=== PATIENT | female | born 1960 | race Caucasian/White ===

== ENCOUNTER → 2016-11-19 | Outpatient (CLI) | payer OTHER ==
[~2016-11-19] MED LIST: CYM20 PO; CYM30 PO; DIAZ-165 PO; DIAZ10TA3 PO; DIAZ2TAB PO; DIGE1CAP10 PO; DIPH25CA65 PO; DULO-24 PO; FAMO1TAB48 PO; FOLI1TAB7 PO; HYDR-5688 PO; HYDR25CA PO; LEVO25CA2 PO; LEVO25TA PO; MISCCAP80 PO; NITR-5 PO; NYSS/ PO; ONDA4TAB10 SL; SULF800T23 PO; VLM2 PO; [UNRECOGNIZED DRUG - OTHER] PO
--- NOTE | 2016-11-19 19:32 | ELECTROENCEPHALOGRAPH REPORT ---
REQUESTING PHYSICIAN: Dr. Saunders. CLINICAL DIAGNOSIS: Headaches with altered consciousness. EEG DIAGNOSIS: Essentially normal during wakefulness. DESCRIPTION OF TRACING: This EEG was done in the laboratory and was of excellent technical quality with few or no muscle or movement artifacts. Simultaneous video analysis of patient movement and behavior was obtained. Photic stimulation is the only stimulus parameter utilized. Drowsiness and light sleep are not recorded. Under these conditions, there is evidence for normal appearing background rhythm in the alpha range of up to 10 Hz of maximum frequency and of up to 30 microvolts of maximum amplitude. This is maximum in posterior head regions and bilaterally symmetrical. Polymorphic mid frequency theta activity is seen over all head regions without clear focal or regional predominance. Anterior head region maximum bilaterally symmetrical low voltage fast activity in the beta range is present. Photic stimulation provokes a modest driving response without a photomyogenic or photoparoxysmal component. At no time during the waking tracing is there evidence for potentially epileptogenic activity in the form of polyspike or spike wave bursts, focal sharp waves or focal spikes. INTERPRETATION: This electroencephalogram is essentially normal during wakefulness without evidence for focal or generalized encephalopathy and without evidence for potentially epileptogenic activity.
== END | disposition home or self-care (01) ==
LOC: C.NEUR 13:33
PROVIDERS: ATTEND Psychiatry & Neurology Neurology
DX: R51 Headache (principal)

== ENCOUNTER 2016-11-24 15:34 | Emergency (ER) | payer OTHER ==
[~2016-11-24] VITALS: Ht 162.6 cm; Wt 73.1 kg
[~2016-11-24 15:34] MED LIST changes: -CYM20 PO; -CYM30 PO; -DIAZ10TA3 PO; -DIAZ2TAB PO; -DIGE1CAP10 PO; -DIPH25CA65 PO; -FAMO1TAB48 PO; -FOLI1TAB7 PO; -HYDR-5688 PO; -HYDR25CA PO; -LEVO25CA2 PO; -NITR-5 PO; -NYSS/ PO; -ONDA4TAB10 SL; -SULF800T23 PO; -VLM2 PO; -[UNRECOGNIZED DRUG - OTHER] PO
[2016-11-24 15:45] VITALS: TEMP 36.7; Ht 162.6 cm; Wt 73.1 kg
[2016-11-24] MEDS ORDERED: LEVO25CA2 PO (16:31)
[2016-11-24] MEDS ORDERED: NYSS/ PO (16:31)
[2016-11-24] MEDS ORDERED: DIAZ2TAB PO (16:31)
[2016-11-24] MEDS ORDERED: SODIUM CHLORIDE 0.9% 1000ML 250 ML IV STA (17:38)
[2016-11-24] MEDS ORDERED: SODIUM CHLORIDE 0.9% 1000ML 1,000 ML IV STA (17:38)
--- NOTE | 2016-11-24 17:44 | EMERGENCY ROOM VISIT NOTE ---
History Report prepared by Lori: Young Lozada Under the Supervision of: Dr. Young Saenz M.D. First contact with patient: 17:23 Chief Complaint: ILLNESS Stated Complaint: HEAD, THROAT, CHEST History of Present Illness The patient is a 56 year old female who presents to the Emergency Room with complaints of persistent head pain beginning about 1 year ago. She notes she wakes up in the morning with the head pain either on the right or left side, or top of her head. She reports she was at the [place] ER this past September of 2016 with stroke-like symptoms noting she had left arm numbness. She was referred to Dr. Kuhn in Neurology and was set up for an MRI and EEG which were done last week. The patient reports she was going to see her neurologist tomorrow but could not get a ride. She was advised by a nurse at the neurologist to present to the ER. The patient states that, in addition to the head pain, she has been having right sided neck pain for the past week. She denies having any fever, but notes she had chest pain and nausea en route to the ER thought she this this is from her anxiety. She admits to a history of anxiety and depression and follows with Dr. Cunha, her psychiatrist. She notes her anxiety and depression medication worsen her symptoms. She denies having any suicidal or homicidal ideations. The patient adds she was recently started on Nystatin 3 weeks ago for thrush, and Tirosint for hypothyroidism. She notes she has recently gain weight, and has had constipation recently. Her last bowel movement was 2 days ago. Source of History: patient Onset: 1 year ago Position: head Quality: other (head pain) Timing: other (persistent) Associated Symptoms: + chest pain, + nausea, + neck pain, No fevers Note: The patient reports having constipation. Review of Systems See HPI for pertinent positives & negatives. A total of 10 systems reviewed and were otherwise negative. Past Medical & Surgical Medical Problems: (1) Anxiety (2) Anxiety (3) Depression (4) Fatty liver (5) Gallbladder polyp (6) Hiatal hernia (7) Hypothyroidism (8) Thyroid problems Surgical Problems: (1) Lipoma of neck (2) S/P tonsillectomy Old medical records were reviewed. Nurse's notes were reviewed and I agree with. Family History Diabetes mellitus FHx: gallbladder disease FHx: heart disease No FHx f blood clots Social History Smoking Status: Never Smoker Alcohol Use: none Housing Status: lives with family, lives with significant other Current/Historical Medications Scheduled Diazepam (Valium), 10 MG PO HS Levothyroxine Sodium (Tirosint), 25 MCG PO DAILY Nystatin (Nystatin Suspension), 5 ML PO QID Scheduled PRN Diazepam (Valium), 4-6 MG PO QAM PRN for Anxiety Allergies Coded Allergies: Escitalopram (Unverified Allergy, Unknown, RESTLESS ARMS, 11/24/16) Morphine (Unverified Allergy, Unknown, bad reaction, 11/24/16) Venlafaxine (Unverified Allergy, Unknown, RESTLESS ARMS, 11/24/16) Levothyroxine (Verified Adverse Reaction, Intermediate, FACE AND TONGUE SWELLING, 11/24/16) PT TAKES THIS MEDICATION DESPITE REACTION 10/14/15- SPOKE WITH PATIENT, BELIEVES THAT THIS REACTION COMES FROM SYNTHROID BECAUSE WHEN THE DOSE WAS INCREASED THE SWELLING GOT WORSE. CURRENTLY TAKES BRAND, BELIEVES HAS TAKEN GENERIC Omeprazole (Verified Adverse Reaction, Intermediate, SWOLLEN TONGUE, NAUSEA, FACIAL EDEMA, 11/24/16) Amitriptyline (Verified Adverse Reaction, Unknown, FACIAL PAIN, 11/24/16) Sertraline (Verified Adverse Reaction, Unknown, BURNING FEELING ON TONGUE , 11/24/16) Physical Exam Vital Signs Date Time Temp Pulse Resp B/P Pulse Ox O2 Delivery O2 Flow Rate FiO2 11/24/16 21:17 82 118/75 95 11/24/16 17:57 81 18 113/74 97 Room Air 11/24/16 15:45 36.7 102 16 112/75 96 Room Air Physical Exam General: Non ill appearing middle aged female. Speaking and swallowing without difficulty; no drooling. Well developed well nourished in no acute distress, breathing comfortably on room air. Normal speech. No difficulty speaking and swallowing HEENT: Normal cephalic atraumatic. Pupils are equal round and reactive to light. Extraocular movements are intact. Oropharynx is pink with moist mucous membranes. No swelling of the mouth lips or tongue. Neck: Supple with a midline trachea. No meningeal signs or stiffness, no JVD or bruits. No masses. No Stridor. Chest: Clear to auscultation bilaterally. No wheezes or rhonchi. No increased work of breathing. Heart: regular rate and rhythm. Abdomen: Soft nontender, nondistended without rebound guarding or rigidity. Extremities: No cyanosis clubbing or edema. No calf tenderness or assymetry Spine/Back. Non tender to palpation. No CVA tenderness Skin: Good turgor without rashes. Neurologic exam: Cranial nerves two through 12 are intact. Motor and sensation are intact and symmetrical throughout. Psych: Normal thought process, intermittent teary eyed, denies suicidal or homicidal ideations. Medical Decision & Procedures ER Provider Diagnostic Interpretation: X ray results as stated below per my interpretation and radiologist interpretation. Other radiology results as stated below per my review and radiologist interpretation: CHEST ONE VIEW PORTABLE FINDINGS: Lung volumes are normal. There is no pneumothorax or pleural effusion. No consolidation is identified. Cardiac size is normal. Mediastinal contours are normal. There is no evidence of pulmonary edema. Subtle interstitial thickening within the right lower lung is likely within normal limits. IMPRESSION: No acute cardiopulmonary findings. Electronically signed by: Singh Go M.D. 11/24/2016 6:23 PM Dictated Date/Time: 11/24/2016 6:22 PM THYROID ULTRASOUND FINDINGS: The right thyroid lobe measures 5.9 x 2.6 x 2 cm and the left lobe measures 6.3 x 3.1 x 2.2 cm. The entirety of the gland is heterogeneous with increased vascularity. There is a 9 mm echogenic right lobe nodule. A right-sided cervical lymph node measures 1.1 x 0.5 x 0.8 cm. IMPRESSION: 1. Moderately enlarged, heterogeneous thyroid gland. The findings raise the possibility of thyroiditis. 2. 9 mm echogenic right lobe thyroid nodule. While indeterminate, this is likely benign and does not meet criteria for biopsy. 3. Prominent but nonenlarged right-sided cervical lymph node. No pathologically enlarged cervical lymph nodes identified. Electronically signed by: Singh Go M.D. 11/24/2016 7:21 PM Dictated Date/Time: 11/24/2016 7:18 PM Laboratory Results 11/24/16 18:10 Red Blood Count 4.72, Mean Corpuscular Volume 91.1, Mean Corpuscular Hemoglobin 31.1, Mean Corpuscular Hemoglobin Concent 34.2, Mean Platelet Volume 9.9, Neutrophils (%) (Auto) 63.5, Lymphocytes (%) (Auto) 20.8, Monocytes (%) (Auto) 7.9, Eosinophils (%) (Auto) 7.1, Basophils (%) (Auto) 0.6, Neutrophils # (Auto) 5.57, Lymphocytes # (Auto) 1.82, Monocytes # (Auto) 0.69, Eosinophils # (Auto) 0.62, Basophils # (Auto) 0.05 11/24/16 18:10 Test 11/24/16 18:10 11/24/16 18:24 White Blood Count 8.76 K/uL (4.8-10.8) Red Blood Count 4.72 M/uL (4.2-5.4) Hemoglobin 14.7 g/dL (12.0-16.0) Hematocrit 43.0 % (37-47) Mean Corpuscular Volume 91.1 fL (80-100) Mean Corpuscular Hemoglobin 31.1 pg (25-34) Mean Corpuscular Hemoglobin Concent 34.2 g/dl (32-36) Platelet Count 320 K/uL (130-400) Mean Platelet Volume 9.9 fL (7.4-10.4) Neutrophils (%) (Auto) 63.5 % Lymphocytes (%) (Auto) 20.8 % Monocytes (%) (Auto) 7.9 % Eosinophils (%) (Auto) 7.1 % Basophils (%) (Auto) 0.6 % Neutrophils # (Auto) 5.57 K/uL (1.4-6.5) Lymphocytes # (Auto) 1.82 K/uL (1.2-3.4) Monocytes # (Auto) 0.69 K/uL (0.11-0.59) Eosinophils # (Auto) 0.62 K/uL (0-0.5) Basophils # (Auto) 0.05 K/uL (0-0.2) RDW Standard Deviation 43.6 fL (36.4-46.3) RDW Coefficient of Variation 13.1 % (11.5-14.5) Immature Granulocyte % (Auto) 0.1 % Immature Granulocyte # (Auto) 0.01 K/uL (0.00-0.02) Anion Gap 10.0 mmol/L (3-11) Est Creatinine Clear Calc Drug Dose 64.0 ml/min Estimated GFR () 77.1 Estimated GFR (Non- 66.5 BUN/Creatinine Ratio 13.1 (10-20) Calcium Level 8.7 mg/dl (8.5-10.1) Total Bilirubin 0.2 mg/dl (0.2-1) Direct Bilirubin < 0.1 mg/dl (0-0.2) Aspartate Amino Transf (AST/SGOT) 14 U/L (15-37) Alanine Aminotransferase (ALT/SGPT) 22 U/L (12-78) Alkaline Phosphatase 92 U/L (45-117) Total Protein 7.6 gm/dl (6.4-8.2) Albumin 3.8 gm/dl (3.4-5.0) Lipase 131 U/L (73-393) Thyroid Stimulating Hormone (TSH) 3.490 uIu/ml (0.300-4.500) Bedside Troponin I 0.000 ng/ml (0-0.045) Laboratory studies as stated above per my review. Medications Administered Medications (Trade) Dose Ordered Sig/Irving Route Start Time Stop Time Status Last Admin Dose Admin Sodium Chloride 250 ml @ 999 mls/hr Q16M STAT IV 11/24/16 17:38 11/24/16 17:53 DC 11/24/16 17:38 999 MLS/HR Sodium Chloride (Nss 1000ml) 1,000 ml @ 100 mls/hr Q10H STAT IV 11/24/16 17:38 11/24/16 22:52 DC 11/24/16 17:38 100 MLS/HR ECG Indication: other (illness) Rate (beats per minute): 84 Rhythm: normal sinus Findings: no acute ischemic change, no ectopy Comparison ECG Date: March 26, 2016; Change: rate has decreased ED Course 1725: Past medical records reviewed. The patient was evaluated in room C2B, and a complete history and physical examination were performed. 8: Ordered NSS 1,000 ml @ 100 mls/hr IV, and NSS 250 ml @ 999 mls/hr IV. 0: I reassessed the patient and she is feeling better. 2100: Upon reevaluation, the patient is doing well. I discussed the results and treatment plan with the patient. She verbalized agreement of the treatment plan. The patient was discharged home. Medical Decision Differentials include anxiety, neck mass, thyroid disease, intracranial process , seizure, and electrolyte or metabolic abnormality. This patient comes in as described above. she has multiple different complaints .she's been having chronic headaches. She's also has a sensation in her throat and this has been going on for a week or month. She looks well on exam. she is speaking and swallowing without difficulties and has a normal neurologic exam. I did review her workup that she's had done recently .she had a normal EEG she had a normal MRI of her brain. I I obtained multiple blood testing here. she hasno white count or fever suggest infection. she has no acute electrode or metabolic abnormalities. Her TSH is within normal limits and she has nothing to suggest acute thyroid disease or thyroid storm. Chest x-ray was unremarkable. EKG is unremarkable. I did order a CT of her neck but she declined and would rather have an ultrasound so I did an ultrasound .she has a moderate enlargement of her thyroid and a small nodule. I recommend she follow up with her regular doctor for this. Again her TSH is within normal limits. I had missed see her psychiatric rn case mgr talked to her I think a lot of her symptoms may be related to depression and anxiety. I encouraged her to follow up with her regular doctor this week for recheck . return if :worsening symptoms , shortness of breath, any new problems or concerns. She was happy the plan and discharged to home. Impression Primary Impression: Headache Additional Impression: Neck pain Scribe Attestation The scribe's documentation has been prepared under my direction and personally reviewed by me in its entirety. I confirm that the note above accurately reflects all work, treatment, procedures, and medical decision making performed by me. Departure Information Dispostion Home / Self-Care Referrals No Doctor, Assigned (PCP) Patient Instructions [facility] Additional Instructions Rest Return if: worsening of symptoms, shortness of breath, any new problems or concern Follow-up with your doctor in 1-2 days for recheck Problem Qualifiers
[2016-11-24 18:24] LABS: BASO % 0.6 %; BASO ABS # 0.05 K/uL (0-0.2); COMPLETE YES; EOS % 7.1 %; IG% 0.1 %; LYMPH % 20.8 %; LYMPH ABS # 1.82 K/uL (1.2-3.4); MEAN CELL VOLUME 91.1 fL (80-100); MEAN CORPUSCULAR HEMOGLOBIN 31.1 pg (25-34); MEAN CORPUSCULAR HGB CONC 34.2 g/dl (32-36); MEAN PLATELET VOLUME 9.9 fL (7.4-10.4); MONO % 7.9 %; NEUT % 63.5 %; PLATELET COUNT 320 K/uL (130-400); RED BLOOD COUNT 4.72 M/uL (4.2-5.4); WHITE BLOOD COUNT 8.76 K/uL (4.8-10.8)
--- NOTE | 2016-11-24 18:24 | DIAGNOSTIC IMAGING REPORT ---
CHEST ONE VIEW PORTABLE CLINICAL HISTORY: Chest pain. Throat pain COMPARISON STUDY: Chest radiograph October 13, 2015. FINDINGS: Lung volumes are normal. There is no pneumothorax or pleural effusion. No consolidation is identified. Cardiac size is normal. Mediastinal contours are normal. There is no evidence of pulmonary edema. Subtle interstitial thickening within the right lower lung is likely within normal limits. IMPRESSION: No acute cardiopulmonary findings. Electronically signed by: Singh Go M.D. 11/24/2016 6:23 PM Dictated Date/Time: 11/24/2016 6:22 PM
[2016-11-24] MEDS ORDERED: DIAZ10TA3 PO (18:30)
[2016-11-24 18:41] LABS: ALT/SGPT 22 U/L (12-78); BLOOD UREA NITROGEN 12 mg/dl (7-18); BUN/CREATININE RATIO 13.1 (10-20); CALCIUM 8.7 mg/dl (8.5-10.1); CARBON DIOXIDE 24 mmol/L (21-32); CHLORIDE 110 mmol/L (98-107); CREATININE 0.95 mg/dl (0.60-1.20); GLUCOSE 90 mg/dl (70-99); SODIUM 144 mmol/L (136-145)
[2016-11-24 18:51] LABS: ALKALINE PHOSPHATASE 92 U/L (45-117); AST/SGOT 14 U/L (15-37)
--- NOTE | 2016-11-24 19:22 | DIAGNOSTIC IMAGING REPORT ---
THYROID ULTRASOUND CLINICAL HISTORY: Palpable enlargement of the thyroid. Difficulty breathing. Evaluate for mass. COMPARISON STUDY: None. TECHNIQUE: Sonography of the thyroid gland was performed. FINDINGS: The right thyroid lobe measures 5.9 x 2.6 x 2 cm and the left lobe measures 6.3 x 3.1 x 2.2 cm. The entirety of the gland is heterogeneous with increased vascularity. There is a 9 mm echogenic right lobe nodule. A right-sided cervical lymph node measures 1.1 x 0.5 x 0.8 cm. IMPRESSION: 1. Moderately enlarged, heterogeneous thyroid gland. The findings raise the possibility of thyroiditis. 2. 9 mm echogenic right lobe thyroid nodule. While indeterminate, this is likely benign and does not meet criteria for biopsy. 3. Prominent but nonenlarged right-sided cervical lymph node. No pathologically enlarged cervical lymph nodes identified. Electronically signed by: Singh Go M.D. 11/24/2016 7:21 PM Dictated Date/Time: 11/24/2016 7:18 PM
[2016-11-24 21:17] VITALS: BP 118/75; PULSE 82; O2SAT 95
[2017-01-14] MEDS ORDERED: CYM20 PO (08:53)
[2017-01-14] MEDS ORDERED: DIAZ2TAB PO (08:53)
== END 2016-11-24 21:17 | disposition home or self-care (01) ==
LOC: C.EDB 15:35 → C.EDC 21:17
DX: R51 Headache (principal); M54.2 Cervicalgia; E03.9 Hypothyroidism, unspecified; F41.8 Other specified anxiety disorders; Z83.3 Family history of diabetes mellitus; Z82.49 Family history of ischemic heart disease and other diseases of the circulatory system; Z83.79 Family history of other diseases of the digestive system

== ENCOUNTER 2016-12-17 14:24 | Emergency (ER) | payer OTHER ==
[~2016-12-17] VITALS: Ht 162.6 cm; Wt 74.6 kg
[~2016-12-17 14:24] MED LIST changes: -DIAZ-165 PO; +DIAZ10TA3 PO; +DIAZ2TAB PO; -DULO-24 PO; +LEVO25CA2 PO; -LEVO25TA PO; -MISCCAP80 PO; +NYSS/ PO
[2016-12-17 14:40] VITALS: TEMP 36.5; Ht 162.6 cm; Wt 74.6 kg
[2016-12-17] MEDS ORDERED: [UNRECOGNIZED DRUG - OTHER] PO (16:29)
--- NOTE | 2016-12-17 16:40 | EMERGENCY ROOM VISIT NOTE ---
History Report prepared by Lori: Jeffrey Verdin Under the Supervision of: Dr. Wiliam Alex M.D. First contact with patient: 16:14 Chief Complaint: PAIN (GENERALIZED) Stated Complaint: WHAT DOESNT HURT History of Present Illness The patient is a 56 year old female who presents to the Emergency Room with complaints of persistent generalized pain that started a few weeks ago. The patient was here in November for similar symptoms, including a feeling that her thyroid is pushing up in her airway in her throat. She says that she cannot breathe well, but when she is sitting up, she feels better. The patient has been on Nystatin for yeast in her throat. She has had issues with her thyroid, and is seeing a nurse practitioner in [place] for it. The patient had a throat ultrasound while here in November, and is scheduled to have a repeat ultrasound. She also notes multiple other issues, including depression, anxiety , headaches, a tight abdomen, and burning urination. She says the burning urination started a week ago. The patient has never had a urinary tract infection. She denies any vaginal discharge. Regarding her depression, she says she goes to sleep to escape and "alienates" herself. She does not take any medications for her anxiety, as the medications have given her headaches. For about a year now, she has felt weak, and even a little amount of stress makes her feel extremely weak. She also has been having chronic shaking, and went to the [facility] ER for this. The patient was referred to Dr. Saunders (neurologist) , who gave her a brain MRI. The MRI was normal. She denies any suicidal ideations. Source of History: patient Onset: A few weeks ago Position: other (global - generalized pain) Timing: other (persistent) Associated Symptoms: + headache, + urinary symptoms, + weakness (chronic for a year) Note: Associated symptoms: Tight throat, causing difficulty breathing. Depression, anxiety, tight abdomen. Chronic shaking. Denies any vaginal discharge, suicidal ideation. Review of Systems See HPI for pertinent positives & negatives. A total of 10 systems reviewed and were otherwise negative. Past Medical & Surgical Medical Problems: (1) Anxiety (2) Anxiety (3) Depression (4) Fatty liver (5) Gallbladder polyp (6) Hiatal hernia (7) Hypothyroidism (8) Thyroid problems Surgical Problems: (1) Lipoma of neck (2) S/P tonsillectomy Family History Diabetes mellitus FHx: gallbladder disease FHx: heart disease No FHx f blood clots Social History Smoking Status: Never Smoker Alcohol Use: none Housing Status: lives with family, lives with significant other Current/Historical Medications Scheduled Diazepam (Valium), 10 MG PO HS Hydroxyzine Pamoate (Vistaril), 1 CAP PO BID Levothyroxine Sodium (Tirosint), 25 MCG PO DAILY Nitrofurantoin Monohyd Macrocr (Macrobid), 100 MG PO BID Nystatin (Nystatin Suspension), 5 ML PO QID [Timbo Hydrate], 2 TABS PO BID Scheduled PRN Diazepam (Valium), 4-6 MG PO QAM PRN for Anxiety Allergies Coded Allergies: Escitalopram (Verified Allergy, Intermediate, RESTLESS ARMS, 12/17/16) Morphine (Verified Allergy, Intermediate, bad reaction, 12/17/16) Venlafaxine (Verified Allergy, Intermediate, RESTLESS ARMS, 12/17/16) Amitriptyline (Verified Adverse Reaction, Severe, FACIAL PAIN, 12/17/16) Levothyroxine (Verified Adverse Reaction, Severe, FACE AND TONGUE SWELLING , 12/17/16) PT TAKES THIS MEDICATION DESPITE REACTION 10/14/15- SPOKE WITH PATIENT, BELIEVES THAT THIS REACTION COMES FROM SYNTHROID BECAUSE WHEN THE DOSE WAS INCREASED THE SWELLING GOT WORSE. CURRENTLY TAKES BRAND, BELIEVES HAS TAKEN GENERIC Omeprazole (Verified Adverse Reaction, Severe, SWOLLEN TONGUE, NAUSEA, FACIAL EDEMA, 12/17/16) Sertraline (Verified Adverse Reaction, Intermediate, BURNING FEELING ON TONGUE, 12/17/16) Physical Exam Vital Signs Date Time Temp Pulse Resp B/P Pulse Ox O2 Delivery O2 Flow Rate FiO2 12/17/16 19:51 73 18 127/76 94 12/17/16 18:41 77 14 131/70 95 Room Air 12/17/16 14:40 36.5 72 20 138/76 99 Room Air Physical Exam GENERAL: Patient is a healthy-appearing well-nourished. Crying on exam. HEAD: Normocephalic atraumatic EYES: Ocular movements intact pupils equal and react to light OROPHARYNX mucous membranes are moist no exudates present no erythema or edema present NECK: Supple no nuchal rigidity CHEST: Good equal expansion LUNGS: Clear and equal to auscultation CARDIAC: Normal S1 and S2 ABDOMEN: Soft nontender no guarding BACK: No CVA tenderness EXTREMITIES: No pain upon palpation normal muscle strength in all groups no clubbing cyanosis or edema NEURO: Patient is following commands is answering questions appropriately. Alert and oriented x3 Cranial Nerves 2-12 grossly intact Medical Decision & Procedures Laboratory Results 12/17/16 18:22 Red Blood Count 4.93, Mean Corpuscular Volume 93.3, Mean Corpuscular Hemoglobin 31.4, Mean Corpuscular Hemoglobin Concent 33.7, Mean Platelet Volume 9.6, Neutrophils (%) (Auto) 69.5, Lymphocytes (%) (Auto) 19.9, Monocytes (%) (Auto) 7.0, Eosinophils (%) (Auto) 3.1, Basophils (%) (Auto) 0.3, Neutrophils # (Auto) 6.46, Lymphocytes # (Auto) 1.85, Monocytes # (Auto) 0.65, Eosinophils # (Auto) 0.29, Basophils # (Auto) 0.03 12/17/16 18:22 Test 12/17/16 18:20 12/17/16 18:22 12/17/16 18:31 12/17/16 19:20 Urine Color YELLOW Urine Appearance CLEAR (CLEAR) Urine pH 7.0 (4.5-7.5) Urine Specific [place] 1.005 (1.000-1.030) Urine Protein NEG (NEG) Urine Glucose (UA) NEG (NEG) Urine Ketones NEG (NEG) Urine Occult Blood NEG (NEG) Urine Nitrite NEG (NEG) Urine Bilirubin NEG (NEG) Urine Urobilinogen NEG (NEG) Urine Leukocyte Esterase TRACE (NEG) Urine WBC (Auto) 1-5 /hpf (0-5) Urine RBC (Auto) 0-4 /hpf (0-4) Urine Hyaline Casts (Auto) 1-5 /lpf (0-5) Urine Epithelial Cells (Auto) >30 /lpf (0-5) Urine Bacteria (Auto) 1+ (NEG) Urine Opiates Screen NEG (NEG) Urine Methadone, Qualitative NEG (NEG) Urine Barbiturates NEG (NEG) Urine Phencyclidine (PCP) Level NEG (NEG) Ur Amphetamine/Methamphetamine NEG (NEG) MDMA (Ecstasy) Screen NEG (NEG) Urine Benzodiazepines Screen POS (NEG) Urine Cocaine Metabolite NEG (NEG) Urine Marijuana (THC) NEG (NEG) White Blood Count 9.30 K/uL (4.8-10.8) Red Blood Count 4.93 M/uL (4.2-5.4) Hemoglobin 15.5 g/dL (12.0-16.0) Hematocrit 46.0 % (37-47) Mean Corpuscular Volume 93.3 fL (80-100) Mean Corpuscular Hemoglobin 31.4 pg (25-34) Mean Corpuscular Hemoglobin Concent 33.7 g/dl (32-36) Platelet Count 350 K/uL (130-400) Mean Platelet Volume 9.6 fL (7.4-10.4) Neutrophils (%) (Auto) 69.5 % Lymphocytes (%) (Auto) 19.9 % Monocytes (%) (Auto) 7.0 % Eosinophils (%) (Auto) 3.1 % Basophils (%) (Auto) 0.3 % Neutrophils # (Auto) 6.46 K/uL (1.4-6.5) Lymphocytes # (Auto) 1.85 K/uL (1.2-3.4) Monocytes # (Auto) 0.65 K/uL (0.11-0.59) Eosinophils # (Auto) 0.29 K/uL (0-0.5) Basophils # (Auto) 0.03 K/uL (0-0.2) RDW Standard Deviation 45.8 fL (36.4-46.3) RDW Coefficient of Variation 13.4 % (11.5-14.5) Immature Granulocyte % (Auto) 0.2 % Immature Granulocyte # (Auto) 0.02 K/uL (0.00-0.02) Anion Gap 9.0 mmol/L (3-11) Est Creatinine Clear Calc Drug Dose 74.9 ml/min Estimated GFR () 92.1 Estimated GFR (Non- 79.4 BUN/Creatinine Ratio 15.7 (10-20) Calcium Level 9.2 mg/dl (8.5-10.1) Total Bilirubin 0.3 mg/dl (0.2-1) Direct Bilirubin < 0.1 mg/dl (0-0.2) Aspartate Amino Transf (AST/SGOT) 14 U/L (15-37) Alanine Aminotransferase (ALT/SGPT) 27 U/L (12-78) Alkaline Phosphatase 96 U/L (45-117) Total Protein 8.3 gm/dl (6.4-8.2) Albumin 3.9 gm/dl (3.4-5.0) Globulin 4.4 gm/dl (2.5-4.0) Albumin/Globulin Ratio 0.9 (0.9-2) Thyroid Stimulating Hormone (TSH) 4.240 uIu/ml (0.300-4.500) Free Thyroxine 0.88 ng/dl (0.80-1.60) Ethyl Alcohol mg/dL < 3.0 mg/dl (0-3) Bedside Glucose 85 mg/dl (70-90) Free Triiodothyronine 3.08 pg/ml (2.30-4.20) Labs reviewed by ED physician. Medications Administered Medications (Trade) Dose Ordered Sig/Irving Route Start Time Stop Time Status Last Admin Dose Admin Sodium Chloride (Nss 500ml) 500 ml @ 999 mls/hr Q31M STAT IV 12/17/16 17:04 12/17/16 17:36 DC 12/17/16 18:38 999 MLS/HR Hydroxyzine HCl (Vistaril Tab) 25 mg NOW STAT PO 12/17/16 17:19 12/17/16 17:21 DC 12/17/16 18:20 25 MG Lidocaine HCl (Viscous Lidocaine 2% Soln) 20 ml STK-MED ONCE .ROUTE 12/17/16 18:31 12/17/16 18:34 DC 12/17/16 18:38 20 ML Al Hydroxide/Mg Hydroxide (Maalox Susp) 30 ml STK-MED ONCE .ROUTE 12/17/16 18:31 12/17/16 18:34 DC 12/17/16 18:38 30 ML ED Course 1704: Ordered NSS 500 ml @ 999 mls/hr IV. 1706: Ordered GI Cocktail 24 ml PO. 1707: Past medical records reviewed. The patient was evaluated in room C2B. A complete history and physical examination was performed. 1719: Ordered Vistaril Tab 25 mg PO. 6: Upon reexamination the patient is feeling much better. I discussed results and treatment plan with the patient. She verbalizes agreement and understanding. The patient is ready for discharge. 0: Ordered Al Hydroxide/Mg Hydroxide/Lidocaine HCl/Barcode PO PRN. Medical Decision Differential diagnosis: Etiologies such as mood disorder, infection, hypoglycemia, electrolyte abnormalities, cardiac sources, intracerebral event, toxicologic, neurologic, as well as others were entertained. This is a 56-year-old female who presents emergency department complaining of multiple complaints. The patient is nonspecific in her complaints and discusses a new complaint with each provider that is in the room. Currently to the physician she is complaining of a urinary tract infection however she is tearful on examination over her . I believe that she has a lot of stress at home and asked if it was okay if psychiatry could see her. Unfortunately there was a delay in obtaining this patient's urine as well as her laboratory work and she became impatient over the delay during a period of high volume high acuity. She was given Vistaril for her symptoms. Repeat examination revealed much improvement. Since the patient is having urinary complaints I will place her on Diflucan and started her on Macrobid for a week. The patient denies being suicidal or homicidal and I filled can be safely discharged home. She wishes to have a GI cocktail elixir as well as a prescription for Vistaril. She does have a follow-up with psychiatry. Patient was in agreement with the treatment plan. Impression Primary Impression: UTI (urinary tract infection) Additional Impression: Anxiety Scribe Attestation The scribe's documentation has been prepared under my direction and personally reviewed by me in its entirety. I confirm that the note above accurately reflects all work, treatment, procedures, and medical decision making performed by me. Departure Information Dispostion Home / Self-Care Prescriptions Nitrofurantoin Monohyd Macrocr (Macrobid) 100 Mg Cap 100 MG PO BID for 7 Days, #14 CAP Prov: Wiliam Alex MD 12/17/16 Hydroxyzine Pamoate (VISTARIL) 25 Mg Cap 1 CAP PO BID for 10 Days, #20 CAP 1 Refill Prov: Wiliam Alex MD 12/17/16 Referrals Josiah Song MD (PCP) Forms HOME CARE DOCUMENTATION FORM, IMPORTANT VISIT INFORMATION, WORK / SCHOOL INSTRUCTIONS Patient Instructions Anxiety Body Response, My [facility], UTI, UTI Catheter Associated Additional Instructions use 30 ccs every 6 hours of Gi Cocktail You have been examined and treated today on an emergency basis only. This is not a substitute for, or an effort to provide, complete comprehensive medical care. It is impossible to recognize and treat all injuries or illnesses in a single emergency department visit. It is therefore important that you follow up closely with Dr Song. Call as soon as possible for an appointment. Thank you for your time and consideration. I look forward to speaking with you again soon. Please don't hesitate to call us if you have any questions. Problem Qualifiers Primary Impression: UTI (urinary tract infection) Urinary tract infection type: acute cystitis Hematuria presence: without hematuria Qualified Codes: N30.00 - Acute cystitis without hematuria
[2016-12-17] MEDS ORDERED: LORAZEPAM 2 MG/ML 1 ML VIAL IV STA (17:04)
[2016-12-17] MEDS ORDERED: SODIUM CHLORIDE 0.9% 500ML 500 ML IV STA (17:04)
[2016-12-17] MEDS ORDERED: GI COCKTAIL PO STA (17:06)
[2016-12-17] MEDS ORDERED: OPTIRAY 320 IV PRN (17:15)
[2016-12-17] MEDS ORDERED: hydrOXYzine HCL 25 MG TAB PO STA (17:19)
[2016-12-17] MEDS ORDERED: ALUMINUM/MAGNESIUM SUSP 30 ML UDC ONE (18:31)
[2016-12-17] MEDS ORDERED: LIDOCAINE HCL 2% VISC SOLN 20 ML UDC ONE (18:31)
[2016-12-17 18:35] LABS: BASO % 0.3 %; BASO ABS # 0.03 K/uL (0-0.2); COMPLETE YES; EOS % 3.1 %; IG% 0.2 %; LYMPH % 19.9 %; LYMPH ABS # 1.85 K/uL (1.2-3.4); MEAN CELL VOLUME 93.3 fL (80-100); MEAN CORPUSCULAR HEMOGLOBIN 31.4 pg (25-34); MEAN CORPUSCULAR HGB CONC 33.7 g/dl (32-36); MEAN PLATELET VOLUME 9.6 fL (7.4-10.4); NEUT % 69.5 %; PLATELET COUNT 350 K/uL (130-400); RED BLOOD COUNT 4.93 M/uL (4.2-5.4)
[2016-12-17 18:52] LABS: URINE APPEARANCE CLEAR (CLEAR); URINE BILIRUBIN NEG (NEG); URINE COLOR YELLOW; URINE EPITHELIAL CELL AUTO >30 /lpf (0-5); URINE NITRITE NEG (NEG); URINE SPECIFIC GRAVITY 1.005 (1.000-1.030); UROBILINOGEN NEG (NEG)
[2016-12-17 18:55] LABS: ALT/SGPT 27 U/L (12-78); AST/SGOT 14 U/L (15-37); BLOOD UREA NITROGEN 13 mg/dl (7-18); BUN/CREATININE RATIO 15.7 (10-20); CALCIUM 9.2 mg/dl (8.5-10.1); CARBON DIOXIDE 27 mmol/L (21-32); CHLORIDE 107 mmol/L (98-107); CREATININE 0.82 mg/dl (0.60-1.20); GLUCOSE 87 mg/dl (70-99); POTASSIUM 3.9 mmol/L (3.5-5.1); SODIUM 143 mmol/L (136-145)
[2016-12-17 18:59] LABS: MANUAL MICROSCOPIC REQUIRED? NO; REVIEW REQ? NO
[2016-12-17 19:06] LABS: ALB/GLOB RATIO 0.9 (0.9-2); ALKALINE PHOSPHATASE 96 U/L (45-117)
[2016-12-17 19:10] LABS: BENZODIAZEPINE, URINE POS (NEG); COCAINE,URINE NEG (NEG); PHENCYCLIDINE, URINE NEG (NEG)
[2016-12-17] MEDS ORDERED: HYDR25CA PO (19:19)
[2016-12-17] MEDS ORDERED: NITR-5 PO (19:22)
[2016-12-17] MEDS ORDERED: ALUMINUM/MAGNESIUM SUSP 72 ML, LIDOCAINE HCL 2% VISCOUS SOLN 24 ML, BARCODE IDENTIFIER ... PO PRN ×2 (19:30)
[2016-12-17 19:51] VITALS: BP 127/76; PULSE 73; O2SAT 94
[2016-12-20 15:09] LABS: HYDROXYETHYLFLURAZEPAM CONF NEGATIVE NG/ML (CUTOFF=50); HYDROXYMIDAZOLAM NEGATIVE NG/ML (CUTOFF=50); HYDROXYTRIAZOLAM CONF NEGATIVE NG/ML (CUTOFF=50); TEMAZEPAM CONF 698 NG/ML (CUTOFF=50)
[2017-01-14] MEDS ORDERED: CYM20 PO (08:53)
[2017-01-14] MEDS ORDERED: DIAZ2TAB PO (08:53)
== END 2016-12-17 19:52 | disposition home or self-care (01) ==
LOC: C.EDB 14:25 → C.EDC 19:52
DX: N30.00 Acute cystitis without hematuria (principal); F41.8 Other specified anxiety disorders; K76.0 Fatty (change of) liver, not elsewhere classified; E03.9 Hypothyroidism, unspecified; Z83.3 Family history of diabetes mellitus; Z82.49 Family history of ischemic heart disease and other diseases of the circulatory system

== ENCOUNTER 2017-01-10 13:12 | Inpatient (IN) | payer OTHER ==
[~2017-01-10] VITALS: Ht 162.6 cm; Wt 73.0 kg
[~2017-01-10 13:12] MED LIST changes: +HYDR25CA PO; +[UNRECOGNIZED DRUG - OTHER] PO
[2017-01-10] MEDS ORDERED: LORAZEPAM 1 MG TAB SL STA (13:49)
--- NOTE | 2017-01-10 13:49 | EMERGENCY ROOM VISIT NOTE ---
History Report prepared by Lori: Gume Antunez Under the Supervision of: Dr. Shaheen Hartmann D.O. First contact with patient: 13:30 Chief Complaint: MENTAL HEALTH EVALUATION Stated Complaint: [facility] History of Present Illness The patient is a 56 year old female who presents to the Emergency Room due to her worsening mental status which began to decline over the past couple of weeks. The patient states that she is experiencing significant anxiety due to a nodule on her Thyroid. Hospital nursing staff states that the patient was in the emergency department 1 month ago for a similar anxiety. She admits to having suicidal thoughts, and states that she has thought of specific plants to "walk out into traffic." Per nursing staff the patient cannot stop crying, and on some days is not able to leave her bed secondary to her anxiety. The patient is also very concerned with her confusion and memory issues lately. She states that she cannot remember how to get common places when she drives, and forgets things very easily. The patient is currently on Valium for Panic Disorder and Depression which she was diagnosed with years ago. She does not believe that this medication is helping her condition. The patient has been admitted to [address] [place] [address] in the past, almost one year ago. The patient is scheduled to see her therapist on the 14 of this month. She does not feel that she is safe at home at this time. Source of History: patient Onset: Couple weeks [employer] SAL[employer] EXEC[employer]IVE Position: other (PSYCH) Quality: other (Anxitey/Suicidal Thoughts) Timing: worsening Note: Positive suicidal ideation. Review of Systems See HPI for pertinent positives & negatives. A total of 10 systems reviewed and were otherwise negative. Past Medical & Surgical Medical Problems: (1) Anxiety (2) Anxiety (3) Depression (4) Fatty liver (5) Gallbladder polyp (6) Hiatal hernia (7) Hypothyroidism (8) Thyroid problems Surgical Problems: (1) Lipoma of neck (2) S/P tonsillectomy Family History Diabetes mellitus FHx: gallbladder disease FHx: heart disease No FHx f blood clots Social History Smoking Status: Never Smoker Alcohol Use: none Housing Status: lives with family, lives with significant other Current/Historical Medications Scheduled Diazepam (Valium), 10 MG PO HS Diazepam (Valium), 8 MG PO QAM Famotidine (Pepcid), 40 MG PO DAILY Levothyroxine Sodium (Tirosint), 25 MCG PO DAILY Allergies Coded Allergies: Escitalopram (Verified Allergy, Intermediate, RESTLESS ARMS, 01/10/17) Morphine (Verified Allergy, Intermediate, bad reaction, 01/10/17) Venlafaxine (Verified Allergy, Intermediate, RESTLESS ARMS, 01/10/17) Amitriptyline (Verified Adverse Reaction, Severe, FACIAL PAIN, 01/10/17) Levothyroxine (Verified Adverse Reaction, Severe, FACE AND TONGUE SWELLING , 01/10/17) PT TAKES THIS MEDICATION DESPITE REACTION 10/14/15- SPOKE WITH PATIENT, BELIEVES THAT THIS REACTION COMES FROM SYNTHROID BECAUSE WHEN THE DOSE WAS INCREASED THE SWELLING GOT WORSE. CURRENTLY TAKES BRAND, BELIEVES HAS TAKEN GENERIC Omeprazole (Verified Adverse Reaction, Severe, SWOLLEN TONGUE, NAUSEA, FACIAL EDEMA, 01/10/17) Sertraline (Verified Adverse Reaction, Intermediate, BURNING FEELING ON TONGUE, 01/10/17) Physical Exam Vital Signs Date Time Temp Pulse Resp B/P Pulse Ox O2 Delivery O2 Flow Rate FiO2 01/10/17 15:16 75 106/72 96 01/10/17 13:16 36.7 91 18 130/67 97 Room Air Physical Exam GENERAL: Patient is awake, alert, and tearful/anxious. EYES: The conjunctivae are clear. The pupils are round and reactive. EARS, NOSE, MOUTH AND THROAT: The nose is without any evidence of any deformity. Mucous membranes are moist tongue is midline NECK: The neck is nontender and supple. RESPIRATORY: Normal respiratory effort is noted there is no evidence of wheezing rhonchi or rales CARDIOVASCULAR: Regular rate and rhythm noted there no murmurs rubs or gallops normal S1 normal S2 GASTROINTESTINAL: The abdomen is soft. Bowel sounds are present in all quadrants. Abdomen is nontender MUSCULOSKELETAL/EXTREMITIES: There is no evidence of gross deformity full range of motion is noted in the hips and shoulders SKIN: There is no obvious evidence of any rash. There are no petechiae, pallor or cyanosis noted. NEUROLOGIC: Patient is awake alert and oriented x3 strength is symmetric patellar reflexes are 2+ bilaterally PSYCH: Patient was very tearful and depressed appearing, with a flat affect. She makes poor eye contact and continues to admit to suicidal ideation. Medical Decision & Procedures Laboratory Results 01/10/17 14:22 Red Blood Count 4.66, Mean Corpuscular Volume 92.1, Mean Corpuscular Hemoglobin 31.1, Mean Corpuscular Hemoglobin Concent 33.8, Mean Platelet Volume 9.6, Neutrophils (%) (Auto) 64.5, Lymphocytes (%) (Auto) 23.3, Monocytes (%) (Auto) 8.4, Eosinophils (%) (Auto) 3.0, Basophils (%) (Auto) 0.5, Neutrophils # (Auto) 4.92, Lymphocytes # (Auto) 1.78, Monocytes # (Auto) 0.64, Eosinophils # (Auto) 0.23, Basophils # (Auto) 0.04 01/10/17 14:22 Test 01/10/17 14:22 01/10/17 14:30 White Blood Count 7.63 K/uL (4.8-10.8) Red Blood Count 4.66 M/uL (4.2-5.4) Hemoglobin 14.5 g/dL (12.0-16.0) Hematocrit 42.9 % (37-47) Mean Corpuscular Volume 92.1 fL (80-100) Mean Corpuscular Hemoglobin 31.1 pg (25-34) Mean Corpuscular Hemoglobin Concent 33.8 g/dl (32-36) Platelet Count 340 K/uL (130-400) Mean Platelet Volume 9.6 fL (7.4-10.4) Neutrophils (%) (Auto) 64.5 % Lymphocytes (%) (Auto) 23.3 % Monocytes (%) (Auto) 8.4 % Eosinophils (%) (Auto) 3.0 % Basophils (%) (Auto) 0.5 % Neutrophils # (Auto) 4.92 K/uL (1.4-6.5) Lymphocytes # (Auto) 1.78 K/uL (1.2-3.4) Monocytes # (Auto) 0.64 K/uL (0.11-0.59) Eosinophils # (Auto) 0.23 K/uL (0-0.5) Basophils # (Auto) 0.04 K/uL (0-0.2) RDW Standard Deviation 44.7 fL (36.4-46.3) RDW Coefficient of Variation 13.3 % (11.5-14.5) Immature Granulocyte % (Auto) 0.3 % Immature Granulocyte # (Auto) 0.02 K/uL (0.00-0.02) Anion Gap 8.0 mmol/L (3-11) Estimated GFR () 84.5 Estimated GFR (Non- 72.9 BUN/Creatinine Ratio 17.0 (10-20) Calcium Level 8.9 mg/dl (8.5-10.1) Total Bilirubin 0.2 mg/dl (0.2-1) Direct Bilirubin < 0.1 mg/dl (0-0.2) Aspartate Amino Transf (AST/SGOT) 9 U/L (15-37) Alanine Aminotransferase (ALT/SGPT) 19 U/L (12-78) Alkaline Phosphatase 105 U/L (45-117) Troponin I < 0.015 ng/ml (0-0.045) Total Protein 7.8 gm/dl (6.4-8.2) Albumin 3.6 gm/dl (3.4-5.0) Thyroid Stimulating Hormone (TSH) 3.500 uIu/ml (0.300-4.500) Free Thyroxine 0.81 ng/dl (0.80-1.60) Urine Color YELLOW Urine Appearance CLEAR (CLEAR) Urine pH 6.0 (4.5-7.5) Urine Specific [place] 1.007 (1.000-1.030) Urine Protein NEG (NEG) Urine Glucose (UA) NEG (NEG) Urine Ketones NEG (NEG) Urine Occult Blood NEG (NEG) Urine Nitrite NEG (NEG) Urine Bilirubin NEG (NEG) Urine Urobilinogen NEG (NEG) Urine Leukocyte Esterase NEG (NEG) Urine Opiates Screen NEG (NEG) Urine Methadone, Qualitative NEG (NEG) Urine Barbiturates NEG (NEG) Urine Phencyclidine (PCP) Level NEG (NEG) Ur Amphetamine/Methamphetamine NEG (NEG) MDMA (Ecstasy) Screen NEG (NEG) Urine Benzodiazepines Screen POS (NEG) Urine Cocaine Metabolite NEG (NEG) Urine Marijuana (THC) NEG (NEG) Laboratory results per my review. Medications Administered Medications (Trade) Dose Ordered Sig/Irving Route Start Time Stop Time Status Last Admin Dose Admin Lorazepam (Ativan Tab) 1 mg NOW STAT SL 01/10/17 13:49 01/10/17 13:51 DC 01/10/17 14:06 1 MG ECG Indication: altered mental status Rate (beats per minute): 94 Rhythm: normal sinus Findings: no acute ischemic change, no ectopy ED Course 1341: The patient was evaluated in room A8. A complete history and physical examination were performed. 1349: Ordered Ativan 1 mg SL. 1510: The patient will be evaluated by [address] at this time. 1528: The patient has been accepted by [address] [place] [address] for inpatient treatment at this time. Medical Decision Differential diagnosis: Etiologies such as mood disorder, infection, hypoglycemia, electrolyte abnormalities, cardiac sources, intracerebral event, toxicologic, neurologic, as well as others were entertained. Nursing notes reviewed. The patient is a 56-year-old female who has a history of depression. The patient presented to the emergency department for a mental health evaluation. The patient had very severe symptoms. She was having significant depression and suicidal ideation. Her anxiety appears to be out of control as well as her depression. The patient was medically cleared in the emergency department. She was evaluated by the emergency Department mental health caseworker intake. She was felt to be a good candidate for inpatient management. Ultimately she was admitted to [facility] for further inpatient management. The patient is treated with Ativan in the emergency department. On subsequent reevaluation she was feeling much better. Impression Primary Impression: Depression Additional Impressions: Suicidal ideation Anxiety Scribe Attestation The scribe's documentation has been prepared under my direction and personally reviewed by me in its entirety. I confirm that the note above accurately reflects all work, treatment, procedures, and medical decision making performed by me. Departure Information Dispostion [facility] ([address] [place] [address]) Referrals Josiah Song MD (PCP) Patient Instructions My [facility] Problem Qualifiers
[2017-01-10] MEDS ORDERED: FAMO1TAB48 PO (14:07)
[2017-01-10 14:36] LABS: BASO % 0.5 %; BASO ABS # 0.04 K/uL (0-0.2); COMPLETE YES; HEMATOCRIT 42.9 % (37-47); IG% 0.3 %; LYMPH % 23.3 %; LYMPH ABS # 1.78 K/uL (1.2-3.4); MEAN CELL VOLUME 92.1 fL (80-100); MEAN CORPUSCULAR HEMOGLOBIN 31.1 pg (25-34); MEAN CORPUSCULAR HGB CONC 33.8 g/dl (32-36); MEAN PLATELET VOLUME 9.6 fL (7.4-10.4); MONO % 8.4 %; NEUT % 64.5 %; PLATELET COUNT 340 K/uL (130-400); RED BLOOD COUNT 4.66 M/uL (4.2-5.4); WHITE BLOOD COUNT 7.63 K/uL (4.8-10.8)
[2017-01-10 14:51] LABS: ALT/SGPT 19 U/L (12-78); BLOOD UREA NITROGEN 15 mg/dl (7-18); CALCIUM 8.9 mg/dl (8.5-10.1); CARBON DIOXIDE 26 mmol/L (21-32); CHLORIDE 108 mmol/L (98-107); CREATININE 0.88 mg/dl (0.60-1.20); GLUCOSE 95 mg/dl (70-99); SODIUM 142 mmol/L (136-145)
[2017-01-10 14:56] LABS: URINE APPEARANCE CLEAR (CLEAR); URINE BILIRUBIN NEG (NEG); URINE COLOR YELLOW; URINE NITRITE NEG (NEG); URINE SPECIFIC GRAVITY 1.007 (1.000-1.030); UROBILINOGEN NEG (NEG)
[2017-01-10 14:58] LABS: MANUAL MICROSCOPIC REQUIRED? NO; REVIEW REQ? NO
[2017-01-10 15:02] LABS: ALKALINE PHOSPHATASE 105 U/L (45-117); AST/SGOT 9 U/L (15-37)
[2017-01-10] MEDS ORDERED: DIAZ2TAB PO (15:14)
[2017-01-10 15:16] VITALS: O2SAT 96
[2017-01-10 15:18] LABS: BENZODIAZEPINE, URINE POS (NEG); COCAINE,URINE NEG (NEG); PHENCYCLIDINE, URINE NEG (NEG)
[2017-01-10] MEDS ORDERED: MAGNESIUM HYDROXIDE SUSP 30 ML UDC PO PRN (15:30)
[2017-01-10] MEDS ORDERED: ACETAMINOPHEN 325 MG TAB PO PRN (15:30)
[2017-01-10] MEDS ORDERED: ALUMINUM/MAGNESIUM SUSP 30 ML UDC PO PRN (15:30)
[2017-01-10] MEDS ORDERED: hydrOXYzine HCL 25 MG TAB PO PRN ×2 (15:30)
[2017-01-10] MEDS ORDERED: SODIUM CHLORIDE 0.65% NA SOLN 45 ML (OCEAN) PRN (15:30)
[2017-01-10] MEDS ORDERED: BISMUTH SUBSALICYLATE PER ML OMNICELL CHARGE PO PRN (15:30)
[2017-01-10 16:36] VITALS: BP 106/72; PULSE 78; TEMP 36.7; BMI 28.1
[2017-01-10] MEDS: DIAZEPAM 5MG TAB PO SCH (21:38)
[2017-01-11 07:01] VITALS: BP_SYST 105; BP_SYST 113; BP_DIAS 70; BP_DIAS 79; PULSE 71; PULSE 85; TEMP 36.6
[2017-01-11] MEDS ORDERED: LEVOTHYROXINE 25 MCG TAB PO SCH (08:00)
[2017-01-11] MEDS: FAMOTIDINE 20 MG TAB PO SCH (09:08)
[2017-01-11] MEDS: DIAZEPAM 2MG TAB PO SCH (09:09)
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
[2017-01-11] MEDS: DIAZEPAM 5MG TAB PO SCH (21:04)
[2017-01-12 06:43] VITALS: BP_SYST 103; BP_SYST 95; BP_DIAS 63; BP_DIAS 71; PULSE 76; PULSE 84; TEMP 36.6
[2017-01-12] MEDS: FAMOTIDINE 20 MG TAB PO SCH (08:48)
[2017-01-12] MEDS: LEVOTHYROXINE SODIUM 25 MCG PO SCH (08:48)
[2017-01-12] MEDS: DIAZEPAM 2MG TAB PO SCH (08:49)
--- NOTE | 2017-01-12 12:44 | Psychiatric Progress Notes ---
Progress Note Date of Service Jan 12, 2017. Interval History Virginia Eng is a 56-year-old female who currently lives in [place] with her , has a history of depression and anxiety, and was admitted voluntarily after presenting to the ER with worsening depression, anxiety, and suicidality. Chief Complaint "Better than yesterday". Subjective Patient was seen & assessed interval progress reviewed with nursing. Staff report she isolated much of yesterday, staying in her bed and refusing groups, but went to community meeting where she rated her mood a 1 and said she was "scared." She had significant 1:1 time with staff wherein she said she didn't understand the treatment recommendations and expressed a lot of somatic concerns. She was up multiple times in the middle of the night and told staff she had not seen a doctor that day. She told staff she is fearful of antidepressants, thinking they will cause severe headaches. She refused to sign an DENNY for her therapist, saying she did not feel well enough to. The patient states she feels better today, less confused, and says "yesterday I felt like I' d just got here and was being discharged already." When asked why she thought she was being discharged, she says because people were asking her so many questions, and that made her feel rejected. She notes the rejection "has been a big problem for me." She also endorses mood swings which are triggered by the weather, feeling others are rejecting her, and stress induced dissociation. She denies SI since admission, and says mood is better, "it's still low, but I feel like I'm not stuck...I'm trying to do something to get better." She went to group therapy and thought it was helpful. She says she sleeps excessively, but does get up at night and eats, because she thinks "it makes a big difference for me, I get constipated if I don't." She found the recommendations from her nurse last night to change her sleep position to open up her chest so she can breathe easier. She repeatedly returns to a long list of physical complaints that have come and gone for years (weakness, various pains and aches, GI symptoms, headaches, etc). She says she is thinking about trying gabapentin, but remains resistant to trying an antidepressant. She is aware that it is off label use and says her mother takes it, so she had discussed it with Dr. Cunha. She says she is "just really terrified of the headaches that medication has given," and says she would only agree to try a new medication " if I knew for sure in advance what would happen." She is willing to try decreasing her diazepam dose, as she feels "it doesn't even have an effect anymore." Sleep Information Total Hours of Sleep: 6.75 Meal Information Percent of Breakfast Consumed: 100 Percent of Dinner Consumed: 100 Mental Status Exam During interview pt is: alert and oriented, cooperative (but perseverative on physical complaints, requiring frequent redirection, sometimes not answering directly) Appearance: appropriately dressed (casual clothes), appropriately groomed ( hair is disheveled, wearing makeup and earrings, overweight) Eye contact is: good Motor behavior is: steady gait & station, no abnormal motor movements Speech: other (slowed, soft) Affect: depressed, anxious Mood is: depressed Thought process: goal directed, perseveration (on somatic symptoms), other ( irrational at times, especially with respect to medications and side effects) Thought content: preoccupation (with somatic complaints) Suicidal thought are: denied Homicidal thoughts are: denied Hallucinations: denies auditory, denies visual Cognition: memory grossly intact, attention grossly intact, language grossly intact Intelligence estimated to be: average Insight: impaired Judgement: impaired Impression 56-year-old white female with a history of recurrent depression, anxiety , thyroid disease, and cluster B traits who is hospitalized for worsening mood and anxiety with suicidal thoughts to walk into traffic and inability to function at home. Since her last hospitalization here about 10 months ago, she has been poorly compliant with antidepressant medication and outpatient therapy , stating she is unable to tolerate any antidepressants, and only willing to take diazepam. She is resistant to treatment recommendations, and asking for a second benzodiazepine to be added to her current regimen. Suspect a strong component of personality disorder complicating the treatment of her depression and anxiety. Care is coordinated with her outpatient psychiatrist, recommends higher level of care at discharge such as IOP or PHP, and states that engagement with outpatient therapy will be a requirement of continuing care with him. I encouraged her to consider another trial of an SSRI antidepressant , as she only tried one dose of sertraline and does not recall her response to escitalopram, but she is refusing to consider this, stating she is certain she cannot tolerate any antidepressants. We also discussed off label treatment options for depression, including a mood stabilizer such as lamotrigine or lithium (but with lithium there is a concern for noncompliance and she would likely have poor tolerance for any side effects), or an atypical antipsychotic such as aripiprazole or quetiapine. She is not willing to try any of these medications at this time. Plan (1) Suicidal ideation Suicide checks for safety. Attend and participate in unit groups and programming, work on healthy coping skills and the discharge safety plan. Involve in safety planning, including ensuring that she will not have access to guns, and that he keeps medications secured and dispenses them to her daily to decrease the risk of an impulsive overdose. Patient advised not to drive if she is feeling severely depressed or having thoughts of turning her car into traffic. (2) Depression -Reviewed case with Dr. Cunha, who recommends a higher level of care, either IOP or PHP after discharge from the hospital. He also states that participation in individual therapy will be a requirement of continuing to work with him. The patient was advised of these recommendations and the local options for a day program. -Reviewed recommendations for another trial of an SSRI, which she is refusing. She is refusing to consider a trial of any antidepressant due to her concerns about side effects. Also reviewed off label medication options, including lamotrigine, aripiprazole, and quetiapine, all of which she is declining. Spent a significant amount of time educating her about the risks of untreated depression and anxiety, including worsening of symptoms to the point of psychosis or suicide, and she remains unwilling to try a medication at this time. -Reviewed recommendations of individual therapy, at minimum once weekly visits, and encouraged her to consider more intensive therapy given the severity and chronicity of her mood and anxiety symptoms. -Patient is very resistant to treatment suggestions, putting up multiple barriers. She will need assistance and encouragement to accept responsibility for her own treatment. -Family meeting with . 01/12 -Initially refused all antidepressants due to fear of side effects, but as leaving the unit asked to speak with this physician and stated she wanted to retry the duloxetine she was given last time she was here. She tolerated it well in the hospital but then became anxious when her outpatient prescription looked different than the meds she got in the hospital, and she became convinced that it was causing headaches. She wanted to know if we could make sure the pills look the same, and attempted to explain that multiple companies make generic meds and they will likely look different at times. She agreed to resume 20mg. -Explore IOP/PHP options as recommended by PCP. (3) Anxiety -Generalized anxiety disorder: Continue home dose of diazepam 8 mg every morning and 10 mg daily at bedtime; dose confirmed with Dr. Marcos. -Patient is requesting lorazepam be added, and advised against this, as she is already over sedated, sleeping excessively, reporting memory difficulties, and is cognitively slowed, all of which can because they benzodiazepines. Advised her of recommendations to start a safer medication for mood and anxiety, and to try to come off of the benzodiazepines, which she is unwilling to do. -Attend groups and work on healthy coping skills and behavioral techniques for managing anxiety. 4/4 -After extensive discussion, patient willing for trial of gabapentin. Reviewed risks, benefits and side effects in detail, and provided her with [employer] patient handout. Will start 100mg tid and titrate as tolerated. -Reviewed again concerns with cognitive side effects and sedation on Valium, and she agrees to decrease to 5mg qam and 10mg qhs. (4) Cluster B personality disorder Refer for outpatient therapy. (5) Hypothyroidism Continue home dose of medication and follow-up with outpatient language therapist. Discharge / Aftercare Planning Primary Care Physician: Name: Dr. Song Therapist: Name: Steven Valdivia [employer] Prescription Clerk: Name: None Visit Code E&M Code: 03222 Inventory Assets Strengths: , supportive family, has housing Risk Factors Assessment : Yes /single/: No Health problems: Yes Mental Health Diagnoses: Yes Substance use disorders: Yes (history of benzodiazepine abuse) Previous attempt: No Family history of suicide: Yes Previous psychiatric stay: Yes Hopelessness: Yes Smoker: No Protective Factors Assessment Confucianism beliefs: Yes : Yes Responsible for young children: No Employed: No Supportive family: Yes Data Vital Signs Last 24 Hrs: Date Time Temp Pulse Resp B/P Pulse Ox O2 Delivery O2 Flow Rate FiO2 01/12/17 06:43 36.6 76 16 95/63 84 103/71 Meds Administered Last 24 Hrs: Meds Administered (Past 24Hrs) Medications (Trade) Dose Ordered Sig/Irving Route Start Time Stop Time Status Last Admin Dose Admin Lorazepam (Ativan Tab) 1 mg NOW STAT SL 01/10/17 13:49 01/10/17 13:51 DC 01/10/17 14:06 1 MG Acetaminophen (Tylenol Tab) 650 mg Q4H PRN PO 01/10/17 15:30 02/09/17 15:29 01/11/17 14:40 650 MG Hydroxyzine HCl (Vistaril Tab) 25 mg Q4H PRN PO 01/10/17 15:30 02/09/17 15:29 01/11/17 14:39 25 MG Diazepam (Valium Tab) 8 mg QAM PO 01/11/17 09:00 02/10/17 08:59 01/12/17 08:49 8 MG Diazepam (Valium Tab) 10 mg HS PO 01/10/17 21:00 02/09/17 20:59 01/11/17 21:04 10 MG Famotidine (Pepcid Tab) 40 mg DAILY PO 01/11/17 09:00 02/10/17 08:59 01/12/17 08:48 40 MG Levothyroxine Sodium (Synthroid Tab) 25 mcg DAILYBB PO 01/11/17 08:00 01/11/17 09:41 DC 01/11/17 08:12 25 MCG Levothyroxine Sodium (Tirosint) 25 mcg DAILYBB PO 01/12/17 08:00 02/11/17 07:59 01/12/17 08:48 25 MCG
[2017-01-12] MEDS ORDERED: DULOXETINE HCL 20 MG CAP PO ONE (13:14)
[2017-01-12] MEDS: GABAPENTIN 100 MG CAP PO SCH ×2 (13:33→21:21)
[2017-01-12] MEDS: DIAZEPAM 5MG TAB PO SCH (21:21)
[2017-01-13 07:02] VITALS: BP_SYST 103; BP_SYST 116; BP_DIAS 67; BP_DIAS 75; PULSE 69; PULSE 70; TEMP 36.5
[2017-01-13] MEDS: LEVOTHYROXINE SODIUM 25 MCG PO SCH (08:02)
[2017-01-13] MEDS ORDERED: GABAPENTIN 100 MG CAP PO PRN (09:00)
[2017-01-13] MEDS: FAMOTIDINE 20 MG TAB PO SCH (09:09)
[2017-01-13] MEDS: DULOXETINE HCL 20 MG CAP PO SCH (09:09)
[2017-01-13] MEDS: DIAZEPAM 5MG TAB PO SCH ×2 (09:09→21:06)
[2017-01-13 09:52] LABS: HYDROXYETHYLFLURAZEPAM CONF NEGATIVE NG/ML (CUTOFF=50); HYDROXYMIDAZOLAM NEGATIVE NG/ML (CUTOFF=50); HYDROXYTRIAZOLAM CONF NEGATIVE NG/ML (CUTOFF=50); TEMAZEPAM CONF 732 NG/ML (CUTOFF=50)
--- NOTE | 2017-01-13 11:22 | Psychiatric Progress Notes ---
Progress Note Date of Service Jan 13, 2017. Interval History Virginia Eng is a 56-year-old female who currently lives in [place] with her , has a history of depression and anxiety, and was admitted voluntarily after presenting to the ER with worsening depression, anxiety, and suicidality. Chief Complaint "Good, better". Subjective Patient was seen & assessed interval progress reviewed with Treatment Team. Staff report she declined the gabapentin, stating that she only wanted to take the duloxetine. She attended and participated in groups, and was less isolative. She demonstrated good appetite, and was more organized, but her affect remained flat. She approached the nurses station after dinner, stating she felt "funny in my chest, and my abdomen doesn't feel right." Her vital signs were checked, and heart rate was 89 with a blood pressure of 133/81. She stated that these were high for her, and although was offered when necessary medication, declined. It was noted that she had strong body odor, and was encouraged to shower, but declined. She continued to be somatically preoccupied , worrying that her medications will cause her to have various physical symptoms , but admitted that her mood was improving and thinking was clear. This morning , she is seen in her room, and states that she feels "something has changed in my head, the chemicals, I feel better." She attributes this to the duloxetine, although she has only received one dose of 20 mg. She does think she had side effects after taking it, citing her experience yesterday afternoon where "I didn 't feel right in my chest or abdomen." This has since resolved. She walks laps yesterday and had a bowel movement, and reports regular bowel movements here in the hospital, which she attributes to eating 3 meals a day, and states this is a goal for her when she goes home. Both sleep and appetite have been good here, and she denies suicidal thoughts. She continues to have episodic anxiety throughout the day of cognitive distortions and worries about her health. She had a good visit with her , and is willing to have a meeting with him. She remains anxious about taking medications and what side effects they might cause, with many somatic complaints, but does feel anxiety has improved since admission. We talked at length about focusing on the basics of good self-care while allowing herself time to recover, including good nutrition, regular exercise, sleep, and engaging in activities she is enjoys. She is willing to return to therapy with Steven Valdivia, and was informed that there are no local partial hospitalization programs available at this time. Sleep Information Total Hours of Sleep: 8.00 Meal Information Percent of Breakfast Consumed: 100 Percent of Lunch Consumed: 100 Percent of Dinner Consumed: 95 Mental Status Exam During interview pt is: alert and oriented, cooperative Appearance: appropriately dressed (in street clothes), appropriately groomed Eye contact is: good Motor behavior is: steady gait & station, no abnormal motor movements Speech: other Affect: anxious, other (brighter, more reactive) Mood is: other ("better") Thought process: goal directed, perseveration, other Thought content: preoccupation (with somatic symptoms), reality based without delusions Suicidal thought are: denied Homicidal thoughts are: denied Hallucinations: denies auditory, denies visual Cognition: memory grossly intact, attention grossly intact, language grossly intact Intelligence estimated to be: average Insight: impaired Judgement: impaired Impression 56-year-old white female with a history of recurrent depression, anxiety , thyroid disease, and cluster B traits who is hospitalized for worsening mood and anxiety with suicidal thoughts to walk into traffic and inability to function at home. Since her last hospitalization here about 10 months ago, she has been poorly compliant with antidepressant medication and outpatient therapy , stating she is unable to tolerate any antidepressants, and only willing to take diazepam. She is resistant to treatment recommendations, and asking for a second benzodiazepine to be added to her current regimen. Suspect a strong component of personality disorder complicating the treatment of her depression and anxiety. Care is coordinated with her outpatient psychiatrist, recommends higher level of care at discharge such as IOP or PHP, and states that engagement with outpatient therapy will be a requirement of continuing care with him. I encouraged her to consider another trial of an SSRI antidepressant , as she only tried one dose of sertraline and does not recall her response to escitalopram, but she is refusing to consider this, stating she is certain she cannot tolerate any antidepressants. We also discussed off label treatment options for depression, including a mood stabilizer such as lamotrigine or lithium (but with lithium there is a concern for noncompliance and she would likely have poor tolerance for any side effects), or an atypical antipsychotic such as aripiprazole or quetiapine. She initially declined, but later approached and requested to go back on duloxetine, which was started 2016. She is tolerating it well. Diazepam was decreased slightly to 5 mg in the morning and 10 mg at bedtime due to her reports of excessive sedation and cognitive dysfunction. We also ordered gabapentin as needed for anxiety, as she feels hydroxyzine makes her worse. We've explored options for intensive outpatient treatment, but unfortunately there are no local programs available. She is willing to return to regular therapy with Wilber Aguillon. Plan (1) Suicidal ideation Suicide checks for safety. Attend and participate in unit groups and programming, work on healthy coping skills and the discharge safety plan. Involve in safety planning, including ensuring that she will not have access to guns, and that he keeps medications secured and dispenses them to her daily to decrease the risk of an impulsive overdose. Patient advised not to drive if she is feeling severely depressed or having thoughts of turning her car into traffic. (2) Depression -Reviewed case with Dr. Cunha, who recommends a higher level of care, either IOP or PHP after discharge from the hospital. He also states that participation in individual therapy will be a requirement of continuing to work with him. The patient was advised of these recommendations and the local options for a day program. -Reviewed recommendations for another trial of an SSRI, which she is refusing. She is refusing to consider a trial of any antidepressant due to her concerns about side effects. Also reviewed off label medication options, including lamotrigine, aripiprazole, and quetiapine, all of which she is declining. Spent a significant amount of time educating her about the risks of untreated depression and anxiety, including worsening of symptoms to the point of psychosis or suicide, and she remains unwilling to try a medication at this time. -Reviewed recommendations of individual therapy, at minimum once weekly visits, and encouraged her to consider more intensive therapy given the severity and chronicity of her mood and anxiety symptoms. -Patient is very resistant to treatment suggestions, putting up multiple barriers. She will need assistance and encouragement to accept responsibility for her own treatment. -Family meeting with . 01/12 -Initially refused all antidepressants due to fear of side effects, but as leaving the unit asked to speak with this physician and stated she wanted to retry the duloxetine she was given last time she was here. She tolerated it well in the hospital but then became anxious when her outpatient prescription looked different than the meds she got in the hospital, and she became convinced that it was causing headaches. She wanted to know if we could make sure the pills look the same, and attempted to explain that multiple companies make generic meds and they will likely look different at times. She agreed to resume 20mg. -Explore IOP/PHP options as recommended by PCP. 5 -Continue duloxetine 20 mg daily. -Family meeting with . -Refer back to Wilber Valdivia for therapy. (3) Anxiety -Generalized anxiety disorder: Continue home dose of diazepam 8 mg every morning and 10 mg daily at bedtime; dose confirmed with Dr. Marcos. -Patient is requesting lorazepam be added, and advised against this, as she is already over sedated, sleeping excessively, reporting memory difficulties, and is cognitively slowed, all of which can because they benzodiazepines. Advised her of recommendations to start a safer medication for mood and anxiety, and to try to come off of the benzodiazepines, which she is unwilling to do. -Attend groups and work on healthy coping skills and behavioral techniques for managing anxiety. 01/12 -After extensive discussion, patient willing for trial of gabapentin. Reviewed risks, benefits and side effects in detail, and provided her with [employer] patient handout. Will start 100mg tid and titrate as tolerated. -Reviewed again concerns with cognitive side effects and sedation on Valium, and she agrees to decrease to 5mg qam and 10mg qhs. 5 -Continue diazepam. Offer gabapentin 100 mg 3 times a day when necessary anxiety, she decided she did not want to start 2 new scheduled medications at the same time. (4) Cluster B personality disorder Refer for outpatient therapy. (5) Hypothyroidism Continue home dose of medication and follow-up with outpatient sales special agent. Discharge / Aftercare Planning Primary Care Physician: Name: Dr. Song Therapist: Name: Steven Valdivia Land Law Examiner: Name: None Visit Code E&M Code: 43526 Inventory Assets Strengths: , supportive family, has housing Risk Factors Assessment : Yes /single/: No Health problems: Yes Mental Health Diagnoses: Yes Substance use disorders: Yes Previous attempt: No Family history of suicide: Yes Previous psychiatric stay: Yes Hopelessness: Yes Smoker: No Protective Factors Assessment Mormon beliefs: Yes : Yes Responsible for young children: No Employed: No Supportive family: Yes Data Vital Signs Last 24 Hrs: Date Time Temp Pulse Resp B/P Pulse Ox O2 Delivery O2 Flow Rate FiO2 01/13/17 07:02 36.5 69 16 103/67 70 116/75 Meds Administered Last 24 Hrs: Meds Administered (Past 24Hrs) Medications (Trade) Dose Ordered Sig/Irving Route Start Time Stop Time Status Last Admin Dose Admin Levothyroxine Sodium (Tirosint) 25 mcg DAILYBB PO 01/12/17 08:00 02/11/17 07:59 01/13/17 08:02 25 MCG Diazepam (Valium Tab) 5 mg QAM PO 01/13/17 09:00 02/12/17 08:59 01/13/17 09:09 5 MG Duloxetine HCl (Cymbalta Cap) 20 mg QAM PO 01/13/17 09:00 02/12/17 08:59 01/13/17 09:09 20 MG Duloxetine HCl (Cymbalta Cap) 20 mg 1314 ONCE PO 01/12/17 13:14 01/12/17 13:41 DC 01/12/17 14:08 20 MG
[2017-01-14 06:57] VITALS: BP_SYST 97; BP_SYST 98; BP_DIAS 62; BP_DIAS 65; PULSE 71; PULSE 76; TEMP 36.6
[2017-01-14] MEDS: LEVOTHYROXINE SODIUM 25 MCG PO SCH (08:23)
[2017-01-14] MEDS: DULOXETINE HCL 20 MG CAP PO SCH (08:45)
[2017-01-14] MEDS: DIAZEPAM 5MG TAB PO SCH ×2 (08:46→21:07)
[2017-01-14] MEDS: FAMOTIDINE 20 MG TAB PO SCH (08:46)
[2017-01-14] MEDS ORDERED: DIAZ2TAB PO (08:53)
[2017-01-14] MEDS ORDERED: CYM20 PO (08:53)
--- NOTE | 2017-01-14 08:57 | Discharge Instructions ---
Discharge Information Report Includes Report will include the: Discharge Instructions & Summary Admission Admission Date / Time: Jan 10, 2017 at 15:30 Reason for Admission: Major Depression Recurrent Discharge Discharge Diagnosis / Problem: Depression and anxiety Condition at Discharge: Good Discharge Goals Goal(s): Improve function, Improve disease control, Learn about illness, Therapeutic intervention, Specific goals (start antidepressant medication for depression and anxiety, start taper off of Valium.) Activity Recommendations Activity Limitations: per Instructions/Follow-up section . Instructions / Follow-Up Instructions / Follow-Up . SPECIAL CARE INSTRUCTIONS: 1. Follow through with your scheduled aftercare appointments. If unable to keep an appointment, please call to reschedule. 2. Take your medication only as prescribed. Medication should not be changed or stopped without the approval of your doctor. In the event of worsening symptoms or concerns about side effects, contact your doctor immediately. 3. Utilize new healthy coping skills, anger management skills, and stress management skills learned during your hospitalization. Journal feelings and process them with a support person. Identify stressors or situations that may result in relapse, deterioration or inappropriate behaviors and develop a plan to deal with those issues. 4. If your coping skills are ineffective and you are in crisis, contact your outpatient providers for direction. If unable to reach your providers, please call the CAN HELP LINE AT or go to the closest Emergency Room. 5. Avoid alcohol and un-prescribed drugs. 6. You have been provided with the Mental Health Advance Directives Pamphlet for your review. AFTERCARE APPOINTMENTS: * Please call your insurance company prior to your scheduled appointment to confirm your aftercare providers are covered. Take your insurance information to your appointments. . Discharge / Aftercare Planning Primary Care Physician: Name: Dr. Song Psychiatrist: Name: Dr. Cunha Date of Appointment: Jan 22, 2017 Therapist: Name Of Therapist: Steven Valdivia Date of Appointment: Jan 18, 2017 Time of Appointment: 1pm Junior Legal Secretary: Name: None . Follow-Up Care Plan for Follow-Up Care: See above. Current Hospital Diet Patient's current hospital diet: Regular Diet Discharge Diet Recommended Diet: Regular Diet Procedures Procedures Performed: No Pending Studies Pending Studies at Discharge: No Medical Emergencies . Who to Call and When: Medical Emergencies: For questions or emergencies related to your hospital stay, please contact the Inpatient Behavioral Health Unit at [phone]. A warehouse logistics coordinator is on-call 03/05 for the Behavioral Health Unit for emergencies At any time you feel your situation is an emergency, you may also call 911 immediately. . Non-Emergent Contact Non-Emergency issues call your: Primary Care Provider, Psychiatrist, Therapist Past History Medical & Surgical History: (1) Headache (2) Neck pain (3) Hiatal hernia (4) Hypothyroidism Advance Directives Do You Have an Existing Mental: No Existing Living Will: No Existing Power of Manager Developmental: No Advance Directives Info Given: To Pt/S.O. Advance Directives Reason: Declines as Mental Health Visit. Discharge Summary Admission HPI Per the Admitting provider: The patient is known to us from a previous hospitalization on our unit for 7 days in February 2016 for depression and anxiety. At that time, she was initially started on a very low-dose of sertraline, 12.5 mg daily, due to a history of sensitivity to antidepressants in the past, but then refused to continue taking it after one dose as she reported multiple somatic symptoms and said it was "making me feel different." She was then switched to duloxetine and was discharged on 20 mg daily. She was continued on her home dose of diazepam 5 mg every morning and 10 mg daily at bedtime, with recommendations to taper off of it as an outpatient. She was referred to Dr. Cunha for medication management and Wilber Ortega for therapy. Since her discharge 10 months ago, she has followed up with Dr. Mix, but has not been going to therapy as she didn 't want to pay the co-pay. She has had multiple other medication trials, as she states the duloxetine tablets looked different when she went to get them from the pharmacy, and she then had a headache, so thought the medication was causing it and stopped it. She then had a trial of amitriptyline, which apparently had been helpful for her mother, which she said made her feel "like I was on an LSD trip." It was quickly stopped, and she then had a trial of Ritalin, which she said made her feel worse, as she could not drive on curvy roads, was messing up in her checkbook, and couldn't even write her name. She states she went off all antidepressant medications in the fall of last year, and has been maintained on Valium alone since that time, with her dose having been increased to 8 mg in the morning and 10 mg at bedtime. She states the Valium is no longer very effective for her anxiety, and she takes it "just so I don't get the withdrawals." She has been seen in the ER several times in the past year for various physical and psychological complaints. Yesterday, she came into the emergency room with her reporting depression and anxiety. She stated that she was feeling so poorly, she was spending all of her time in bed, and her family is now very frustrated with her. She endorsed suicidal thoughts to walk into traffic, felt unsafe to leave the hospital, and was willing for voluntary admission. On my assessment today, the patient states that her mood and anxiety have been poorly controlled for the past year. She states that she had a brief improvement in mood symptoms several months ago after her thyroid medication was switched from the generic to brand name, but then symptoms again worsened to the point that she is spending all of her time in bed and "my has to wait on me for everything." She says that her family is frustrated that she keeps going to the emergency room and various doctors, most of whom have told her there is nothing wrong. She's been off all antidepressants for about 5 months, stating that they all cause intolerable side effects for her. She says she came to the hospital because she wanted to see if "something could be done about my thyroid, maybe that's making me depressed." She reports consistently depressed mood with inability to function , staying in bed all day, sleeping excessively (12-13 hours a day), frequent crying spells, anergia, low motivation and concentration, anhedonia, increased irritability, and hopelessness. She denies changes in appetite or weight. She endorses suicidal thoughts that come and go, are worse when she feels she will never get better, and then thinks "I need to leave, I'm just a burden[employer] Inc[employer] about getting in the car and just start driving, running out in traffic or something like that." She says she has not of running her car into traffic and going into traffic on foot. She has not acted on these because "I still have hope that they'll find the answer." She states that on a good day, she will get out of bed and drive herself to doctor's appointments or go outside to fill the bird feeders, but that is the most activity she has gotten in many months. There have been times where her has to wait on her in bed and take her to all of her appointments. Her symptoms are worse when the weather is bad. She admits that she's been noncompliant with therapy, and has not gone to see Wilber Kolbe in months, which she attributes to having to pay a co-pay. She endorses multiple stressors, including her father's poor health, family living distantly in [place] and not feeling well enough to travel to visit them , marital problems, and isolating herself to the extent that it's damaged her friendships. She endorses chronic generalized anxiety, states she worries excessively and daily, usually about her health, avoids things she doesn't want to do, being around others and isolates, and that this is causing distress, giving an example of not going to her son's wedding or her [id number]'s birthday republican because of her anxiety. She endorses panic attacks with chest pain, palpitations, lightheadedness, and shortness of breath, but states lately they have not been as severe or frequent, and she often has only one symptom of panic rather than the full symptom complex. She states that she has had episodic tremor, which has been worked up extensively by neurology with EEG, brain MRI, and labs. She states she was told that it was a "normal tremor." Although she saw Dr. Saunders in the past, she says she is not scheduled to see him again, as all of her studies were normal. She denies symptoms of psychosis , PTSD, and OCD. She does not want to try any other antidepressant medications, stating that she is sure all of them will cause her to have terrible side effects and migraine headaches. She wants to be started on Ativan, stating that she had a dose of in the emergency room and that she felt "very good" after taking it. Admission Exam Per the Admitting provider: Please see admission H&P. Consultations None. Hospital Course (1) Suicidal ideation Suicide checks for safety. Attend and participate in unit groups and programming, work on healthy coping skills and the discharge safety plan. Involve in safety planning, including ensuring that she will not have access to guns, and that he keeps medications secured and dispenses them to her daily to decrease the risk of an impulsive overdose. Patient advised not to drive if she is feeling severely depressed or having thoughts of turning her car into traffic. (2) Depression -Reviewed case with Dr. Cunha, who recommends a higher level of care, either IOP or PHP after discharge from the hospital. He also states that participation in individual therapy will be a requirement of continuing to work with him. The patient was advised of these recommendations and the local options for a day program. -Reviewed recommendations for another trial of an SSRI, which she is refusing. She is refusing to consider a trial of any antidepressant due to her concerns about side effects. Also reviewed off label medication options, including lamotrigine, aripiprazole, and quetiapine, all of which she is declining. Spent a significant amount of time educating her about the risks of untreated depression and anxiety, including worsening of symptoms to the point of psychosis or suicide, and she remains unwilling to try a medication at this time. -Reviewed recommendations of individual therapy, at minimum once weekly visits, and encouraged her to consider more intensive therapy given the severity and chronicity of her mood and anxiety symptoms. -Patient is very resistant to treatment suggestions, putting up multiple barriers. She will need assistance and encouragement to accept responsibility for her own treatment. -Family meeting with . 01/12 -Initially refused all antidepressants due to fear of side effects, but as leaving the unit asked to speak with this physician and stated she wanted to retry the duloxetine she was given last time she was here. She tolerated it well in the hospital but then became anxious when her outpatient prescription looked different than the meds she got in the hospital, and she became convinced that it was causing headaches. She wanted to know if we could make sure the pills look the same, and attempted to explain that multiple companies make generic meds and they will likely look different at times. She agreed to resume 20mg. -Explore IOP/PHP options as recommended by PCP. 01/13 -Continue duloxetine 20 mg daily. -Family meeting with . -Refer back to Wilber Valdivia for therapy. 01/14 -Family meeting with today. -Continue duloxetine and taper up to effective dose as an outpatient. -Valium decreased to 5mg qam and 10mg qhs due to side effects (cognitive dysfunction and sedation). Recommend continued taper off this medication as an outpatient. -F/u with Dr. Cunha and Wilber Valdivia. (3) Anxiety -Generalized anxiety disorder: Continue home dose of diazepam 8 mg every morning and 10 mg daily at bedtime; dose confirmed with Dr. Marcos. -Patient is requesting lorazepam be added, and advised against this, as she is already over sedated, sleeping excessively, reporting memory difficulties, and is cognitively slowed, all of which can because they benzodiazepines. Advised her of recommendations to start a safer medication for mood and anxiety, and to try to come off of the benzodiazepines, which she is unwilling to do. -Attend groups and work on healthy coping skills and behavioral techniques for managing anxiety. 01/12 -After extensive discussion, patient willing for trial of gabapentin. Reviewed risks, benefits and side effects in detail, and provided her with [employer] patient handout. Will start 100mg tid and titrate as tolerated. -Reviewed again concerns with cognitive side effects and sedation on Valium, and she agrees to decrease to 5mg qam and 10mg qhs. 01/13 -Continue diazepam. Offer gabapentin 100 mg 3 times a day when necessary anxiety, she decided she did not want to start 2 new scheduled medications at the same time. 01/14 -Meds as above. -F/u with OP therapy. Encourage mindfulness and use of CBT techniques for managing chronic anxiety. (4) Cluster B personality disorder Refer for outpatient therapy. (5) Hypothyroidism Continue home dose of medication and follow-up with outpatient lsw. Risk Factors Assessment : Yes /single/: No Health problems: Yes Mental Health Diagnoses: Yes Substance use disorders: Yes Previous attempt: No Family history of suicide: Yes Previous psychiatric stay: Yes Hopelessness: Yes Smoker: No Protective Factors Assessment Uatsdin beliefs: Yes : Yes Responsible for young children: No Employed: No Supportive family: Yes Good rapport with provider: Yes Laboratory Test 01/10/17 14:22 01/10/17 14:30 White Blood Count 7.63 Red Blood Count 4.66 Hemoglobin 14.5 Hematocrit 42.9 Mean Corpuscular Volume 92.1 Mean Corpuscular Hemoglobin 31.1 Mean Corpuscular Hemoglobin Concent 33.8 Platelet Count 340 Mean Platelet Volume 9.6 Neutrophils (%) (Auto) 64.5 Lymphocytes (%) (Auto) 23.3 Monocytes (%) (Auto) 8.4 Eosinophils (%) (Auto) 3.0 Basophils (%) (Auto) 0.5 Neutrophils # (Auto) 4.92 Lymphocytes # (Auto) 1.78 Monocytes # (Auto) 0.64 Eosinophils # (Auto) 0.23 Basophils # (Auto) 0.04 RDW Standard Deviation 44.7 RDW Coefficient of Variation 13.3 Immature Granulocyte % (Auto) 0.3 Immature Granulocyte # (Auto) 0.02 Sodium Level 142 Potassium Level 4.0 Chloride Level 108 Carbon Dioxide Level 26 Anion Gap 8.0 Blood Urea Nitrogen 15 Creatinine 0.88 Estimated GFR () 84.5 Estimated GFR (Non- 72.9 BUN/Creatinine Ratio 17.0 Random Glucose 95 Calcium Level 8.9 Total Bilirubin 0.2 Direct Bilirubin < 0.1 Aspartate Amino Transferase (AST) 9 Alanine Aminotransferase (ALT) 19 Alkaline Phosphatase 105 Troponin I < 0.015 Total Protein 7.8 Albumin 3.6 Thyroid Stimulating Hormone (TSH) 3.500 Free Thyroxine 0.81 Urine Color YELLOW Urine Appearance CLEAR Urine pH 6.0 Urine Specific [place] 1.007 Urine Protein NEG Urine Glucose (UA) NEG Urine Ketones NEG Urine Occult Blood NEG Urine Nitrite NEG Urine Bilirubin NEG Urine Urobilinogen NEG Urine Leukocyte Esterase NEG Urine Opiates Screen NEG Urine Methadone, Qualitative NEG Urine Barbiturates NEG Urine Phencyclidine (PCP) Level NEG Ur Amphetamine/Methamphetamine NEG MDMA (Ecstasy) Screen NEG Urine Hydroxyalprazolam Confirm NEGATIVE Urine Benzodiazepines Screen POS 7-Amino Clonazepam Level NEGATIVE Urine Nordiazepam Confirmation 361 Urine Hydroxyethylflurazepam Level NEGATIVE Urine Lorazepam (GC/MS) NEGATIVE Urine Oxazepam Confirm (GC/MS) 957 Urine Temazepam Confirmation 732 Urine Hydroxytriazolam Confirmation NEGATIVE Urine Hydroxymidazolam Confirmation NEGATIVE Urine Cocaine Metabolite NEG Urine Marijuana (THC) NEG Tobacco Cessation at Discharge Smoking Status: Never Smoker
--- NOTE | 2017-01-14 12:00 | Psychiatric Progress Notes ---
Progress Note Date of Service Jan 14, 2017. Interval History Virginia Eng is a 56-year-old female who currently lives in [place] with her , has a history of depression and anxiety, and was admitted voluntarily after presenting to the ER with worsening depression, anxiety, and suicidality. Chief Complaint "I don't feel well". Subjective Patient was seen & assessed interval progress reviewed with Treatment Team. Staff report she remains anxious and somatically preoccupied. She worries that she will develop side effects to medication based on her past experiences, and that she won't be able to tolerate the antidepressant. She worries that every sensation she has is a side effect. She continues to report high anxiety, and needs frequent reassurance. She had a family meeting with her today, and both of them were very angry that her insurance has not authorized additional days for inpatient treatment, feeling that she is not ready to go home, that she will immediately decompensated and have to come back to the hospital. She does not feel safe going home, and her does not feel able to manage her at home. She does feel the treatment here is helping, but feels she needs to stay longer. She is going to groups and participating. She is working on her goals of taking good care of herself each day, including eating all of her meals, practicing coping skills. Sleep Information Total Hours of Sleep: 6.25 Meal Information Percent of Breakfast Consumed: 100 Percent of Lunch Consumed: 100 Percent of Dinner Consumed: 100 Mental Status Exam During interview pt is: alert and oriented, cooperative Appearance: appropriately dressed (in street clothes), appropriately groomed Eye contact is: good Motor behavior is: steady gait & station, no abnormal motor movements Speech: other Affect: depressed, anxious, constricted Mood is: other ("worried, not ready to go") Thought process: goal directed, perseveration, other Thought content: preoccupation (with somatic symptoms), reality based without delusions Suicidal thought are: denied (but does not feel safe leaving the hospital and returning home, as does not feel she is well enough yet) Homicidal thoughts are: denied Hallucinations: denies auditory, denies visual Cognition: memory grossly intact, attention grossly intact, language grossly intact Intelligence estimated to be: average Insight: impaired Judgement: impaired Please see admission H&P. Impression 56-year-old white female with a history of recurrent depression, anxiety , thyroid disease, and cluster B traits who is hospitalized for worsening mood and anxiety with suicidal thoughts to walk into traffic and inability to function at home. Since her last hospitalization here about 10 months ago, she has been poorly compliant with antidepressant medication and outpatient therapy , stating she is unable to tolerate any antidepressants, and only willing to take diazepam. She is resistant to treatment recommendations, and asking for a second benzodiazepine to be added to her current regimen. Suspect a strong component of personality disorder complicating the treatment of her depression and anxiety. Care is coordinated with her outpatient psychiatrist, recommends higher level of care at discharge such as IOP or PHP, and states that engagement with outpatient therapy will be a requirement of continuing care with him. I encouraged her to consider another trial of an SSRI antidepressant , as she only tried one dose of sertraline and does not recall her response to escitalopram, but she is refusing to consider this, stating she is certain she cannot tolerate any antidepressants. We also discussed off label treatment options for depression, including a mood stabilizer such as lamotrigine or lithium (but with lithium there is a concern for noncompliance and she would likely have poor tolerance for any side effects), or an atypical antipsychotic such as aripiprazole or quetiapine. She initially declined, but later approached and requested to go back on duloxetine, which was started 2016. She is tolerating it well. Diazepam was decreased slightly to 5 mg in the morning and 10 mg at bedtime due to her reports of excessive sedation and cognitive dysfunction. We also ordered gabapentin as needed for anxiety, as she feels hydroxyzine makes her worse. We've explored options for intensive outpatient treatment, but unfortunately there are no local programs available. She is willing to return to regular therapy with Wilber Aguillon. Plan (1) Suicidal ideation Suicide checks for safety. Attend and participate in unit groups and programming, work on healthy coping skills and the discharge safety plan. Involve in safety planning, including ensuring that she will not have access to guns, and that he keeps medications secured and dispenses them to her daily to decrease the risk of an impulsive overdose. Patient advised not to drive if she is feeling severely depressed or having thoughts of turning her car into traffic. (2) Depression -Reviewed case with Dr. Cunha, who recommends a higher level of care, either IOP or PHP after discharge from the hospital. He also states that participation in individual therapy will be a requirement of continuing to work with him. The patient was advised of these recommendations and the local options for a day program. -Reviewed recommendations for another trial of an SSRI, which she is refusing. She is refusing to consider a trial of any antidepressant due to her concerns about side effects. Also reviewed off label medication options, including lamotrigine, aripiprazole, and quetiapine, all of which she is declining. Spent a significant amount of time educating her about the risks of untreated depression and anxiety, including worsening of symptoms to the point of psychosis or suicide, and she remains unwilling to try a medication at this time. -Reviewed recommendations of individual therapy, at minimum once weekly visits, and encouraged her to consider more intensive therapy given the severity and chronicity of her mood and anxiety symptoms. -Patient is very resistant to treatment suggestions, putting up multiple barriers. She will need assistance and encouragement to accept responsibility for her own treatment. -Family meeting with . 01/12 -Initially refused all antidepressants due to fear of side effects, but as leaving the unit asked to speak with this physician and stated she wanted to retry the duloxetine she was given last time she was here. She tolerated it well in the hospital but then became anxious when her outpatient prescription looked different than the meds she got in the hospital, and she became convinced that it was causing headaches. She wanted to know if we could make sure the pills look the same, and attempted to explain that multiple companies make generic meds and they will likely look different at times. She agreed to resume 20mg. -Explore IOP/PHP options as recommended by PCP. 01/13 -Continue duloxetine 20 mg daily. -Family meeting with . -Refer back to Wilber Valdivia for therapy. 01/14 -Family meeting with today. -Continue duloxetine and taper up to effective dose as an outpatient. -Valium decreased to 5mg qam and 10mg qhs due to side effects (cognitive dysfunction and sedation). Recommend continued taper off this medication as an outpatient. -F/u with Dr. Cunha and Wilber Valdivia. (3) Anxiety -Generalized anxiety disorder: Continue home dose of diazepam 8 mg every morning and 10 mg daily at bedtime; dose confirmed with Dr. Marcos. -Patient is requesting lorazepam be added, and advised against this, as she is already over sedated, sleeping excessively, reporting memory difficulties, and is cognitively slowed, all of which can because they benzodiazepines. Advised her of recommendations to start a safer medication for mood and anxiety, and to try to come off of the benzodiazepines, which she is unwilling to do. -Attend groups and work on healthy coping skills and behavioral techniques for managing anxiety. 01/12 -After extensive discussion, patient willing for trial of gabapentin. Reviewed risks, benefits and side effects in detail, and provided her with [facility] patient handout. Will start 100mg tid and titrate as tolerated. -Reviewed again concerns with cognitive side effects and sedation on Valium, and she agrees to decrease to 5mg qam and 10mg qhs. 01/13 -Continue diazepam. Offer gabapentin 100 mg 3 times a day when necessary anxiety, she decided she did not want to start 2 new scheduled medications at the same time. 01/14 -Meds as above. -F/u with OP therapy. Encourage mindfulness and use of CBT techniques for managing chronic anxiety. (4) Cluster B personality disorder Refer for outpatient therapy. (5) Hypothyroidism Continue home dose of medication and follow-up with outpatient centrifugal chiller technician. Discharge / Aftercare Planning Primary Care Physician: Name: Dr. Song Psychiatrist: Name: Dr. Cunha Date of Appointment: Jan 22, 2017 Therapist: Name: Steven Valdivia Date of Appointment: Jan 18, 2017 Time of Appointment: 1pm Cadastral Engineer: Name: None Visit Code E&M Code: 58173 Inventory Assets Strengths: , supportive family, has housing Risk Factors Assessment : Yes /single/: No Health problems: Yes Mental Health Diagnoses: Yes Substance use disorders: Yes Previous attempt: No Family history of suicide: Yes Previous psychiatric stay: Yes Hopelessness: Yes Smoker: No Protective Factors Assessment Buddhism beliefs: Yes : Yes Responsible for young children: No Employed: No Supportive family: Yes Good rapport with provider: Yes Data Vital Signs Last 24 Hrs: Date Time Temp Pulse Resp B/P Pulse Ox O2 Delivery O2 Flow Rate FiO2 01/14/17 06:57 36.6 71 16 97/62 76 98/65 Meds Administered Last 24 Hrs: Meds Administered (Past 24Hrs) Medications (Trade) Dose Ordered Sig/Irving Route Start Time Stop Time Status Last Admin Dose Admin Diazepam (Valium Tab) 5 mg QAM PO 01/13/17 09:00 02/12/17 08:59 01/14/17 08:46 5 MG Duloxetine HCl (Cymbalta Cap) 20 mg QAM PO 01/13/17 09:00 02/12/17 08:59 01/14/17 08:45 20 MG Duloxetine HCl (Cymbalta Cap) 20 mg 1314 ONCE PO 01/12/17 13:14 01/12/17 13:41 DC 01/12/17 14:08 20 MG
[2017-01-15 06:47] VITALS: Ht 162.6 cm; Wt 73.0 kg
[2017-01-15 06:48] VITALS: BP_SYST 108; BP_SYST 116; BP_DIAS 68; BP_DIAS 74; PULSE 84; PULSE 96; TEMP 36.6
[2017-01-15] MEDS: LEVOTHYROXINE SODIUM 25 MCG PO SCH (08:27)
[2017-01-15] MEDS: DIAZEPAM 5MG TAB PO SCH (09:21)
[2017-01-15] MEDS: FAMOTIDINE 20 MG TAB PO SCH (09:21)
[2017-01-15] MEDS ORDERED: DULOXETINE (CYMBALTA) 30 MG CAP PO SCH (11:00)
--- NOTE | 2017-01-15 11:44 | Psychiatric Discharge Summary ---
Psychiatric Discharge Summary Psychiatric Discharge Summary: Date of Service: Jan 15, 2017. Discharge summary initiated by Dr. Christian yesterday 01/14. Held while we reviewed case appeal with insurance, who today notify us that they are denying ongoing stay. Patient has been informed and requesting discharge. Today she feels that she is "slightly better" and denies clear side effects to meds although remains highly somatically preoccupied talking about her digestion relative to GB polyps. She again requests to know what brand Cymbalta she is receiving (Citron ), and this information is provided to her. She was able to shower last night. told staff that he would be unable to pick her up until this evening when he is done driving the [employer]. She denies SI/HI, aud vis hallucinations. She is casually and appropriately dressed and groomed. Eye contact is good. Affect is anxious. Speech is of normal rate volume and tone. Thoughts are anxious, but without evidence of clear thought disorder. Recent/remote memory intact per conversation. Intelligence estimated to be average. Insight and judgement minimally improved over admission.
[2017-01-15] MEDS ORDERED: CYM30 PO (11:46)
[2017-09-05] MEDS ORDERED: HYDR-5688 PO (18:04)
[2017-09-10] MEDS ORDERED: VLM5 PO (10:00)
[2017-09-10] MEDS ORDERED: PREG75CA PO (10:00)
== END 2017-01-15 20:55 | disposition home or self-care (01) | DRG 885 ==
LOC: ENRESERVDT → ENRESERVTM → C.EDB 13:14 → C.MHU 15:30
PROVIDERS: ADMIT Psychiatry & Neurology Child & Adolescent Psychiatry; ATTEND Psychiatry & Neurology Psychiatry
DX: F33.9 Major depressive disorder, recurrent, unspecified (principal); R45.851 Suicidal ideations; E03.9 Hypothyroidism, unspecified; F41.1 Generalized anxiety disorder; F60.9 Personality disorder, unspecified; Z79.899 Other long term (current) drug therapy

== ENCOUNTER 2017-01-17 21:24 | Emergency (ER) | payer OTHER ==
[~2017-01-17] VITALS: Ht 162.6 cm; Wt 75.1 kg
[~2017-01-17 21:24] MED LIST changes: +CYM30 PO; +FAMO1TAB48 PO; -HYDR25CA PO; -NYSS/ PO; -[UNRECOGNIZED DRUG - OTHER] PO
[2017-01-17 21:29] VITALS: TEMP 36.4; Ht 162.6 cm; Wt 75.1 kg
--- NOTE | 2017-01-17 22:18 | EMERGENCY ROOM VISIT NOTE ---
History Report prepared by Lori: Vishnu Mascorro Under the Supervision of: Dr. Pernell Cerda M.D. First contact with patient: 22:09 Chief Complaint: MENTAL HEALTH EVALUATION Stated Complaint: MENTAL HEALTH EVAL History of Present Illness The patient is a 56 year old female who presents to the Emergency Room for a mental health evaluation. She was discharged from the hospital two days ago. Since getting home, she has been feeling increasingly depressed. Yesterday, she thought about cutting herself. However, she has not done anything to hurt herself since getting out. She believes that since she started Valium 2 years ago, her life has been falling apart. When she was discharged two days ago, they decreased her Valium to 15 and added on Cymbalta. She believes that the increased depression came from the decrease in Valium. She has not been using drugs or drinking alcohol. She states that she has neck pain secondary to her thyroid nodule. Source of History: patient Onset: two days ago Position: other (global) Symptom Intensity: moderate Quality: other (Mental Health evaluation) Timing: constant Associated Symptoms: + neck pain Note: Denies hurting herself, but would like to. Review of Systems See HPI for pertinent positives & negatives. A total of 10 systems reviewed and were otherwise negative. Past Medical & Surgical Medical Problems: (1) Anxiety (2) Anxiety (3) Cluster B personality disorder (4) Depression (5) Fatty liver (6) Gallbladder polyp (7) Hiatal hernia (8) Hypothyroidism (9) Thyroid problems Surgical Problems: (1) Lipoma of neck (2) S/P tonsillectomy Family History Diabetes mellitus FHx: gallbladder disease FHx: heart disease No FHx f blood clots Social History Smoking Status: Never Smoker Smokeless Tobacco Use: No Alcohol Use: none Drug Use: none Housing Status: lives with family, lives with significant other Current/Historical Medications Scheduled Diazepam (Valium), 10 MG PO HS Duloxetine HCl (Duloxetine HCl), 30 MG PO QAM Famotidine (Pepcid), 40 MG PO DAILY Levothyroxine Sodium (Tirosint), 25 MCG PO DAILY Allergies Coded Allergies: Escitalopram (Verified Allergy, Intermediate, RESTLESS ARMS, 01/10/17) Morphine (Verified Allergy, Intermediate, bad reaction, 01/10/17) Venlafaxine (Verified Allergy, Intermediate, RESTLESS ARMS, 01/10/17) Amitriptyline (Verified Adverse Reaction, Severe, FACIAL PAIN, 01/10/17) Levothyroxine (Verified Adverse Reaction, Severe, FACE AND TONGUE SWELLING , 01/10/17) PT TAKES THIS MEDICATION DESPITE REACTION 10/14/15- SPOKE WITH PATIENT, BELIEVES THAT THIS REACTION COMES FROM SYNTHROID BECAUSE WHEN THE DOSE WAS INCREASED THE SWELLING GOT WORSE. CURRENTLY TAKES BRAND, BELIEVES HAS TAKEN GENERIC Omeprazole (Verified Adverse Reaction, Severe, SWOLLEN TONGUE, NAUSEA, FACIAL EDEMA, 01/10/17) Sertraline (Verified Adverse Reaction, Intermediate, BURNING FEELING ON TONGUE, 01/10/17) Physical Exam Vital Signs Date Time Temp Pulse Resp B/P Pulse Ox O2 Delivery O2 Flow Rate FiO2 01/17/17 23:00 80 14 106/74 97 01/17/17 21:29 36.4 87 16 113/77 94 Room Air Physical Exam GENERAL: Patient is depressed with a flat affect. No acute distress. HEENT: No acute trauma, normocephalic atraumatic, mucous membranes moist, no nasal congestion, no scleral icterus. NECK: No stridor, no adenopathy, no meningismus, trachea is midline. LUNGS: No dyspnea. Clear to auscultation and equal bilaterally. No wheeze, no rhonchi. HEART: Regular rate and rhythm. No murmurs, rubs, gallops appreciated. ABDOMEN: Soft, nontender, bowel sounds positive, no masses appreciated, no peritonitis. BACK: No midline tenderness, no CVA tenderness EXTREMITIES: Normal motion all extremities, no cyanosis, no edema. NEUROLOGIC: Alert and oriented, no acute motor or sensory deficits, no focal weakness, cranial nerves grossly intact. SKIN: No rash, no jaundice, no diaphoresis. PSYCH: She states that she is depressed and wants to kill herself by cutting herself. Medical Decision & Procedures Laboratory Results 01/17/17 22:09 Red Blood Count 4.39, Mean Corpuscular Volume 91.6, Mean Corpuscular Hemoglobin 31.2, Mean Corpuscular Hemoglobin Concent 34.1, Mean Platelet Volume 9.4, Neutrophils (%) (Auto) 64.2, Lymphocytes (%) (Auto) 23.3, Monocytes (%) (Auto) 8.0, Eosinophils (%) (Auto) 3.9, Basophils (%) (Auto) 0.4, Neutrophils # (Auto) 6.21, Lymphocytes # (Auto) 2.26, Monocytes # (Auto) 0.77, Eosinophils # (Auto) 0.38, Basophils # (Auto) 0.04 01/17/17 22:09 Test 01/17/17 00:00 01/17/17 22:09 Urine Color YELLOW Urine Appearance CLOUDY (CLEAR) Urine pH 6.0 (4.5-7.5) Urine Specific [place] 1.009 (1.000-1.030) Urine Protein NEG (NEG) Urine Glucose (UA) NEG (NEG) Urine Ketones NEG (NEG) Urine Occult Blood NEG (NEG) Urine Nitrite NEG (NEG) Urine Bilirubin NEG (NEG) Urine Urobilinogen NEG (NEG) Urine Leukocyte Esterase TRACE (NEG) Urine WBC (Auto) 1-5 /hpf (0-5) Urine RBC (Auto) 0-4 /hpf (0-4) Urine Hyaline Casts (Auto) 1-5 /lpf (0-5) Urine Epithelial Cells (Auto) 20-30 /lpf (0-5) Urine Bacteria (Auto) 1+ (NEG) Urine Opiates Screen NEG (NEG) Urine Methadone, Qualitative NEG (NEG) Urine Barbiturates NEG (NEG) Urine Phencyclidine (PCP) Level NEG (NEG) Ur Amphetamine/Methamphetamine NEG (NEG) MDMA (Ecstasy) Screen NEG (NEG) Urine Benzodiazepines Screen POS (NEG) Urine Cocaine Metabolite NEG (NEG) Urine Marijuana (THC) NEG (NEG) White Blood Count 9.68 K/uL (4.8-10.8) Red Blood Count 4.39 M/uL (4.2-5.4) Hemoglobin 13.7 g/dL (12.0-16.0) Hematocrit 40.2 % (37-47) Mean Corpuscular Volume 91.6 fL (80-100) Mean Corpuscular Hemoglobin 31.2 pg (25-34) Mean Corpuscular Hemoglobin Concent 34.1 g/dl (32-36) Platelet Count 321 K/uL (130-400) Mean Platelet Volume 9.4 fL (7.4-10.4) Neutrophils (%) (Auto) 64.2 % Lymphocytes (%) (Auto) 23.3 % Monocytes (%) (Auto) 8.0 % Eosinophils (%) (Auto) 3.9 % Basophils (%) (Auto) 0.4 % Neutrophils # (Auto) 6.21 K/uL (1.4-6.5) Lymphocytes # (Auto) 2.26 K/uL (1.2-3.4) Monocytes # (Auto) 0.77 K/uL (0.11-0.59) Eosinophils # (Auto) 0.38 K/uL (0-0.5) Basophils # (Auto) 0.04 K/uL (0-0.2) RDW Standard Deviation 44.1 fL (36.4-46.3) RDW Coefficient of Variation 13.2 % (11.5-14.5) Immature Granulocyte % (Auto) 0.2 % Immature Granulocyte # (Auto) 0.02 K/uL (0.00-0.02) Anion Gap 9.0 mmol/L (3-11) Est Creatinine Clear Calc Drug Dose 72.5 ml/min Estimated GFR () 88.2 Estimated GFR (Non- 76.1 BUN/Creatinine Ratio 15.3 (10-20) Calcium Level 8.6 mg/dl (8.5-10.1) Total Bilirubin 0.3 mg/dl (0.2-1) Aspartate Amino Transf (AST/SGOT) 10 U/L (15-37) Alanine Aminotransferase (ALT/SGPT) 20 U/L (12-78) Alkaline Phosphatase 95 U/L (45-117) Total Protein 7.0 gm/dl (6.4-8.2) Albumin 3.3 gm/dl (3.4-5.0) Globulin 3.7 gm/dl (2.5-4.0) Albumin/Globulin Ratio 0.9 (0.9-2) Thyroid Stimulating Hormone (TSH) 8.750 uIu/ml (0.300-4.500) Salicylates Level < 1.7 mg/dl (2.8-20) Acetaminophen Level < 2 ug/ml (10-30) Ethyl Alcohol mg/dL < 3.0 mg/dl (0-3) Laboratory results as reviewed by me. ED Course 2209: The patient was evaluated in room A6. A complete history and physical exam was performed. 2359: The patient is sleeping at this time. I had a long chat with her as well. 0030: The patient was signed out to Dr. Gillis at the change of shifts. Medical Decision Differential: Mood Disorder, Overdose, Infectious, Electrolyte Abnormality, Cardiac, Hepatic, Endocrine, Toxicologic, Neurologic, amongst other pathologies entertained. 56 yr old severely depressed female with recent admission to psych facility however on discharge has had rapidly worsening symptoms. Admits she now wishes to kill herself with plan to cut herself. notes this is most severe she has ever been. Patient medically clear. Will need inpatient placement. Stable throughout ED stay. Signed out to Dr Gillis awaiting CAN help evaluation and placement. Impression Primary Impression: Suicidal ideation Additional Impression: Depression Scribe Attestation The scribe's documentation has been prepared under my direction and personally reviewed by me in its entirety. I confirm that the note above accurately reflects all work, treatment, procedures, and medical decision making performed by me. Departure Information Dispostion Still a Patient Referrals No Doctor, Assigned (PCP) Patient Instructions My [facility] Problem Qualifiers Additional Impression: Depression Depression Type: major depressive disorder Major depression recurrence: recurrent Active/Remission status: currently active Major depression episode severity: severe Psychotic features: with psychotic features Qualified Codes : F33.3 - Major depressive disorder, recurrent, severe with psychotic symptoms
[2017-01-17 22:21] LABS: BASO % 0.4 %; BASO ABS # 0.04 K/uL (0-0.2); COMPLETE YES; EOS % 3.9 %; HEMATOCRIT 40.2 % (37-47); IG% 0.2 %; LYMPH % 23.3 %; LYMPH ABS # 2.26 K/uL (1.2-3.4); MEAN CELL VOLUME 91.6 fL (80-100); MEAN CORPUSCULAR HEMOGLOBIN 31.2 pg (25-34); MEAN CORPUSCULAR HGB CONC 34.1 g/dl (32-36); MEAN PLATELET VOLUME 9.4 fL (7.4-10.4); NEUT % 64.2 %; PLATELET COUNT 321 K/uL (130-400); RED BLOOD COUNT 4.39 M/uL (4.2-5.4); WHITE BLOOD COUNT 9.68 K/uL (4.8-10.8)
[2017-01-17 22:25] LABS: URINE APPEARANCE CLOUDY (CLEAR); URINE BILIRUBIN NEG (NEG); URINE COLOR YELLOW; URINE EPITHELIAL CELL AUTO 20-30 /lpf (0-5); URINE NITRITE NEG (NEG); URINE SPECIFIC GRAVITY 1.009 (1.000-1.030); UROBILINOGEN NEG (NEG); ZZUR CULT IF INDIC CLEAN CATCH YES
[2017-01-17 22:27] LABS: MANUAL MICROSCOPIC REQUIRED? NO; REVIEW REQ? NO
[2017-01-17 22:42] LABS: BUN/CREATININE RATIO 15.3 (10-20); CALCIUM 8.6 mg/dl (8.5-10.1); CREATININE 0.85 mg/dl (0.60-1.20); POTASSIUM 3.6 mmol/L (3.5-5.1)
[2017-01-17 22:53] LABS: ALB/GLOB RATIO 0.9 (0.9-2); THYROID STIMULATING HORMONE 8.75 uIu/ml (0.300-4.500)
[2017-01-17 22:56] LABS: BENZODIAZEPINE, URINE POS (NEG); COCAINE,URINE NEG (NEG); PHENCYCLIDINE, URINE NEG (NEG)
[2017-01-17 22:57] LABS: ACETAMINOPHEN < 2 ug/ml (10-30)
[2017-01-18] MEDS ORDERED: DIAZEPAM 5MG TAB PO STA (02:08)
--- NOTE | 2017-01-18 02:59 | EMERGENCY ROOM VISIT NOTE ---
ED Visit Note First contact with patient: 02:42 This case was signed out to me at change of shift awaiting bed placement for inpatient psychiatric care. The patient is willing to admit herself voluntarily. She has had increased depression since discharged from [facility] just a couple of days ago. [facility] performed a bed search and the patient has been accepted at [facility]. She was given her nighttime dose of Valium.
[2017-01-18] MEDS ORDERED: FAMOTIDINE 20 MG TAB PO ONE (08:15)
[2017-01-18] MEDS ORDERED: LEVOTHYROXINE 25 MCG TAB PO SCH (08:15)
[2017-01-18 08:37] VITALS: BP 123/77; PULSE 67; O2SAT 97
--- NOTE | 2017-01-19 15:44 | Pharmacy Progress Note ---
ED Pharmacist Culture FollowUp Date of Service: Jan 19, 2017. Corynebacterium growing from urine culture. No urinary symptoms mentioned. Urinalysis with multiple epithelial cells, trace leuk est, and 1+ bacteria. Likely contaminant - no intervention required. Case discussed w Dr. Conrad.
[2017-01-20 15:33] LABS: HYDROXYETHYLFLURAZEPAM CONF NEGATIVE NG/ML (CUTOFF=50); HYDROXYMIDAZOLAM NEGATIVE NG/ML (CUTOFF=50); HYDROXYTRIAZOLAM CONF NEGATIVE NG/ML (CUTOFF=50); TEMAZEPAM CONF 1070 NG/ML (CUTOFF=50)
[2017-09-05] MEDS ORDERED: HYDR-5688 PO (18:04)
[2017-09-10] MEDS ORDERED: VLM5 PO (10:00)
[2017-09-10] MEDS ORDERED: PREG75CA PO (10:00)
== END 2017-01-18 08:46 ==
LOC: C.EDB 21:25 → C.EDA 01-18 08:46
DX: R45.851 Suicidal ideations (principal); F32.9 Major depressive disorder, single episode, unspecified; E03.9 Hypothyroidism, unspecified; F41.9 Anxiety disorder, unspecified; K82.4 Cholesterolosis of gallbladder; Z98.890 Other specified postprocedural states; Z79.899 Other long term (current) drug therapy; Z88.5 Allergy status to narcotic agent; Z88.8 Allergy status to other drugs, medicaments and biological substances; Z83.3 Family history of diabetes mellitus; Z83.79 Family history of other diseases of the digestive system; Z82.49 Family history of ischemic heart disease and other diseases of the circulatory system

== ENCOUNTER 2017-02-17 12:55 | Emergency (ER) | payer OTHER ==
[~2017-02-17] VITALS: Ht 162.6 cm; Wt 74.7 kg
[~2017-02-17 12:55] MED LIST changes: -DIAZ2TAB PO
[2017-02-17 13:03] VITALS: TEMP 36.4; Ht 162.6 cm; Wt 74.7 kg
[2017-02-17] MEDS ORDERED: ACETAMINOPHEN 325 MG TAB ONE (13:38)
[2017-02-17 13:49] LABS: BASO % 0.4 %; BASO ABS # 0.03 K/uL (0-0.2); COMPLETE YES; EOS % 3.4 %; HEMATOCRIT 43.2 % (37-47); IG% 0.1 %; LYMPH % 25.5 %; LYMPH ABS # 1.74 K/uL (1.2-3.4); MEAN CELL VOLUME 92.9 fL (80-100); MEAN CORPUSCULAR HEMOGLOBIN 31.2 pg (25-34); MEAN CORPUSCULAR HGB CONC 33.6 g/dl (32-36); MEAN PLATELET VOLUME 9.2 fL (7.4-10.4); MONO % 5.9 %; NEUT % 64.7 %; PLATELET COUNT 331 K/uL (130-400); RED BLOOD COUNT 4.65 M/uL (4.2-5.4); WHITE BLOOD COUNT 6.82 K/uL (4.8-10.8)
[2017-02-17 13:58] LABS: PARTIAL THROMBOPLASTIN RATIO 1.1; PROTHROMBIN TIME (PATIENT) 10.4 SECONDS (9.0-12.0)
[2017-02-17 14:05] LABS: ALT/SGPT 22 U/L (12-78); AST/SGOT 9 U/L (15-37); BLOOD UREA NITROGEN 12 mg/dl (7-18); CARBON DIOXIDE 25 mmol/L (21-32); CHLORIDE 108 mmol/L (98-107); CREATININE 0.95 mg/dl (0.60-1.20); GLUCOSE 151 mg/dl (70-99); POTASSIUM 3.8 mmol/L (3.5-5.1); SODIUM 142 mmol/L (136-145)
--- NOTE | 2017-02-17 14:10 | DIAGNOSTIC IMAGING REPORT ---
SOFT TISSUE NECK CLINICAL HISTORY: Throat pain. Difficulty swallowing. Shortness of breath. COMPARISON STUDY: Cervical spine study dated 10/14/2015 FINDINGS: The retropharyngeal soft tissues are normal. No abnormalities of the epiglottis or aryepiglottic folds are visualized. No radiopaque foreign bodies are delineated. IMPRESSION: Unremarkable conventional radiographic evaluation of the soft tissue neck. Electronically signed by: Adonis Donnelly M.D. 02/17/2017 2:09 PM Dictated Date/Time: 02/17/2017 2:08 PM
--- NOTE | 2017-02-17 14:11 | DIAGNOSTIC IMAGING REPORT ---
CHEST 2 VIEWS ROUTINE CLINICAL HISTORY: Chest pain shortness of breath and difficulty swallowing COMPARISON STUDY: 11/24/2016 FINDINGS: The cardiac and mediastinal contours are normal. There is no evidence of focal pulmonary consolidation. There is no evidence of failure. No pleural effusions are visualized.[ IMPRESSION: No active disease in the chest. Electronically signed by: Adonis Donnelly M.D. 02/17/2017 2:09 PM Dictated Date/Time: 02/17/2017 2:09 PM
[2017-02-17 14:16] LABS: ALKALINE PHOSPHATASE 96 U/L (45-117)
[2017-02-17 14:24] VITALS: BP 114/77; PULSE 86; O2SAT 96
--- NOTE | 2017-02-17 17:46 | EMERGENCY ROOM VISIT NOTE ---
History Report prepared by Lori: Anand Grant Under the Supervision of: Dr. Dale Moe M.D. First contact with patient: 13:09 Chief Complaint: OTHER COMPLAINT Stated Complaint: THYROID History of Present Illness The patient is a 56 year old female who presents to the Emergency Room with complaints of mid-lower anterior neck pain starting a few months ago and worsening over the past 3 weeks. She describes it to be a pinching and burning pain. She has intermittent worsening pain with eating and drinking. She reports intermittent difficulty breathing because of the swelling. She states that her "thyroid has a lot of pain." She was diagnosed with a 9 mm nodule on thyroid a few months ago through ultrasound. The patient states that she has a goiter. 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 The patient has been prescribed thyroid medication. The patient also complains of mid-chest pain starting a few months ago. She was evaluated by her regular physician who felt that was secondary to reflux. She has been taking Pepcid with relief. She also reports a temperature of 99.5 degrees Fahrenheit occurring a few days ago. She notes right ear pain and right sided headache. She has been losing weight over the past few days. Source of History: patient Onset: a few months ago Position: neck Quality: burning, other (pinching) Timing: worsening Modifying Factors (Worsening): eating, drinking Associated Symptoms: + chest pain, + headache, No SOB, No fevers Review of Systems See HPI for pertinent positives & negatives. A total of 10 systems reviewed and were otherwise negative. Past Medical & Surgical Medical Problems: (1) Anxiety (2) Anxiety (3) Cluster B personality disorder (4) Depression (5) Fatty liver (6) Gallbladder polyp (7) Hiatal hernia (8) Hypothyroidism (9) Thyroid problems Surgical Problems: (1) Lipoma of neck (2) S/P tonsillectomy Family History Diabetes mellitus FHx: gallbladder disease FHx: heart disease No FHx f blood clots Social History Smoking Status: Never Smoker Alcohol Use: none Drug Use: none Housing Status: lives with family, lives with significant other Current/Historical Medications Scheduled Diazepam (Valium), 10 MG PO HS Famotidine (Pepcid), 40 MG PO DAILY Levothyroxine Sodium (Tirosint), 25 MCG PO DAILY Allergies Coded Allergies: Escitalopram (Verified Allergy, Intermediate, RESTLESS ARMS, 02/17/17) Morphine (Verified Allergy, Intermediate, bad reaction, 02/17/17) Venlafaxine (Verified Allergy, Intermediate, RESTLESS ARMS, 02/17/17) Amitriptyline (Verified Adverse Reaction, Severe, FACIAL PAIN, 02/17/17) Levothyroxine (Verified Adverse Reaction, Severe, FACE AND TONGUE SWELLING , 02/17/17) PT TAKES THIS MEDICATION DESPITE REACTION 10/14/15- SPOKE WITH PATIENT, BELIEVES THAT THIS REACTION COMES FROM SYNTHROID BECAUSE WHEN THE DOSE WAS INCREASED THE SWELLING GOT WORSE. CURRENTLY TAKES BRAND, BELIEVES HAS TAKEN GENERIC Omeprazole (Verified Adverse Reaction, Severe, SWOLLEN TONGUE, NAUSEA, FACIAL EDEMA, 02/17/17) Sertraline (Verified Adverse Reaction, Intermediate, BURNING FEELING ON TONGUE, 02/17/17) Physical Exam Vital Signs Date Time Temp Pulse Resp B/P Pulse Ox O2 Delivery O2 Flow Rate FiO2 02/17/17 14:24 86 16 114/77 96 Room Air 02/17/17 13:03 36.4 102 20 136/82 96 Room Air Physical Exam Constitutional: Vital signs reviewed. Eyes: Pupils are equal round reactive to light. Conjunctiva are noninjected. No exophthalmus. ENT: Pharynx is clear without erythema or exudate. Mucous membranes are moist. Neck supple without meningeal signs. No goiter. Mild diffuse tenderness to the larynx without erythema or swelling to the neck. Respiratory: Clear to auscultation bilaterally. Breath sounds are equal bilaterally. Cardiovascular: Regular rate and rhythm. No rubs or gallops. GI: Soft, nondistended and nontender. Bowel sounds are present. Musculoskeletal: No peripheral edema. No lower extremity tenderness. Integumentary: No cyanosis. Neurological: The patient is awake and alert. Cranial nerves II-XII are intact. Motor is 5 out of 5 all extremities. Sensation is intact to light touch all extremities. Normal speech. No pronator drift. No limb ataxia. Psychiatric: Normal affect. Medical Decision & Procedures ER Provider Diagnostic Interpretation: X-ray results as stated below per interpretation by me and the radiologist: CHEST 2 VIEWS ROUTINE CLINICAL HISTORY: Chest pain shortness of breath and difficulty swallowing COMPARISON STUDY: 11/24/2016 FINDINGS: The cardiac and mediastinal contours are normal. There is no evidence of focal pulmonary consolidation. There is no evidence of failure. No pleural effusions are visualized.[ IMPRESSION: No active disease in the chest. Electronically signed by: Adonis Donnelly M.D. 02/17/2017 2:09 PM Dictated Date/Time: 02/17/2017 2:09 PM SOFT TISSUE NECK CLINICAL HISTORY: Throat pain. Difficulty swallowing. Shortness of breath. COMPARISON STUDY: Cervical spine study dated 10/14/2015 FINDINGS: The retropharyngeal soft tissues are normal. No abnormalities of the epiglottis or aryepiglottic folds are visualized. No radiopaque foreign bodies are delineated. IMPRESSION: Unremarkable conventional radiographic evaluation of the soft tissue neck. Electronically signed by: Adonis Donnelly M.D. 02/17/2017 2:09 PM Dictated Date/Time: 02/17/2017 2:08 PM Laboratory Results 02/17/17 13:40 Red Blood Count 4.65, Mean Corpuscular Volume 92.9, Mean Corpuscular Hemoglobin 31.2, Mean Corpuscular Hemoglobin Concent 33.6, Mean Platelet Volume 9.2, Neutrophils (%) (Auto) 64.7, Lymphocytes (%) (Auto) 25.5, Monocytes (%) (Auto) 5.9, Eosinophils (%) (Auto) 3.4, Basophils (%) (Auto) 0.4, Neutrophils # (Auto) 4.41, Lymphocytes # (Auto) 1.74, Monocytes # (Auto) 0.40, Eosinophils # (Auto) 0.23, Basophils # (Auto) 0.03 02/17/17 13:40 Test 02/17/17 13:40 White Blood Count 6.82 K/uL (4.8-10.8) Red Blood Count 4.65 M/uL (4.2-5.4) Hemoglobin 14.5 g/dL (12.0-16.0) Hematocrit 43.2 % (37-47) Mean Corpuscular Volume 92.9 fL (80-100) Mean Corpuscular Hemoglobin 31.2 pg (25-34) Mean Corpuscular Hemoglobin Concent 33.6 g/dl (32-36) Platelet Count 331 K/uL (130-400) Mean Platelet Volume 9.2 fL (7.4-10.4) Neutrophils (%) (Auto) 64.7 % Lymphocytes (%) (Auto) 25.5 % Monocytes (%) (Auto) 5.9 % Eosinophils (%) (Auto) 3.4 % Basophils (%) (Auto) 0.4 % Neutrophils # (Auto) 4.41 K/uL (1.4-6.5) Lymphocytes # (Auto) 1.74 K/uL (1.2-3.4) Monocytes # (Auto) 0.40 K/uL (0.11-0.59) Eosinophils # (Auto) 0.23 K/uL (0-0.5) Basophils # (Auto) 0.03 K/uL (0-0.2) RDW Standard Deviation 45.0 fL (36.4-46.3) RDW Coefficient of Variation 13.3 % (11.5-14.5) Immature Granulocyte % (Auto) 0.1 % Immature Granulocyte # (Auto) 0.01 K/uL (0.00-0.02) Prothrombin Time 10.4 SECONDS (9.0-12.0) Prothromb Time International Ratio 1.0 (0.9-1.1) Activated Partial Thromboplast Time 29.5 SECONDS (21.0-31.0) Partial Thromboplastin Ratio 1.1 Anion Gap 9.0 mmol/L (3-11) Est Creatinine Clear Calc Drug Dose 64.7 ml/min Estimated GFR () 77.1 Estimated GFR (Non- 66.5 BUN/Creatinine Ratio 13.0 (10-20) Calcium Level 9.0 mg/dl (8.5-10.1) Total Bilirubin 0.3 mg/dl (0.2-1) Direct Bilirubin < 0.1 mg/dl (0-0.2) Aspartate Amino Transf (AST/SGOT) 9 U/L (15-37) Alanine Aminotransferase (ALT/SGPT) 22 U/L (12-78) Alkaline Phosphatase 96 U/L (45-117) Troponin I < 0.015 ng/ml (0-0.045) Total Protein 7.7 gm/dl (6.4-8.2) Albumin 3.6 gm/dl (3.4-5.0) Thyroid Stimulating Hormone (TSH) 3.870 uIu/ml (0.300-4.500) Free Thyroxine 0.86 ng/dl (0.80-1.60) Laboratory results as reviewed by me. Medications Administered Medications (Trade) Dose Ordered Sig/Irving Route Start Time Stop Time Status Last Admin Dose Admin Acetaminophen (Tylenol Tab) 650 mg STK-MED ONCE .ROUTE 02/17/17 13:38 02/17/17 13:39 DC 02/17/17 13:45 650 MG ECG Indication: chest pain Rate (beats per minute): 93 Rhythm: normal sinus Findings: RBBB (incomplete), no ectopy ED Course 1309: The patient was evaluated in room B12B. A complete history and physical exam was performed. 1431: I discussed the patient's test results. I also discussed the option of getting CT soft tissue neck to rule out mass or infection but felt it was low probability. The patient preferred not to have CT scan at this time. I advised her to follow up closely with her PCP. The patient will be discharged home. Medical Decision This is a 56-year-old female presents with neck pain. Differential diagnosis includes epiglottitis, laryngitis, mass, cyst, thyroiditis, cardiac. I did perform a limited focused review of portions of the patient's old chart on the electronic medical record. In January the patient was admitted to [facility] for mental health reasons. She was also admitted to [address] [place] [address] for mental health reasons. Her TSH was 8.7 on January 17. She was seen here on November 24 for headache and neck pain. She had a thyroid ultrasound which showed a moderately enlarged thyroid gland suggestive of thyroiditis with a 9 mm right nodule. I did evaluate the patient as noted above. The patient is presenting with pain to her anterior neck for several months. She believes her thyroid is giving her pain. She was seen here and diagnosed with a nodule as well as possible thyroiditis. She states the pain has been worse since she started her new thyroid medicine. On exam she does not appear to have a goiter. She has some very mild anterior neck tenderness but no signs of infection or swelling. IV access was established. The patient was placed on a continuous cardiac cath tech. I did order and personally review the patient's 12-lead EKG and chest/ soft tissue neck x-rays as described above. I did order and review the patient' s blood work as noted in the electronic medical record. TFTs are unremarkable. Her white blood cell count is not elevated. Troponin is negative. The patient was given Tylenol for her pain. I did discuss the test results with her. At this time because of her neck pain is unclear. I did discuss risks and benefits of CT scanning of her neck to look for mass or cyst or other abnormalities. At this time an infectious process seems unlikely given she has had the pain for months and she has no fever or elevated white count. She also has no physical exam findings suggestive of an infectious process. After discussion with the patient she declined the CT scan. She will follow closely with her doctor for further evaluation. She was discharged in good condition and given return instructions as outlined below. Impression Primary Impression: Neck pain Additional Impression: Precordial chest pain Scribe Attestation The scribe's documentation has been prepared under my direct and personally reviewed by me in its entirety. I confirm that the note above accurately reflects all work, treatment, procedures, and medical decision making performed by me. Departure Information Dispostion Home / Self-Care Referrals Josiah Song MD (PCP) Forms HOME CARE DOCUMENTATION FORM, IMPORTANT VISIT INFORMATION, WORK / SCHOOL INSTRUCTIONS Patient Instructions My [facility] Additional Instructions You have been examined and treated today on an emergency basis only. This is not a substitute for, or an effort to provide, complete comprehensive medical care. It is impossible to recognize and treat all injuries or illnesses in a single emergency department visit. It is therefore important that you follow up closely with your physician. Call as soon as possible for an appointment. Return for worsening symptoms or if you develop fever, vomiting, trouble breathing, swelling to your neck or any other concerning symptoms. Problem Qualifiers
[2017-09-05] MEDS ORDERED: HYDR-5688 PO (18:04)
[2017-09-10] MEDS ORDERED: VLM5 PO (10:00)
[2017-09-10] MEDS ORDERED: PREG75CA PO (10:00)
== END 2017-02-17 14:55 | disposition home or self-care (01) ==
LOC: C.EDB 12:57
DX: M54.2 Cervicalgia (principal); R07.2 Precordial pain; I45.10 Unspecified right bundle-branch block; E03.9 Hypothyroidism, unspecified; F32.9 Major depressive disorder, single episode, unspecified; F41.9 Anxiety disorder, unspecified; K76.0 Fatty (change of) liver, not elsewhere classified; Z79.899 Other long term (current) drug therapy; Z98.890 Other specified postprocedural states; Z88.5 Allergy status to narcotic agent; Z88.8 Allergy status to other drugs, medicaments and biological substances; Z83.3 Family history of diabetes mellitus; Z83.79 Family history of other diseases of the digestive system; Z82.49 Family history of ischemic heart disease and other diseases of the circulatory system

== ENCOUNTER → 2017-03-01 | Outpatient (CLI) | payer OTHER ==
[~2017-03-01] MED LIST changes: +BUSP5TAB59 PO; -CYM30 PO; +DIAZ2TAB PO; +DIGE1CAP10 PO; +DIPH25CA65 PO; +FOLI1TAB7 PO; +HYDR-5688 PO; +LYR50 PO; +ONDA4TAB10 SL; +PREG75CA PO; +SULF800T23 PO; +VLM2 PO; +VLM5 PO
--- NOTE | 2017-03-01 12:15 | DIAGNOSTIC IMAGING REPORT ---
THYROID ULTRASOUND CLINICAL HISTORY: Thyroid nodule. COMPARISON STUDY: Thyroid ultrasound November 24, 2016. TECHNIQUE: Sonography of the thyroid gland was performed. FINDINGS: The right thyroid lobe measures 6.5 x 2.1 x 2.4 cm and the left lobe measures 6.6 x 2.5 x 2.6 cm. As before, the gland is heterogeneous, enlarged and hypervascular. A 0.9 x 0.7 x 0.7 cm echogenic right lobe nodule is unchanged since exam of November 24, 2016. The prominent cervical lymph nodes shown on prior exam are less evident on this exam. No enlarged lymph nodes are identified within the adjacent soft tissues. IMPRESSION: 1. No change in the 9 mm echogenic right lobe thyroid nodule. This does not meet criteria for biopsy. 2. Enlarged, heterogeneous and hypervascular thyroid gland which raises the possibility of thyroiditis. This appears unchanged. 3. No enlarged cervical lymph nodes identified. Electronically signed by: Singh Go M.D. 03/01/2017 12:13 PM Dictated Date/Time: 03/01/2017 12:11 PM
== END | disposition home or self-care (01) ==
LOC: C.ULTR 11:02
PROVIDERS: ATTEND Internal Medicine
DX: E04.1 Nontoxic single thyroid nodule (principal)

== ENCOUNTER 2017-03-18 12:59 | Emergency (ER) | payer OTHER ==
[~2017-03-18] VITALS: Ht 162.6 cm; Wt 75.0 kg
[~2017-03-18 12:59] MED LIST changes: -BUSP5TAB59 PO; -DIAZ2TAB PO; -DIGE1CAP10 PO; -DIPH25CA65 PO; -FOLI1TAB7 PO; -HYDR-5688 PO; -LYR50 PO; -ONDA4TAB10 SL; -PREG75CA PO; -SULF800T23 PO; -VLM2 PO; -VLM5 PO
[2017-03-18 13:10] VITALS: TEMP 36.9; Ht 162.6 cm; Wt 75.0 kg
[2017-03-18] MEDS ORDERED: HYDR-5688 PO ×2 (13:20)
[2017-03-18] MEDS ORDERED: FOLI1TAB7 PO (13:20)
--- NOTE | 2017-03-18 13:32 | EMERGENCY ROOM VISIT NOTE ---
History Report prepared by Lori: Jeffrey Verdin Under the Supervision of: Jennifer IbarraO. First contact with patient: 13:15 Chief Complaint: ILLNESS Stated Complaint: ABD PAIN History of Present Illness The patient is a 56 year old female with a history of depression who presents to the Emergency Room via ALS with complaints of a worsening illness that started a year ago. The patient states that she has been having chronic abdominal pain, nausea, and weakness. She says that the abdominal pain has worsened recently, and when she wakes up in the morning, her stomach gets in a "knot" and is really tight. The patient adds that she then gets pain below her abdomen. She says that she has been having trouble eating, and can only eat one or two bites. She adds that she has been constipated. The patient notes that she has had the same weakness and nausea for quite some time. She was seen at the [facility] ED last week for the same symptoms, and was prescribed oxycodone, but did not roll picker the script. She did take an hydrocodone at home. The patient notes that she has been having a lot of anxiety recently. She has had an ultrasound done, and her bladder was not infected. She has not had a CT scan of her abdomen. She has no history of abdominal surgeries. The patient is a non-smoker and does not drink alcohol. Source of History: patient Onset: A year ago Position: other (global - illness) Timing: worsening Associated Symptoms: + nausea, + abdominal pain, + weakness Note: Associated symptoms: Constipation. Having trouble eating. Review of Systems See HPI for pertinent positives & negatives. A total of 10 systems reviewed and were otherwise negative. Past Medical & Surgical Medical Problems: (1) Anxiety (2) Anxiety (3) Cluster B personality disorder (4) Depression (5) Fatty liver (6) Gallbladder polyp (7) Hiatal hernia (8) Hypothyroidism (9) Thyroid problems Surgical Problems: (1) Lipoma of neck (2) S/P tonsillectomy Family History Diabetes mellitus FHx: gallbladder disease FHx: heart disease No FHx f blood clots Social History Smoking Status: Never Smoker Alcohol Use: none Drug Use: none Housing Status: lives with family, lives with significant other Current/Historical Medications Scheduled Diazepam (Valium), 10 MG PO HS Folic Acid (Folvite), 1 MG PO DAILY Levothyroxine Sodium (Tirosint), 25 MCG PO DAILY Ondasetron Odt (Zofran Odt), 4 MG SL Q6H Scheduled PRN Hydrocodone/Acetaminophen 5MG/325MG (Tiro 5MG/325MG), 1 TABLET PO for Pain Hydrocodone/Acetaminophen 5MG/325MG (Tiro 5MG/325MG), 1 TABLET PO UD PRN for Pain Allergies Coded Allergies: Escitalopram (Verified Allergy, Intermediate, RESTLESS ARMS, 03/18/17) Morphine (Verified Allergy, Intermediate, bad reaction, 03/18/17) Venlafaxine (Verified Allergy, Intermediate, RESTLESS ARMS, 03/18/17) Amitriptyline (Verified Adverse Reaction, Severe, FACIAL PAIN, 03/18/17) Levothyroxine (Verified Adverse Reaction, Severe, FACE AND TONGUE SWELLING , 03/18/17) PT TAKES THIS MEDICATION DESPITE REACTION 10/14/15- SPOKE WITH PATIENT, BELIEVES THAT THIS REACTION COMES FROM SYNTHROID BECAUSE WHEN THE DOSE WAS INCREASED THE SWELLING GOT WORSE. CURRENTLY TAKES BRAND, BELIEVES HAS TAKEN GENERIC Omeprazole (Verified Adverse Reaction, Severe, SWOLLEN TONGUE, NAUSEA, FACIAL EDEMA, 03/18/17) Sertraline (Verified Adverse Reaction, Intermediate, BURNING FEELING ON TONGUE, 03/18/17) Physical Exam Vital Signs Date Time Temp Pulse Resp B/P (MAP) Pulse Ox O2 Delivery O2 Flow Rate FiO2 03/18/17 19:41 03/18/17 19:11 81 18 101/71 97 Room Air 03/18/17 17:21 75 16 116/37 97 Room Air 03/18/17 14:39 90 16 87/47 03/18/17 13:10 36.9 86 16 108/60 97 Room Air 03/18/17 13:08 87 Physical Exam GENERAL: Patient is awake and alert, answers questions appropriately. EYES: The conjunctivae are clear. The pupils are round and reactive. EARS, NOSE, MOUTH AND THROAT: The nose is without any evidence of any deformity. Mucous membranes are moist tongue is midline NECK: The neck is nontender and supple. RESPIRATORY: Normal respiratory effort is noted there is no evidence of wheezing rhonchi or rales CARDIOVASCULAR: Regular rate and rhythm noted there no murmurs rubs or gallops normal S1 normal S2 GASTROINTESTINAL: The abdomen is soft and nondistended. Diffuse tenderness to palpation but no guarding or rigidity appreciated. MUSCULOSKELETAL/EXTREMITIES: There is no evidence of gross deformity full range of motion is noted in the hips and shoulders SKIN: There is no obvious evidence of any rash. There are no petechiae, pallor or cyanosis noted. NEUROLOGIC: Patient is awake alert and oriented x3 strength is symmetric patellar reflexes are 2+ bilaterally PSYCH: Affect was flat, patient appeared depressed, currently denying any suicidal or homicidal ideations. Medical Decision & Procedures ER Provider Diagnostic Interpretation: Radiology results as stated below per my review and radiologist interpretation: SINGLE VIEW CHEST CLINICAL HISTORY: Generalized abdominal pain. FINDINGS: An AP, portable, upright chest radiograph is compared to study dated 02/17/2017. The examination is degraded by portable technique and patient rotation. The cardiomediastinal silhouette is unremarkable. There are low lung volumes. Airspace consolidation is suggested at the left lung base. No large pleural effusion or Pneumothorax is seen. The skeletal structures are osteopenic. The bony thorax is grossly intact. IMPRESSION: Suspect developing airspace consolidation at the left lung base. Correlate clinically for evidence of pneumonia. Radiographic follow-up to resolution is recommended. Electronically signed by: Tommy Light M.D. 03/18/2017 2:08 PM Dictated Date/Time: 03/18/2017 2:[address] ABD/PELVIS IV CONTRAST ONLY CLINICAL HISTORY: upper abd pain COMPARISON STUDY: None. TECHNIQUE: Following the IV administration of 100 mL of Optiray-320, CT scan of the abdomen and pelvis was performed from the lung bases to the proximal femurs. Images are reviewed in the axial, sagittal, and coronal planes. IV contrast was administered without complication. CT DOSE: 594.30 mGycm FINDINGS: Lower chest: There are bibasal or dependent atelectatic changes Liver: There is mild hepatic steatosis. No focal masses are visualized. Portal vein appears patent. Gallbladder: Unremarkable. Spleen: Normal in size and attenuation. Pancreas: Unremarkable. Adrenal glands: Unremarkable. Kidneys: There is an extrarenal pelvis on the left. There is a dilated right-sided extrarenal pelvis and moderate proximal mid right ureteral dilatation down to the level of the inferior SI joint level. No masses or obstructing calculi are visualized at this level. Bowel: There are no transition zones indicate bowel obstruction. There is no evidence of acute diverticulitis. There is no evidence of acute appendicitis. Peritoneum: There is no intraperitoneal free air or abdominal ascites. Vasculature: The abdominal aorta is normal in course and caliber. Adenopathy: None. Pelvic viscera: The bladder, and pelvic viscera are unremarkable. Skeletal structures: No destructive osseous lesions are seen. IMPRESSION: 1. No evidence of bowel obstruction. No evidence of free air 2. No evidence of acute diverticulitis. No evidence of acute appendicitis. 3. Dilated right renal pelvis and proximal and mid right ureter. No calculi are visualized. The etiology of the ureteral dilatation is not known. Electronically signed by: Adonis Donnelly M.D. 03/18/2017 3:24 PM Dictated Date/Time: 03/18/2017 3:19 PM Laboratory Results 03/18/17 14:00 Red Blood Count 4.64, Mean Corpuscular Volume 91.8, Mean Corpuscular Hemoglobin 30.4, Mean Corpuscular Hemoglobin Concent 33.1, Mean Platelet Volume 9.2, Neutrophils (%) (Auto) 59.4, Lymphocytes (%) (Auto) 30.6, Monocytes (%) (Auto) 6.9, Eosinophils (%) (Auto) 2.5, Basophils (%) (Auto) 0.5, Neutrophils # (Auto) 4.33, Lymphocytes # (Auto) 2.23, Monocytes # (Auto) 0.50, Eosinophils # (Auto) 0.18, Basophils # (Auto) 0.04 03/18/17 14:00 Test 03/18/17 14:00 03/18/17 15:35 03/18/17 17:20 White Blood Count 7.29 K/uL (4.8-10.8) Red Blood Count 4.64 M/uL (4.2-5.4) Hemoglobin 14.1 g/dL (12.0-16.0) Hematocrit 42.6 % (37-47) Mean Corpuscular Volume 91.8 fL (80-100) Mean Corpuscular Hemoglobin 30.4 pg (25-34) Mean Corpuscular Hemoglobin Concent 33.1 g/dl (32-36) Platelet Count 354 K/uL (130-400) Mean Platelet Volume 9.2 fL (7.4-10.4) Neutrophils (%) (Auto) 59.4 % Lymphocytes (%) (Auto) 30.6 % Monocytes (%) (Auto) 6.9 % Eosinophils (%) (Auto) 2.5 % Basophils (%) (Auto) 0.5 % Neutrophils # (Auto) 4.33 K/uL (1.4-6.5) Lymphocytes # (Auto) 2.23 K/uL (1.2-3.4) Monocytes # (Auto) 0.50 K/uL (0.11-0.59) Eosinophils # (Auto) 0.18 K/uL (0-0.5) Basophils # (Auto) 0.04 K/uL (0-0.2) RDW Standard Deviation 44.0 fL (36.4-46.3) RDW Coefficient of Variation 13.3 % (11.5-14.5) Immature Granulocyte % (Auto) 0.1 % Immature Granulocyte # (Auto) 0.01 K/uL (0.00-0.02) Prothrombin Time 10.1 SECONDS (9.0-12.0) Prothromb Time International Ratio 0.9 (0.9-1.1) Activated Partial Thromboplast Time 29.4 SECONDS (21.0-31.0) Partial Thromboplastin Ratio 1.1 Anion Gap 6.0 mmol/L (3-11) Est Creatinine Clear Calc Drug Dose 67.7 ml/min Estimated GFR () 81.2 Estimated GFR (Non- 70.0 BUN/Creatinine Ratio 14.9 (10-20) Lactic Acid Level 1.7 mmol/L (0.4-2.0) Calcium Level 8.6 mg/dl (8.5-10.1) Total Bilirubin 0.4 mg/dl (0.2-1) Direct Bilirubin < 0.1 mg/dl (0-0.2) Aspartate Amino Transf (AST/SGOT) 10 U/L (15-37) Alanine Aminotransferase (ALT/SGPT) 29 U/L (12-78) Alkaline Phosphatase 87 U/L (45-117) Total Creatine Kinase 52 U/L (26-192) Creatine Kinase MB < 0.5 ng/ml (0.5-3.6) Creatine Kinase MB Ratio (0-3.0) Troponin I < 0.015 ng/ml (0-0.045) Total Protein 8.0 gm/dl (6.4-8.2) Albumin 3.5 gm/dl (3.4-5.0) Lipase 114 U/L (73-393) Thyroid Stimulating Hormone (TSH) 4.720 uIu/ml (0.300-4.500) Ethyl Alcohol mg/dL < 3.0 mg/dl (0-3) Urine Color YELLOW Urine Appearance CLEAR (CLEAR) Urine pH 7.5 (4.5-7.5) Urine Specific [place] 1.032 (1.000-1.030) Urine Protein NEG (NEG) Urine Glucose (UA) NEG (NEG) Urine Ketones NEG (NEG) Urine Occult Blood NEG (NEG) Urine Nitrite NEG (NEG) Urine Bilirubin NEG (NEG) Urine Urobilinogen NEG (NEG) Urine Leukocyte Esterase SMALL (NEG) Urine WBC (Auto) 1-5 /hpf (0-5) Urine RBC (Auto) 0-4 /hpf (0-4) Urine Hyaline Casts (Auto) 1-5 /lpf (0-5) Urine Epithelial Cells (Auto) >30 /lpf (0-5) Urine Bacteria (Auto) 2+ (NEG) Urine Opiates Screen POS (NEG) Urine Methadone, Qualitative NEG (NEG) Urine Barbiturates NEG (NEG) Urine Phencyclidine (PCP) Level NEG (NEG) Ur Amphetamine/Methamphetamine NEG (NEG) MDMA (Ecstasy) Screen NEG (NEG) Urine Benzodiazepines Screen POS (NEG) Urine Cocaine Metabolite NEG (NEG) Urine Marijuana (THC) NEG (NEG) Bedside Glucose 162 mg/dl (70-90) Laboratory results per my review. Medications Administered Medications (Trade) Dose Ordered Sig/Irving Route Start Time Stop Time Status Last Admin Dose Admin Sodium Chloride 1,000 ml @ 999 mls/hr Q1H1M STAT IV 03/18/17 13:33 03/18/17 14:33 DC 03/18/17 14:15 999 MLS/HR Ondansetron HCl (Zofran Inj) 4 mg NOW STAT IV 03/18/17 13:33 03/18/17 13:35 DC 03/18/17 14:14 4 MG Dextrose (Dextrose 50% 50ML Syringe) 50 ml NOW STAT IV 03/18/17 16:30 03/18/17 16:31 DC 03/18/17 16:38 50 ML ECG Indication: abdominal pain Rate (beats per minute): 80 Rhythm: normal sinus Findings: no ectopy, other (no acute ST segment abnormalities) Change: no significant change (compared to 02/17/17) ED Course 1323: The patient was evaluated in room B12B. A complete history and physical examination were performed. 1333: Ordered Zofran Inj 4 mg IV, NSS 1000 ml @ 999 mls/hr IV. 1630: Ordered Dextrose 50% 50ML Syringe 50 ml IV. 1741: Upon reevaluation, the patient is resting, and does not want to talk to mental health. I discussed the results and treatment plan with her. She verbalized agreement of the treatment plan. She was discharged home. Medical Decision Prior records/ancillary studies reviewed. Triage Nursing notes reviewed. Differential diagnosis: Etiologies such as appendicitis, diverticulitis, PUD, biliary pathology, UTI, pancreatitis, obstruction, mesenteric ischemia, aortic pathology, infections, inflammatory bowel disease, renal colic, as well as others were entertained. Medication Reconciliation: I attest that I have personally reviewed the patient' s current medications list. Blood pressure screening: Patient was found to have normal blood pressure on screening and does not require follow-up. The patient is a 56-year-old female who presented to the emergency department for an evaluation of upper abdominal pain. The patient states that she is a history of chronic abdominal pain but feels that this is different in duration but not in location. The patient states that she's had episodes of this pain that he been ongoing especially over the last 2 weeks. The patient states that she has not been taking her chronic pain medication and has not gotten her prescriptions filled. The patient was treated with IV fluids in the emergency department. She was also found have an episode of low sugar and was treated with dextrose and was given a food tray. I discussed patient's laboratory and radiographic studies with her. She was not found have any acute findings on her CT the abdomen and pelvis but was found have a slight dilation of her ureter. I' m unsure of the significance of this but her presentation does not appear to be consistent with ureteral colic and no definite ureteral calculus was noted. She was encouraged to rest and avoid any strenuous activity. He was also encouraged to call her primary care physician in the morning to schedule a follow-up appointment. She was also encouraged return to the emergency apartment immediately if symptoms change worsen or the need arises. Impression Primary Impression: Chronic abdominal pain Additional Impressions: Dehydration Hypoglycemia Scribe Attestation The scribe's documentation has been prepared under my direction and personally reviewed by me in its entirety. I confirm that the note above accurately reflects all work, treatment, procedures, and medical decision making performed by me. Departure Information Dispostion Home / Self-Care Prescriptions Ondasetron Odt (ZOFRAN ODT) 4 Mg Tab 4 MG SL Q6H for Nausea, #15 TAB Prov: Shaheen Hartmann, DO 03/18/17 Referrals No Doctor, Assigned (PCP) Josiah Song MD Forms HOME CARE DOCUMENTATION FORM, IMPORTANT VISIT INFORMATION, WORK / SCHOOL INSTRUCTIONS Patient Instructions ED Abdominal Pain Unkn Cause, My [facility] Additional Instructions Call your family in the morning to schedule a follow-up appointment. Drink plenty clear liquids. Continue all medications as prescribed. Review your CAT scan report with your family tomorrow. You may require a referral to a urologist to evaluate the right kidney but I do not feel this is contributing to your symptoms today. Problem Qualifiers
[2017-03-18] MEDS ORDERED: ONDANSETRON INJ 2 MG/ML 2 ML VIAL IV STA (13:33)
[2017-03-18] MEDS ORDERED: SODIUM CHLORIDE 0.9% 1000ML 1,000 ML IV STA (13:33)
[2017-03-18] MEDS ORDERED: OPTIRAY 320 IV PRN (13:45)
--- NOTE | 2017-03-18 14:09 | DIAGNOSTIC IMAGING REPORT ---
SINGLE VIEW CHEST CLINICAL HISTORY: Generalized abdominal pain. FINDINGS: An AP, portable, upright chest radiograph is compared to study dated 02/17/2017. The examination is degraded by portable technique and patient rotation. The cardiomediastinal silhouette is unremarkable. There are low lung volumes. Airspace consolidation is suggested at the left lung base. No large pleural effusion or Pneumothorax is seen. The skeletal structures are osteopenic. The bony thorax is grossly intact. IMPRESSION: Suspect developing airspace consolidation at the left lung base. Correlate clinically for evidence of pneumonia. Radiographic follow-up to resolution is recommended. Electronically signed by: Tommy Light M.D. 03/18/2017 2:08 PM Dictated Date/Time: 03/18/2017 2:07 PM
[2017-03-18 14:12] LABS: BASO % 0.5 %; BASO ABS # 0.04 K/uL (0-0.2); COMPLETE YES; EOS % 2.5 %; HEMATOCRIT 42.6 % (37-47); IG% 0.1 %; LYMPH % 30.6 %; LYMPH ABS # 2.23 K/uL (1.2-3.4); MEAN CELL VOLUME 91.8 fL (80-100); MEAN CORPUSCULAR HEMOGLOBIN 30.4 pg (25-34); MEAN CORPUSCULAR HGB CONC 33.1 g/dl (32-36); MEAN PLATELET VOLUME 9.2 fL (7.4-10.4); MONO % 6.9 %; NEUT % 59.4 %; PLATELET COUNT 354 K/uL (130-400); RED BLOOD COUNT 4.64 M/uL (4.2-5.4); WHITE BLOOD COUNT 7.29 K/uL (4.8-10.8)
[2017-03-18 14:27] LABS: INR 0.9 (0.9-1.1); PARTIAL THROMBOPLASTIN RATIO 1.1; PROTHROMBIN TIME (PATIENT) 10.1 SECONDS (9.0-12.0)
[2017-03-18 14:38] LABS: CALCIUM 8.6 mg/dl (8.5-10.1); POTASSIUM 3.8 mmol/L (3.5-5.1); SODIUM 145 mmol/L (136-145)
[2017-03-18 14:41] LABS: ALKALINE PHOSPHATASE 87 U/L (45-117); ALT/SGPT 29 U/L (12-78); BLOOD UREA NITROGEN 14 mg/dl (7-18); BUN/CREATININE RATIO 14.9 (10-20); CARBON DIOXIDE 28 mmol/L (21-32); CHLORIDE 107 mmol/L (98-107); CREATININE 0.91 mg/dl (0.60-1.20); GLUCOSE 115 mg/dl (70-99)
[2017-03-18 14:46] LABS: AST/SGOT 10 U/L (15-37)
--- NOTE | 2017-03-18 15:26 | DIAGNOSTIC IMAGING REPORT ---
CT ABD/PELVIS IV CONTRAST ONLY CLINICAL HISTORY: upper abd pain COMPARISON STUDY: None. TECHNIQUE: Following the IV administration of 100 mL of Optiray-320, CT scan of the abdomen and pelvis was performed from the lung bases to the proximal femurs. Images are reviewed in the axial, sagittal, and coronal planes. IV contrast was administered without complication. CT DOSE: 594.30 mGycm FINDINGS: Lower chest: There are bibasal or dependent atelectatic changes Liver: There is mild hepatic steatosis. No focal masses are visualized. Portal vein appears patent. Gallbladder: Unremarkable. Spleen: Normal in size and attenuation. Pancreas: Unremarkable. Adrenal glands: Unremarkable. Kidneys: There is an extrarenal pelvis on the left. There is a dilated right-sided extrarenal pelvis and moderate proximal mid right ureteral dilatation down to the level of the inferior SI joint level. No masses or obstructing calculi are visualized at this level. Bowel: There are no transition zones indicate bowel obstruction. There is no evidence of acute diverticulitis. There is no evidence of acute appendicitis. Peritoneum: There is no intraperitoneal free air or abdominal ascites. Vasculature: The abdominal aorta is normal in course and caliber. Adenopathy: None. Pelvic viscera: The bladder, and pelvic viscera are unremarkable. Skeletal structures: No destructive osseous lesions are seen. IMPRESSION: 1. No evidence of bowel obstruction. No evidence of free air 2. No evidence of acute diverticulitis. No evidence of acute appendicitis. 3. Dilated right renal pelvis and proximal and mid right ureter. No calculi are visualized. The etiology of the ureteral dilatation is not known. Electronically signed by: Adonis Donnelly M.D. 03/18/2017 3:24 PM Dictated Date/Time: 03/18/2017 3:19 PM
[2017-03-18 16:13] LABS: URINE APPEARANCE CLEAR (CLEAR); URINE BILIRUBIN NEG (NEG); URINE COLOR YELLOW; URINE EPITHELIAL CELL AUTO >30 /lpf (0-5); URINE NITRITE NEG (NEG); URINE PH 7.5 (4.5-7.5); URINE SPECIFIC GRAVITY 1.032 (1.000-1.030); UROBILINOGEN NEG (NEG)
[2017-03-18 16:14] LABS: MANUAL MICROSCOPIC REQUIRED? NO; REVIEW REQ? NO
[2017-03-18] MEDS ORDERED: DEXTROSE 50% 50 ML SYR IV STA (16:30)
[2017-03-18 16:31] LABS: BENZODIAZEPINE, URINE POS (NEG); COCAINE,URINE NEG (NEG); PHENCYCLIDINE, URINE NEG (NEG)
[2017-03-18] MEDS ORDERED: ONDA4TAB10 SL (17:42)
[2017-03-18 19:11] VITALS: BP 101/71; PULSE 81; O2SAT 97
[2017-03-22 01:50] LABS: COD UR NEGATIVE NG/ML (CUTOFF=50); HYDROCOD UR 200 NG/ML (CUTOFF=50); HYDROMOR UR 82 NG/ML (CUTOFF=50); HYDROXYETHYLFLURAZEPAM CONF NEGATIVE NG/ML (CUTOFF=50); HYDROXYMIDAZOLAM NEGATIVE NG/ML (CUTOFF=50); HYDROXYTRIAZOLAM CONF NEGATIVE NG/ML (CUTOFF=50); MORPHINE UR NEGATIVE NG/ML (CUTOFF=50); NORHYDROCODONE CONF UR 188 NG/ML (CUTOFF=50); OXYMORPH UR NEGATIVE NG/ML (CUTOFF=50); TEMAZEPAM CONF 558 NG/ML (CUTOFF=50)
[2017-09-05] MEDS ORDERED: HYDR-5688 PO (18:04)
[2017-09-10] MEDS ORDERED: PREG75CA PO (10:00)
[2017-09-10] MEDS ORDERED: VLM5 PO (10:00)
== END 2017-03-18 19:30 | disposition home or self-care (01) ==
LOC: EDBD 12:59 → C.EDB 13:00
DX: R10.10 Upper abdominal pain, unspecified (principal); G89.29 Other chronic pain; E86.0 Dehydration; E16.2 Hypoglycemia, unspecified; E03.9 Hypothyroidism, unspecified; F32.9 Major depressive disorder, single episode, unspecified; F41.9 Anxiety disorder, unspecified; K76.0 Fatty (change of) liver, not elsewhere classified; Z87.19 Personal history of other diseases of the digestive system; Z98.890 Other specified postprocedural states; Z79.899 Other long term (current) drug therapy; Z88.5 Allergy status to narcotic agent; Z88.8 Allergy status to other drugs, medicaments and biological substances; Z83.3 Family history of diabetes mellitus; Z83.79 Family history of other diseases of the digestive system; Z82.49 Family history of ischemic heart disease and other diseases of the circulatory system

== ENCOUNTER 2017-04-07 08:55 | Emergency (ER) | payer OTHER ==
[~2017-04-07] VITALS: Ht 162.6 cm; Wt 73.9 kg
[~2017-04-07 08:55] MED LIST changes: -FAMO1TAB48 PO; +FOLI1TAB7 PO; +HYDR-5688 PO; +ONDA4TAB10 SL
[2017-04-07 08:56] VITALS: Ht 162.6 cm; Wt 73.9 kg
[2017-04-07] MEDS ORDERED: VLM2 PO (09:41)
[2017-04-07 09:50] LABS: BASO % 0.6 %; BASO ABS # 0.05 K/uL (0-0.2); COMPLETE YES; EOS % 4.6 %; HEMATOCRIT 46.1 % (37-47); IG% 0.1 %; LYMPH % 30.9 %; LYMPH ABS # 2.62 K/uL (1.2-3.4); MEAN CELL VOLUME 93.3 fL (80-100); MEAN CORPUSCULAR HEMOGLOBIN 30.8 pg (25-34); MEAN PLATELET VOLUME 9.7 fL (7.4-10.4); MONO % 8.7 %; NEUT % 55.1 %; PLATELET COUNT 371 K/uL (130-400); RED BLOOD COUNT 4.94 M/uL (4.2-5.4); WHITE BLOOD COUNT 8.49 K/uL (4.8-10.8)
[2017-04-07] MEDS ORDERED: HYDROCODONE/ACETAMOPHEN 5/325MG TAB PO STA (09:52)
[2017-04-07 10:11] LABS: ESTIMATED AVERAGE GLUCOSE 111 mg/dl; HA1C FLAG Normal (Normal)
[2017-04-07 10:20] LABS: ALKALINE PHOSPHATASE 103 U/L (45-117); ALT/SGPT 38 U/L (12-78); AST/SGOT 18 U/L (15-37); BLOOD UREA NITROGEN 9 mg/dl (7-18); BUN/CREATININE RATIO 11.3 (10-20); CALCIUM 9.8 mg/dl (8.5-10.1); CARBON DIOXIDE 26 mmol/L (21-32); CHLORIDE 108 mmol/L (98-107); CREATININE 0.83 mg/dl (0.60-1.20); GLUCOSE 89 mg/dl (70-99); POTASSIUM 3.7 mmol/L (3.5-5.1); SODIUM 142 mmol/L (136-145)
--- NOTE | 2017-04-07 10:33 | DIAGNOSTIC IMAGING REPORT ---
Right upper quadrant ultrasound GALLBLADDER-ABD LIMITED CLINICAL HISTORY: ABDOMINAL PAIN/GI TECHNIQUE: Ultrasound COMPARISON STUDY: 03/11/2016 FINDINGS: Small gallbladder polyp. Common bile duct 3 mm. Mild fatty infiltration of liver. Pancreas and right kidney are unremarkable. No evidence for hydronephrosis. Small peripelvic cysts. IMPRESSION: Small gallbladder polyp. Normal caliber bile ducts. Fatty infiltration of liver. Electronically signed by: Chandrakant Pedro M.D. 04/07/2017 10:31 AM Dictated Date/Time: 04/07/2017 10:30 AM
[2017-04-07 10:58] LABS: URINE APPEARANCE CLEAR (CLEAR); URINE BILIRUBIN NEG (NEG); URINE COLOR YELLOW; URINE NITRITE NEG (NEG); URINE PH 7.5 (4.5-7.5); URINE SPECIFIC GRAVITY 1.008 (1.000-1.030); UROBILINOGEN NEG (NEG)
[2017-04-07 11:00] LABS: MANUAL MICROSCOPIC REQUIRED? NO; REVIEW REQ? NO
--- NOTE | 2017-04-07 14:25 | EMERGENCY ROOM VISIT NOTE ---
History First contact with patient: 09:05 Chief Complaint: ABDOMINAL PAIN Stated Complaint: SEVERE ABD PAIN Nursing Triage Summary: Pt reports right flank pain and upper abd pain. pt reports "i feel really weak and depressed." pt reports nausea and constipation - last bm was this am. pt denies any thoughts of wanting to harm self or others. pt reports " they gave me narcotic pain medication and i could take it every day but i am scared of it i am afraid i could get addicted it makes me feel really good years ago they gave me clonopin and i am just now getting off of it that is why i am scared." History of Present Illness The patient is a 56 year old female who presents to the Emergency Room with complaints of ongoing neck right upper quadrant abdominal pain. The patient reports that she has had this pain for several years. She was seen at the [facility] emergency Department in [place] on 03/07/17. She reports that lab work and ultrasound were normal. They scheduled a HIDA scan for Wednesday. The patient is here today because of anxiety regarding her ongoing pain, and undergoing the HIDA scan. The patient reports that she is trying to limit use of her pain medication because of a prior history of Klonopin abuse. She reports that no one told her that Klonopin was addictive. The patient reports that her abdominal pain has been intermittent in nature, and is associated with oral intake. She does admit that she still eats greasy and fatty foods, which predictably causes her pain. She has had no recent vomiting or fevers. She currently rates her discomfort an 8 out of 10. The pain does not radiate into the back or shoulder. She denies chest pain, shortness of breath, headache or neck pain. The patient is also concerned that she is diabetic as well and she has to carry lollipops with her wherever she goes because she gets shaky. Review of Systems HEENT: Denies dizziness, visual problems, hearing loss, tinnitus. Denies difficulty swallowing or oral lesions. PULMONARY: Denies cough, shortness of breath, sputum production or hemoptysis. CARDIOVASCULAR: Denies chest pain, palpitations, dyspnea on exertion, orthopnea or peripheral edema. GASTROINTESTINAL: Denies diarrhea or constipation, otherwise see history of present illness. GENITOURINARY: Denies dysuria, frequency, urgency or nocturia. NEUROLOGIC: Denies history of epilepsy, CVA, TIA or chronic headaches. MUSCULOSKELETAL: Denies history of joint tenderness/swelling. SKIN: Denies rashes or lesions. PSYCHIATRIC: History of anxiety and depression. ENDOCRINE: Denies history of diabetes or thyroid disorders. Past Medical/Surgical History Medical Problems: (1) Anxiety (2) Anxiety (3) Cluster B personality disorder (4) Depression (5) Fatty liver (6) Gallbladder polyp (7) Hiatal hernia (8) Hypothyroidism (9) Thyroid problems Surgical Problems: (1) Lipoma of neck (2) S/P tonsillectomy Family History Diabetes mellitus FHx: gallbladder disease FHx: heart disease No FHx f blood clots Social History Smoking Status: Never Smoker Alcohol Use: none Drug Use: none Housing Status: lives with family, lives with significant other Current/Historical Medications Scheduled Diazepam (Diazepam), 8 MG PO BID Levothyroxine Sodium (Tirosint), 25 MCG PO DAILY Scheduled PRN Hydrocodone/Acetaminophen 5MG/325MG ([place] 5MG/325MG), 1 TABLET PO UD PRN for Pain Allergies Coded Allergies: Escitalopram (Verified Allergy, Intermediate, RESTLESS ARMS, 04/07/17) Morphine (Verified Allergy, Intermediate, bad reaction, 04/07/17) Venlafaxine (Verified Allergy, Intermediate, RESTLESS ARMS, 04/07/17) Amitriptyline (Verified Adverse Reaction, Severe, FACIAL PAIN, 04/07/17) Levothyroxine (Verified Adverse Reaction, Severe, FACE AND TONGUE SWELLING , 04/07/17) PT TAKES THIS MEDICATION DESPITE REACTION 10/14/15- SPOKE WITH PATIENT, BELIEVES THAT THIS REACTION COMES FROM SYNTHROID BECAUSE WHEN THE DOSE WAS INCREASED THE SWELLING GOT WORSE. CURRENTLY TAKES BRAND, BELIEVES HAS TAKEN GENERIC Omeprazole (Verified Adverse Reaction, Severe, SWOLLEN TONGUE, NAUSEA, FACIAL EDEMA, 04/07/17) Sertraline (Verified Adverse Reaction, Intermediate, BURNING FEELING ON TONGUE, 04/07/17) Physical Exam Vital Signs Date Time Temp Pulse Resp B/P (MAP) Pulse Ox O2 Delivery O2 Flow Rate FiO2 04/07/17 10:35 81 18 112/75 97 Room Air 04/07/17 08:56 36.7 88 20 122/72 98 Room Air Physical Exam CONSTITUTIONAL: Healthy and well nourished. Alert and oriented X 3. PSYCHIATRIC: The patient is quite anxious with positive affect. HEENT: Normocephalic, atraumatic. Pupils equal, round and reactive. No scleral icterus or conjunctival injection/pallor. NECK: Full active range of motion without discomfort. JVD or carotid bruits. RESPIRATORY: Clear to auscultation bilaterally with no wheezing, crackles, rhonchi or stridor. CARDIOVASCULAR: Regular rate and rhythm with no murmurs, rubs or gallops. GASTROINTESTINAL: Bowel sounds present in all quadrants. Has mild right upper quadrant tenderness to palpation. Negative Ellington sign. Negative CVA tenderness. Negative McBurney's point tenderness. No abdominal rigidity, guarding or rebound. No obvious hepatosplenomegaly. MUSCULOSKELETAL: Full range of motion of all joints without discomfort. INTEGUMENTARY: No rash or other significant dermatologic conditions noted. HEMATOLOGIC: No ecchymosis or petechiae. NEUROLOGIC: No focal neurologic deficits noted. Medical Decision & Procedures ER Provider Diagnostic Interpretation: Gallbladder ultrasound shows a small polyp, otherwise no wall thickening, pericholecystic fluid, sludge, stones or common bile duct dilation. Radiologist report is as follows: Right upper quadrant ultrasound GALLBLADDER-ABD LIMITED CLINICAL HISTORY: ABDOMINAL PAIN/GI TECHNIQUE: Ultrasound COMPARISON STUDY: 03/11/2016 FINDINGS: Small gallbladder polyp. Common bile duct 3 mm. Mild fatty infiltration of liver. Pancreas and right kidney are unremarkable. No evidence for hydronephrosis. Small peripelvic cysts. IMPRESSION: Small gallbladder polyp. Normal caliber bile ducts. Fatty infiltration of liver. Laboratory Results 04/07/17 09:15 Red Blood Count 4.94, Mean Corpuscular Volume 93.3, Mean Corpuscular Hemoglobin 30.8, Mean Corpuscular Hemoglobin Concent 33.0, Mean Platelet Volume 9.7, Neutrophils (%) (Auto) 55.1, Lymphocytes (%) (Auto) 30.9, Monocytes (%) (Auto) 8.7, Eosinophils (%) (Auto) 4.6, Basophils (%) (Auto) 0.6, Neutrophils # (Auto) 4.68, Lymphocytes # (Auto) 2.62, Monocytes # (Auto) 0.74, Eosinophils # (Auto) 0.39, Basophils # (Auto) 0.05 04/07/17 09:15 Test 04/07/17 09:15 04/07/17 10:30 White Blood Count 8.49 K/uL (4.8-10.8) Red Blood Count 4.94 M/uL (4.2-5.4) Hemoglobin 15.2 g/dL (12.0-16.0) Hematocrit 46.1 % (37-47) Mean Corpuscular Volume 93.3 fL (80-100) Mean Corpuscular Hemoglobin 30.8 pg (25-34) Mean Corpuscular Hemoglobin Concent 33.0 g/dl (32-36) Platelet Count 371 K/uL (130-400) Mean Platelet Volume 9.7 fL (7.4-10.4) Neutrophils (%) (Auto) 55.1 % Lymphocytes (%) (Auto) 30.9 % Monocytes (%) (Auto) 8.7 % Eosinophils (%) (Auto) 4.6 % Basophils (%) (Auto) 0.6 % Neutrophils # (Auto) 4.68 K/uL (1.4-6.5) Lymphocytes # (Auto) 2.62 K/uL (1.2-3.4) Monocytes # (Auto) 0.74 K/uL (0.11-0.59) Eosinophils # (Auto) 0.39 K/uL (0-0.5) Basophils # (Auto) 0.05 K/uL (0-0.2) RDW Standard Deviation 45.7 fL (36.4-46.3) RDW Coefficient of Variation 13.3 % (11.5-14.5) Immature Granulocyte % (Auto) 0.1 % Immature Granulocyte # (Auto) 0.01 K/uL (0.00-0.02) Anion Gap 8.0 mmol/L (3-11) Est Creatinine Clear Calc Drug Dose 73.7 ml/min Estimated GFR () 90.7 Estimated GFR (Non- 78.3 BUN/Creatinine Ratio 11.3 (10-20) Estimated Average Glucose 111 mg/dl Hemoglobin A1c 5.5 % (4.5-5.6) Calcium Level 9.8 mg/dl (8.5-10.1) Total Bilirubin 0.3 mg/dl (0.2-1) Direct Bilirubin < 0.1 mg/dl (0-0.2) Aspartate Amino Transf (AST/SGOT) 18 U/L (15-37) Alanine Aminotransferase (ALT/SGPT) 38 U/L (12-78) Alkaline Phosphatase 103 U/L (45-117) Total Protein 8.1 gm/dl (6.4-8.2) Albumin 3.8 gm/dl (3.4-5.0) Lipase 152 U/L (73-393) Urine Color YELLOW Urine Appearance CLEAR (CLEAR) Urine pH 7.5 (4.5-7.5) Urine Specific [place] 1.008 (1.000-1.030) Urine Protein NEG (NEG) Urine Glucose (UA) NEG (NEG) Urine Ketones NEG (NEG) Urine Occult Blood NEG (NEG) Urine Nitrite NEG (NEG) Urine Bilirubin NEG (NEG) Urine Urobilinogen NEG (NEG) Urine Leukocyte Esterase TRACE (NEG) Urine WBC (Auto) 1-5 /hpf (0-5) Urine RBC (Auto) 0-4 /hpf (0-4) Urine Hyaline Casts (Auto) 0 /lpf (0-5) Urine Epithelial Cells (Auto) 10-20 /lpf (0-5) Urine Bacteria (Auto) NEG (NEG) The above labs were reviewed and were grossly normal. Medications Administered Medications (Trade) Dose Ordered Sig/Irving Route Start Time Stop Time Status Last Admin Dose Admin Acetaminophen/ Hydrocodone Bitart ([place] 5/325 Tab) 1 tab ONE STAT PO 04/07/17 09:52 04/07/17 09:53 DC 04/07/17 09:56 1 TAB ED Course History and physical exam were performed. Nurse's notes were reviewed. Vital signs were reviewed and normal. Patient appears quite anxious. IV access and lab draws were performed prior to my exam. I addressed several of the patient' s questions, including her anxiety about opioid dependence. She does agree that a HIDA scan needs to be performed. She is concerned that she cannot take any pain medications within 8 hours of her test, nor eat anything within 4 hours. She is concerned that she is a diabetic and may not be able to make that 4 hour wait. I did encourage the patient that I would be happy to check her hemoglobin A1c level. I did suggest that we recheck a gallbladder ultrasound as well since her last test was one month ago. IV access was established, and labs were drawn. Labs were reviewed and showed no acute findings. She has no leukocytosis. LFTs and lipase are also normal. Electrolytes are normal. Urinalysis is not suggestive of infection. ,She was administered Monroe 5/325 prior to her ultrasound. Ultrasound studies were normal. The patient was advised of her normal workup today. The patient agrees that she is likely just overly anxious, and again voicing concern for use of her pain medication and anti-anxiety medications. I did encourage the patient to continue with her scheduled HIDA scan. I also suggested that she follow-up with her psychiatrist to discuss her psychiatric medications. She may also follow-up with her PCP for further management as well. When I suggested discharge, the patient then reported that she would like to have a meal tray. This was ordered for the patient. The patient reports that she does not know how long this only until she can find someone to transport her home. I was advised by the patient's nurse that she had questions regarding fatigue that she has recently had. Whenever back in to evaluate and discuss this with the patient, she was in the bathroom. I then went to discharge another patient, and when I came back, the nurse reported that the patient was already discharged. She will follow up with her family doctor to discuss all of her issues. Medical Decision Patient presents to the emergency Department with primary complaint of abdominal pain. The patient also admits to overwhelming anxiety and concern for use of opioids and anxiolytics. Her workup today is not suggestive of overwhelming infection. Laboratory studies are also not suggestive of pancreatitis, hepatitis or cholecystitis. Her ultrasound today is also normal. At this point, I do not feel that further advanced imaging studies are warranted. She just had a recent IV contrast CT of the abdomen and pelvis. She is afebrile and she has no vomiting. I do not suspect diverticulitis based on physical exam findings. Urinalysis is not suggestive of UTI. Biliary colic is strongly suggested, given that the patient's symptoms are postprandial and after eating a fatty or high protein meal. Impression Primary Impression: Right upper quadrant abdominal pain Departure Information Referrals Josiah Song MD (PCP) Patient Instructions My [facility]
[2017-04-07 14:36] VITALS: BP 127/88; PULSE 90; TEMP 36.7; O2SAT 96
[2017-09-05] MEDS ORDERED: HYDR-5688 PO (18:04)
[2017-09-10] MEDS ORDERED: VLM5 PO (10:00)
[2017-09-10] MEDS ORDERED: PREG75CA PO (10:00)
== END 2017-04-07 14:09 | disposition home or self-care (01) ==
LOC: C.EDB 08:56 → C.EDA 14:09
DX: R10.11 Right upper quadrant pain (principal); F41.9 Anxiety disorder, unspecified; F60.3 Borderline personality disorder; K76.0 Fatty (change of) liver, not elsewhere classified; E03.9 Hypothyroidism, unspecified; Z83.3 Family history of diabetes mellitus; Z82.49 Family history of ischemic heart disease and other diseases of the circulatory system

== ENCOUNTER 2017-04-19 03:36 | Emergency (ER) | payer OTHER ==
[~2017-04-19] VITALS: Ht 162.6 cm; Wt 78.7 kg
[~2017-04-19 03:36] MED LIST changes: -DIAZ10TA3 PO; -FOLI1TAB7 PO; -ONDA4TAB10 SL; +VLM2 PO
[2017-04-19 03:39] VITALS: TEMP 36.7; Ht 162.6 cm; Wt 78.7 kg
[2017-04-19] MEDS ORDERED: DiphenhydrAMINE HCL 50 MG/ML VIAL IV STA (03:57)
[2017-04-19] MEDS ORDERED: PROCHLORPERAZINE 5 MG/ML 2 ML VIAL IV STA (03:57)
[2017-04-19] MEDS ORDERED: LIDODERM (LIDOCAINE) PATCH 5% TD STA (03:57)
[2017-04-19] MEDS ORDERED: KETOROLAC TROMETHAMINE 30 MG/ML VIAL IV STA (03:57)
--- NOTE | 2017-04-19 04:03 | EMERGENCY ROOM VISIT NOTE ---
History Report prepared by Lori: Krista Coleman Under the Supervision of: Dr. Wiliam Alex M.D. First contact with patient: 03:44 Chief Complaint: ABDOMINAL PAIN Stated Complaint: ABDOMINAL PAIN Nursing Triage Summary: patient presents via EMS with c/o left lower back pain/flank pain radiating towards abdomen that worsened over night. patient states she had a HIDA scan two weeks ago and was told she has to have her gallbladder out. patient has norco at home but took nothing prior to calling ambulance. 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 History of Present Illness The patient is a 56 year old female who presents to the Emergency Room with complaints of an episode of radiating right sided abdominal pain starting this evening. The patient states that she woke up to go to the bathroom and noticed that she had diarrhea. She complains of back pain, nausea, dizziness, and intermittent headaches. The patient also notes visual changes of flashes of light and floaters. She denies having migraines like this in the past. The patient currently rates her pain as a 7/10 in severity. Source of History: patient Onset: evening Position: abdomen Symptom Intensity: 7/10 Quality: other (radiating) Timing: other (episode) Associated Symptoms: + headache, + nausea, + back pain, + diarrhea Note: The patient complains of dizziness and visual changes. Review of Systems See HPI for pertinent positives & negatives. A total of 10 systems reviewed and were otherwise negative. Past Medical & Surgical Medical Problems: (1) Anxiety (2) Anxiety (3) Cluster B personality disorder (4) Depression (5) Fatty liver (6) Gallbladder polyp (7) Hiatal hernia (8) Hypothyroidism (9) Thyroid problems Surgical Problems: (1) Lipoma of neck (2) S/P tonsillectomy Family History Diabetes mellitus FHx: gallbladder disease FHx: heart disease No FHx f blood clots Social History Smoking Status: Never Smoker Alcohol Use: none Drug Use: none Housing Status: lives with family, lives with significant other Current/Historical Medications Scheduled Diazepam (Diazepam), 8 MG PO BID Levothyroxine Sodium (Tirosint), 25 MCG PO DAILY Ondasetron Odt (Zofran Odt), 4 MG SL Q6H Sulfamethoxazole-Trimethoprim (Bactrim Ds 800MG/160MG), 1 TAB PO BID Scheduled PRN Hydrocodone/Acetaminophen 5MG/325MG ([place] 5MG/325MG), 1 TABLET PO UD PRN for Pain Allergies Coded Allergies: Escitalopram (Verified Allergy, Intermediate, RESTLESS ARMS, 04/19/17) Morphine (Verified Allergy, Intermediate, bad reaction, 04/19/17) Venlafaxine (Verified Allergy, Intermediate, RESTLESS ARMS, 04/19/17) Amitriptyline (Verified Adverse Reaction, Severe, FACIAL PAIN, 04/19/17) Levothyroxine (Verified Adverse Reaction, Severe, FACE AND TONGUE SWELLING , 04/19/17) PT TAKES THIS MEDICATION DESPITE REACTION 10/14/15- SPOKE WITH PATIENT, BELIEVES THAT THIS REACTION COMES FROM SYNTHROID BECAUSE WHEN THE DOSE WAS INCREASED THE SWELLING GOT WORSE. CURRENTLY TAKES BRAND, BELIEVES HAS TAKEN GENERIC Omeprazole (Verified Adverse Reaction, Severe, SWOLLEN TONGUE, NAUSEA, FACIAL EDEMA, 04/19/17) Sertraline (Verified Adverse Reaction, Intermediate, BURNING FEELING ON TONGUE, 04/19/17) Physical Exam Vital Signs Date Time Temp Pulse Resp B/P (MAP) Pulse Ox O2 Delivery O2 Flow Rate FiO2 04/19/17 06:00 81 20 98/62 94 Room Air 04/19/17 05:23 79 20 111/68 94 Room Air 04/19/17 04:55 79 04/19/17 04:26 71 20 108/65 93 Room Air 04/19/17 03:39 36.7 76 20 118/76 95 Room Air Physical Exam GENERAL: Patient is a healthy-appearing well-nourished HEAD: Normocephalic atraumatic EYES: Ocular movements intact pupils equal and react to light OROPHARYNX mucous membranes are moist no exudates present no erythema or edema present NECK: Supple no nuchal rigidity CHEST: Good equal expansion LUNGS: Clear and equal to auscultation CARDIAC: Normal S1 and S2 ABDOMEN: Soft nontender no guarding BACK: No CVA tenderness EXTREMITIES: No pain upon palpation normal muscle strength in all groups no clubbing cyanosis or edema NEURO: Patient is following commands and answering questions appropriately. Alert and oriented x3 Cranial Nerves 2-12 grossly intact Medical Decision & Procedures ER Provider Diagnostic Interpretation: Radiology results as stated below per my review and radiologist interpretation: CT ABDOMEN & PELVIS: Comparison: 03/18/2017 Findings: Normal appendix visualized. Small and large bowel loops appear unremarkable. No enlarged ovarian/adnexal mass or cyst. No pelvic free fluid. Normal enhancement of soild organs. Gallbladder appears normal. Radiologist: Ricardo Puentes M.D. Study ready at 05:27 and initial results transmitted at 05:57. Laboratory Results 04/19/17 04:12 Red Blood Count 4.59, Mean Corpuscular Volume 93.2, Mean Corpuscular Hemoglobin 30.3, Mean Corpuscular Hemoglobin Concent 32.5, Mean Platelet Volume 9.3, Neutrophils (%) (Auto) 81.9, Lymphocytes (%) (Auto) 9.6, Monocytes (%) (Auto) 6.7, Eosinophils (%) (Auto) 1.4, Basophils (%) (Auto) 0.1, Neutrophils # (Auto) 13.93, Lymphocytes # (Auto) 1.63, Monocytes # (Auto) 1.14, Eosinophils # (Auto) 0.23, Basophils # (Auto) 0.02 04/19/17 04:12 Test 04/19/17 04:12 04/19/17 04:20 White Blood Count 17.00 K/uL (4.8-10.8) Red Blood Count 4.59 M/uL (4.2-5.4) Hemoglobin 13.9 g/dL (12.0-16.0) Hematocrit 42.8 % (37-47) Mean Corpuscular Volume 93.2 fL (80-100) Mean Corpuscular Hemoglobin 30.3 pg (25-34) Mean Corpuscular Hemoglobin Concent 32.5 g/dl (32-36) Platelet Count 349 K/uL (130-400) Mean Platelet Volume 9.3 fL (7.4-10.4) Neutrophils (%) (Auto) 81.9 % Lymphocytes (%) (Auto) 9.6 % Monocytes (%) (Auto) 6.7 % Eosinophils (%) (Auto) 1.4 % Basophils (%) (Auto) 0.1 % Neutrophils # (Auto) 13.93 K/uL (1.4-6.5) Lymphocytes # (Auto) 1.63 K/uL (1.2-3.4) Monocytes # (Auto) 1.14 K/uL (0.11-0.59) Eosinophils # (Auto) 0.23 K/uL (0-0.5) Basophils # (Auto) 0.02 K/uL (0-0.2) RDW Standard Deviation 45.8 fL (36.4-46.3) RDW Coefficient of Variation 13.4 % (11.5-14.5) Immature Granulocyte % (Auto) 0.3 % Immature Granulocyte # (Auto) 0.05 K/uL (0.00-0.02) Anion Gap 7.0 mmol/L (3-11) Est Creatinine Clear Calc Drug Dose 82.9 ml/min Estimated GFR () 100.9 Estimated GFR (Non- 87.1 BUN/Creatinine Ratio 20.4 (10-20) Calcium Level 8.3 mg/dl (8.5-10.1) Total Bilirubin 0.3 mg/dl (0.2-1) Direct Bilirubin < 0.1 mg/dl (0-0.2) Aspartate Amino Transf (AST/SGOT) 12 U/L (15-37) Alanine Aminotransferase (ALT/SGPT) 31 U/L (12-78) Alkaline Phosphatase 87 U/L (45-117) Total Protein 6.9 gm/dl (6.4-8.2) Albumin 3.3 gm/dl (3.4-5.0) Lipase 108 U/L (73-393) Urine Color YELLOW Urine Appearance CLEAR (CLEAR) Urine pH 5.0 (4.5-7.5) Urine Specific [place] 1.017 (1.000-1.030) Urine Protein NEG (NEG) Urine Glucose (UA) NEG (NEG) Urine Ketones NEG (NEG) Urine Occult Blood NEG (NEG) Urine Nitrite NEG (NEG) Urine Bilirubin NEG (NEG) Urine Urobilinogen NEG (NEG) Urine Leukocyte Esterase TRACE (NEG) Urine WBC (Auto) 1-5 /hpf (0-5) Urine RBC (Auto) 0-4 /hpf (0-4) Urine Hyaline Casts (Auto) 1-5 /lpf (0-5) Urine Epithelial Cells (Auto) >30 /lpf (0-5) Urine Bacteria (Auto) 2+ (NEG) Labs reviewed by ED physician. Medications Administered Medications (Trade) Dose Ordered Sig/Irving Route Start Time Stop Time Status Last Admin Dose Admin Lidocaine (Lidoderm Patch 5%) 1 patch NOW STAT TD 04/19/17 03:57 04/19/17 04:01 DC 04/19/17 04:18 1 PATCH Prochlorperazine Edisylate (Compazine Inj) 10 mg NOW STAT IV 04/19/17 03:57 04/19/17 04:01 DC 04/19/17 04:17 10 MG Diphenhydramine HCl (Benadryl Inj) 50 mg NOW STAT IV 04/19/17 03:57 04/19/17 04:01 DC 04/19/17 04:17 50 MG Ketorolac Tromethamine (Toradol Inj) 30 mg NOW STAT IV 04/19/17 03:57 04/19/17 04:01 DC 04/19/17 04:17 30 MG Ceftriaxone Sodium (Rocephin Inj) 1 gm NOW STAT IV 04/19/17 06:06 04/19/17 06:07 DC 04/19/17 06:19 1 GM Trimethoprim/ Sulfamethoxazole (Septra Ds 800/ 160MG Tab) 1 tab NOW STAT PO 04/19/17 06:06 04/19/17 06:07 DC 04/19/17 06:20 1 TAB ED Course 0349: Past medical records reviewed. The patient was evaluated in room B6. A complete history and physical examination was performed. 0357: Ordered Toradol Inj 30 mg IV, Benadryl Inj 50 mg IV, Compazine Inj 10 mg IV, Lidocaine 1 patch TD. 0606: Ordered Septra Ds 800/ 160MG Tab 1 tab PO, Rocephin Inj 1 gm IV. 0618: Upon reexamination the patient is feeling better. I discussed results and treatment plan with the patient. She verbalizes agreement and understanding. The patient is ready for discharge. Medical Decision Medication Reconciliation: I attest that I have personally reviewed the patient' s current medication list Blood Pressure Screening: Patient was found to have normal blood pressure on screening and does not require follow up. Differential diagnosis: Etiologies such as appendicitis, diverticulitis, PUD, biliary pathology, UTI, pancreatitis, obstruction, mesenteric ischemia, aortic pathology, infections, inflammatory bowel disease, renal colic, as well as others were entertained. This is a 56-year-old female who presents emergency department with multiple complaints. The patient is complaining of a headache along with back pain along with abdominal pain. She does have a large elevation in her white blood cell count however has no evidence of meningitis or encephalitis on examination. She was tender on abdominal examination therefore she was sent for CAT scan of the abdomen and pelvis. She does have some white blood cells in her urine and therefore I will treat her for urinary tract infection. She was started on Rocephin in the emergency department and was tolerating by mouth Bactrim. Based on this I feel that the patient can be safely discharged home for follow-up with her primary care physician. The patient will return if she is unable to tolerate by mouth medications or her pain is out of control. Patient was in agreement with the treatment plan. Impression Primary Impression: UTI (urinary tract infection) Scribe Attestation The scribe's documentation has been prepared under my direction and personally reviewed by me in its entirety. I confirm that the note above accurately reflects all work, treatment, procedures, and medical decision making performed by me. Departure Information Dispostion Home / Self-Care Prescriptions Ondasetron Odt (ZOFRAN ODT) 4 Mg Tab 4 MG SL Q6H for Nausea, #6 TAB Prov: Wiliam Alex MD 04/19/17 Sulfamethoxazole-Trimethoprim (Bactrim Ds 800MG/160MG) 1 Tab Tab 1 TAB PO BID for 10 Days, #20 TAB Prov: Wiliam Alex MD 04/19/17 Referrals Josiah Song MD (PCP) Forms Call Back Authorization, HOME CARE DOCUMENTATION FORM, IMPORTANT VISIT INFORMATION Patient Instructions My [facility] Additional Instructions Culture results are usually available in approx 48 hours You have been examined and treated today on an emergency basis only. This is not a substitute for, or an effort to provide, complete comprehensive medical care. It is impossible to recognize and treat all injuries or illnesses in a single emergency department visit. It is therefore important that you follow up closely with Dr Song. Call as soon as possible for an appointment. Thank you for your time and consideration. I look forward to speaking with you again soon. Please don't hesitate to call us if you have any questions. Problem Qualifiers Primary Impression: UTI (urinary tract infection) Urinary tract infection type: acute cystitis Hematuria presence: without hematuria Qualified Codes: N30.00 - Acute cystitis without hematuria
[2017-04-19 04:22] LABS: BASO % 0.1 %; BASO ABS # 0.02 K/uL (0-0.2); COMPLETE YES; EOS % 1.4 %; HEMATOCRIT 42.8 % (37-47); IG% 0.3 %; LYMPH % 9.6 %; LYMPH ABS # 1.63 K/uL (1.2-3.4); MEAN CELL VOLUME 93.2 fL (80-100); MEAN CORPUSCULAR HEMOGLOBIN 30.3 pg (25-34); MEAN CORPUSCULAR HGB CONC 32.5 g/dl (32-36); MEAN PLATELET VOLUME 9.3 fL (7.4-10.4); MONO % 6.7 %; NEUT % 81.9 %; PLATELET COUNT 349 K/uL (130-400); RED BLOOD COUNT 4.59 M/uL (4.2-5.4)
[2017-04-19 04:45] LABS: ALT/SGPT 31 U/L (12-78); AST/SGOT 12 U/L (15-37); BLOOD UREA NITROGEN 16 mg/dl (7-18); BUN/CREATININE RATIO 20.4 (10-20); CALCIUM 8.3 mg/dl (8.5-10.1); CARBON DIOXIDE 24 mmol/L (21-32); CHLORIDE 110 mmol/L (98-107); CREATININE 0.76 mg/dl (0.60-1.20); GLUCOSE 120 mg/dl (70-99); POTASSIUM 3.8 mmol/L (3.5-5.1); SODIUM 141 mmol/L (136-145)
[2017-04-19 04:47] LABS: ALKALINE PHOSPHATASE 87 U/L (45-117)
[2017-04-19 05:03] LABS: URINE APPEARANCE CLEAR (CLEAR); URINE BILIRUBIN NEG (NEG); URINE COLOR YELLOW; URINE EPITHELIAL CELL AUTO >30 /lpf (0-5); URINE NITRITE NEG (NEG); URINE SPECIFIC GRAVITY 1.017 (1.000-1.030); UROBILINOGEN NEG (NEG)
[2017-04-19] MEDS ORDERED: OPTIRAY 320 IV PRN (05:15)
[2017-04-19 05:18] LABS: MANUAL MICROSCOPIC REQUIRED? NO; REVIEW REQ? NO
[2017-04-19] MEDS ORDERED: CEFTRIAXONE SOD INJ 1 GM ADDVIAL IV STA (06:06)
[2017-04-19] MEDS ORDERED: SULFAMETHOXAZOLE/TRIMETHOPRIM DS 800/160MG TAB PO STA (06:06)
[2017-04-19] MEDS ORDERED: ONDA4TAB10 SL (06:29)
[2017-04-19] MEDS ORDERED: SULF800T23 PO (06:29)
--- NOTE | 2017-04-19 07:44 | DIAGNOSTIC IMAGING REPORT ---
ABD/PELVIS IV CONTRAST ONLY HISTORY:56 yearsFemalePt c/o diffuse abd pain COMPARISON: Right upper quadrant ultrasound 04/07/2017, CT abdomen and pelvis 03/18/2017. TECHNIQUE: Multiple axial CT images of the abdomen and pelvis were obtained following the intravenous administration of 93 mL Optiray 320. FINDINGS: Lung bases are clear. There is no gross pneumoperitoneum. Inferior cardiac chambers are unremarkable. The liver, spleen, gallbladder, pancreas and adrenal glands are within normal limits. The bilateral kidneys are also within normal limits without hydronephrosis. The urinary bladder, uterus and adnexa are also within normal limits. The abdominal aorta is normal in course and caliber. There is no bulky adenopathy. There is a small sliding-type hiatal hernia. No bowel obstruction. The appendix appears normal, best seen on the coronal images. Soft tissues are within normal limits. The bones are intact. There is mild convex right curvature of the lumbar spine. Intervertebral disc space narrowing is present at L5-S1. IMPRESSION: 1. No acute intra-abdominal or intrapelvic abnormality identified. Normal appendix. 2. Small sliding-type hiatal hernia. The above report was generated using voice recognition software. It may contain grammatical, syntax or spelling errors. Electronically signed by: El Arias 04/19/2017 7:43 AM Dictated Date/Time: 04/19/2017 7:37 AM
[2017-04-19 09:10] VITALS: BP 107/76; PULSE 78; O2SAT 94
== END 2017-04-19 09:10 | disposition home or self-care (01) ==
LOC: EDBD 03:36 → C.EDB 03:37
DX: N30.00 Acute cystitis without hematuria (principal); F41.9 Anxiety disorder, unspecified; F32.9 Major depressive disorder, single episode, unspecified; E03.9 Hypothyroidism, unspecified; Z83.3 Family history of diabetes mellitus; Z83.79 Family history of other diseases of the digestive system; Z82.49 Family history of ischemic heart disease and other diseases of the circulatory system; Z79.899 Other long term (current) drug therapy

== ENCOUNTER 2017-05-03 14:31 | Emergency (ER) | payer OTHER ==
[~2017-05-03] VITALS: Ht 162.6 cm; Wt 74.0 kg
[~2017-05-03 14:31] MED LIST changes: +ONDA4TAB10 SL
[2017-05-03 14:41] VITALS: O2SAT 96; Ht 162.6 cm; Wt 74.0 kg
[2017-05-03] MEDS ORDERED: DIAZEPAM 2MG TAB PO ONE (15:00)
[2017-05-03 15:38] LABS: BASO % 0.6 %; BASO ABS # 0.07 K/uL (0-0.2); COMPLETE YES; EOS % 1.5 %; IG% 0.1 %; LYMPH % 14.8 %; LYMPH ABS # 1.73 K/uL (1.2-3.4); MEAN CELL VOLUME 94.5 fL (80-100); MEAN CORPUSCULAR HEMOGLOBIN 30.9 pg (25-34); MEAN CORPUSCULAR HGB CONC 32.7 g/dl (32-36); MEAN PLATELET VOLUME 9.6 fL (7.4-10.4); MONO % 6.4 %; NEUT % 76.6 %; PLATELET COUNT 396 K/uL (130-400); RED BLOOD COUNT 5.08 M/uL (4.2-5.4)
[2017-05-03] MEDS ORDERED: DIPH25CA65 PO (15:48)
--- NOTE | 2017-05-03 15:48 | DIAGNOSTIC IMAGING REPORT ---
CT OF THE HEAD WITHOUT CONTRAST CLINICAL HISTORY: Headaches, vision changes COMPARISON STUDY: Head CT March 26, 2016. CT DOSE: 638.56 mGycm TECHNIQUE: Helical axial images of the head were obtained without IV contrast. Automated exposure control was utilized for the study. A dose lowering technique was utilized adhering to the principles of ALARA. FINDINGS: No acute intracranial hemorrhage, midline shift or mass effect is present. Ventricular system is stable. Basilar cisterns are patent. There are no extra-axial collections. There is mild bilateral basal ganglia calcification. There are no significant calvarial abnormalities. Visualized portions of the sinuses and mastoid air cells are clear. There are no findings to suggest acute dural sinus thrombosis or acute territorial infarct. IMPRESSION: No acute intracranial findings. Electronically signed by: Singh Go M.D. 05/03/2017 3:47 PM Dictated Date/Time: 05/03/2017 3:44 PM
[2017-05-03 16:10] LABS: ALT/SGPT 33 U/L (12-78); BLOOD UREA NITROGEN 13 mg/dl (7-18); BUN/CREATININE RATIO 13.1 (10-20); CALCIUM 9.3 mg/dl (8.5-10.1); CARBON DIOXIDE 30 mmol/L (21-32); CHLORIDE 107 mmol/L (98-107); CREATININE 0.97 mg/dl (0.60-1.20); GLUCOSE 68 mg/dl (70-99); SODIUM 143 mmol/L (136-145)
[2017-05-03 16:14] LABS: ALB/GLOB RATIO 0.9 (0.9-2); ALKALINE PHOSPHATASE 113 U/L (45-117)
[2017-05-03 17:05] LABS: URINE APPEARANCE CLEAR (CLEAR); URINE BILIRUBIN NEG (NEG); URINE COLOR YELLOW; URINE NITRITE NEG (NEG); URINE PH 6.5 (4.5-7.5); URINE SPECIFIC GRAVITY 1.012 (1.000-1.030); UROBILINOGEN NEG (NEG); ZZUR CULT IF INDIC CLEAN CATCH NO
[2017-05-03 17:10] LABS: MANUAL MICROSCOPIC REQUIRED? NO; REVIEW REQ? NO
[2017-05-03 17:25] LABS: BENZODIAZEPINE, URINE POS (NEG); COCAINE,URINE NEG (NEG); PHENCYCLIDINE, URINE NEG (NEG)
[2017-05-03 18:21] LABS: POTASSIUM 3.8 mmol/L (3.5-5.1)
[2017-05-03 18:27] LABS: MAGNESIUM 2.2 mg/dl (1.8-2.4)
--- NOTE | 2017-05-03 18:35 | EMERGENCY ROOM VISIT NOTE ---
History First contact with patient: 14:36 Chief Complaint: CHEST PAIN Stated Complaint: CHEST PAIN/ANXIETY Nursing Triage Summary: Pt presents via ALS litter for eval of substernal cp into jaw and neck. Pt unable to report when cp started. Pt also reports migraine x 1 week. Photophobia, lightheaded. Pt denies hx of migraines. When asked when cp started, pt states, "The last thing I remember is last Wed." Per EMS, pt has a hx of anxiety and has been taking Benadryl 25-50mg every 4 hrs. History of Present Illness The patient is a 56 year old female who presents to the Emergency Room with multiple complaints. The patient states she was seen her primary care provider for a follow-up visit from her last emergency department visit and was sent here for evaluation. She states that she has been having migraines and vision problems for "a while." She states she has been having central chest pain for "a while." When questioned, the patient admits that she has been experiencing these symptoms for over one year. She states she occasionally has pain in the sides of her jaw. When she wakes up, she states that her neck is "stiff as a board." This improves throughout the day. She states that her legs feel weak at times. She reports that she occasionally has feelings like she is not in her body. She occasionally sees flashes of light in her eyes and feels that her pupils are dilated. She states that she has been taking Benadryl, 50 mg every 4 hours because this is the only thing that helps her headaches. She is currently tapering her Valium doses to try to stop this medication. She states that all of her symptoms improve throughout the day. She denies any shortness of breath, fevers/chills, abdominal pain, nausea/vomiting. Review of Systems A complete 10 point review of systems was reviewed with the patient with pertinent positives and negatives as per history of present illness. All else were negative. Past Medical/Surgical History Medical Problems: (1) Anxiety (2) Anxiety (3) Cluster B personality disorder (4) Depression (5) Fatty liver (6) Gallbladder polyp (7) Hiatal hernia (8) Hypothyroidism (9) Thyroid problems Surgical Problems: (1) Lipoma of neck (2) S/P tonsillectomy Family History Diabetes mellitus FHx: gallbladder disease FHx: heart disease No FHx f blood clots Social History Smoking Status: Never Smoker Alcohol Use: none Drug Use: none Housing Status: lives with family, lives with significant other Current/Historical Medications Scheduled Diazepam (Diazepam), 8 MG PO BID Diphenhydramine Hcl (Benadryl Allergy), 2 CAP PO TID Levothyroxine Sodium (Tirosint), 25 MCG PO DAILY Ondasetron Odt (Zofran Odt), 4 MG SL Q6H Scheduled PRN Hydrocodone/Acetaminophen 5MG/325MG ([place] 5MG/325MG), 1 TABLET PO UD PRN for Pain Physical Exam Vital Signs Date Time Temp Pulse Resp B/P (MAP) Pulse Ox O2 Delivery O2 Flow Rate FiO2 05/03/17 18:47 37.1 80 16 110/81 96 05/03/17 18:40 80 16 110/81 96 Room Air 05/03/17 17:34 37.1 75 16 104/70 97 Room Air 05/03/17 15:43 74 16 114/64 97 Room Air 05/03/17 14:41 96 Room Air 05/03/17 14:41 37.1 75 18 131/80 96 Room Air 05/03/17 14:39 78 Physical Exam VITALS: Vitals are noted on the nurse's note and reviewed by myself. Vital signs stable. GENERAL: This is a 56-year-old female, anxious appearing, makes poor eye contact , flat affect, whispers answers. SKIN: The skin was without rashes, erythema, edema, or bruising. HEAD: Normocephalic atraumatic. EARS: External auditory canals clear, tympanic membranes pearly jansen without erythema or effusion bilaterally. EYES: Pupils equal round and reactive to light and accommodation. Conjunctivae without injection, sclerae without icterus. Extraocular movements intact. MOUTH: Mucous membranes moist. Tonsils are not enlarged. Pharynx without erythema or exudate. NECK: Supple without nuchal rigidity. No lymphadenopathy. HEART: Regular rate and rhythm without murmurs gallops or rubs. LUNGS: Clear to auscultation bilaterally without wheezes, rales or rhonchi. ABDOMEN: Soft, nontender to palpation. MUSCULOSKELETAL: Full range of motion throughout. Strength 5/5 throughout. NEURO: Patient was alert and oriented to person place and time. Normal sensation to light and sharp touch. No focal neurological deficits. Medical Decision & Procedures ER Provider Diagnostic Interpretation: CT OF THE HEAD WITHOUT CONTRAST CLINICAL HISTORY: Headaches, vision changes COMPARISON STUDY: Head CT March 26, 2016. CT DOSE: 638.56 mGycm TECHNIQUE: Helical axial images of the head were obtained without IV contrast. Automated exposure control was utilized for the study. A dose lowering technique was utilized adhering to the principles of ALARA. FINDINGS: No acute intracranial hemorrhage, midline shift or mass effect is present. Ventricular system is stable. Basilar cisterns are patent. There are no extra-axial collections. There is mild bilateral basal ganglia calcification. There are no significant calvarial abnormalities. Visualized portions of the sinuses and mastoid air cells are clear. There are no findings to suggest acute dural sinus thrombosis or acute territorial infarct. IMPRESSION: No acute intracranial findings. Laboratory Results 05/03/17 15:25 Red Blood Count 5.08, Mean Corpuscular Volume 94.5, Mean Corpuscular Hemoglobin 30.9, Mean Corpuscular Hemoglobin Concent 32.7, Mean Platelet Volume 9.6, Neutrophils (%) (Auto) 76.6, Lymphocytes (%) (Auto) 14.8, Monocytes (%) (Auto) 6.4, Eosinophils (%) (Auto) 1.5, Basophils (%) (Auto) 0.6, Neutrophils # (Auto) 8.96, Lymphocytes # (Auto) 1.73, Monocytes # (Auto) 0.75, Eosinophils # (Auto) 0.18, Basophils # (Auto) 0.07 05/03/17 15:25 05/03/17 17:20 Test 05/03/17 15:25 05/03/17 16:55 05/03/17 17:20 White Blood Count 11.70 K/uL (4.8-10.8) Red Blood Count 5.08 M/uL (4.2-5.4) Hemoglobin 15.7 g/dL (12.0-16.0) Hematocrit 48.0 % (37-47) Mean Corpuscular Volume 94.5 fL (80-100) Mean Corpuscular Hemoglobin 30.9 pg (25-34) Mean Corpuscular Hemoglobin Concent 32.7 g/dl (32-36) Platelet Count 396 K/uL (130-400) Mean Platelet Volume 9.6 fL (7.4-10.4) Neutrophils (%) (Auto) 76.6 % Lymphocytes (%) (Auto) 14.8 % Monocytes (%) (Auto) 6.4 % Eosinophils (%) (Auto) 1.5 % Basophils (%) (Auto) 0.6 % Neutrophils # (Auto) 8.96 K/uL (1.4-6.5) Lymphocytes # (Auto) 1.73 K/uL (1.2-3.4) Monocytes # (Auto) 0.75 K/uL (0.11-0.59) Eosinophils # (Auto) 0.18 K/uL (0-0.5) Basophils # (Auto) 0.07 K/uL (0-0.2) RDW Standard Deviation 46.0 fL (36.4-46.3) RDW Coefficient of Variation 13.2 % (11.5-14.5) Immature Granulocyte % (Auto) 0.1 % Immature Granulocyte # (Auto) 0.01 K/uL (0.00-0.02) Anion Gap 6.0 mmol/L (3-11) Est Creatinine Clear Calc Drug Dose 63.1 ml/min Estimated GFR () 75.1 Estimated GFR (Non- 64.8 BUN/Creatinine Ratio 13.1 (10-20) Calcium Level 9.3 mg/dl (8.5-10.1) Total Bilirubin 0.3 mg/dl (0.2-1) Alanine Aminotransferase (ALT/SGPT) 33 U/L (12-78) Alkaline Phosphatase 113 U/L (45-117) Troponin I < 0.015 ng/ml (0-0.045) Total Protein 8.5 gm/dl (6.4-8.2) Albumin 4.0 gm/dl (3.4-5.0) Globulin 4.5 gm/dl (2.5-4.0) Albumin/Globulin Ratio 0.9 (0.9-2) Thyroid Stimulating Hormone (TSH) 5.140 uIu/ml (0.300-4.500) Urine Color YELLOW Urine Appearance CLEAR (CLEAR) Urine pH 6.5 (4.5-7.5) Urine Specific Mobile 1.012 (1.000-1.030) Urine Protein NEG (NEG) Urine Glucose (UA) NEG (NEG) Urine Ketones NEG (NEG) Urine Occult Blood NEG (NEG) Urine Nitrite NEG (NEG) Urine Bilirubin NEG (NEG) Urine Urobilinogen NEG (NEG) Urine Leukocyte Esterase NEG (NEG) Urine Opiates Screen NEG (NEG) Urine Methadone, Qualitative NEG (NEG) Urine Barbiturates NEG (NEG) Urine Phencyclidine (PCP) Level NEG (NEG) Ur Amphetamine/Methamphetamine NEG (NEG) MDMA (Ecstasy) Screen NEG (NEG) Urine Benzodiazepines Screen POS (NEG) Urine Cocaine Metabolite NEG (NEG) Urine Marijuana (THC) NEG (NEG) Magnesium Level 2.2 mg/dl (1.8-2.4) Aspartate Amino Transf (AST/SGOT) 15 U/L (15-37) Chemistry Specimen Hemolysis Medications Administered Medications (Trade) Dose Ordered Sig/Irving Route Start Time Stop Time Status Last Admin Dose Admin Diazepam (Valium Tab) 8 mg NOW ONCE PO 05/03/17 15:00 05/03/17 15:01 DC 05/03/17 15:18 8 MG ECG Rate (beats per minute): 77 Rhythm: normal sinus Findings: other (poor R-wave progression) Change: no significant change ED Course The patient was evaluated as above. Labs were drawn and IV access was obtained. Patient states she did not take her morning dose of Valium. She was medicated with [address] head was performed and read by radiology as above. Patient refused chest x-ray, stating she "has already had 2 this month." I explained to her that the chest x-ray was ordered due to her complaint of chest pain. She states that she has had the chest pain for one year. Patient was reevaluated and findings were discussed. I had a lengthy discussion with the patient. She requested to be admitted and I explained to her that she does not meet any criteria at this time. The psychiatric case liner spoke with the patient. I again met with the patient and encouraged her to follow-up with her primary care provider regarding these ongoing symptoms. Discharge instructions were reviewed with the patient. The patient verbalized understanding of my assessment and treatment plan and was discharged home in good condition. Medical Decision Differential diagnosis includes cardiac disease, infection, psychogenic, electrolyte abnormality, among others. The patient is a 56-year-old female who presents today for evaluation of multiple complaints. Throughout the stay, the patient reported complaints of chest pain, headaches, vision problems, weakness, and neck stiffness. She reports these symptoms have been ongoing for the past one year. She has been following with her primary care provider and has been evaluated here as well for symptoms with negative workups. She has seen a neurologist and had an MRI of the brain which was negative as well. Labs today revealed a mild leukocytosis, possibly due to stress. There was no concerning anemia or electrolyte abnormality. Urinalysis was not suggestive of infection. EKG was interpreted by myself and shows a normal sinus rhythm and is unchanged from previous EKG. Patient refused chest x-ray. CT of head showed no acute abnormalities. I had a lengthy discussion with the patient regarding her symptoms. On my initial evaluation, the patient seemed very shaky and answered questions only in whispers. When I reevaluated her after giving her the Valium, she seemed much better and was answering questions much more appropriately. I do believe there is likely a psychogenic cause of the patient's symptoms, and she was evaluated by the mental health background investigator as she states she is feeling very depressed regarding her symptoms. The patient is not feeling suicidal at this time and will not need admission for mental health evaluation. The patient requested multiple times that I admit her to the hospital for her ongoing symptoms. I explained to her that this was not appropriate treatment and she would need to follow-up with her primary care provider as an outpatient for evaluation. She asked multiple times about her thyroid, as she states there is a mass on her thyroid which she was told was benign. She is concerned that the mass could have grown and feel she needs a biopsy. I referred her back to ENT and her primary care provider for evaluation of this. TSH was checked and was mildly elevated, but nothing that would likely cause symptoms. Patient was instructed to call her primary care provider tomorrow to schedule a follow-up appointment. Based on the patient's presentation and work up, I feel the patient is stable for outpatient treatment. The patient was educated to return to the emergency department for any worsening of their current condition or new/concerning symptoms. She will follow up with her PCP. Impression Primary Impression: Anxiety Departure Information Dispostion Home / Self-Care Condition GOOD Referrals Josiah Song MD (PCP) Patient Instructions My [facility] Additional Instructions Follow up with Dr. Song this week. Rest and stay well hydrated. Continue your medications as prescribed. Return to the emergency department with any worsening or new/concerning symptoms.
[2017-05-03 18:47] VITALS: BP 110/81; PULSE 80; TEMP 37.1; O2SAT 96
[2017-05-06 12:34] LABS: HYDROXYETHYLFLURAZEPAM CONF NEGATIVE NG/ML (CUTOFF=50); HYDROXYMIDAZOLAM NEGATIVE NG/ML (CUTOFF=50); HYDROXYTRIAZOLAM CONF NEGATIVE NG/ML (CUTOFF=50); TEMAZEPAM CONF 450 NG/ML (CUTOFF=50)
== END 2017-05-03 18:47 | disposition home or self-care (01) ==
LOC: EDBD 14:31 → C.EDC 14:32
DX: F41.9 Anxiety disorder, unspecified (principal); K76.0 Fatty (change of) liver, not elsewhere classified; E03.9 Hypothyroidism, unspecified; Z90.89 Acquired absence of other organs; Z98.890 Other specified postprocedural states; Z83.3 Family history of diabetes mellitus; Z79.899 Other long term (current) drug therapy

== ENCOUNTER 2017-05-05 11:31 | Emergency (ER) | payer OTHER ==
[~2017-05-05] VITALS: Ht 162.6 cm; Wt 74.3 kg
[~2017-05-05 11:31] MED LIST changes: +DIPH25CA65 PO
[2017-05-05 11:41] VITALS: TEMP 37; Ht 162.6 cm; Wt 74.3 kg
--- NOTE | 2017-05-05 13:22 | EMERGENCY ROOM VISIT NOTE ---
History Report prepared by Lori: Alvarez Devine Under the Supervision of: Dr. Pernell Cerda M.D. First contact with patient: 12:47 Chief Complaint: OTHER COMPLAINT Stated Complaint: THYROID History of Present Illness The patient is a 56 year old female who presents to the Emergency Room with complaints of a constant thyroid cyst beginning a few weeks ago. The patient states that she is worrying herself sick thinking she has thyroid cancer because of her cyst. She reports that if someone tells her that she does not have cancer she will be fine. The patient notes that she was told, from an ultrasound, that her tumor was benign. She states that she does not believe it because she has not had a biopsy. The patient reports that she gets migraine headaches, cardiac symptoms, neck stiffness, anxiety, and that her pain is radiating to her ear. She notes that when she wakes up her neck is extremely stiff. The patient states that she was at the doctors that other day and was sent to the ED via ambulance. She reports that she is too broken down to go through the process and wants a biopsy to be scheduled for her. The patient notes that she has been told by an ENT doctor her tumor was benign, and she is still not resting easy. Case management states that the patient called stating she as very concerned and no one is listening to her or taking her seriously. They report that the patient stated that her blood glucose was low, but when it was checked it was normal. Case management notes that yesterday the patient's TSH was elevated and she complained that it was not addressed. Source of History: patient Onset: few weeks ago Position: other (thyroid) Quality: other (cyst) Timing: constant Associated Symptoms: + headache Note: Associated symptoms: cardiac symptoms, neck stiffness, and ear pain Review of Systems See HPI for pertinent positives & negatives. A total of 10 systems reviewed and were otherwise negative. Past Medical & Surgical Medical Problems: (1) Anxiety (2) Anxiety (3) Cluster B personality disorder (4) Depression (5) Fatty liver (6) Gallbladder polyp (7) Hiatal hernia (8) Hypothyroidism (9) Thyroid problems Surgical Problems: (1) Lipoma of neck (2) S/P tonsillectomy Family History Diabetes mellitus FHx: gallbladder disease FHx: heart disease No FHx f blood clots Social History Smoking Status: Never Smoker Alcohol Use: none Drug Use: none Housing Status: lives with family, lives with significant other Current/Historical Medications Scheduled Diazepam (Diazepam), 8 MG PO BID Diphenhydramine Hcl (Benadryl Allergy), 2 CAP PO TID Levothyroxine Sodium (Tirosint), 25 MCG PO DAILY Ondasetron Odt (Zofran Odt), 4 MG SL Q6H Scheduled PRN Hydrocodone/Acetaminophen 5MG/325MG ([place] 5MG/325MG), 1 TABLET PO UD PRN for Pain Allergies Coded Allergies: Escitalopram (Verified Allergy, Intermediate, RESTLESS ARMS, 05/05/17) Morphine (Verified Allergy, Intermediate, bad reaction, 05/05/17) Venlafaxine (Verified Allergy, Intermediate, RESTLESS ARMS, 05/05/17) Amitriptyline (Verified Adverse Reaction, Severe, FACIAL PAIN, 05/05/17) Levothyroxine (Verified Adverse Reaction, Severe, FACE AND TONGUE SWELLING , 05/03/17) PT TAKES THIS MEDICATION DESPITE REACTION 10/14/15- SPOKE WITH PATIENT, BELIEVES THAT THIS REACTION COMES FROM SYNTHROID BECAUSE WHEN THE DOSE WAS INCREASED THE SWELLING GOT WORSE. CURRENTLY TAKES BRAND, BELIEVES HAS TAKEN GENERIC Omeprazole (Verified Adverse Reaction, Severe, SWOLLEN TONGUE, NAUSEA, FACIAL EDEMA, 05/05/17) Sertraline (Verified Adverse Reaction, Intermediate, BURNING FEELING ON TONGUE, 05/05/17) Physical Exam Vital Signs Date Time Temp Pulse Resp B/P (MAP) Pulse Ox O2 Delivery O2 Flow Rate FiO2 05/05/17 13:40 82 16 137/76 98 Room Air 05/05/17 11:41 37.0 91 20 130/76 98 Room Air Physical Exam GENERAL: Patient is anxious appearing and in mild distress. HEENT: No acute trauma, normocephalic atraumatic, mucous membranes moist, no nasal congestion, no scleral icterus. NECK: No mass, no stridor, no adenopathy, no meningismus, trachea is midline. LUNGS: No dyspnea. Clear to auscultation and equal bilaterally. No wheeze, no rhonchi. HEART: Regular rate and rhythm. No murmurs, rubs, gallops appreciated. ABDOMEN: Soft, nontender, bowel sounds positive, no masses appreciated, no peritonitis. BACK: No midline tenderness, no CVA tenderness EXTREMITIES: Normal motion all extremities, no cyanosis, no edema. NEUROLOGIC: Alert and oriented, no acute motor or sensory deficits, no focal weakness, cranial nerves grossly intact. SKIN: No rash, no jaundice, no diaphoresis. PSYCH: Anxious appearing, denies suicidal ideation Medical Decision & Procedures Laboratory Results Test 05/05/17 12:05 Bedside Glucose 109 mg/dl (70-90) Laboratory results as reviewed by me. ED Course 1247: The patient was evaluated in room A11B. A complete history and physical exam was performed. 1309: I discussed the patient's case with Dinora Yepez. He will continue following up with the patient as an outpatient. 1342: Reevaluated the patient. She feels better and would like to go home. She thanked me for speaking with her. Discussed my consult with Dr. Song: she verbalized understanding and agreement. The patient is ready for discharge. Medical Decision 56 yr old female arrives very anxious regarding her neck discomfort. It is very clear from review of chart, PCP discussion and from patient herself that this has been ongoing for quite some time. Many evaluations in ED over last few months including 2 ultrasounds, many labs and even ENT referral. She has known 9mm stable right thyroid cyst very much felt to be benign by rads and ENT. She has been told many times that there is no indication for biopsy. She wishes me to biopsy this today and I made clear that is not something I can nor will be doing. We discussed her many symptoms at length (of note she essentially has a positive review of symptoms if allowed to expound on them). She is clearly perseverating about this thyroid cyst. I reviewed her many tests and imaging to assure her there is not indication for further emergent treatment at this time. She makes clear she does not want cardiac nor other testing at this time. She did request something to help calm her down, however with her large volume of Valium she already takes and fact I do not feel that sedating her is answer, I had to decline this request of hers. I have made clear to her the importance of PCP follow up. I have also made her and her very much aware that ED is always available to her if she feels symptoms have changed or other emergent symptoms develop. Blood Pressure Screening Patient's blood pressure: Elevated blood pressure Blood pressure disposition: Elevated BP felt to be situational, Did not require urgent referral Consults Time Called: 1259 Consulting Physician: Dinora Yepez Returned Call: 1305 I discussed the patient's case with Dinora Yepez. He will continue following up with the patient as an outpatient. Impression Primary Impression: Anxiety Additional Impression: Globus sensation Scribe Attestation The scribe's documentation has been prepared under my direction and personally reviewed by me in its entirety. I confirm that the note above accurately reflects all work, treatment, procedures, and medical decision making performed by me. Departure Information Dispostion Home / Self-Care Referrals No Doctor, Assigned (PCP) Forms HOME CARE DOCUMENTATION FORM, IMPORTANT VISIT INFORMATION, WORK / SCHOOL INSTRUCTIONS Patient Instructions My [facility] Additional Instructions We are always here to help. If at any time you feel you require further evaluation please return or call 911. You have been examined and treated today on an emergency basis only. This is not a substitute for, or an effort to provide, complete comprehensive medical care. It is impossible to recognize and treat all injuries or illnesses in a single emergency department visit. It is therefore important that you follow up closely with your Primary Physician. Call as soon as possible for an appointment so you can review all labs, imaging and other testing that you had. Return to Emergency Department, call 911 or seek immediate medical attention if you feel your symptoms are worsening. Problem Qualifiers
[2017-05-05 13:40] VITALS: BP 137/76; PULSE 82; O2SAT 98
== END 2017-05-05 14:08 | disposition home or self-care (01) ==
LOC: C.EDB 11:32 → C.EDA 14:08
DX: F41.9 Anxiety disorder, unspecified (principal); R09.89 Other specified symptoms and signs involving the circulatory and respiratory systems; F32.9 Major depressive disorder, single episode, unspecified; E03.9 Hypothyroidism, unspecified; K76.0 Fatty (change of) liver, not elsewhere classified; F60.9 Personality disorder, unspecified; Z83.3 Family history of diabetes mellitus; Z79.899 Other long term (current) drug therapy

== ENCOUNTER 2017-06-27 21:13 | Emergency (ER) | payer OTHER ==
[~2017-06-27] VITALS: Ht 162.6 cm; Wt 78.1 kg
[2017-06-27 21:21] VITALS: TEMP 36.8; O2SAT 94; Ht 162.6 cm; Wt 78.1 kg
[2017-06-27] MEDS ORDERED: DIGE1CAP10 PO (21:37)
[2017-06-27 22:02] LABS: MEAN CELL VOLUME 92.5 fL (80-100); MEAN CORPUSCULAR HEMOGLOBIN 31.3 pg (25-34); MEAN CORPUSCULAR HGB CONC 33.8 g/dl (32-36); MEAN PLATELET VOLUME 9.7 fL (7.4-10.4); PLATELET COUNT 360 K/uL (130-400); RED BLOOD COUNT 4.54 M/uL (4.2-5.4); WHITE BLOOD COUNT 7.19 K/uL (4.8-10.8)
[2017-06-27 22:11] LABS: INR 0.9 (0.9-1.1); PARTIAL THROMBOPLASTIN RATIO 1.1; PROTHROMBIN TIME (PATIENT) 9.7 SECONDS (9.0-12.0)
[2017-06-27 22:16] LABS: ALB/GLOB RATIO 0.9 (0.9-2); ALKALINE PHOSPHATASE 111 U/L (45-117); ALT/SGPT 30 U/L (12-78); AST/SGOT 20 U/L (15-37); BLOOD UREA NITROGEN 8 mg/dl (7-18); BUN/CREATININE RATIO 10.3 (10-20); CALCIUM 8.9 mg/dl (8.5-10.1); CARBON DIOXIDE 24 mmol/L (21-32); CHLORIDE 108 mmol/L (98-107); CREATININE 0.77 mg/dl (0.60-1.20); GLUCOSE 114 mg/dl (70-99); POTASSIUM 3.6 mmol/L (3.5-5.1); SODIUM 142 mmol/L (136-145)
[2017-06-27 22:22] LABS: URINE APPEARANCE CLOUDY (CLEAR); URINE BILIRUBIN NEG (NEG); URINE COLOR YELLOW; URINE EPITHELIAL CELL AUTO >30 /lpf (0-5); URINE NITRITE NEG (NEG); URINE PH 5.5 (4.5-7.5); URINE SPECIFIC GRAVITY 1.007 (1.000-1.030); UROBILINOGEN NEG (NEG); ZZUR CULT IF INDIC CLEAN CATCH YES
[2017-06-27 22:24] LABS: MANUAL MICROSCOPIC REQUIRED? NO; REVIEW REQ? YES
[2017-06-27] MEDS ORDERED: LORAZEPAM 0.5 MG TAB SL STA (22:40)
[2017-06-27 22:42] LABS: URINE PATH CASTS 0-3 WAXY CASTS /lpf (0)
--- NOTE | 2017-06-27 23:04 | DIAGNOSTIC IMAGING REPORT ---
CHEST ONE VIEW PORTABLE CLINICAL HISTORY: 57 years-old Female presenting with Chest tightness. TECHNIQUE: Portable upright AP view of the chest was obtained. COMPARISON: 03/18/2017. FINDINGS: Minimal atherosclerosis of aortic arch. Cardiac silhouette normal in size. Lungs and pleural spaces clear. Osseous structures normal. Upper abdomen normal. IMPRESSION: 1. No acute cardiopulmonary disease. Electronically signed by: Erlin Spears M.D. 06/27/2017 11:03 PM Dictated Date/Time: 06/27/2017 11:02 PM
[2017-06-28 01:41] VITALS: BP 98/62; PULSE 80; O2SAT 96
--- NOTE | 2017-06-28 02:39 | EMERGENCY ROOM VISIT NOTE ---
History Report prepared by Lori: Zoila Ovalle Under the Supervision of: Jennifer CurryO. First contact with patient: 21:58 Chief Complaint: CHEST PAIN Stated Complaint: CHEST PAIN Nursing Triage Summary: pt arrives from urology appt at [facility] by ALS Per ALS pt reported a stressful event at her appt her chest became heavy low across her chest she took valium at that time she reports no relief at this time states chest pain is still there "I just dont feel like getting up and running around the room anymore." History of Present Illness The patient is a 57 year old female who presents to the Emergency Room with complaints of constant chest pain for the past several months. The patient states, "I can't take any stress and when I get the lease bit stressed I start having these episodes and feel like I'm going to shut down." The patient described chest pressure and lightheadedness with her chest pain. She rates her current pain as a 6/10 in severity. She experiences shortness of breath, tingling in her fingertips, and diaphoresis with her chest pain. Her symptoms are worse when she is hungry or anxious. Today's symptoms worsened around 6pm. The patient also reports increased urinary frequency since last night, and swelling to the backs of her knees, left greater than right. The patient denies fevers, hemoptysis, vomiting, dysuria, swelling in her calves, and recent long trips or surgeries. She denies estrogen use. She denies any personal history of cancer, heart disease, CT, HTN, or DM. Source of History: patient Onset: several months ago Position: chest Symptom Intensity: 6/10 Quality: other (tightness) Timing: constant Modifying Factors (Worsening): other (hunger/anxiety) Associated Symptoms: + diaphoresis, + SOB, + urinary symptoms, No fevers, No vomiting Review of Systems See HPI for pertinent positives & negatives. A total of 10 systems reviewed and were otherwise negative. Past Medical & Surgical Medical Problems: (1) Anxiety (2) Anxiety (3) Cluster B personality disorder (4) Depression (5) Fatty liver (6) Gallbladder polyp (7) Hiatal hernia (8) Hypothyroidism (9) Thyroid problems Surgical Problems: (1) Lipoma of neck (2) S/P tonsillectomy Family History Diabetes mellitus FHx: gallbladder disease FHx: heart disease No FHx f blood clots Social History Smoking Status: Never Smoker Alcohol Use: none Drug Use: none Housing Status: lives with family, lives with significant other Current/Historical Medications Scheduled Diazepam (Diazepam), 8 MG PO BID Digestive Enzymes (Digestive Enzyme), 1 CAP PO DAILY Levothyroxine Sodium (Tirosint), 25 MCG PO DAILY Scheduled PRN Hydrocodone/Acetaminophen 5MG/325MG ([place] 5MG/325MG), 1 TABLET PO UD PRN for Pain Allergies Coded Allergies: Escitalopram (Verified Allergy, Intermediate, RESTLESS ARMS, 06/27/17) Morphine (Verified Allergy, Intermediate, bad reaction, 06/27/17) Venlafaxine (Verified Allergy, Intermediate, RESTLESS ARMS, 06/27/17) Amitriptyline (Verified Adverse Reaction, Severe, FACIAL PAIN, 06/27/17) Levothyroxine (Verified Adverse Reaction, Severe, FACE AND TONGUE SWELLING , 06/27/17) PT TAKES THIS MEDICATION DESPITE REACTION 10/14/15- SPOKE WITH PATIENT, BELIEVES THAT THIS REACTION COMES FROM SYNTHROID BECAUSE WHEN THE DOSE WAS INCREASED THE SWELLING GOT WORSE. CURRENTLY TAKES BRAND, BELIEVES HAS TAKEN GENERIC Omeprazole (Verified Adverse Reaction, Severe, SWOLLEN TONGUE, NAUSEA, FACIAL EDEMA, 06/27/17) Sertraline (Verified Adverse Reaction, Intermediate, BURNING FEELING ON TONGUE, 06/27/17) Physical Exam Vital Signs Date Time Temp Pulse Resp B/P (MAP) Pulse Ox O2 Delivery O2 Flow Rate FiO2 06/28/17 01:41 80 18 98/62 96 Room Air 06/28/17 00:18 73 18 06/27/17 23:43 69 19 97 06/27/17 23:13 74 19 94/60 95 Room Air 06/27/17 22:43 75 18 94 06/27/17 22:13 76 19 94 06/27/17 21:43 78 20 94 06/27/17 21:40 79 06/27/17 21:24 112/73 06/27/17 21:21 94 Room Air 06/27/17 21:21 36.8 78 16 112/73 94 Room Air 06/27/17 21:20 94 Room Air Physical Exam GENERAL: alert, sitting up in bed, anxious appearing with pressured speech, well nourished, no distress, non-toxic EYE EXAM: normal conjunctiva, PERRL and EOM's intact OROPHARYNX: no exudate, no erythema, lips, buccal mucosa, and tongue normal and mucous membranes are moist NECK: supple, no nuchal rigidity, no adenopathy, non-tender LUNGS: Clear to auscultation. Normal chest wall mechanics HEART: no murmurs, S1 normal and S2 normal ABDOMEN: abdomen soft, non-tender, normo-active bowel sounds, no masses, no rebound or guarding. BACK: Back is symmetrical on inspection and there is no deformity, no midline tenderness, no CVA tenderness. SKIN: no rashes and no bruising UPPER EXTREMITIES: upper extremities are grossly normal. LOWER EXTREMITIES: No pitting edema. NEURO EXAM: Normal sensorium, cranial nerves II-XII intact, normal speech, no weakness of arms, no weakness of legs. No drift. Finger to nose intact. Gross sensation intact. Rapid alternating movements of the upper extremities intact. Medical Decision & Procedures ER Provider Diagnostic Interpretation: Radiology results as stated below per my review and the radiologist's interpretation: CHEST ONE VIEW PORTABLE CLINICAL HISTORY: 57 years-old Female presenting with Chest tightness. TECHNIQUE: Portable upright AP view of the chest was obtained. COMPARISON: 03/18/2017. FINDINGS: Minimal atherosclerosis of aortic arch. Cardiac silhouette normal in size. Lungs and pleural spaces clear. Osseous structures normal. Upper abdomen normal. IMPRESSION: 1. No acute cardiopulmonary disease. Electronically signed by: Erlin Spears M.D. 06/27/2017 11:03 PM Dictated Date/Time: 06/27/2017 11:02 PM US VENOUS LEFT LOWER EXTREMITY: No obvious deep vein thrombosis. Radiologist: Kvng Curran MD Laboratory Results 06/27/17 20:52 06/27/17 20:52 Test 06/27/17 20:52 06/27/17 21:45 06/28/17 00:11 Red Blood Count 4.54 M/uL (4.2-5.4) Mean Corpuscular Volume 92.5 fL (80-100) Mean Corpuscular Hemoglobin 31.3 pg (25-34) Mean Corpuscular Hemoglobin Concent 33.8 g/dl (32-36) RDW Standard Deviation 45.8 fL (36.4-46.3) RDW Coefficient of Variation 13.5 % (11.5-14.5) Mean Platelet Volume 9.7 fL (7.4-10.4) Prothrombin Time 9.7 SECONDS (9.0-12.0) Prothromb Time International Ratio 0.9 (0.9-1.1) Activated Partial Thromboplast Time 27.9 SECONDS (21.0-31.0) Partial Thromboplastin Ratio 1.1 Anion Gap 10.0 mmol/L (3-11) Est Creatinine Clear Calc Drug Dose 80.6 ml/min Estimated GFR () 98.6 Estimated GFR (Non- 85.1 BUN/Creatinine Ratio 10.3 (10-20) Calcium Level 8.9 mg/dl (8.5-10.1) Total Bilirubin 0.1 mg/dl (0.2-1) Aspartate Amino Transf (AST/SGOT) 20 U/L (15-37) Alanine Aminotransferase (ALT/SGPT) 30 U/L (12-78) Alkaline Phosphatase 111 U/L (45-117) Total Creatine Kinase 71 U/L (26-192) Creatine Kinase MB < 0.5 ng/ml (0.5-3.6) Creatine Kinase MB Ratio (0-3.0) Total Protein 7.5 gm/dl (6.4-8.2) Albumin 3.6 gm/dl (3.4-5.0) Globulin 3.9 gm/dl (2.5-4.0) Albumin/Globulin Ratio 0.9 (0.9-2) Chemistry Specimen Hemolysis Urine Color YELLOW Urine Appearance CLOUDY (CLEAR) Urine pH 5.5 (4.5-7.5) Urine Specific [place] 1.007 (1.000-1.030) Urine Protein NEG (NEG) Urine Glucose (UA) NEG (NEG) Urine Ketones NEG (NEG) Urine Occult Blood TRACE (NEG) Urine Nitrite NEG (NEG) Urine Bilirubin NEG (NEG) Urine Urobilinogen NEG (NEG) Urine Leukocyte Esterase SMALL (NEG) Urine WBC (Auto) 1-5 /hpf (0-5) Urine RBC (Auto) 0-4 /hpf (0-4) Urine Hyaline Casts (Auto) 1-5 /lpf (0-5) Urine Epithelial Cells (Auto) >30 /lpf (0-5) Urine Bacteria (Auto) 2+ (NEG) Urine Pathogenic Casts 0-3 WAXY CASTS /lpf (0) Troponin I < 0.015 ng/ml (0-0.045) Laboratory results per my review. Medications Administered Medications (Trade) Dose Ordered Sig/Irving Route Start Time Stop Time Status Last Admin Dose Admin Lorazepam (Ativan Tab) 0.5 mg NOW STAT SL 06/27/17 22:40 06/27/17 22:41 DC 06/27/17 23:43 0.5 MG ECG Indication: chest pain Rate (beats per minute): 74 Rhythm: normal sinus Findings: no ectopy, other (normal axis) Comparison ECG Date: 05/03/17 Change: no significant change ED Course ED COURSE: Vital signs were reviewed and showed normal vitals. The patients medical record was reviewed The above diagnostic studies were performed and reviewed. ED treatments and interventions as stated above. 8: The patient was evaluated in room A9B. A complete history and physical examination was performed. 2240: Ativan 0.5 mg SL 0141: Upon reevaluation, the patient is feeling better and resting comfortably. I discussed my findings with the patient and she understands and agrees with the treatment plan. Based on the patients age, coexisting illnesses, exam and lab findings the decision to treat as an outpatient was made. The patient remained stable while under my care. The patient appeared well at the time of discharge. Medical Decision Differential diagnoses includes but is not limited to acute coronary syndrome, myocardial infarction, pericarditis, pulmonary embolus, aortic dissection, pneumonia, pneumothorax, musculoskeletal, shingles, esophageal. Patient is a 57-year-old female presents to the ER for chest pain. She notes that this chest pain has been fairly persistent for the past several weeks. She notes it is worse with anxiety or when she gets worked up. She also notices worse after eating. She has no arm pain with this. When this does get worse, she notes tingling in her bilateral upper extremities and feels a little lightheaded. No history of diabetes, hypertension, hyperlipidemia, or CAD. Patient notes that she feels her left calf is slightly larger than right. No hemoptysis, no recent trips, recent surgeries, previous clots, history cancer, or previous clots. Ultrasound of left lower extremity was unremarkable. Troponins were negative 2. EKG was unchanged. Chest x-ray was unremarkable. Labs were otherwise benign. Patient is extremely anxious appearing. I do believe that this is most likely anxiety as she has been here multiple times before in the past for this. She was discharged/chest importance of following up with PCP in 24 hours repeat evaluation as there is limitations to a cardiac workup in the ER. Discussed with Pt concerning signs and symptoms to watch out for. Pt was instructed to follow up with their PCP and discussed with the patient their option to return to the ED at anytime for persistent or worsening symptoms. The appropriate anticipatory guidance and out-patient management, including indications for return to the emergency department, were explained at length to the patient and understood. Medication Reconcilliation Current Medication List: was personally reviewed by me Blood Pressure Screening Patient's blood pressure: Normal blood pressure Impression Primary Impression: Chest pain Scribe Attestation The scribe's documentation has been prepared under my direction and personally reviewed by me in its entirety. I confirm that the note above accurately reflects all work, treatment, procedures, and medical decision making performed by me. Departure Information Dispostion Home / Self-Care Referrals Josiah Song MD (PCP) Forms Call Back Authorization, HOME CARE DOCUMENTATION FORM, IMPORTANT VISIT INFORMATION Patient Instructions Chest Pain - [facility], [facility] Additional Instructions Please follow up with your primary care doctor with in the next 24 hours. Any worsening of your symptoms, please return to the ED immediately. This includes any fevers greater than 100.4, worsening pain, chest pain, shortness breath, persistent nausea, vomiting, unable to eat or drink, or any other concerning signs or symptoms from your standpoint. Problem Qualifiers Primary Impression: Chest pain Chest pain type: unspecified Qualified Codes: R07.9 - Chest pain, unspecified
--- NOTE | 2017-06-28 06:27 | DIAGNOSTIC IMAGING REPORT ---
ULTRASOUND LEFT VENOUS DOPP LOWER EXT UNILAT CLINICAL HISTORY: Left leg swelling COMPARISON STUDY: No previous studies for comparison. FINDINGS: Real-time and color flow Doppler imaging were performed. Flow was seen within the femoral, popliteal and calf veins with no intraluminal thrombus demonstrated. The saphenous vein is patent. IMPRESSION: No evidence of left lower extremity DVT. Electronically signed by: Adonis Donnelly M.D. 06/28/2017 6:26 AM Dictated Date/Time: 06/28/2017 6:25 AM
== END 2017-06-28 01:50 | disposition home or self-care (01) ==
LOC: EDBD 21:13 → C.EDA 21:14
DX: R07.9 Chest pain, unspecified (principal); R42 Dizziness and giddiness; F41.9 Anxiety disorder, unspecified; F60.9 Personality disorder, unspecified; F32.9 Major depressive disorder, single episode, unspecified; K76.0 Fatty (change of) liver, not elsewhere classified; K82.4 Cholesterolosis of gallbladder; E03.9 Hypothyroidism, unspecified; K44.9 Diaphragmatic hernia without obstruction or gangrene; Z83.3 Family history of diabetes mellitus

== ENCOUNTER 2017-08-23 13:25 | Emergency (ER) | payer OTHER ==
[~2017-08-23] VITALS: Ht 162.6 cm; Wt 76.8 kg
[~2017-08-23 13:25] MED LIST changes: +DIGE1CAP10 PO; -DIPH25CA65 PO; -ONDA4TAB10 SL
[2017-08-23 13:31] VITALS: TEMP 36.8; Ht 162.6 cm; Wt 76.8 kg
--- NOTE | 2017-08-23 14:23 | EMERGENCY ROOM VISIT NOTE ---
History Report prepared by Lori: Shama Hernandez Under the Supervision of: Dr. Shaheen Hartmann D.O. First contact with patient: 13:48 Chief Complaint: ABDOMINAL PAIN Stated Complaint: PAIN,WOOZY, PSYCHIATRIC Nursing Triage Summary: Patient reports she is here for abd. pain and depression. Reports she has been having diarrhea and constipation. bloating, abd pain and loss of appetite over the past week. Patient reports she took a hydocodone this morning and "it helps my head to think straight" History of Present Illness The patient is a 57 year old female who presents to the Emergency Room with complaints of persistent abdominal pain since last night. She rates her discomfort as a 6/10 in severity. She took half a Hydrocodone pill at 1100 this morning, but states it made her feel "woozy and nauseous". She then felt like her heart was beating very fast and like she "needed to bend over to be able to breathe". The patient notes she was supposed to see her counselor this morning, so she called him and told him she was coming to the ED because she did not feel well. She states she was scared that she took the Hydrocodone pill on a mostly empty stomach. She admits to worsening depression recently and states she feels like she wants to "run away". She has done this in the past, and states she ended up driving to her counselors office. She denies any recent HI. Her PCP is Dr. Song with [facility] and the last time she saw him, a few weeks ago, he told her he would see her back in 6 months. The patient denies any recent fevers or chills. She does admit to some intermittent diarrhea and constipation. Source of History: patient Onset: last night Position: abdomen Symptom Intensity: 6/10 Timing: other (persistent) Modifying Factors (Relieving): narcotics (Hydrocodone) Associated Symptoms: + SOB, + nausea, + diarrhea, No fevers, No chills Review of Systems See HPI for pertinent positives & negatives. A total of 10 systems reviewed and were otherwise negative. Past Medical & Surgical Medical Problems: (1) Anxiety (2) Anxiety (3) Cluster B personality disorder (4) Depression (5) Fatty liver (6) Gallbladder polyp (7) Hiatal hernia (8) Hypothyroidism (9) Thyroid problems Surgical Problems: (1) Lipoma of neck (2) S/P tonsillectomy Family History Diabetes mellitus FHx: gallbladder disease FHx: heart disease No FHx f blood clots Social History Smoking Status: Never Smoker Alcohol Use: none Drug Use: none Housing Status: lives with family, lives with significant other Current/Historical Medications Scheduled Buspirone Hcl (Buspirone Hcl), 1 TAB PO BID Diazepam (Diazepam), 6 MG PO QAM Diazepam (Valium), 8 MG PO QPM Digestive Enzymes (Digestive Enzyme), 1 CAP PO DAILY Levothyroxine Sodium (Tirosint), 25 MCG PO DAILY Scheduled PRN Hydrocodone/Acetaminophen 5MG/325MG ([place] 5MG/325MG), 1 TABLET PO UD PRN for Pain Allergies Coded Allergies: Escitalopram (Verified Allergy, Intermediate, RESTLESS ARMS, 08/23/17) Morphine (Verified Allergy, Intermediate, bad reaction, 08/23/17) Venlafaxine (Verified Allergy, Intermediate, RESTLESS ARMS, 08/23/17) Amitriptyline (Verified Adverse Reaction, Severe, FACIAL PAIN, 08/23/17) Levothyroxine (Verified Adverse Reaction, Severe, FACE AND TONGUE SWELLING , 08/23/17) PT TAKES THIS MEDICATION DESPITE REACTION 10/14/15- SPOKE WITH PATIENT, BELIEVES THAT THIS REACTION COMES FROM SYNTHROID BECAUSE WHEN THE DOSE WAS INCREASED THE SWELLING GOT WORSE. CURRENTLY TAKES BRAND, BELIEVES HAS TAKEN GENERIC Omeprazole (Verified Adverse Reaction, Severe, SWOLLEN TONGUE, NAUSEA, FACIAL EDEMA, 08/23/17) Sertraline (Verified Adverse Reaction, Intermediate, BURNING FEELING ON TONGUE, 08/23/17) Physical Exam Vital Signs Date Time Temp Pulse Resp B/P (MAP) Pulse Ox O2 Delivery O2 Flow Rate FiO2 08/23/17 15:30 93 16 95 Room Air 08/23/17 13:31 36.8 98 16 116/78 95 Room Air Physical Exam GENERAL: Patient is awake, alert, somewhat anxious and tearful. EYES: The conjunctivae are clear. The pupils are dilated and reactive to light bilaterally. EARS, NOSE, MOUTH AND THROAT: The nose is without any evidence of any deformity. Mucous membranes are moist tongue is midline NECK: The neck is nontender and supple. RESPIRATORY: Normal respiratory effort is noted there is no evidence of wheezing rhonchi or rales CARDIOVASCULAR: Regular rate and rhythm noted there no murmurs rubs or gallops normal S1 normal S2 GASTROINTESTINAL: The abdomen is soft. Bowel sounds are present in all quadrants. Abdomen is nontender MUSCULOSKELETAL/EXTREMITIES: There is no evidence of gross deformity full range of motion is noted in the hips and shoulders SKIN: There is no obvious evidence of any rash. There are no petechiae, pallor or cyanosis noted. NEUROLOGIC: Patient is awake alert and oriented x3 strength is symmetric patellar reflexes are 2+ bilaterally PSYCHIATRIC: Affect was flat, patient makes poor eye contact, patient was tearful, currently denying and SI or HI. Medical Decision & Procedures ER Provider Diagnostic Interpretation: Radiology results as stated below per my review and radiologist interpretation: CHEST ONE VIEW PORTABLE CLINICAL HISTORY: 57 years-old Female presenting with palpitations. TECHNIQUE: Portable upright AP view of the chest was obtained. COMPARISON: 06/27/2017. FINDINGS: Minimal atherosclerosis of aortic arch. Cardiac silhouette normal in size. Lungs and pleural spaces clear. Osseous structures normal. Upper abdomen normal. IMPRESSION: 1. No acute cardiopulmonary disease. Electronically signed by: Erlin Spears M.D. 08/23/2017 2:33 PM Laboratory Results 08/23/17 15:11 Red Blood Count 5.00, Mean Corpuscular Volume 91.6, Mean Corpuscular Hemoglobin 30.8, Mean Corpuscular Hemoglobin Concent 33.6, Mean Platelet Volume 9.4, Neutrophils (%) (Auto) 67.8, Lymphocytes (%) (Auto) 21.4, Monocytes (%) (Auto) 8.0, Eosinophils (%) (Auto) 2.0, Basophils (%) (Auto) 0.6, Neutrophils # (Auto) 6.10, Lymphocytes # (Auto) 1.92, Monocytes # (Auto) 0.72, Eosinophils # (Auto) 0.18, Basophils # (Auto) 0.05 08/23/17 15:11 Test 08/23/17 14:00 08/23/17 15:11 Urine Color YELLOW Urine Appearance CLEAR (CLEAR) Urine pH 6.5 (4.5-7.5) Urine Specific [place] 1.017 (1.000-1.030) Urine Protein NEG (NEG) Urine Glucose (UA) NEG (NEG) Urine Ketones NEG (NEG) Urine Occult Blood NEG (NEG) Urine Nitrite NEG (NEG) Urine Bilirubin NEG (NEG) Urine Urobilinogen NEG (NEG) Urine Leukocyte Esterase NEG (NEG) Urine Opiates Screen POS (NEG) Urine Methadone, Qualitative NEG (NEG) Urine Barbiturates NEG (NEG) Urine Phencyclidine (PCP) Level NEG (NEG) Ur Amphetamine/Methamphetamine NEG (NEG) MDMA (Ecstasy) Screen NEG (NEG) Urine Benzodiazepines Screen POS (NEG) Urine Cocaine Metabolite NEG (NEG) Urine Marijuana (THC) NEG (NEG) White Blood Count 8.99 K/uL (4.8-10.8) Red Blood Count 5.00 M/uL (4.2-5.4) Hemoglobin 15.4 g/dL (12.0-16.0) Hematocrit 45.8 % (37-47) Mean Corpuscular Volume 91.6 fL (80-100) Mean Corpuscular Hemoglobin 30.8 pg (25-34) Mean Corpuscular Hemoglobin Concent 33.6 g/dl (32-36) Platelet Count 345 K/uL (130-400) Mean Platelet Volume 9.4 fL (7.4-10.4) Neutrophils (%) (Auto) 67.8 % Lymphocytes (%) (Auto) 21.4 % Monocytes (%) (Auto) 8.0 % Eosinophils (%) (Auto) 2.0 % Basophils (%) (Auto) 0.6 % Neutrophils # (Auto) 6.10 K/uL (1.4-6.5) Lymphocytes # (Auto) 1.92 K/uL (1.2-3.4) Monocytes # (Auto) 0.72 K/uL (0.11-0.59) Eosinophils # (Auto) 0.18 K/uL (0-0.5) Basophils # (Auto) 0.05 K/uL (0-0.2) RDW Standard Deviation 43.7 fL (36.4-46.3) RDW Coefficient of Variation 13.1 % (11.5-14.5) Immature Granulocyte % (Auto) 0.2 % Immature Granulocyte # (Auto) 0.02 K/uL (0.00-0.02) Prothrombin Time 10.3 SECONDS (9.0-12.0) Prothromb Time International Ratio 1.0 (0.9-1.1) Activated Partial Thromboplast Time 29.2 SECONDS (21.0-31.0) Partial Thromboplastin Ratio 1.1 Anion Gap 10.0 mmol/L (3-11) Est Creatinine Clear Calc Drug Dose 76.9 ml/min Estimated GFR () 94.2 Estimated GFR (Non- 81.3 BUN/Creatinine Ratio 19.3 (10-20) Calcium Level 9.5 mg/dl (8.5-10.1) Total Bilirubin 0.3 mg/dl (0.2-1) Direct Bilirubin < 0.1 mg/dl (0-0.2) Aspartate Amino Transf (AST/SGOT) 16 U/L (15-37) Alanine Aminotransferase (ALT/SGPT) 29 U/L (12-78) Alkaline Phosphatase 106 U/L (45-117) Total Creatine Kinase 44 U/L (26-192) Creatine Kinase MB < 0.5 ng/ml (0.5-3.6) Creatine Kinase MB Ratio (0-3.0) Troponin I < 0.015 ng/ml (0-0.045) Total Protein 8.0 gm/dl (6.4-8.2) Albumin 3.8 gm/dl (3.4-5.0) Lipase 137 U/L (73-393) Ethyl Alcohol mg/dL < 3.0 mg/dl (0-3) Laboratory results per my review. ECG Indication: abdominal pain Rate (beats per minute): 82 Rhythm: normal sinus Findings: no ectopy, other (No acute ST segment abnormalities) Change: no significant change (No change from 06/27/17) ED Course 1403: The patient was evaluated in room A7. A complete history and physical examination were performed. 1605: I reevaluated the patient. She is resting comfortably. 1716: Buspar 5 mg PO. 1730: I reevaluated the patient. She is feeling well and resting comfortably. I discussed her results and discharge instructions and she verbalized complete understanding and agreement. Medical Decision Prior records/ancillary studies reviewed. Triage Nursing notes reviewed. The patient's history was concerning for abdominal pain. Differential diagnosis: Etiologies such as appendicitis, diverticulitis, PUD, biliary pathology, UTI, pancreatitis, obstruction, mesenteric ischemia, aortic pathology, infections, inflammatory bowel disease, renal colic, as well as others were entertained. The patient is a 57-year-old female who presented to the emergency department for mental health evaluation. The patient also has a history of chronic abdominal pain. The patient did not have a physical exam consistent with an acute surgical abdomen. She was medically cleared in the emergency department. I discussed the patient's laboratory and radiographic studies with her. The patient also admitted that she was having some palpitations but thought it was secondary to the medication she was taking for anxiety as well as pain. The patient was reevaluated multiple times. She was also evaluated by the mental health returned case inspector. Her case was discussed with her primary therapy team. The mental health returned case inspector. They recommended a medication for depression. The patient was started on the medication. She was encouraged to continue all medications as prescribed. She was also encouraged to follow-up with your therapist as well as her primary care physician. She was also encouraged to call crisis or return to the emergency Department immediately if symptoms change worsen or the need arises. Medication Reconcilliation Current Medication List: was personally reviewed by me Blood Pressure Screening Patient's blood pressure: Normal blood pressure Blood pressure disposition: Did not require urgent referral Impression Primary Impression: Abdominal pain Additional Impression: Depression Scribe Attestation The scribe's documentation has been prepared under my direction and personally reviewed by me in its entirety. I confirm that the note above accurately reflects all work, treatment, procedures, and medical decision making performed by me. Departure Information Dispostion Home / Self-Care Prescriptions Buspirone Hcl (BUSPIRONE HCL) 5 Mg Tab 1 TAB PO BID for 30 Days, #30 TAB Prov: Shaheen Hartmann, DO 08/23/17 Referrals Josiah Song MD (PCP) Patient Instructions Abdominal Pain, ED Depression, My [facility] Additional Instructions Call your family to schedule follow-up appointment. Continue all medications as prescribed. Follow-up with your therapist as scheduled. Call crisis or return to the emergency department if symptoms worsen or the need arises Problem Qualifiers Primary Impression: Abdominal pain Abdominal location: generalized Qualified Codes: R10.84 - Generalized abdominal pain Additional Impression: Depression Depression Type: unspecified Qualified Codes: F32.9 - Major depressive disorder, single episode, unspecified
[2017-08-23 14:25] LABS: URINE APPEARANCE CLEAR (CLEAR); URINE BILIRUBIN NEG (NEG); URINE COLOR YELLOW; URINE NITRITE NEG (NEG); URINE PH 6.5 (4.5-7.5); URINE SPECIFIC GRAVITY 1.017 (1.000-1.030); UROBILINOGEN NEG (NEG)
[2017-08-23 14:26] LABS: MANUAL MICROSCOPIC REQUIRED? NO; REVIEW REQ? NO
--- NOTE | 2017-08-23 14:34 | DIAGNOSTIC IMAGING REPORT ---
CHEST ONE VIEW PORTABLE CLINICAL HISTORY: 57 years-old Female presenting with palpitations. TECHNIQUE: Portable upright AP view of the chest was obtained. COMPARISON: 06/27/2017. FINDINGS: Minimal atherosclerosis of aortic arch. Cardiac silhouette normal in size. Lungs and pleural spaces clear. Osseous structures normal. Upper abdomen normal. IMPRESSION: 1. No acute cardiopulmonary disease. Electronically signed by: Erlin Spears M.D. 08/23/2017 2:33 PM Dictated Date/Time: 08/23/2017 2:33 PM
[2017-08-23 14:52] LABS: BENZODIAZEPINE, URINE POS (NEG); COCAINE,URINE NEG (NEG); PHENCYCLIDINE, URINE NEG (NEG)
[2017-08-23 15:25] LABS: BASO % 0.6 %; BASO ABS # 0.05 K/uL (0-0.2); COMPLETE YES; HEMATOCRIT 45.8 % (37-47); IG% 0.2 %; LYMPH % 21.4 %; LYMPH ABS # 1.92 K/uL (1.2-3.4); MEAN CELL VOLUME 91.6 fL (80-100); MEAN CORPUSCULAR HEMOGLOBIN 30.8 pg (25-34); MEAN CORPUSCULAR HGB CONC 33.6 g/dl (32-36); MEAN PLATELET VOLUME 9.4 fL (7.4-10.4); NEUT % 67.8 %; PLATELET COUNT 345 K/uL (130-400); WHITE BLOOD COUNT 8.99 K/uL (4.8-10.8)
[2017-08-23] MEDS ORDERED: DIAZ2TAB PO (15:25)
[2017-08-23 15:29] LABS: PARTIAL THROMBOPLASTIN RATIO 1.1; PROTHROMBIN TIME (PATIENT) 10.3 SECONDS (9.0-12.0)
[2017-08-23 15:39] LABS: ALT/SGPT 29 U/L (12-78); BLOOD UREA NITROGEN 15 mg/dl (7-18); BUN/CREATININE RATIO 19.3 (10-20); CALCIUM 9.5 mg/dl (8.5-10.1); CARBON DIOXIDE 26 mmol/L (21-32); CHLORIDE 106 mmol/L (98-107); GLUCOSE 90 mg/dl (70-99); POTASSIUM 3.9 mmol/L (3.5-5.1); SODIUM 142 mmol/L (136-145)
[2017-08-23 15:44] LABS: ALKALINE PHOSPHATASE 106 U/L (45-117); AST/SGOT 16 U/L (15-37)
[2017-08-23] MEDS ORDERED: BUSP5TAB59 PO (17:14)
[2017-08-23 17:27] VITALS: BP 109/75; PULSE 88; O2SAT 98
== END 2017-08-23 17:38 | disposition home or self-care (01) ==
LOC: C.EDB 13:28 → C.EDA 17:38
DX: R10.84 Generalized abdominal pain (principal); F32.9 Major depressive disorder, single episode, unspecified; F41.9 Anxiety disorder, unspecified; E03.9 Hypothyroidism, unspecified; K44.9 Diaphragmatic hernia without obstruction or gangrene; Z83.3 Family history of diabetes mellitus; Z83.79 Family history of other diseases of the digestive system; Z82.49 Family history of ischemic heart disease and other diseases of the circulatory system; Z79.899 Other long term (current) drug therapy

== ENCOUNTER 2017-08-28 15:03 | Emergency (ER) | payer OTHER ==
[~2017-08-28] VITALS: Ht 162.6 cm; Wt 77.3 kg
[~2017-08-28 15:03] MED LIST changes: +BUSP5TAB59 PO; +DIAZ2TAB PO
[2017-08-28 15:05] VITALS: TEMP 36.8; Ht 162.6 cm; Wt 77.3 kg
--- NOTE | 2017-08-28 15:55 | EMERGENCY ROOM VISIT NOTE ---
History Report prepared by Lori: Josemanuel Jonas Under the Supervision of: Dr. Wiliam Epstein D.O. First contact with patient: 15:13 Chief Complaint: ANXIETY Stated Complaint: REACTIONS FROM MEDICATION GIVEN FROM HERE History of Present Illness The patient is a 57 year old female who presents to the Emergency Room with complaints of worsening anxiety that began a couple of days ago. She rates her discomfort as an 8/10 in severity. The patient states she was in the ED five days ago. She reports that she was sent home with a prescription with Buspar and was told to come back if her symptoms worsened. She reports that the Buspar helps her gain more energy, but reports that it has been "messing with my nervous system". The patient reports that she noticed her hands started to become shaky. She reports that yesterday she had problems with her vision. The patient states that she can feel her "old injury" in her left eye. She reports that she tried to watch the computer on the dresser before bed last night, but her vision was blurry in her left eye. The patient states that she could not blink and "get it clear". She reports that she woke up this morning and her jaw was shaking. The patient states that she has been clenching her teeth frequently lately. The patient states that she noticed that over the last week the left side of her jaw will pop and is tight. She reports that she cannot open her mouth all the way to bite an apple. The patient states that she also feels as if her skin and bones are burning. She also reports that her left arm has been shaking and she could not control it, even if she put it by her side which usually helps resolve this issue. She states that her head, neck, and spine currently are in pain. The patient states that she is not able to focus and has been experiencing short term memory loss. The patient states that she also has been experiencing left upper and lower extremity numbness and weakness since taking the Buspar. She states that she stopped taking Buspar due to her tinnitus and symptoms, and admits that her tenonitis has resolved. The patient admits to a history of sciatica, which she has had for three months. She reports that she has a follow up with her PCP, Dr. Song. The patient states she does not have an appointment until two days. She reports that she has been depressed due to her symptoms. The patient states that she has been sleeping frequently. She denies any homicidal or suicidal ideations. The patient admits that she is on Valium, which she weened down from the Klonopin she was taking for 5 years. Source of History: patient Onset: a couple of days ago Position: other (global) Symptom Intensity: 05/20 Quality: other (global) Timing: worsening Associated Symptoms: + headache, + back pain, + weakness, + numbness Review of Systems See HPI for pertinent positives & negatives. A total of 10 systems reviewed and were otherwise negative. Past Medical & Surgical Medical Problems: (1) Anxiety (2) Anxiety (3) Cluster B personality disorder (4) Depression (5) Fatty liver (6) Gallbladder polyp (7) Hiatal hernia (8) Hypothyroidism (9) Thyroid problems Surgical Problems: (1) Lipoma of neck (2) S/P tonsillectomy Family History Diabetes mellitus FHx: gallbladder disease FHx: heart disease No FHx f blood clots Social History Smoking Status: Never Smoker Alcohol Use: none Drug Use: none Housing Status: lives with family, lives with significant other Current/Historical Medications Scheduled Buspirone Hcl (Buspirone Hcl), 1 TAB PO BID Diazepam (Diazepam), 6 MG PO QAM Diazepam (Valium), 8 MG PO QPM Digestive Enzymes (Digestive Enzyme), 1 CAP PO DAILY Levothyroxine Sodium (Tirosint), 25 MCG PO DAILY Scheduled PRN Hydrocodone/Acetaminophen 5MG/325MG ([place] 5MG/325MG), 1 TABLET PO UD PRN for Pain Allergies Coded Allergies: Escitalopram (Verified Allergy, Intermediate, RESTLESS ARMS, 08/23/17) Morphine (Verified Allergy, Intermediate, bad reaction, 08/23/17) Venlafaxine (Verified Allergy, Intermediate, RESTLESS ARMS, 08/23/17) Amitriptyline (Verified Adverse Reaction, Severe, FACIAL PAIN, 08/23/17) Levothyroxine (Verified Adverse Reaction, Severe, FACE AND TONGUE SWELLING , 08/23/17) PT TAKES THIS MEDICATION DESPITE REACTION 10/14/15- SPOKE WITH PATIENT, BELIEVES THAT THIS REACTION COMES FROM SYNTHROID BECAUSE WHEN THE DOSE WAS INCREASED THE SWELLING GOT WORSE. CURRENTLY TAKES BRAND, BELIEVES HAS TAKEN GENERIC Omeprazole (Verified Adverse Reaction, Severe, SWOLLEN TONGUE, NAUSEA, FACIAL EDEMA, 08/23/17) Sertraline (Verified Adverse Reaction, Intermediate, BURNING FEELING ON TONGUE, 08/23/17) Physical Exam Vital Signs Date Time Temp Pulse Resp B/P (MAP) Pulse Ox O2 Delivery O2 Flow Rate FiO2 08/28/17 15:05 36.8 94 16 126/89 94 Physical Exam CONSTITUTIONAL/VITAL SIGNS: Reviewed / noted above. GENERAL: Non-toxic in appearance. INTEGUMENTARY: Warm, dry, and [place]. HEAD: Normocephalic. EYES: without scleral icterus or trauma. ENT/OROPHARYNX: clear and moist. LYMPHADENOPATHY/NECK: Is supple without lymphadenopathy or meningismus. RESPIRATORY: Lungs clear and equal. CARDIOVASCULAR: Regular rate and rhythm. GI/ABDOMEN: Soft and nontender. No organomegaly or pulsatile mass. No rebound or guarding. Normal bowel sounds. EXTREMITIES: Warm and well perfused. BACK: No CVA tenderness. NEUROLOGICAL: Intact without focal deficits. PSYCHIATRIC: normal affect. MUSCULOSKELETAL: Normally developed with good muscle tone. Medical Decision & Procedures ED Course 1515: Previous medical records were reviewed. The patient was evaluated in room A06. A complete history and physical examination was performed. Medical Decision differential includes toxic ingestions, self-mutilation, suicidal ideation, suicide attempt, depression. This is an 57-year-old female who presents to the ED with a chief complaint of some hand shaking, some tinnitus yesterday and some jaw shaking this morning. The patient thinks it was related to being placed on BuSpar last week. The patient is not having any symptoms at this time. She also reports a lack of ambition. She has an appointment with her PCP on Wednesday. She also sees Dr. Sims (psyciatist) for her psych issues. The patient denies being suicidal or homicidal. She denies any medical issues at this time. The patient feels that her symptoms are related to BuSpar. She states that she has discontinued taking it as of today. She was advised to contact her doctor for further information as to whether or not she should continue this or be switched to something different. She is felt to be stable for discharge. Medication Reconcilliation Current Medication List: was personally reviewed by me Blood Pressure Screening Patient's blood pressure: Normal blood pressure Impression Primary Impression: Medication side effect Scribe Attestation The scribe's documentation has been prepared under my direction and personally reviewed by me in its entirety. I confirm that the note above accurately reflects all work, treatment, procedures, and medical decision making performed by me. Departure Information Dispostion Home / Self-Care Referrals Josiah Song MD (PCP) Patient Instructions My [facility] Additional Instructions Follow-up with your doctor for further care and evaluation in 2 days. Return to the emergency department for worsening or new symptoms or any concerns. You have been examined and treated today on an emergency basis only. This is not a substitute for, or an effort to provide, complete comprehensive medical care. It is impossible to recognize and treat all injuries or illnesses in a single emergency department visit. It is therefore important that you follow up closely with your doctor. Call as soon as possible for an appointment.
[2017-08-28 16:15] VITALS: BP 127/82; PULSE 88; O2SAT 99
== END 2017-08-28 16:17 | disposition home or self-care (01) ==
LOC: C.EDB 15:04 → C.EDA 16:17
DX: F41.9 Anxiety disorder, unspecified (principal); T43.595A Adverse effect of other antipsychotics and neuroleptics, initial encounter; F32.9 Major depressive disorder, single episode, unspecified; E03.9 Hypothyroidism, unspecified; K44.9 Diaphragmatic hernia without obstruction or gangrene; F60.9 Personality disorder, unspecified; Z83.3 Family history of diabetes mellitus; Z83.79 Family history of other diseases of the digestive system; Z82.49 Family history of ischemic heart disease and other diseases of the circulatory system; Z79.899 Other long term (current) drug therapy

== ENCOUNTER 2017-08-29 18:54 | Inpatient (IN) | payer OTHER ==
[~2017-08-29] VITALS: Ht 162.6 cm; Wt 78.2 kg
[2017-08-29 20:23] LABS: HEMATOCRIT 42.6 % (37-47); MEAN CELL VOLUME 92.4 fL (80-100); MEAN CORPUSCULAR HEMOGLOBIN 30.8 pg (25-34); MEAN CORPUSCULAR HGB CONC 33.3 g/dl (32-36); MEAN PLATELET VOLUME 9.1 fL (7.4-10.4); PLATELET COUNT 319 K/uL (130-400); RED BLOOD COUNT 4.61 M/uL (4.2-5.4); WHITE BLOOD COUNT 9.37 K/uL (4.8-10.8)
[2017-08-29 20:42] LABS: ALT/SGPT 30 U/L (12-78); BLOOD UREA NITROGEN 13 mg/dl (7-18); BUN/CREATININE RATIO 17.8 (10-20); CALCIUM 8.7 mg/dl (8.5-10.1); CARBON DIOXIDE 25 mmol/L (21-32); CHLORIDE 106 mmol/L (98-107); CREATININE 0.71 mg/dl (0.60-1.20); GLUCOSE 81 mg/dl (70-99); POTASSIUM 3.6 mmol/L (3.5-5.1); SODIUM 141 mmol/L (136-145)
[2017-08-29 20:51] LABS: ACETAMINOPHEN < 2 ug/ml (10-30)
[2017-08-29 20:53] LABS: ALKALINE PHOSPHATASE 108 U/L (45-117); AST/SGOT 14 U/L (15-37)
[2017-08-29 21:00] VITALS: O2SAT 98
[2017-08-29 21:39] LABS: URINE APPEARANCE CLEAR (CLEAR); URINE BILIRUBIN NEG (NEG); URINE COLOR YELLOW; URINE NITRITE NEG (NEG); URINE SPECIFIC GRAVITY 1.008 (1.000-1.030); UROBILINOGEN NEG (NEG)
[2017-08-29 21:48] LABS: MANUAL MICROSCOPIC REQUIRED? NO; REVIEW REQ? NO
[2017-08-29 21:54] LABS: BENZODIAZEPINE, URINE POS (NEG); COCAINE,URINE NEG (NEG); PHENCYCLIDINE, URINE NEG (NEG)
[2017-08-29] MEDS ORDERED: NURSING VERBAL MED ORDER ONE (22:30)
[2017-08-29] MEDS ORDERED: BISMUTH SUBSALICYLATE PER ML OMNICELL CHARGE PO PRN (23:15)
[2017-08-29] MEDS ORDERED: SODIUM CHLORIDE 0.65% NA SOLN 45 ML (OCEAN) PRN (23:15)
[2017-08-29] MEDS ORDERED: ACETAMINOPHEN 325 MG TAB PO PRN (23:15)
[2017-08-29] MEDS ORDERED: ALUMINUM/MAGNESIUM SUSP 30 ML UDC PO PRN (23:15)
[2017-08-29] MEDS ORDERED: MAGNESIUM HYDROXIDE SUSP 30 ML UDC PO PRN (23:15)
[2017-08-29] MEDS ORDERED: hydrOXYzine HCL 25 MG TAB PO PRN ×2 (23:15)
--- NOTE | 2017-08-29 23:21 | EMERGENCY ROOM VISIT NOTE ---
History Report prepared by Lori: Krista Coleman Under the Supervision of: Dr. Dale Moe M.D. First contact with patient: 19:14 Chief Complaint: MENTAL HEALTH EVALUATION Stated Complaint: MENTAL HEALTH History of Present Illness The patient is a 57 year old female who presents to the Emergency Room for a mental health evaluation. The patient states that she has been depressed and in pain for years. She states that recently it has been getting worse. She states that she came to the ED yesterday and the doctor told her she was "just getting old and needed to get a job." She reports that she feels like she can no longer cope at home and will not make it one more day. The patient believes that the worsening depression was triggered when she started to have "jaw seizures" from her BuSpar, but is unsure if that is when it started. She reports that she currently is on Valium, but takes nothing for her depression. She states that this is because she gets pain in her back, seizures in her jaw, and migraines from depression medication. She notes that 20 years ago she was on Zoloft which worked well. She states that she was switched to Klonopin for 5 years until she started to develop breathing difficulties. She states that she still has breathing difficulties like she is "breathing nervously." She notes that she is supposed to see her doctor tomorrow. The patient states that she has been having thoughts of harming herself today and has had those thoughts in the past. She states that she was planning to cut her wrists. She notes that she has never hurt or tried to hurt herself before because she always gets help before then. The patient states that today she got up and went to [facility] just to do something whether she felt like it or not. She states that she felt sick while there and decided to not stay for their Thanksgiving dinner since she didn 't think she would eat more than 3-4 bites. The patient reports that she went home and started to have body pains. She states that as her stomach started to hurt more she became severely depressed. She states that this is when the thoughts of hurting herself started. The patient denies drinking alcohol, but notes that she was thinking about starting. She denies taking any drugs. Source of History: patient Onset: today Position: other (global) Quality: other (global) Timing: worsening Associated Symptoms: + nausea, + abdominal pain Note: The patient complains of nervous breathing. Review of Systems See HPI for pertinent positives & negatives. A total of 10 systems reviewed and were otherwise negative. She does have chronic migraines, back pain and abdominal pain. Past Medical & Surgical Medical Problems: (1) Anxiety (2) Anxiety (3) Cluster B personality disorder (4) Depression (5) Fatty liver (6) Gallbladder polyp (7) Hiatal hernia (8) Hypothyroidism (9) Thyroid problems Surgical Problems: (1) Lipoma of neck (2) S/P tonsillectomy Family History Diabetes mellitus FHx: gallbladder disease FHx: heart disease No FHx f blood clots Social History Smoking Status: Never Smoker Alcohol Use: none Drug Use: none Housing Status: lives with family, lives with significant other Current/Historical Medications Scheduled Diazepam (Diazepam), 6 MG PO QAM Diazepam (Valium), 8 MG PO QPM Levothyroxine Sodium (Tirosint), 25 MCG PO DAILY Scheduled PRN Hydrocodone/Acetaminophen 5MG/325MG ([place] 5MG/325MG), 1 TABLET PO UD PRN for Pain Allergies Coded Allergies: Escitalopram (Verified Allergy, Intermediate, RESTLESS ARMS, 08/29/17) Morphine (Verified Allergy, Intermediate, bad reaction, 08/29/17) Venlafaxine (Verified Allergy, Intermediate, RESTLESS ARMS, 08/29/17) Amitriptyline (Verified Adverse Reaction, Severe, FACIAL PAIN, 08/29/17) Buspirone (Verified Adverse Reaction, Severe, "SEIZURE OF JAW"-TREMORS, ) Levothyroxine (Verified Adverse Reaction, Severe, FACE AND TONGUE SWELLING , 08/29/17) PT TAKES THIS MEDICATION DESPITE REACTION 10/14/15- SPOKE WITH PATIENT, BELIEVES THAT THIS REACTION COMES FROM SYNTHROID BECAUSE WHEN THE DOSE WAS INCREASED THE SWELLING GOT WORSE. CURRENTLY TAKES BRAND, BELIEVES HAS TAKEN GENERIC Omeprazole (Verified Adverse Reaction, Severe, SWOLLEN TONGUE, NAUSEA, FACIAL EDEMA, 08/29/17) Sertraline (Verified Adverse Reaction, Intermediate, BURNING FEELING ON TONGUE, 08/29/17) Physical Exam Vital Signs Date Time Temp Pulse Resp B/P (MAP) Pulse Ox O2 Delivery O2 Flow Rate FiO2 08/29/17 21:00 81 18 110/82 98 Room Air 08/29/17 19:15 36.8 88 18 104/76 95 Room Air Physical Exam Constitutional: Vital signs reviewed. Eyes: Pupils are equal round reactive to light. Conjunctiva are noninjected. ENT: Pharynx is clear without erythema or exudate. Mucous membranes are moist. Neck supple without meningeal signs. Respiratory: Clear to auscultation bilaterally. Breath sounds are equal bilaterally. Cardiovascular: Regular rate and rhythm. No rubs or gallops. GI: Soft, nondistended and nontender. Bowel sounds are present. Musculoskeletal: No peripheral edema. No lower extremity tenderness. Integumentary: No cyanosis. Neurological: The patient is awake and alert. No focal deficits. Psychiatric: Depressed affect. Tearful. Medical Decision & Procedures Laboratory Results 08/29/17 20:05 08/29/17 20:05 Test 08/29/17 20:05 08/29/17 21:01 Red Blood Count 4.61 M/uL (4.2-5.4) Mean Corpuscular Volume 92.4 fL (80-100) Mean Corpuscular Hemoglobin 30.8 pg (25-34) Mean Corpuscular Hemoglobin Concent 33.3 g/dl (32-36) RDW Standard Deviation 44.9 fL (36.4-46.3) RDW Coefficient of Variation 13.3 % (11.5-14.5) Mean Platelet Volume 9.1 fL (7.4-10.4) Anion Gap 10.0 mmol/L (3-11) Est Creatinine Clear Calc Drug Dose 87.4 ml/min Estimated GFR () 108.8 Estimated GFR (Non- 93.9 BUN/Creatinine Ratio 17.8 (10-20) Calcium Level 8.7 mg/dl (8.5-10.1) Total Bilirubin 0.2 mg/dl (0.2-1) Direct Bilirubin < 0.1 mg/dl (0-0.2) Aspartate Amino Transf (AST/SGOT) 14 U/L (15-37) Alanine Aminotransferase (ALT/SGPT) 30 U/L (12-78) Alkaline Phosphatase 108 U/L (45-117) Total Protein 7.6 gm/dl (6.4-8.2) Albumin 3.5 gm/dl (3.4-5.0) Thyroid Stimulating Hormone (TSH) 6.450 uIu/ml (0.300-4.500) Free Thyroxine 0.93 ng/dl (0.80-1.60) Salicylates Level < 1.7 mg/dl (2.8-20) Acetaminophen Level < 2 ug/ml (10-30) Ethyl Alcohol mg/dL < 3.0 mg/dl (0-3) Urine Color YELLOW Urine Appearance CLEAR (CLEAR) Urine pH 7.0 (4.5-7.5) Urine Specific [place] 1.008 (1.000-1.030) Urine Protein NEG (NEG) Urine Glucose (UA) NEG (NEG) Urine Ketones NEG (NEG) Urine Occult Blood NEG (NEG) Urine Nitrite NEG (NEG) Urine Bilirubin NEG (NEG) Urine Urobilinogen NEG (NEG) Urine Leukocyte Esterase NEG (NEG) Urine Opiates Screen NEG (NEG) Urine Methadone, Qualitative NEG (NEG) Urine Barbiturates NEG (NEG) Urine Phencyclidine (PCP) Level NEG (NEG) Ur Amphetamine/Methamphetamine NEG (NEG) MDMA (Ecstasy) Screen NEG (NEG) Urine Benzodiazepines Screen POS (NEG) Urine Cocaine Metabolite NEG (NEG) Urine Marijuana (THC) NEG (NEG) Laboratory results as reviewed by me. ED Course 1918: The patient was evaluated in room A6. A complete history and physical exam was performed. 2231: The patient was accepted to . Medical Decision This is a 57-year-old female presents with depression and suicidal ideation. I did perform a limited focused review of portions of the patient's old chart on the electronic medical record. The patient was here yesterday for anxiety and depression. She was on BuSpar, but had a reaction to it. I did evaluate the patient as noted above. Patient is presenting with depression and suicidal ideation. She also has multiple chronic somatic complaints. I did order and personally review the patient's urinalysis as described above. I did order and review the patient's blood work as noted in the electronic medical record. The patient was medically cleared. She was evaluated by the mental health worker and admitted to the mental health unit on 3 S. Medication Reconcilliation Current Medication List: was personally reviewed by me Blood Pressure Screening Patient's blood pressure: Normal blood pressure Blood pressure disposition: Did not require urgent referral Impression Primary Impression: Mood disorder Additional Impressions: Suicidal ideation Chronic pain Scribe Attestation The scribe's documentation has been prepared under my direct and personally reviewed by me in its entirety. I confirm that the note above accurately reflects all work, treatment, procedures, and medical decision making performed by me. Departure Information Dispostion Mental Health Acute Care Referrals No Doctor, Assigned (PCP) Patient Instructions My [facility] Problem Qualifiers Additional Impressions: Chronic pain Chronic pain type: other chronic pain Qualified Codes: G89.29 - Other chronic pain
[2017-08-29 23:46] VITALS: BP 112/84; PULSE 84; TEMP 36.6; Ht 162.6 cm; Wt 78.2 kg
[2017-08-29] MEDS: DIAZEPAM 2MG TAB PO SCH (23:48)
[2017-08-30 07:00] VITALS: BP_SYST 92; BP_SYST 96; BP_DIAS 64; BP_DIAS 66; PULSE 76; PULSE 81; TEMP 36.6
[2017-08-30] MEDS ORDERED: DIAZEPAM 2MG TAB PO SCH (11:49)
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
[2017-08-30] MEDS: DIAZEPAM 2MG TAB PO SCH (21:18)
[2017-08-31 06:56] VITALS: BP_SYST 110; BP_SYST 99; BP_DIAS 67; BP_DIAS 71; PULSE 71; PULSE 76; TEMP 36.6
[2017-08-31] MEDS: DIAZEPAM 2MG TAB PO SCH ×2 (08:44→21:58)
--- NOTE | 2017-08-31 10:33 | Psychiatric Progress Notes ---
Progress Note Date of Service Aug 31, 2017. Interval History [place] Eng is a 57-year-old female from [facility], who presented to the emergency department 3 days in a row with multiple somatic complaints, depression and anxiety, ultimately culminating in suicidal ideation. She is admitted voluntarily. Chief Complaint "Will today I feel less aches and pains than I did yesterday". Subjective Patient was seen & assessed interval progress reviewed with Nursing. Staff report she has spent some time in bed resting, but has also attended some groups and participated appropriately. She told staff that she felt as if the weight had been lifted after receiving the diagnosis of somatization disorder. She continues to focus on her physical symptoms and the various aches and pains that she has. Today, she was seen in her room, where she is resting in bed. She states that she feels relieved after talking about somatization disorder yesterday and realizing that it is the diagnosis that best explains her symptoms. She requested additional information about it, and was given a patient handout. She has had episodic anxiety, with chest tightness and sweating, that occurred when staff were talking about calling her to bring in her medication. Although she did not have to talk to her herself, again about him caused her to feel anxious. She states that she will probably just return home at discharge, she doesn't feel she has any good options or the ability to make a large change in her marital or housing situation at this time. She says "I know I need to do something" in respect to her unhappiness with her current situation, but is not sure yet what she might do. We explored the options, including staying with her son Eugenio, which she is reluctant to agree to she is not sure that Eugenio's would be in favor and thinks that there would be difficulties due to their ideological differences. She does state that it helped in the past when Eugenio came to visit her over the weekend, and would be willing to explore that option again. [facility] also [facility], and that it might be helpful for her to talk with staff there so that she knows what services they could offer if she ever needs them. Appetite remains poor but is improved since admission, and she attributes this to stress causing problems with her digestion. She slept well last night, and denies suicidal thoughts. She feels safe here, but does not yet feel ready to leave the hospital, and quickly becomes overwhelmed and talking about discharge. She feels she is still trying to wrap her head around her new diagnosis and seeing her physical symptoms as a manifestation of psychological distress. Review of Systems Constitutional: + fatigue Musculoskeletal: + problem reported (chronic vague aches and pains throughout her body) Sleep Information Total Hours of Sleep: 7.75 Meal Information Percent of Breakfast Consumed: 60 Percent of Lunch Consumed: 85 Percent of Dinner Consumed: 90 Mental Status Exam During interview pt is: alert and oriented, cooperative Appearance: appropriately dressed Eye contact is: good Motor behavior is: tremor Speech: normal in rate, rhythm & volume (with Southern accent) Affect: depressed, tearful, anxious Mood is: depressed, anxious Thought process: circumstantial Thought content: preoccupation (with somatic complaints) Suicidal thought are: denied, Intent: denied Homicidal thoughts are: denied Hallucinations: denies auditory, denies visual Cognition: memory grossly intact, attention grossly intact, language grossly intact Intelligence estimated to be: average Insight: impaired Judgement: impaired Summary of Past History Records from outpatient therapist, Steven Valdivia, reviewed. She canceled her last appointment on 08/23/2017 she was having pain in the past did not think she could sit through a session. She was planning to go to the emergency room. At her 08/16/2017 visit her affect was bright, she reported feeling well, planning to visit family in [place]. She often reported physical symptoms during her sessions, and frequently talked about going to the hospital for anxiety. She talked about getting benefit from prayer. Impression 57-year-old woman who presented to the emergency department 3 days in a row with multiple somatic complaints, depression and anxiety. She was ultimately admitted psychiatrically due to worsening suicidal thoughts. On admission, a great deal of time was spent reviewing and processing her symptoms, and she was diagnosed with somatic symptom disorder as she met every criteria. She endorses unhappiness in her relationship and that this is likely a significant contributor to her somatic complaints. She agrees with the psychological interpretation and admits that she is very unhappy. She has had many trials of medications for mood that were ineffective, and no further med trials are recommended at this point, with a plan to instead process her underlying stressors and mitigate mood that way. She has agreed to start by working on becoming more functional, staying out of bed, eating her meals and getting her strength back. She has agreed to ask her not to visit for a few days to give her some distance as well. We've previously recommended a long slow taper off Valium, as she has been on benzodiazepines for quite some time. Ultimately we will need to have a family meeting with her and it will be up to the patient how she wants to proceed. At this time, the patient requires inpatient mental health treatment due to the severity of her condition and inability to function outside of a structured environment. Plan (1) Somatic symptom disorder 08/30 - For now we will not start any new psychiatric medications in favor of encouraging her to get back to basics and become more functional. - I have spoken with her by phone with the patient's permission and asked that he not visit until at least Wednesday of this week in order to give her some space. He is agreeable - Will continue Valium 6 mg a.m. and 8 mg HS for now but would like to see this taper down. - Every 15 minute checks for safety - Have asked the staff to encourage her to be out of bed and assist her to become more functional - Encourage participation in group and individual counseling - Encourage regular exercise - Coordinate with outpatient providers and obtain outpatient records - Family meeting 08/31 - Encourage exploration of options to increase supports at home (sons, friends, [facility], etc). (2) GERD (gastroesophageal reflux disease) 08/30 - Patient is not currently on any proton pump inhibitors. Will monitor (3) Hypothyroidism 08/30 -TSH mildly elevated but free T4 within normal limits. - Continue home dosing Discharge / Aftercare Planning Primary Care Physician: Name: Dr. Josiah Song Psychiatrist: Name: [facility] Date of Appointment: Oct 14, 2016 Time of Appointment: 3:30Pm Therapist: Name: Steven Valdivia Date of Appointment: Sep 06, 2017 Time of Appointment: 2:00pm Toolroom Machinist: Name: None Visit Code E&M Code: 22104 Inventory Assets Strengths: Willingness to engage in treatment, support from son's Needs: Honesty in treatment Risk Factors Assessment : Yes /single/: No Higher / Fall in social status: No Health problems: Yes Mental Health Diagnoses: Yes Substance use disorders: No Family history of suicide: Yes Previous psychiatric stay: Yes Hopelessness: Yes Smoker: No Protective Factors Assessment [employer] beliefs: Yes : Yes Responsible for young children: No Employed: No Stable relationships: No Supportive family: Yes Good rapport with provider: Yes Data Vital Signs Last 24 Hrs: Date Time Temp Pulse Resp B/P (MAP) Pulse Ox O2 Delivery O2 Flow Rate FiO2 08/31/17 06:56 36.6 71 16 99/67 76 110/71 Meds Administered Last 24 Hrs: Meds Administered (Past 24Hrs) Medications (Trade) Dose Ordered Sig/Irving Route Start Time Stop Time Status Last Admin Dose Admin Diazepam (Valium Tab) 8 mg HS PO 08/29/17 23:15 09/28/17 23:14 08/30/17 21:18 8 MG Diazepam (Valium Tab) 6 mg QAM PO 08/31/17 09:00 09/30/17 08:59 08/31/17 08:44 6 MG Diazepam (Valium Tab) 6 mg 1149 PO 08/30/17 11:49 08/30/17 13:00 DC 08/30/17 14:31 6 MG
[2017-08-31] MEDS ORDERED: IBUPROFEN 600 MG TAB PO PRN (15:00)
[2017-08-31] MEDS ORDERED: NURSING VERBAL MED ORDER ONE (15:00)
[2017-08-31] MEDS: LEVOTHYROXINE SODIUM PO SCH (21:59)
[2017-09-01 06:51] VITALS: BP_SYST 119; BP_DIAS 74; BP_DIAS 78; PULSE 74; PULSE 87; TEMP 36.6
[2017-09-01] MEDS: LEVOTHYROXINE SODIUM PO SCH (08:00)
[2017-09-01] MEDS: DIAZEPAM 2MG TAB PO SCH ×2 (09:30→21:26)
--- NOTE | 2017-09-01 10:12 | Psychiatric Progress Notes ---
Progress Note Date of Service Sep 01, 2017. Interval History [place] Eng is a 57-year-old female from [facility], who presented to the emergency department 3 days in a row with multiple somatic complaints, depression and anxiety, ultimately culminating in suicidal ideation. She is admitted voluntarily. Chief Complaint "Not good". Subjective Patient was seen & assessed interval progress reviewed with Treatment Team. Staff report she has been retreating to her room between groups, and needed to be strongly encouraged by staff to attend. She is easily tearful and overwhelmed, with no spontaneous interactions with others. She did not attend groups last evening, stating she was in too much pain to participate. She has been withdrawn to her room, and did not shower or change clothes. She had a meeting scheduled with her for this morning, but asked staff to cancel it, stating that she had not slept well, was having severe pain all over her body, and felt overwhelmed and unable to participate. This morning, she is seen in her room, where she has retreated to bed. She states that her mood is "terrible," she feels anxious and depressed, can't stop crying, and is in severe pain with nausea. She believes that her symptoms worsened in the context of worrying about the meeting with her this morning, and feeling overwhelmed by that. She feels unable to get out of bed or participate in groups at this moment, but agrees to try to go to group therapy in an hour. She admits to a return of suicidal thoughts, stating "on these really bad days, I think about ending it. I can't even function normally, can't take care of myself." She feels safe in the hospital and is able to contract for safety here , but not outside of the hospital. She feels she needs to be in the hospital longer and does not feel safe to leave. She wants to know about medications " to fix this," and we again discussed a trial of gabapentin or pregabalin, that these would be off label for anxiety and mood, but may help with pain as well as her psychiatric symptoms. We also discussed the importance of processing her underlying stressors in therapy and working on her discharge plan, as her symptoms are unlikely to improve unless she addresses her underlying stressors. Sleep Information Total Hours of Sleep: 5.00 Meal Information Percent of Breakfast Consumed: 30 Percent of Lunch Consumed: 60 Percent of Dinner Consumed: 100 Mental Status Exam During interview pt is: alert and oriented, cooperative, other (lying in bed, tearful) Appearance: appropriately dressed, appropriately groomed Eye contact is: fair Motor behavior is: no abnormal motor movements Speech: normal in rate, rhythm & volume (with Southern accent) Affect: mood congruent, depressed, tearful, anxious Mood is: depressed, anxious Thought process: circumstantial Thought content: preoccupation (with somatic complaints) Suicidal thought are: denied, Intent: denied Homicidal thoughts are: denied Hallucinations: denies auditory, denies visual Cognition: memory grossly intact, attention grossly intact, language grossly intact Intelligence estimated to be: average Insight: impaired Judgement: impaired Summary of Past History Records from outpatient therapist, Steven Valdivia, reviewed. She canceled her last appointment on 08/23/2017 she was having pain in the past did not think she could sit through a session. She was planning to go to the emergency room. At her 08/16/2017 visit her affect was bright, she reported feeling well, planning to visit family in [place]. She often reported physical symptoms during her sessions, and frequently talked about going to the hospital for anxiety. She talked about getting benefit from prayer. Spoke with Dr. Cunha, who notes she is poorly compliant, dictates her treatment, often stops meds due to perceived side effects. She is very focused on her somatic complaints. Her sometimes comes to appointments with her , and says she is "crazy." He has tried to continue to decrease her diazepam. He would recommend some kind of IOP. Impression 57-year-old woman who presented to the emergency department 3 days in a row with multiple somatic complaints, depression and anxiety. She was ultimately admitted psychiatrically due to worsening suicidal thoughts. On admission, a great deal of time was spent reviewing and processing her symptoms, and she was diagnosed with somatic symptom disorder as she met every criteria. She endorses unhappiness in her relationship and that this is likely a significant contributor to her somatic complaints. She agrees with the psychological interpretation and admits that she is very unhappy. She has had many trials of medications for mood that were ineffective, and initially no further med trials were recommended, with a plan to instead process her underlying stressors and mitigate mood that way. She has agreed to start by working on becoming more functional, staying out of bed, eating her meals and getting her strength back, but has struggled to follow through with this, and has again retreated to bed feeling unable to deal with a meeting with her , while at the same time stating she cannot work on plans to find alternative housing, as she feels too overwhelmed. We've previously recommended a long slow taper off Valium, as she has been on benzodiazepines for quite some time. Ultimately we will need to have a family meeting with her and it will be up to the patient how she wants to proceed. At this time, the patient requires inpatient mental health treatment due to the severity of her condition, suicidal thoughts, and inability to function outside of a structured environment. Plan (1) Somatic symptom disorder 08/30 - For now we will not start any new psychiatric medications in favor of encouraging her to get back to basics and become more functional. - I have spoken with her by phone with the patient's permission and asked that he not visit until at least Wednesday of this week in order to give her some space. He is agreeable - Will continue Valium 6 mg a.m. and 8 mg HS for now but would like to see this taper down. - Every 15 minute checks for safety - Have asked the staff to encourage her to be out of bed and assist her to become more functional - Encourage participation in group and individual counseling - Encourage regular exercise - Coordinate with outpatient providers and obtain outpatient records - Family meeting 08/31 - Encourage exploration of options to increase supports at home (sons, friends, [facility], etc). 09/01 - Mood and anxiety worse today in context of planned meeting with , but patient has retreated to bed and canceled the meeting as she feels too overwhelmed to participate. She wants to pursue a new medication trial, and again discussed gabapentin or pregabalin for treatment of pain, off label for anxiety and mood. Reviewed risks, benefits, and side effects. She opted for a trial of pregabalin, and will check on cost prior to starting (75mg bid). Medication is covered with no copay. - Called her outpatient psychiatrist, Dr. Cunha, and discussed case (see above) - he recommends IOP/PHP. - Meeting with rescheduled for Wednesday. (2) GERD (gastroesophageal reflux disease) 08/30 - Patient is not currently on any proton pump inhibitors. Will monitor (3) Hypothyroidism 08/30 -TSH mildly elevated but free T4 within normal limits. - Continue home dosing Discharge / Aftercare Planning Primary Care Physician: Name: Dr. Josiah Song Psychiatrist: Name: David Beltrán Date of Appointment: Oct 14, 2016 Time of Appointment: 3:30Pm Therapist: Name: Steven Valdivia Date of Appointment: Sep 06, 2017 Time of Appointment: 2:00pm Battalion Chief: Name: None Visit Code E&M Code: 63720 Inventory Assets Strengths: Willingness to engage in treatment, support from son's Needs: Honesty in treatment Risk Factors Assessment : Yes /single/: No Higher / Fall in social status: No Health problems: Yes Mental Health Diagnoses: Yes Substance use disorders: No Family history of suicide: Yes Previous psychiatric stay: Yes Hopelessness: Yes Smoker: No Protective Factors Assessment [employer] beliefs: Yes : Yes Responsible for young children: No Employed: No Stable relationships: No Supportive family: Yes Good rapport with provider: Yes Data Vital Signs Last 24 Hrs: Date Time Temp Pulse Resp B/P (MAP) Pulse Ox O2 Delivery O2 Flow Rate FiO2 09/01/17 06:51 36.6 74 20 119/74 87 119/78 Meds Administered Last 24 Hrs: Meds Administered (Past 24Hrs) Medications (Trade) Dose Ordered Sig/Irving Route Start Time Stop Time Status Last Admin Dose Admin Diazepam (Valium Tab) 6 mg QAM PO 08/31/17 09:00 09/30/17 08:59 09/01/17 09:30 6 MG Diazepam (Valium Tab) 6 mg 1149 PO 08/30/17 11:49 08/30/17 13:00 DC 08/30/17 14:31 6 MG Ibuprofen (Motrin Tab) 600 mg QID PRN PO 08/31/17 15:00 09/30/17 14:59 08/31/17 14:56 600 MG Levothyroxine Sodium (Tirosint) 25 mcg DAILYBB PO 09/01/17 08:00 10/01/17 07:59 09/01/17 08:00 25 MCG
[2017-09-01] MEDS ORDERED: PREGABALIN 75 MG CAP PO ONE (11:07)
[2017-09-01 11:24] LABS: HYDROXYETHYLFLURAZEPAM CONF NEGATIVE NG/ML (CUTOFF=50); HYDROXYMIDAZOLAM NEGATIVE NG/ML (CUTOFF=50); HYDROXYTRIAZOLAM CONF NEGATIVE NG/ML (CUTOFF=50); TEMAZEPAM CONF 526 NG/ML (CUTOFF=50)
[2017-09-01] MEDS: PREGABALIN 75 MG CAP PO SCH (21:26)
[2017-09-02 06:36] VITALS: BP_SYST 115; BP_SYST 119; BP_DIAS 75; BP_DIAS 86; PULSE 80; TEMP 36.8
[2017-09-02] MEDS: PREGABALIN 75 MG CAP PO SCH (08:29)
[2017-09-02] MEDS: LEVOTHYROXINE SODIUM PO SCH (08:29)
[2017-09-02] MEDS: DIAZEPAM 2MG TAB PO SCH (08:29)
--- NOTE | 2017-09-02 08:33 | Psychiatric Progress Notes ---
Progress Note Date of Service Sep 02, 2017. Interval History Virginia Eng is a 57-year-old female from [facility], who presented to the emergency department 3 days in a row with multiple somatic complaints, depression and anxiety, ultimately culminating in suicidal ideation. She was admitted voluntarily. Chief Complaint "[]". Subjective Patient was seen & assessed interval progress reviewed with Nursing Patient cancelled her meeting with spouse yesterday due to feeling too depressed and in pain, and retreated to her bed. However later in the day she was able to get out of bed and interact on the milieu. She noted she hoped to get her medications straightened out alternating with periods of insight to her somatization. SHe started on Lyrica 75mg po bid. Family meeting will attempted to be scheduled for 09/06/17. Sleep Information Total Hours of Sleep: 6.00 Meal Information Percent of Breakfast Consumed: 30 Percent of Lunch Consumed: 75 Percent of Dinner Consumed: 75 Mental Status Exam During interview pt is: alert and oriented, cooperative, other (lying in bed, tearful) Appearance: appropriately dressed, appropriately groomed Eye contact is: fair Motor behavior is: no abnormal motor movements Speech: normal in rate, rhythm & volume (with Southern accent) Affect: mood congruent, depressed, tearful, anxious Mood is: depressed, anxious Thought process: circumstantial Thought content: preoccupation (with somatic complaints) Suicidal thought are: denied, Intent: denied Homicidal thoughts are: denied Hallucinations: denies auditory, denies visual Cognition: memory grossly intact, attention grossly intact, language grossly intact Intelligence estimated to be: average Insight: impaired Judgement: impaired Summary of Past History Records from outpatient therapist, Steven Valdivia, reviewed. She canceled her last appointment on 08/23/2017 she was having pain in the past did not think she could sit through a session. She was planning to go to the emergency room. At her 08/16/2017 visit her affect was bright, she reported feeling well, planning to visit family in [place]. She often reported physical symptoms during her sessions, and frequently talked about going to the hospital for anxiety. She talked about getting benefit from prayer. Spoke with Dr. Cunha, who notes she is poorly compliant, dictates her treatment, often stops meds due to perceived side effects. She is very focused on her somatic complaints. Her sometimes comes to appointments with her , and says she is "crazy." He has tried to continue to decrease her diazepam. He would recommend some kind of IOP. Impression 57-year-old woman who presented to the emergency department 3 days in a row with multiple somatic complaints, depression and anxiety. She was ultimately admitted psychiatrically due to worsening suicidal thoughts. On admission, a great deal of time was spent reviewing and processing her symptoms, and she was diagnosed with somatic symptom disorder as she met every criteria. She endorses unhappiness in her relationship and that this is likely a significant contributor to her somatic complaints. She agrees with the psychological interpretation and admits that she is very unhappy. She has had many trials of medications for mood that were ineffective, and initially no further med trials were recommended, with a plan to instead process her underlying stressors and mitigate mood that way. She has agreed to start by working on becoming more functional, staying out of bed, eating her meals and getting her strength back, but has struggled to follow through with this, and has again retreated to bed feeling unable to deal with a meeting with her , while at the same time stating she cannot work on plans to find alternative housing, as she feels too overwhelmed. We've previously recommended a long slow taper off Valium, as she has been on benzodiazepines for quite some time. Ultimately we will need to have a family meeting with her and it will be up to the patient how she wants to proceed. At this time, the patient requires inpatient mental health treatment due to the severity of her condition, suicidal thoughts, and inability to function outside of a structured environment. Plan (1) Somatic symptom disorder 08/30 - For now we will not start any new psychiatric medications in favor of encouraging her to get back to basics and become more functional. - I have spoken with her by phone with the patient's permission and asked that he not visit until at least Wednesday of this week in order to give her some space. He is agreeable - Will continue Valium 6 mg a.m. and 8 mg HS for now but would like to see this taper down. - Every 15 minute checks for safety - Have asked the staff to encourage her to be out of bed and assist her to become more functional - Encourage participation in group and individual counseling - Encourage regular exercise - Coordinate with outpatient providers and obtain outpatient records - Family meeting 08/31 - Encourage exploration of options to increase supports at home (sons, friends, [facility], etc). 09/01 - Mood and anxiety worse today in context of planned meeting with , but patient has retreated to bed and canceled the meeting as she feels too overwhelmed to participate. She wants to pursue a new medication trial, and again discussed gabapentin or pregabalin for treatment of pain, off label for anxiety and mood. Reviewed risks, benefits, and side effects. She opted for a trial of pregabalin, and will check on cost prior to starting (75mg bid). Medication is covered with no copay. - Called her outpatient psychiatrist, Dr. Cunha, and discussed case (see above) - he recommends IOP/PHP. - Meeting with rescheduled for Wednesday. (2) GERD (gastroesophageal reflux disease) 08/30 - Patient is not currently on any proton pump inhibitors. Will monitor (3) Hypothyroidism 08/30 -TSH mildly elevated but free T4 within normal limits. - Continue home dosing Discharge / Aftercare Planning [facility]: Name: [facility] Date of Appointment: Oct 14, 2017 Time of Appointment: 3:30Pm Therapist: Name: Steven Valdivia Date of Appointment: Sep 06, 2017 Time of Appointment: 2:00pm Asthma Educator: Name: [facility] Date of Appointment: Sep 16, 2017 Time of Appointment: 2:00 PM Appointment Notes: referral appointment/financial liability appointment Other: Name of Appointment #1: Miroslava Luis Appointment #1 Notes: will follow up with Virginia after discharge Inventory Assets Strengths: Willingness to engage in treatment, support from son's Needs: Honesty in treatment Risk Factors Assessment : Yes /single/: No Higher / Fall in social status: No Health problems: Yes Mental Health Diagnoses: Yes Substance use disorders: No Family history of suicide: Yes Previous psychiatric stay: Yes Hopelessness: Yes Smoker: No Protective Factors Assessment Mu-Ism beliefs: Yes : Yes Responsible for young children: No Employed: No Stable relationships: No Supportive family: Yes Good rapport with provider: Yes Data Vital Signs Last 24 Hrs: Date Time Temp Pulse Resp B/P (MAP) Pulse Ox O2 Delivery O2 Flow Rate FiO2 09/02/17 06:36 36.8 80 20 115/75 80 119/86 Meds Administered Last 24 Hrs: Meds Administered (Past 24Hrs) Medications (Trade) Dose Ordered Sig/Irving Route Start Time Stop Time Status Last Admin Dose Admin Diazepam (Valium Tab) 6 mg QAM PO 08/31/17 09:00 09/30/17 08:59 09/02/17 08:29 6 MG Ibuprofen (Motrin Tab) 600 mg QID PRN PO 08/31/17 15:00 09/30/17 14:59 08/31/17 14:56 600 MG Levothyroxine Sodium (Tirosint) 25 mcg DAILYBB PO 09/01/17 08:00 10/01/17 07:59 09/02/17 08:29 25 MCG Pregabalin (Lyrica Cap) 75 mg BID PO 09/01/17 22:00 10/01/17 21:59 09/02/17 08:29 75 MG Pregabalin (Lyrica Cap) 75 mg 1107 ONCE PO 09/01/17 11:07 09/01/17 11:09 DC 09/01/17 13:24 75 MG
[2017-09-02] MEDS ORDERED: LYR50 PO (13:07)
--- NOTE | 2017-09-02 13:54 | Discharge Instructions ---
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 Instructions / Follow-Up Instructions / Follow-Up . SPECIAL CARE INSTRUCTIONS: 1. Follow through with your scheduled aftercare appointments. If unable to keep an appointment, please call to reschedule. 2. Take your medication only as prescribed. Medication should not be changed or stopped without the approval of your doctor. In the event of worsening symptoms or concerns about side effects, contact your doctor immediately. 3. Utilize new healthy coping skills, anger management skills, and stress management skills learned during your hospitalization. Journal feelings and process them with a support person. Identify stressors or situations that may result in relapse, deterioration or inappropriate behaviors and develop a plan to deal with those issues. 4. If your coping skills are ineffective and you are in crisis, contact your outpatient providers for direction. If unable to reach your providers, please call the CAN HELP LINE AT or go to the closest Emergency Room. 5. Avoid alcohol and un-prescribed drugs. 6. You have been provided with the Mental Health Advance Directives Pamphlet for your review. AFTERCARE APPOINTMENTS: * Please call your insurance company prior to your scheduled appointment to confirm your aftercare providers are covered. Take your insurance information to your appointments. . Discharge / Aftercare Planning Primary Care Physician: Name: Dinora Gonzalez Appointment Notes: Must call for hospital discharge appointment Psychiatrist: Name: [facility] Date of Appointment: Oct 14, 2017 Time of Appointment: 3:30Pm Appointment Notes: Call on Wednesday09/06/17 to get a sooner post hospital discharge appointment Therapist: Name Of Therapist: Sravan Valdivia Date of Appointment: Sep 06, 2017 Time of Appointment: 2:00pm Journeyman Pressman: Name: [facility] Date of Appointment: Sep 16, 2017 Time of Appointment: 2:00 PM Appointment Notes: referral appointment/financial liability appointment Other: Name of Appointment #1: Miroslava Luis Appointment #1 Notes: will follow up with [place] after discharge . Follow-Up Care Plan for Follow-Up Care: See information above regarding call for PCM appt iwth DR Song, calling Dr Cunha to make sooner appt than 10/14/17, and established therapy appt with Mr Valdivia, and plan for f/u with [facility] intake appt at [facility]. Current Hospital Diet Patient's current hospital diet: Regular Diet Discharge Diet Recommended Diet: Regular Diet Procedures Procedures Performed: No Pending Studies Pending Studies at Discharge: No Medical Emergencies . Who to Call and When: Medical Emergencies: For questions or emergencies related to your hospital stay, please contact the Inpatient Behavioral Health Unit at [phone]. A special procedures nurse is on-call 03/05 for the Behavioral Health Unit for emergencies At any time you feel your situation is an emergency, you may also call 911 immediately. . Non-Emergent Contact Non-Emergency issues call your: Primary Care Provider, Psychiatrist Call Non-Emergent contact if: you have any medication questions Past History Medical & Surgical History: (1) Headache (2) Mood disorder (3) Somatic symptom disorder (4) Hypothyroidism Advance Directives Do You Have an Existing Mental: No Existing Living Will: No Existing Power of Electrical Apprentice: No Advance Directives Info Given: To Pt/S.O. Advance Directives Reason: Declines as Mental Health Visit. Discharge Summary Admission HPI Per the Admitting provider: The patient is a 57-year-old woman who is currently in treatment with Dr. Martin for depression and anxiety, who has been on our unit 2 times previously , last in January 2017. She has had a long series of stressors including a difficult marriage in which her was unfaithful. They ultimately . They also lost a 2-1/2-year-old daughter when she fell into a neighbor's pool. After that marriage, she met a man on line and him with in 4 months starting to date him. She then moved here to [place] with him. Since then she has been feeling increasingly anxious and depressed. She has had multiple trials of medications and always finds reasons to believe she has side effects or finds that they are not helpful. The only medicine she finds helpful his Valium, which is currently prescribed by her psychiatrist and cut down by 2 mg this week. After her discharge from our unit in January, she said she did not do well and within 2 days was hospitalized at [facility]. Apparently they suggested ECT while she was there which she refused to consider. Since then she feels that she has continued to feel distressed, depressed and anxious. She has had any number of ER visits from multiple complaints of pain and other symptoms. She reports her pain as being "over her whole body", "nerve and achiness". She also talks about being stressed by "digestive issues", sometimes feeling only able to eat a few bites at a time and when she is able to eat more she feels like it "takes a lot of energy for my body to deal with eating". She is well aware that her is increasingly frustrated with her. She continues to say that he overwhelms her as he is a person who talks very loud very fast and a lot. Because of his hearing impairment, the phones are turned out very loudly and she finds that she is startled and overwhelmed by the volume and quantity of calls that he gets. He has recently become more aggressive in trying to help her, telling her to get up out of bed and take care of things around the house. She has on multiple occasions simply told him to "get out" because she didn't want to deal with his instructions. She sees her job as making a home and lately she has not been able to do that. She feels that she now has to be taken care of because she experiences weakness in her arms and legs and at times does not even feel safe to drive. He has recently told her that he would rather deal with someone who has cancer then with depression as he has no idea how to deal with it. After much processing and encouragement, she is able to admit that she is very unhappy in her relationship, feels that she to soon, that they are completely incompatible. She has thought about leaving but recognizes that she has no income and no resources and feels trapped. Date of admission she describes her mood as "stressed out". She has developed suicidal thoughts with plan to cut her wrists, in her desperation. She describes her energy as "exhausted" and admits to spending most of every day in bed. They're currently sleeping in separate bedrooms as she reports he has many sleep issues. Her anxiety is high, constant, it triggered by many things. She has been isolating from her family over the course of years and now finds that her relationship with her 4 sons is distant. She describes a clear diurnal variation with mornings are worse today she is best in the afternoon. She notes that when he goes away for several days at a time, she is able to feel better. She denies having any auditory or visual hallucinations but talks about episodes where she almost dissociates, feeling that she can't process what is happening around her. She has been clenching her teeth more resulting in more jaw and mouth pain. She was recently started on BuSpar during an ER visit and initially felt that it gave her more energy but then developed what she felt were side effects including jaw tremors and pain. She then stopped taking it. She denies any symptoms that would be congruent with a bipolar disorder. She denies any symptoms that would be congruent with OCD. Admission Exam Per the Admitting provider: Mental Examination During interview pt is: alert and oriented, cooperative Appearance: appropriately dressed Eye contact is: good Motor behavior is: tremor Speech: normal in rate, rhythm & volume (with Southern accent) Affect: tearful Mood is: depressed Thought process: goal directed Thought content: preoccupation (with somatic complaints) Suicidal thought are: present, Plan: present (to cut wrists), Intent: denied Homicidal thoughts are: denied Hallucinations: denies auditory, denies visual Cognition: memory grossly intact, attention grossly intact, language grossly intact Intelligence estimated to be: average Insight: impaired Judgement: impaired Hospital Course (1) Somatic symptom disorder 08/30 - For now we will not start any new psychiatric medications in favor of encouraging her to get back to basics and become more functional. - I have spoken with her by phone with the patient's permission and asked that he not visit until at least Wednesday of this week in order to give her some space. He is agreeable - Will continue Valium 6 mg a.m. and 8 mg HS for now but would like to see this taper down. - Every 15 minute checks for safety - Have asked the staff to encourage her to be out of bed and assist her to become more functional - Encourage participation in group and individual counseling - Encourage regular exercise - Coordinate with outpatient providers and obtain outpatient records - Family meeting 08/31 - Encourage exploration of options to increase supports at home (sons, friends, [facility], etc). 09/01 - Mood and anxiety worse today in context of planned meeting with , but patient has retreated to bed and canceled the meeting as she feels too overwhelmed to participate. She wants to pursue a new medication trial, and again discussed gabapentin or pregabalin for treatment of pain, off label for anxiety and mood. Reviewed risks, benefits, and side effects. She opted for a trial of pregabalin, and will check on cost prior to starting (75mg bid). Medication is covered with no copay. - Called her outpatient psychiatrist, Dr. Cunha, and discussed case (see above) - he recommends IOP/PHP. - Meeting with rescheduled for Wednesday. 09/02/17 - patient is declining to stay further due to barriers with insurance (see day of discharge assessment below) - due to complaint of sedation on new med, will lower dose to 50mg po bid, and give supply with 2 RF - patient to call spouse to come today for brief discussion of interventions and discharge planning (2) GERD (gastroesophageal reflux disease) 08/30 - Patient is not currently on any proton pump inhibitors. Will monitor (3) Hypothyroidism 08/30 -TSH mildly elevated but free T4 within normal limits. - Continue home dosing Risk Factors Assessment : Yes /single/: No Higher / Fall in social status: No Health problems: Yes Mental Health Diagnoses: Yes Substance use disorders: No Previous attempt: No Family history of suicide: Yes Previous psychiatric stay: Yes Hopelessness: Yes Smoker: No Protective Factors Assessment Jainism beliefs: Yes : Yes Responsible for young children: No Employed: No Stable relationships: No Supportive family: Yes Good rapport with provider: Yes Day of Discharge Assessment 09/02/17 The patient was interviewed fully prior to discussion of insurance concerns to get an accurate assessment of her status prior to discussion of a very stressful topic that could skew her presentation toward a desired outcome Per staff she rated her mood as a 5/10 in community meeting. She did appear somewhat brighter yesterday evening after having spent the morning in bed tearful and withdrawn. She did attend groups. This AM staff noted she remained mainly in her room but that she seemed to be able to attend to ADLs and more spontaneously active but still retreating to her bed. She was seen in her room, she was laying in bed but did sit up as requested to speak with provider. She was alert and fully awake. She noted her head felt clearer "I can put my thoughts together and talk about my emotions.....I felt so stressed before I came in that I just shut down" , that "the last several days my belly pain has been gone being here" she notes she has not had a BM today but she has also been laying in bed. She states she is not considering suicide even passively being here, and feels somewhat hopeful, 'I think the lyrica is really helping" She listens to provider's statement that it is less likely lyrica (given she has only had two doses, and relief preceded the medication to some degree) and more likely being engaged and drawn out to talk about her stressors more openly. She nods, and says "probably" We discussed her disappointment that her who takes her to appointments often dominates the time in therapy and sometime medication appointments, but that she cannot reliably get to appointments without his help in transportation.. SHe states she feels hopeful pending work with a casework supervisor to be able to get help getting to her appointments more regularly. We discussed assertive communication with therapist and psychiatrist possibly by a call between visits to ask them to help protect her individual time, and when joint appt that they set boundaries on spouse's talking when possible. She does not avidly agree or decline this suggestion. SHe states she feels her body pain is less, but ongoing neck discomfort. She states she is stretching and using prn heat packs. She states the only side effect she is aware of from the lyrica is tiredness but denies feeling excessively sleepy. She denies feeling suicidal today, she denies intention or plan. She states her mood was a 2 on admission and now is a 5/10 (10 best/euthymic, 0 most depressed). She continues to have low energy and desire to retreat to her bed "but not because of the severe depression but because I am tired." She reports intact appetite, but ongoing limited motivation, denies hopelessness, or worthless, she does feel like her marital situation is hopeless but she is not willing to leave and will "probably" return there at time of discharge, declining consideration for staying with a family member for a time. SHe has some anxiety considering interacting with her , but denies overt anxiety otherwise today. Provider shared that her insurance has denied coverage for any day after 09/01. Noted staff intention and plan to appeal to insurance but that would not be able to happen until Wednesday09/06/17. Patient immediately states "I have to leave then" Provider recommended that she stay and we can appeal. She states "I know they will not cover it." Discussed the risks of leaving prematurely prior to further support and intervention with spouse and observation time on new medication. She states "I know how to call my doctor if I need to, I cannot stay and pay for this." She states she understands the risk that she may return to feeling poorly or suicidal, "but I am not now and I need to leave." When asked what she would do if she again felt unsafe she states "I could talk to Mr Valdivia.....CAN HELP....I could come here" When asked about the benefits of staying here she states "none , as I won't be able to think of anything but the cost." When pressed further she states, "well, you could help me meet with my when I was ready, you could adjust my medications" She affirms she understands that the hospital can additionally help her be safe if she was suicidal and distressed. She again stated she was not actively suicidal. She is able to iterate her f/u appointments with Mr Valdivia and Dr Cunha, and affirms that she can call to try to arrange sooner appt with Dr Cunha given it is > 1month to her next visit, and further that she can get an appt with [facility] to [facility] as a bridge to her appt with Dr Cunha, or acute care to discuss any emergent side effects, or questions, and as noted above she is aware of emergency resources. She adamantly declines to remain inpatient at this time. MSE: patient is laying in bed, dressed under the covers, she is alert and cooperative and sits up as requested to engage with provider. She makes good eye contact and has spontaneous speech of r/r/r/and tone, soft volume. She states her mood is "a little better...a 5/10" and affect is subdued not labile at first, she becomes visibly more alert and anxious when discussion of insurance is raised. SHe does not appear labile or inapporprorpriate but sits up, starts cleaning up her room (e.g. clearing trash off her bedside table, gathering her things, etc) Her Psychomotor activity is not restless or out of place and becomes more active as described but not pressured or hurried but rather purposeful/volitional. She is grossly oriented by participation, intellect is average by complexity of vocabulary. Her TP is c/l/gd, no evidence of thought disorder. TC is focussed on her medication, her physical concerns and her spouse and denial of SI and her return of some hopefulness. She is able to tolerate discussion of the connection of her physical wellbeing to her emotional/stress state. She does then fixate on need for discharge after provider introduces the insurance concerns. I/J are good regarding safety, fair regarding her somatization and assertive communication with others (e.g. spouse, providers, etc) Impulse control is good regarding safety. Risk assessment: See risk factors and protective factors below She is at ongoing increased risk given ongoing stressors and risk factors. She is not an imminent risk as she did not have acts of furtherance prior to admission, and reports prior to discussion of insurance a resolve of SI and hopefulness and future orientation. Even under duress of discussion of medical cost she demonstrates capacity to appreciate the risks and benefits of her choice/request to leave. This provider does not recommend that she leave the hospital as I beleive further observation and titration of medications, as well as further discussion of assertive communication and further ongoing connection of her somatic and emotional states would help her well-being and functionality, however, there are no imminent criteria to compel her to remain in the hospital. Although this provider has up to 72hours to make a determination about her discharge from the time of her state request, there are not overt modifiable risk factors that would be achievable in that timeframe make the longer timeframe more favorable and it would incur patient's anxiety regarding finances. Her somatic, mood, anxiety concerns and relationship issues are longstanding that even one family meeting will not fully rectify or dramatically modify risk level at this time. She is disagreeable to other living arrangements or involving other family at this time. She is agreeable to aftercare and expresses willingness to engage with case management for increased support alongside therapist and psychiatrist., We will ask spouse to secure the weapon in the home. We will have discharge meeting with patient and spouse for breif intervention and to affirm discharge plans and aftercare. Laboratory Test 08/29/17 20:05 08/29/17 21:01 White Blood Count 9.37 Red Blood Count 4.61 Hemoglobin 14.2 Hematocrit 42.6 Mean Corpuscular Volume 92.4 Mean Corpuscular Hemoglobin 30.8 Mean Corpuscular Hemoglobin Concent 33.3 RDW Standard Deviation 44.9 RDW Coefficient of Variation 13.3 Platelet Count 319 Mean Platelet Volume 9.1 Sodium Level 141 Potassium Level 3.6 Chloride Level 106 Carbon Dioxide Level 25 Anion Gap 10.0 Blood Urea Nitrogen 13 Creatinine 0.71 Est Creatinine Clear Calc Drug Dose 87.4 Estimated GFR () 108.8 Estimated GFR (Non- 93.9 BUN/Creatinine Ratio 17.8 Random Glucose 81 Calcium Level 8.7 Total Bilirubin 0.2 Direct Bilirubin < 0.1 Aspartate Amino Transferase (AST) 14 Alanine Aminotransferase (ALT) 30 Alkaline Phosphatase 108 Total Protein 7.6 Albumin 3.5 Thyroid Stimulating Hormone (TSH) 6.450 Free Thyroxine 0.93 Salicylates Level < 1.7 Acetaminophen Level < 2 Ethyl Alcohol mg/dL < 3.0 Urine Color YELLOW Urine Appearance CLEAR Urine pH 7.0 Urine Specific [place] 1.008 Urine Protein NEG Urine Glucose (UA) NEG Urine Ketones NEG Urine Occult Blood NEG Urine Nitrite NEG Urine Bilirubin NEG Urine Urobilinogen NEG Urine Leukocyte Esterase NEG Urine Opiates Screen NEG Urine Methadone, Qualitative NEG Urine Barbiturates NEG Urine Phencyclidine (PCP) Level NEG Ur Amphetamine/Methamphetamine NEG MDMA (Ecstasy) Screen NEG Urine Hydroxyalprazolam Confirm NEGATIVE Urine Benzodiazepines Screen POS 7-Amino Clonazepam Level NEGATIVE Urine Nordiazepam Confirmation 246 Urine Hydroxyethylflurazepam Level NEGATIVE Urine Lorazepam (GC/MS) NEGATIVE Urine Oxazepam Confirm (GC/MS) 623 Urine Temazepam Confirmation 526 Urine Hydroxytriazolam Confirmation NEGATIVE Urine Hydroxymidazolam Confirmation NEGATIVE Urine Cocaine Metabolite NEG Urine Marijuana (THC) NEG Total Time Total Time Spent (min): >90min spent due to need to longer assessment given premature request for discharge Total Time Included: examination of the patient, discharge planning, medication reconciliation Tobacco Cessation at Discharge Smoking Status: Never Smoker FDA approved Prescription: non-smoker Copies To Additional Copies To: Josiah Song MD; Yoandy Cunha M.D.; sravan Valdivia
[2017-09-02] MEDS ORDERED: PREGABALIN 50 MG CAP PO SCH ×3 (15:15→22:00)
[2017-09-05] MEDS ORDERED: HYDR-5688 PO (18:04)
== END 2017-09-02 20:05 | disposition home or self-care (01) | DRG 885 ==
LOC: C.EDB 18:56 → C.MHU 22:22
PROVIDERS: ADMIT Psychiatry & Neurology Child & Adolescent Psychiatry; ATTEND Psychiatry & Neurology Psychiatry
DX: F33.2 Major depressive disorder, recurrent severe without psychotic features (principal); R45.851 Suicidal ideations; F41.9 Anxiety disorder, unspecified; E03.9 Hypothyroidism, unspecified; G89.29 Other chronic pain; K21.9 Gastro-esophageal reflux disease without esophagitis; F60.9 Personality disorder, unspecified; Z83.3 Family history of diabetes mellitus; Z83.79 Family history of other diseases of the digestive system; Z82.49 Family history of ischemic heart disease and other diseases of the circulatory system

== ENCOUNTER 2017-11-17 21:33 | Emergency (ER) | payer OTHER ==
[~2017-11-17] VITALS: Ht 162.6 cm; Wt 80.7 kg
[~2017-11-17 21:33] MED LIST changes: -BUSP5TAB59 PO; -DIAZ2TAB PO; -DIGE1CAP10 PO; -HYDR-5688 PO; -LEVO25CA2 PO; -VLM2 PO; +VLM5 PO
[2017-11-17 21:44] VITALS: TEMP 36.8; Ht 162.6 cm; Wt 80.7 kg
[2017-11-17] MEDS ORDERED: DIAZ-165 PO (22:10)
[2017-11-17] MEDS ORDERED: PREG1CAP28 PO (22:12)
[2017-11-17 23:11] LABS: BASO % 0.5 %; BASO ABS # 0.04 K/uL (0-0.2); EOS % 5.1 %; EOS ABS # 0.39 K/uL (0-0.5); HEMATOCRIT 42.9 % (37-47); HEMOGLOBIN 14.6 g/dL (12.0-16.0); IG# 0.01 K/uL (0.00-0.02); LYMPH % 25.5 %; LYMPH ABS # 1.95 K/uL (1.2-3.4); MEAN CELL VOLUME 92.7 fL (80-100); MEAN CORPUSCULAR HEMOGLOBIN 31.5 pg (25-34); MEAN PLATELET VOLUME 9.9 fL (7.4-10.4); MONO % 8.2 %; MONO ABS # 0.63 K/uL (0.11-0.59); NEUT % 60.6 %; NEUT ABS # 4.62 K/uL (1.4-6.5); PLATELET COUNT 319 K/uL (130-400); RED CELL DISTRIBUTION WIDTH CV 13.4 % (11.5-14.5); RED CELL DISTRIBUTION WIDTH SD 45.5 fL (36.4-46.3); WHITE BLOOD COUNT 7.64 K/uL (4.8-10.8)
[2017-11-17 23:27] LABS: ALBUMIN 3.5 gm/dl (3.4-5.0); CALCIUM 8.8 mg/dl (8.5-10.1); CREATININE 1.12 mg/dl (0.60-1.20); POTASSIUM 3.8 mmol/L (3.5-5.1)
[2017-11-17 23:29] LABS: TOTAL PROTEIN 7.7 gm/dl (6.4-8.2)
--- NOTE | 2017-11-18 00:30 | EMERGENCY ROOM VISIT NOTE ---
History First contact with patient: 22:08 Chief Complaint: UNABLE TO VOID Stated Complaint: KIDNEYS NOT INFECTION-FUNCTION Nursing Triage Summary: Patient arrives with multiple complaints. Patient reports that she has been having left sided flank pain which is decreased with urination. Denies other urinary symptoms besides pain. Patient notes that she has "felt funny" off and on at home and took her BP at home which was 97/50's. Patient states that she recently started taking lyrica and feels that some of these symptoms could be attributed to that. Patient states "I was depressed for quite a while and that was most important, but now that the depression is gone i'm noticing these symptoms". Patient able to void, notes pain now decreased. Bladder scan for 179ml after urination History of Present Illness The patient is a 57 year old female who presents to the Emergency Room with complaints of multiple symptoms. The patient reports that she occasionally has bilateral flank pain. She reports that it moves from side to side. She also reports that she goes a long time without urinating despite increasing fluids. She states that the symptoms started after she started taking Lyrica 2 months ago. She began taking this for depression and states that it is improving her depression. She reports that her heart rate sometimes becomes elevated and her blood pressure fluctuates. She has been fatigued and dizzy. She states that she has no energy and feels that "something is not right." She has not spoken with her primary care provider or psychiatrist regarding the symptoms. She denies nausea/vomiting, chest pain, shortness of breath, dysuria or fevers. Review of Systems A complete 10 point review of systems was reviewed with the patient with pertinent positives and negatives as per history of present illness. All else were negative. Past Medical/Surgical History Medical Problems: (1) Anxiety (2) Anxiety (3) Cluster B personality disorder (4) Depression (5) Fatty liver (6) Gallbladder polyp (7) GERD (gastroesophageal reflux disease) (8) Hiatal hernia (9) Hypothyroidism (10) Somatic symptom disorder (11) Thyroid problems Surgical Problems: (1) Lipoma of neck (2) S/P tonsillectomy Family History Diabetes mellitus FHx: gallbladder disease FHx: heart disease No FHx f blood clots Social History Smoking Status: Never Smoker Alcohol Use: none Drug Use: none Marital Status: Housing Status: lives with family Current/Historical Medications Scheduled Diazepam (Valium), 5 MG PO BID Levothyroxine Sodium (Tirosint), 25 MCG PO DAILY Pregabalin (Lyrica), 75 MG PO BID Physical Exam Vital Signs Date Time Temp Pulse Resp B/P (MAP) Pulse Ox O2 Delivery O2 Flow Rate FiO2 11/18/17 00:38 80 20 112/75 95 11/17/17 23:52 81 18 131/79 99 Room Air 11/17/17 21:44 36.8 97 18 121/83 94 Room Air Physical Exam VITALS: Vitals are noted on the nurse's note and reviewed by myself. Vital signs stable. GENERAL: This is a 57-year-old female, in no acute distress, nondiaphoretic, well-developed well-nourished. SKIN: The skin was without rashes. EARS: External auditory canals clear, tympanic membranes pearly jansen without erythema or effusion bilaterally. EYES: Pupils equal round and reactive to light and accommodation. Extraocular movements intact. MOUTH: Mucous membranes moist. Tonsils are not enlarged. Pharynx without erythema or exudate. NECK: Supple without nuchal rigidity. No lymphadenopathy. HEART: Regular rate and rhythm without murmurs gallops or rubs. LUNGS: Clear to auscultation bilaterally without wheezes, rales or rhonchi. No retractions or accessory muscle use. ABDOMEN: Positive bowel sounds x 4. Soft, nontender to palpation. NEURO: Patient was alert and oriented to person place and time. Medical Decision & Procedures ER Provider Diagnostic Interpretation: US RENAL: No hydronephrosis. Question hepatic steatosis. Radiologist: Eugenio Rees MD Laboratory Results 11/17/17 22:55 Red Blood Count 4.63, Mean Corpuscular Volume 92.7, Mean Corpuscular Hemoglobin 31.5, Mean Corpuscular Hemoglobin Concent 34.0, Mean Platelet Volume 9.9, Neutrophils (%) (Auto) 60.6, Lymphocytes (%) (Auto) 25.5, Monocytes (%) (Auto) 8.2, Eosinophils (%) (Auto) 5.1, Basophils (%) (Auto) 0.5, Neutrophils # (Auto) 4.62, Lymphocytes # (Auto) 1.95, Monocytes # (Auto) 0.63, Eosinophils # (Auto) 0.39, Basophils # (Auto) 0.04 2/7/18 22:55 Test 11/17/17 22:00 11/17/17 22:55 Urine Color YELLOW Urine Appearance CLEAR (CLEAR) Urine pH 7.5 (4.5-7.5) Urine Specific [place] 1.011 (1.000-1.030) Urine Protein NEG (NEG) Urine Glucose (UA) NEG (NEG) Urine Ketones NEG (NEG) Urine Occult Blood NEG (NEG) Urine Nitrite NEG (NEG) Urine Bilirubin NEG (NEG) Urine Urobilinogen NEG (NEG) Urine Leukocyte Esterase NEG (NEG) White Blood Count 7.64 K/uL (4.8-10.8) Red Blood Count 4.63 M/uL (4.2-5.4) Hemoglobin 14.6 g/dL (12.0-16.0) Hematocrit 42.9 % (37-47) Mean Corpuscular Volume 92.7 fL (80-100) Mean Corpuscular Hemoglobin 31.5 pg (25-34) Mean Corpuscular Hemoglobin Concent 34.0 g/dl (32-36) Platelet Count 319 K/uL (130-400) Mean Platelet Volume 9.9 fL (7.4-10.4) Neutrophils (%) (Auto) 60.6 % Lymphocytes (%) (Auto) 25.5 % Monocytes (%) (Auto) 8.2 % Eosinophils (%) (Auto) 5.1 % Basophils (%) (Auto) 0.5 % Neutrophils # (Auto) 4.62 K/uL (1.4-6.5) Lymphocytes # (Auto) 1.95 K/uL (1.2-3.4) Monocytes # (Auto) 0.63 K/uL (0.11-0.59) Eosinophils # (Auto) 0.39 K/uL (0-0.5) Basophils # (Auto) 0.04 K/uL (0-0.2) RDW Standard Deviation 45.5 fL (36.4-46.3) RDW Coefficient of Variation 13.4 % (11.5-14.5) Immature Granulocyte % (Auto) 0.1 % Immature Granulocyte # (Auto) 0.01 K/uL (0.00-0.02) Anion Gap 5.0 mmol/L (3-11) Est Creatinine Clear Calc Drug Dose 56.3 ml/min Estimated GFR () 62.7 Estimated GFR (Non- 54.1 BUN/Creatinine Ratio 14.3 (10-20) Calcium Level 8.8 mg/dl (8.5-10.1) Total Bilirubin 0.2 mg/dl (0.2-1) Aspartate Amino Transf (AST/SGOT) 13 U/L (15-37) Alanine Aminotransferase (ALT/SGPT) 27 U/L (12-78) Alkaline Phosphatase 108 U/L (45-117) Total Protein 7.7 gm/dl (6.4-8.2) Albumin 3.5 gm/dl (3.4-5.0) Globulin 4.2 gm/dl (2.5-4.0) Albumin/Globulin Ratio 0.8 (0.9-2) Medical Decision Differential diagnosis includes medication side effect, urinary tract infection , kidney stone, pyelonephritis, electrolyte abnormality, among others. The patient is a 57-year-old female who presents today complaining of multiple symptoms. Patient feels these are related to her Lyrica. Labs revealed no leukocytosis or anemia. Kidney function within normal limits. Urinalysis was not suggestive of infection. He symptoms may be side effects of the patient's medication. She was advised to follow-up with the prescriber of the medication regarding this. She is very adamant that she would like to continue taking the medication, as it is helping her depression. Based on the patient's presentation and work up, I feel the patient is stable for outpatient treatment. The patient was educated to return to the emergency department for any worsening of their current condition or new/concerning symptoms. She will follow up with her PCP and psychiatrist. Medication Reconcilliation Current Medication List: was personally reviewed by me Blood Pressure Screening Patient's blood pressure: Normal blood pressure Impression Primary Impression: Flank pain Departure Information Dispostion Home / Self-Care Condition GOOD Referrals Josiah Song MD (PCP) Patient Instructions My [facility] Additional Instructions Follow-up with your primary care provider, psychiatrist and urologist for further evaluation and treatment.
[2017-11-18 00:38] VITALS: BP 112/75; PULSE 80; O2SAT 95
--- NOTE | 2017-11-18 06:28 | DIAGNOSTIC IMAGING REPORT ---
EXAMINATION: RENAL ULTRASOUND CLINICAL HISTORY: Bilateral flank pain COMPARISON STUDY: CT scan performed 04/19/2017 FINDINGS: The right kidney measures 9.9 cm. The left kidney measures 10.7 cm. There is no evidence of hydronephrosis. There are no renal masses. No bladder abnormalities are visualized. Bilateral ureteral jets were visualized. There is increased hepatic echogenicity. This could indicate hepatic steatosis IMPRESSION : 1. No renal masses or hydronephrosis identified. Electronically signed by: Adonis Donnelly M.D. 11/18/2017 6:27 AM Dictated Date/Time: 11/18/2017 6:26 AM
[2017-11-19] MEDS ORDERED: LEVO25CA2 PO (16:31)
[2017-11-19] MEDS ORDERED: DIAZ5TAB PO (21:45)
[2017-11-19] MEDS ORDERED: PREG75CA PO (21:45)
== END 2017-11-18 00:42 | disposition home or self-care (01) ==
LOC: C.EDB 21:36
DX: R10.9 Unspecified abdominal pain (principal); F41.9 Anxiety disorder, unspecified; F32.9 Major depressive disorder, single episode, unspecified; K21.9 Gastro-esophageal reflux disease without esophagitis; E03.9 Hypothyroidism, unspecified; F45.1 Undifferentiated somatoform disorder; K76.0 Fatty (change of) liver, not elsewhere classified; F60.9 Personality disorder, unspecified; Z83.3 Family history of diabetes mellitus; Z83.79 Family history of other diseases of the digestive system; Z82.49 Family history of ischemic heart disease and other diseases of the circulatory system; Z79.899 Other long term (current) drug therapy

== ENCOUNTER 2017-11-19 16:24 | Emergency (ER) | payer OTHER ==
[~2017-11-19] VITALS: Ht 162.6 cm; Wt 80.6 kg
[~2017-11-19 16:24] MED LIST changes: +DIAZ-165 PO; +PREG1CAP28 PO; -VLM5 PO
[2017-11-19] MEDS ORDERED: LEVO25CA2 PO (16:31)
[2017-11-19 16:35] VITALS: TEMP 36.6; Ht 162.6 cm; Wt 80.6 kg
[2017-11-19 19:35] VITALS: O2SAT 94
--- NOTE | 2017-11-19 19:40 | EMERGENCY ROOM VISIT NOTE ---
History Report prepared by Lori: Vishnu Mascorro Under the Supervision of: Dr. Tommy Caldwell M.D. First contact with patient: 19:23 Chief Complaint: CARDIAC ASSESSMENT Stated Complaint: DOC REFERRED;PREVIOUS HEART ATTACK Nursing Triage Summary: Pt verbalizes "i've been feeling like I'm having a heart attack. a week or so ago my left jaw and neck started to be stiff. My whole left side feels different, but my right side feels normal. I have back pain and my left neck/face/arm get numb sometimes. I am constipated. I have weak limbs. My vision is changed, it is more blurry than normal. I have chest pains. I have abdominal pains. I can urinate at 3 in the afternoon, but then I don't urinate again until 0200. When I get under stress this happens. I just don't think I am peeing as much as I used to. I just feel lousy." I have anxiety and depression and I was started on Lyrica in September which is helping with the depression but I think my symptoms are all realted to the lyrica. Pt has not talked to her PCP about any of these symptoms. History of Present Illness The patient is a 57 year old female who presents to the Emergency Room with complaints of sharp intermittent left-sided chest pain that began two weeks ago. She rates her pain moderate in severity when it occurs. She believes that she may be having a heart attack. Three months ago, the patient's Valium was decreased from 14 mg to 10 mg and Lyrica was added for her Depression. Since then, the patient states that her Depression has improved but she states that she feels as if she is "poisoned" and that she has brain damage. For the past two weeks, the patient has been experiencing left-sided jaw pain, left-sided neck stiffness, vision blurring, and pain radiating into her left arm. She experiences her chest pains intermittently whenever she feels a heart palpitation. She is also complaining of diffuse abdominal pain as well. Her chest pain intermittently worsens with exertion. She was seen in the ER two days ago for flank pain and received a workup that was benign. She denies any cough, recent head trauma, falls, injury, fevers, or diarrhea. She notes that she is currently constipated and has not had a bowel movement for the past week. She took two Colace yesterday without relief. Source of History: patient Onset: two weeks ago Position: chest (left) Symptom Intensity: moderate Quality: sharp Timing: intermittent Modifying Factors (Worsening): exertion (intermittently) Associated Symptoms: + abdominal pain, No fevers, No cough, No diarrhea Note: She denies any recent injury, falls, or head trauma. She is having left sided jaw pain, left sided neck stiffness, and pain radiation down her left arm. She has not had a bowel movement in 1 week. She is also having vision blurring. Review of Systems See HPI for pertinent positives & negatives. A total of 10 systems reviewed and were otherwise negative. Past Medical & Surgical Medical Problems: (1) Anxiety (2) Anxiety (3) Cluster B personality disorder (4) Depression (5) Fatty liver (6) Gallbladder polyp (7) GERD (gastroesophageal reflux disease) (8) Hiatal hernia (9) Hypothyroidism (10) Somatic symptom disorder (11) Thyroid problems Surgical Problems: (1) Lipoma of neck (2) S/P tonsillectomy Family History Diabetes mellitus FHx: gallbladder disease FHx: heart disease No FHx f blood clots Social History Smoking Status: Never Smoker Alcohol Use: none Drug Use: none Marital Status: Housing Status: lives with family Current/Historical Medications Scheduled Diazepam (Valium), 5 MG PO BID Levothyroxine Sodium (Tirosint), 25 MCG PO DAILY Pregabalin (Lyrica), 75 MG PO BID Allergies Coded Allergies: Escitalopram (Verified Allergy, Intermediate, RESTLESS ARMS, 08/29/17) Morphine (Verified Allergy, Intermediate, bad reaction, 08/29/17) Venlafaxine (Verified Allergy, Intermediate, RESTLESS ARMS, 08/29/17) Amitriptyline (Verified Adverse Reaction, Severe, FACIAL PAIN, 08/29/17) Buspirone (Verified Adverse Reaction, Severe, "SEIZURE OF JAW"-TREMORS, ) Levothyroxine (Verified Adverse Reaction, Severe, FACE AND TONGUE SWELLING , 08/29/17) PT TAKES THIS MEDICATION DESPITE REACTION 10/14/15- SPOKE WITH PATIENT, BELIEVES THAT THIS REACTION COMES FROM SYNTHROID BECAUSE WHEN THE DOSE WAS INCREASED THE SWELLING GOT WORSE. CURRENTLY TAKES BRAND, BELIEVES HAS TAKEN GENERIC Omeprazole (Verified Adverse Reaction, Severe, SWOLLEN TONGUE, NAUSEA, FACIAL EDEMA, 08/29/17) Sertraline (Verified Adverse Reaction, Intermediate, BURNING FEELING ON TONGUE, 08/29/17) Physical Exam Vital Signs Date Time Temp Pulse Resp B/P (MAP) Pulse Ox O2 Delivery O2 Flow Rate FiO2 11/19/17 21:36 80 18 110/71 96 11/19/17 21:14 82 11/19/17 20:52 79 18 104/56 96 Room Air 11/19/17 19:35 84 18 141/91 94 Room Air 11/19/17 19:35 94 Room Air 11/19/17 16:35 36.6 95 18 142/87 98 Room Air Physical Exam GENERAL: Patient is in no acute distress. HEENT: No acute trauma, normocephalic atraumatic, mucous membranes moist, no nasal congestion, no scleral icterus. NECK: No stridor, no adenopathy, no meningismus, trachea is midline. LUNGS: Clear to auscultation bilaterally, no wheeze, no rhonchi, breath sounds equal. HEART: Without murmurs gallops or rubs, regular rate and rhythm. CHEST: Tenderness to the mid-sternum and left anterior chest wall. ABDOMEN: Soft, nontender, bowel sounds positive, no hernias, no peritonitis. EXTREMITIES: No cyanosis or edema, full range of motion of all the joints without pain or difficulty, no signs for acute trauma. NEUROLOGIC: Oriented x 3, no acute motor or sensory deficits, no focal weakness. SKIN: No rash, no jaundice, no diaphoresis. PSYCHOLOGIC: Cooperative, voluntary, anxious. Describes multiple somatic complaints with concerns for brain damage. Medical Decision & Procedures ER Provider Diagnostic Interpretation: Radiology results as stated below per my review and radiologist interpretation: KUB CLINICAL HISTORY: poss constipation pain COMPARISON STUDY: No previous studies for comparison. FINDINGS: The soft tissues, psoas shadows, renal outlines and intestinal gas pattern appear normal. There is no evidence for bowel obstruction. No abnormal abdominal calcifications are seen. IMPRESSION: Normal study. Normal fecal load within the colon The above report was generated using voice recognition software. It may contain grammatical, syntax or spelling errors. Electronically signed by: Chandrakant Pedro M.D. 11/19/2017 8:04 PM Dictated Date/Time: 11/19/2017 8:04 PM HEAD WITHOUT CONTRAST (CT) CT DOSE: 537.48 mGy.cm HISTORY: Mental status change. Headache. HEADACHE TECHNIQUE: Multiaxial CT images of the head were performed without the use of intravenous contrast. A dose lowering technique was utilized adhering to the principles of ALARA. Comparison: 05/03/2017 Findings: The paranasal sinuses and mastoid air cells are clear. The calvarium and skull base are intact. The ventricles and sulci are within normal limits. There is no mass, hematoma, midline shift, or acute infarct. Impression: No acute intracranial abnormality. The above report was generated using voice recognition software. It may contain grammatical, syntax or spelling errors. Electronically signed by: Chandrakant Pedro M.D. 11/19/2017 8:14 PM Dictated Date/Time: 11/19/2017 8:13 PM CHEST ONE VIEW PORTABLE CLINICAL HISTORY: CHEST PAIN dyspnea COMPARISON STUDY: 08/23/2017 FINDINGS: The bones soft tissues and hemidiaphragms are normal. The cardiomediastinal silhouette is normal. The lungs are clear. The pulmonary vasculature is normal. IMPRESSION: Negative chest. The above report was generated using voice recognition software. It may contain grammatical, syntax or spelling errors. Electronically signed by: Chandrakant Pedro M.D. 11/19/2017 8:03 PM Dictated Date/Time: 11/19/2017 8:03 PM Laboratory Results 11/19/17 19:49 11/19/17 19:49 Test 11/19/17 18:30 11/19/17 19:49 Urine Color YELLOW Urine Appearance CLEAR (CLEAR) Urine pH 5.5 (4.5-7.5) Urine Specific [place] 1.006 (1.000-1.030) Urine Protein NEG (NEG) Urine Glucose (UA) NEG (NEG) Urine Ketones NEG (NEG) Urine Occult Blood NEG (NEG) Urine Nitrite NEG (NEG) Urine Bilirubin NEG (NEG) Urine Urobilinogen NEG (NEG) Urine Leukocyte Esterase NEG (NEG) Red Blood Count 4.88 M/uL (4.2-5.4) Mean Corpuscular Volume 92.0 fL (80-100) Mean Corpuscular Hemoglobin 30.7 pg (25-34) Mean Corpuscular Hemoglobin Concent 33.4 g/dl (32-36) RDW Standard Deviation 44.7 fL (36.4-46.3) RDW Coefficient of Variation 13.3 % (11.5-14.5) Mean Platelet Volume 9.9 fL (7.4-10.4) Anion Gap 5.0 mmol/L (3-11) Est Creatinine Clear Calc Drug Dose 72.4 ml/min Estimated GFR () 85.1 Estimated GFR (Non- 73.4 BUN/Creatinine Ratio 17.4 (10-20) Calcium Level 9.3 mg/dl (8.5-10.1) Total Bilirubin 0.3 mg/dl (0.2-1) Aspartate Amino Transf (AST/SGOT) 15 U/L (15-37) Alanine Aminotransferase (ALT/SGPT) 28 U/L (12-78) Alkaline Phosphatase 108 U/L (45-117) Troponin I < 0.015 ng/ml (0-0.045) Total Protein 8.3 gm/dl (6.4-8.2) Albumin 3.8 gm/dl (3.4-5.0) Globulin 4.5 gm/dl (2.5-4.0) Albumin/Globulin Ratio 0.8 (0.9-2) Lipase 141 U/L (73-393) Thyroid Stimulating Hormone (TSH) 3.010 uIu/ml (0.300-4.500) Free Thyroxine 0.87 ng/dl (0.80-1.60) Laboratory results reviewed by me. ECG Indication: chest pain Rate (beats per minute): 85 Rhythm: normal sinus Findings: nonspecific-ST abn (diffuse), other (No PVC or PAC) Change: Patient's electrocardiogram interpreted by me. ED Course 1922: The patient was evaluated in room C8. A complete history and physical exam was performed. 2100: Reevaluated the patient. She is doing well. Discussed results and discharge instructions: She verbalized understanding and agreement. The patient is ready for discharge. Medical Decision Differential diagnosis includes but is not limited to anxiety, UTI, pneumonia, constipation, UT, stroke, and medication reaction. There is no leukocytosis or worrisome anemia. No significant electrolyte abnormality, kidney failure or hepatitis. No evidence for pancreatitis. KUB does not show significant constipation or bowel obstruction. Chest film does not show pneumonia, mediastinal widening or pneumothorax. Urinalysis does not show evidence for infection. The patient appears to be in a euthyroid state. EKG shows a normal sinus rhythm, no acute ischemia. Cardiac enzyme testing 1 is not consistent with acute cardiac injury. Brain CT shows no acute bleed or mass effect. On exam, there were no focal neurologic deficits. The patient was not febrile or toxic. The patient presents with multiple complaints. Her workup here is reassuring and benign. I suspect her symptoms may in fact be from her medications started back in late September. She was started on some new antidepression medications and has not quite felt right since. The patient was encouraged to talk with her prescribing physician. She will return here for any worsening symptoms. She was felt safe for discharge. Medication Reconcilliation Current Medication List: was personally reviewed by me Blood Pressure Screening Patient's blood pressure: Elevated blood pressure Blood pressure disposition: Elevated BP felt to be situational Impression Primary Impression: Left sided chest pain Additional Impression: Concern about stroke without diagnosis Scribe Attestation The scribe's documentation has been prepared under my direction and personally reviewed by me in its entirety. I confirm that the note above accurately reflects all work, treatment, procedures, and medical decision making performed by me. Departure Information Dispostion Home / Self-Care Referrals Josiah Song MD (PCP) Forms IMPORTANT VISIT INFORMATION Patient Instructions My [facility] Additional Instructions talk with your doctor about your meds heart testing was ok today Young CT scan was ok today return if worsening Problem Qualifiers
[2017-11-19 20:00] LABS: HEMATOCRIT 44.9 % (37-47); MEAN CORPUSCULAR HEMOGLOBIN 30.7 pg (25-34); MEAN CORPUSCULAR HGB CONC 33.4 g/dl (32-36); MEAN PLATELET VOLUME 9.9 fL (7.4-10.4); PLATELET COUNT 341 K/uL (130-400); RED CELL DISTRIBUTION WIDTH CV 13.3 % (11.5-14.5); RED CELL DISTRIBUTION WIDTH SD 44.7 fL (36.4-46.3)
--- NOTE | 2017-11-19 20:04 | DIAGNOSTIC IMAGING REPORT ---
CHEST ONE VIEW PORTABLE CLINICAL HISTORY: CHEST PAIN dyspnea COMPARISON STUDY: 08/23/2017 FINDINGS: The bones soft tissues and hemidiaphragms are normal. The cardiomediastinal silhouette is normal. The lungs are clear. The pulmonary vasculature is normal. IMPRESSION: Negative chest. The above report was generated using voice recognition software. It may contain grammatical, syntax or spelling errors. Electronically signed by: Chandrakant Pedro M.D. 11/19/2017 8:03 PM Dictated Date/Time: 11/19/2017 8:03 PM
--- NOTE | 2017-11-19 20:05 | DIAGNOSTIC IMAGING REPORT ---
KUB CLINICAL HISTORY: poss constipation pain COMPARISON STUDY: No previous studies for comparison. FINDINGS: The soft tissues, psoas shadows, renal outlines and intestinal gas pattern appear normal. There is no evidence for bowel obstruction. No abnormal abdominal calcifications are seen. IMPRESSION: Normal study. Normal fecal load within the colon The above report was generated using voice recognition software. It may contain grammatical, syntax or spelling errors. Electronically signed by: Chandrakant Pedro M.D. 11/19/2017 8:04 PM Dictated Date/Time: 11/19/2017 8:04 PM
--- NOTE | 2017-11-19 20:16 | DIAGNOSTIC IMAGING REPORT ---
HEAD WITHOUT CONTRAST (CT) CT DOSE: 537.48 mGy.cm HISTORY: Mental status change. Headache. HEADACHE TECHNIQUE: Multiaxial CT images of the head were performed without the use of intravenous contrast. A dose lowering technique was utilized adhering to the principles of ALARA. Comparison: 05/03/2017 Findings: The paranasal sinuses and mastoid air cells are clear. The calvarium and skull base are intact. The ventricles and sulci are within normal limits. There is no mass, hematoma, midline shift, or acute infarct. Impression: No acute intracranial abnormality. The above report was generated using voice recognition software. It may contain grammatical, syntax or spelling errors. Electronically signed by: Chandrakant Pedro M.D. 11/19/2017 8:14 PM Dictated Date/Time: 11/19/2017 8:13 PM
[2017-11-19 20:19] LABS: ALBUMIN 3.8 gm/dl (3.4-5.0); ALT/SGPT 28 U/L (12-78); AST/SGOT 15 U/L (15-37); BLOOD UREA NITROGEN 15 mg/dl (7-18); CALCIUM 9.3 mg/dl (8.5-10.1); CARBON DIOXIDE 27 mmol/L (21-32); CREATININE 0.87 mg/dl (0.60-1.20); GLUCOSE 95 mg/dl (70-99); LIPASE 141 U/L (73-393); SODIUM 139 mmol/L (136-145)
[2017-11-19 20:30] LABS: ALKALINE PHOSPHATASE 108 U/L (45-117); TOTAL PROTEIN 8.3 gm/dl (6.4-8.2)
[2017-11-19 21:36] VITALS: BP 110/71; PULSE 80; O2SAT 96
[2017-11-19] MEDS ORDERED: DIAZ5TAB PO (21:45)
[2017-11-19] MEDS ORDERED: PREG75CA PO (21:45)
== END 2017-11-19 21:37 | disposition home or self-care (01) ==
LOC: C.EDB 16:27 → C.EDC 21:37
DX: R07.89 Other chest pain (principal); R68.84 Jaw pain; M43.6 Torticollis; H53.8 Other visual disturbances; M79.622 Pain in left upper arm; R10.84 Generalized abdominal pain; F41.8 Other specified anxiety disorders; Z83.3 Family history of diabetes mellitus; Z82.49 Family history of ischemic heart disease and other diseases of the circulatory system; Z83.79 Family history of other diseases of the digestive system; E03.9 Hypothyroidism, unspecified; Z88.8 Allergy status to other drugs, medicaments and biological substances; Z88.6 Allergy status to analgesic agent

== ENCOUNTER 2018-01-31 12:03 | Emergency (ER) | payer OTHER ==
[~2018-01-31] VITALS: Ht 162.6 cm; Wt 82.5 kg
[~2018-01-31 12:03] MED LIST changes: -DIAZ-165 PO; +DIAZ5TAB PO; +LEVO25CA2 PO; -PREG1CAP28 PO; +PREG75CA PO
[2018-01-31 12:10] VITALS: TEMP 36.7; Ht 162.6 cm; Wt 82.5 kg
[2018-01-31] MEDS ORDERED: LYR25 PO (12:35)
[2018-01-31] MEDS ORDERED: ASPI81TA28 PO (12:35)
[2018-01-31] MEDS ORDERED: LORAZEPAM 0.5 MG TAB SL STA (13:21)
[2018-01-31 13:42] LABS: BASO % 0.5 %; BASO ABS # 0.04 K/uL (0-0.2); EOS ABS # 0.25 K/uL (0-0.5); HEMATOCRIT 47.4 % (37-47); HEMOGLOBIN 16.1 g/dL (12.0-16.0); IG# 0.02 K/uL (0.00-0.02); LYMPH % 16.7 %; MEAN CELL VOLUME 90.8 fL (80-100); MEAN CORPUSCULAR HEMOGLOBIN 30.8 pg (25-34); MEAN PLATELET VOLUME 9.7 fL (7.4-10.4); MONO % 8.1 %; MONO ABS # 0.68 K/uL (0.11-0.59); NEUT % 71.5 %; NEUT ABS # 5.98 K/uL (1.4-6.5); PLATELET COUNT 342 K/uL (130-400); RED CELL DISTRIBUTION WIDTH CV 13.7 % (11.5-14.5); RED CELL DISTRIBUTION WIDTH SD 45.5 fL (36.4-46.3); WHITE BLOOD COUNT 8.37 K/uL (4.8-10.8)
[2018-01-31 13:52] LABS: PTT PATIENT 27.5 SECONDS (21.0-31.0)
[2018-01-31 13:58] LABS: ALBUMIN 3.8 gm/dl (3.4-5.0); ALT/SGPT 30 U/L (12-78); AST/SGOT 16 U/L (15-37); BLOOD UREA NITROGEN 15 mg/dl (7-18); CALCIUM 9.1 mg/dl (8.5-10.1); CARBON DIOXIDE 25 mmol/L (21-32); CREATININE 0.97 mg/dl (0.60-1.20); GLUCOSE 99 mg/dl (70-99); LIPASE 140 U/L (73-393); POTASSIUM 3.8 mmol/L (3.5-5.1); SODIUM 141 mmol/L (136-145)
[2018-01-31 14:12] LABS: ALKALINE PHOSPHATASE 106 U/L (45-117); TOTAL PROTEIN 8.5 gm/dl (6.4-8.2)
--- NOTE | 2018-01-31 14:32 | DIAGNOSTIC IMAGING REPORT ---
TWO VIEW CHEST CLINICAL HISTORY: Atypical chest pain. Nausea. FINDINGS: PA and lateral chest radiographs are compared to study dated 11/19/2017. The cardiomediastinal silhouette is unremarkable. There is mild atherosclerotic calcification of the thoracic aorta. Scattered calcified granulomas are noted. No airspace consolidation or pleural effusion is identified. There is no pneumothorax. The skeletal structures are osteopenic. The bony thorax appears intact. IMPRESSION: No active disease in the chest. Electronically signed by: Tommy Light M.D. 01/31/2018 2:31 PM Dictated Date/Time: 01/31/2018 2:31 PM
[2018-01-31 15:36] VITALS: BP 107/71; PULSE 93; O2SAT 96
--- NOTE | 2018-01-31 19:27 | EMERGENCY ROOM VISIT NOTE ---
History Report prepared by Lori: Isaias Marin Under the Supervision of: Dr. Dale Moe M.D. First contact with patient: 12:31 Chief Complaint: PAIN (GENERALIZED) Stated Complaint: HEART, HEAD, NECK, ABDOMIN PAIN History of Present Illness The patient is a 57 year old female who presents to the Emergency Room with complaints of constant generalized pain starting this morning. The patient states that she has a history of panic attacks, and she last had one three days ago which was the worse she ever had, and she felt like she was having another one come on today. The patient reports that the right side of her head feels weird, and she feels like she feels light headed as if drunk. She additionally reports that she is having chest pain, shortness of breath, upper abdominal pain which is worse when she wakes up, some pain in her throat, nausea, and she states that her bowel movements have been decision support analyst than usual. The patient states that she has a history of panic attacks and anxiety, and she states that she thinks that her recent panic attacks have been triggered by tension between her and her [id number]. She notes that she has been unable to drive, and she states that she is worried about having a heart attack. The patient notes that she is currently on Valium, and she was started on Lyrica in August, though she was having side effects such as decreased urine output, so her dosage was decreased 8 weeks ago. The patient notes that she took left over Ativan three days ago which helped, though she was advised not to regularly take it because of the Valium. She states that she also started taking a low dose aspirin because she was concerned about her heart. The patient notes that she still has her gall bladder, and her doctor did a HIDA scan, and she needs to have a cholecystectomy, though she states that she has not had it done since she feels like she cannot go to her doctor appointments because she gets weak. The HIDA scan was done a year ago. She has had this upper abdominal pain for over a year. It seems to be worse in the morning and not worse after eating. The patient denies any vomiting, black stools, or bloody stools. She states that has been urinating normally since her Lyrica was decreased. The patient states that she does not drink alcohol, and she denies any history of ulcers. She is not currently on Protonix. The patient additionally notes that she was diagnosed with a hiatal hernia and a multinodular goiter. Source of History: patient Onset: this morning Position: other (generalized) Quality: other (pain) Timing: constant Associated Symptoms: + chest pain, + SOB, + nausea, + abdominal pain, + back pain, No vomiting Note: Associated symptoms: Light headed, pain in her throat, and light stools Review of Systems See HPI for pertinent positives & negatives. A total of 10 systems reviewed and were otherwise negative. Past Medical & Surgical Medical Problems: (1) Anxiety (2) Anxiety (3) Cluster B personality disorder (4) Depression (5) Fatty liver (6) Gallbladder polyp (7) GERD (gastroesophageal reflux disease) (8) Hiatal hernia (9) Hypothyroidism (10) Somatic symptom disorder (11) Thyroid problems Surgical Problems: (1) Lipoma of neck (2) S/P tonsillectomy Family History Diabetes mellitus FHx: gallbladder disease FHx: heart disease No FHx f blood clots Social History Smoking Status: Never Smoker Alcohol Use: none Drug Use: none Marital Status: Housing Status: lives with family Current/Historical Medications Scheduled Aspirin (Aspirin Ec), 81 MG PO DAILY Diazepam (Valium), 5 MG PO BID Levothyroxine Sodium (Tirosint), 25 MCG PO DAILY Pregabalin (Lyrica), 25 MG PO TID Allergies Coded Allergies: Escitalopram (Verified Allergy, Intermediate, RESTLESS ARMS, 08/29/17) Morphine (Verified Allergy, Intermediate, bad reaction, 08/29/17) Venlafaxine (Verified Allergy, Intermediate, RESTLESS ARMS, 08/29/17) Amitriptyline (Verified Adverse Reaction, Severe, FACIAL PAIN, 08/29/17) Buspirone (Verified Adverse Reaction, Severe, "SEIZURE OF JAW"-TREMORS, ) Levothyroxine (Verified Adverse Reaction, Severe, FACE AND TONGUE SWELLING , 08/29/17) PT TAKES THIS MEDICATION DESPITE REACTION 10/14/15- SPOKE WITH PATIENT, BELIEVES THAT THIS REACTION COMES FROM SYNTHROID BECAUSE WHEN THE DOSE WAS INCREASED THE SWELLING GOT WORSE. CURRENTLY TAKES BRAND, BELIEVES HAS TAKEN GENERIC Omeprazole (Verified Adverse Reaction, Severe, SWOLLEN TONGUE, NAUSEA, FACIAL EDEMA, 08/29/17) Sertraline (Verified Adverse Reaction, Intermediate, BURNING FEELING ON TONGUE, 08/29/17) Physical Exam Vital Signs Date Time Temp Pulse Resp B/P (MAP) Pulse Ox O2 Delivery O2 Flow Rate FiO2 01/31/18 15:36 93 16 107/71 96 01/31/18 14:10 79 20 118/72 97 Room Air 01/31/18 12:34 91 01/31/18 12:10 36.7 99 20 119/77 97 Room Air Physical Exam Constitutional: Vital signs reviewed. Eyes: Pupils are equal round reactive to light. Conjunctiva are noninjected. ENT: Pharynx is clear without erythema or exudate. Mucous membranes are moist. Neck supple without meningeal signs. Respiratory: Clear to auscultation bilaterally. Breath sounds are equal bilaterally. Cardiovascular: Regular rate and rhythm. No rubs or gallops. GI: Minimal left upper quadrant tenderness. Soft and nondistended. Bowel sounds are present. Musculoskeletal: No peripheral edema. No lower extremity tenderness. Integumentary: No cyanosis. Neurological: The patient is awake and alert. No focal deficits. Psychiatric: Very anxious. Medical Decision & Procedures ER Provider Diagnostic Interpretation: Radiology results as stated below per my review and the radiologist's interpretation: TWO VIEW CHEST CLINICAL HISTORY: Atypical chest pain. Nausea. FINDINGS: PA and lateral chest radiographs are compared to study dated 11/19/2017. The cardiomediastinal silhouette is unremarkable. There is mild atherosclerotic calcification of the thoracic aorta. Scattered calcified granulomas are noted. No airspace consolidation or pleural effusion is identified. There is no pneumothorax. The skeletal structures are osteopenic. The bony thorax appears intact. IMPRESSION: No active disease in the chest. Electronically signed by: Tommy Light M.D. 01/31/2018 2:31 PM Dictated Date/Time: 01/31/2018 2:31 PM Laboratory Results 01/31/18 13:30 Red Blood Count 5.22, Mean Corpuscular Volume 90.8, Mean Corpuscular Hemoglobin 30.8, Mean Corpuscular Hemoglobin Concent 34.0, Mean Platelet Volume 9.7, Neutrophils (%) (Auto) 71.5, Lymphocytes (%) (Auto) 16.7, Monocytes (%) (Auto) 8.1, Eosinophils (%) (Auto) 3.0, Basophils (%) (Auto) 0.5, Neutrophils # (Auto) 5.98, Lymphocytes # (Auto) 1.40, Monocytes # (Auto) 0.68, Eosinophils # (Auto) 0.25, Basophils # (Auto) 0.04 01/31/18 13:30 Test 01/31/18 13:30 01/31/18 13:37 White Blood Count 8.37 K/uL (4.8-10.8) Red Blood Count 5.22 M/uL (4.2-5.4) Hemoglobin 16.1 g/dL (12.0-16.0) Hematocrit 47.4 % (37-47) Mean Corpuscular Volume 90.8 fL (80-100) Mean Corpuscular Hemoglobin 30.8 pg (25-34) Mean Corpuscular Hemoglobin Concent 34.0 g/dl (32-36) Platelet Count 342 K/uL (130-400) Mean Platelet Volume 9.7 fL (7.4-10.4) Neutrophils (%) (Auto) 71.5 % Lymphocytes (%) (Auto) 16.7 % Monocytes (%) (Auto) 8.1 % Eosinophils (%) (Auto) 3.0 % Basophils (%) (Auto) 0.5 % Neutrophils # (Auto) 5.98 K/uL (1.4-6.5) Lymphocytes # (Auto) 1.40 K/uL (1.2-3.4) Monocytes # (Auto) 0.68 K/uL (0.11-0.59) Eosinophils # (Auto) 0.25 K/uL (0-0.5) Basophils # (Auto) 0.04 K/uL (0-0.2) RDW Standard Deviation 45.5 fL (36.4-46.3) RDW Coefficient of Variation 13.7 % (11.5-14.5) Immature Granulocyte % (Auto) 0.2 % Immature Granulocyte # (Auto) 0.02 K/uL (0.00-0.02) Prothrombin Time 10.0 SECONDS (9.0-12.0) Prothromb Time International Ratio 1.0 (0.9-1.1) Activated Partial Thromboplast Time 27.5 SECONDS (21.0-31.0) Partial Thromboplastin Ratio 1.1 Anion Gap 7.0 mmol/L (3-11) Est Creatinine Clear Calc Drug Dose 65.7 ml/min Estimated GFR () 74.6 Estimated GFR (Non- 64.4 BUN/Creatinine Ratio 15.4 (10-20) Calcium Level 9.1 mg/dl (8.5-10.1) Total Bilirubin 0.3 mg/dl (0.2-1) Direct Bilirubin < 0.1 mg/dl (0-0.2) Aspartate Amino Transf (AST/SGOT) 16 U/L (15-37) Alanine Aminotransferase (ALT/SGPT) 30 U/L (12-78) Alkaline Phosphatase 106 U/L (45-117) Total Protein 8.5 gm/dl (6.4-8.2) Albumin 3.8 gm/dl (3.4-5.0) Lipase 140 U/L (73-393) Thyroid Stimulating Hormone (TSH) 4.710 uIu/ml (0.300-4.500) Free Thyroxine 0.87 ng/dl (0.80-1.60) Bedside D-Dimer 201 ng/mlFEU (0-450) Bedside Troponin I < 0.030 ng/ml (0-0.045) Laboratory results as reviewed by me. Medications Administered Medications (Trade) Dose Ordered Sig/Irving Route Start Time Stop Time Status Last Admin Dose Admin Lorazepam (Ativan Tab) 0.5 mg NOW STAT SL 01/31/18 13:21 01/31/18 13:22 DC 01/31/18 13:25 0.5 MG ECG Per My Interpretation Indication: chest pain Rate (beats per minute): 84 Rhythm: normal sinus Findings: other (No ST elevation, No PVCs, baseline artifact in V4 and V5) ED Course 1231: The patient was evaluated in room B11. A complete history and physical exam was performed. 1320: Nursing tried to put the IV in, and the patient started crying hysterically and wanted something to calm her down. 1321: Ativan 0.5mg SL 1442: She says that she is feeling better. Cherelle the ED the mental health business case analyst is talking to her right now. I reviewed the test results with her in detail. 1512: The patient was clear by the mental health business case analyst. She will be discharged home. Medical Decision This is a 57-year-old female presents with multiple symptoms including chronic chest, neck and abdominal pain. Differential diagnosis includes generalized anxiety, panic attack, acute coronary syndrome, gallbladder disease, pancreatitis, reflux. I did perform a limited focused review of portions of the patient's old chart on the electronic medical record. The patient was seen her in November for left sided chest pain diffuse abdominal pain, neck stiffness , and jaw pain. She had a negative head CT and blood work and was discharged for outpatient follow up. She was also admitted in August for an intentional Valium overdose. She was seen here in February of last year for neck pain and thought that she had Yael disease. She had a thyroid ultrasound in February which showed a nodule on the right lobe which did not meet the criteria for biopsy I did evaluate the patient as noted above. The patient is presenting with multiple complaints which are mostly chronic. She has had chest, neck and abdominal pain for some time and has been worked up in the ED several times in the past for these symptoms. She is presenting with similar symptoms today. She said she had the symptoms on Wednesday as well and she took an Ativan which alleviated them. She called her psychiatrist today who referred her to the ED for further evaluation. IV access was established. The patient was placed on a continuous manager cardiac cath. She did start crying here in the emergency department and so I did treat her with a small dose of Ativan 0.5 mg sublingually. I did order and personally review the patient's 12-lead EKG and chest x-ray as described above. I did order and review the patient's blood work as noted in the electronic medical record. D-dimer and troponin are negative. Free T4 is within normal limits. Her TSH is elevated. She states that her mail manager recently recommend she increase her thyroxine which seemed reasonable as her free T4 was on the lower side of normal. I did discuss the test results with the patient. She is feeling much better with the Ativan. I did not recommend she take Ativan at home given that she is already on Valium. I did recommend she follow-up with her psychiatrist for further recommendations regarding her anxiety. She was also referred to a regular doctor. I did have the mental health business case analyst speak to her as well to arrange for proper follow-up. She was discharged in good condition. Medication Reconcilliation Current Medication List: was personally reviewed by me Blood Pressure Screening Patient's blood pressure: Normal blood pressure Impression Primary Impression: Acute anxiety Additional Impressions: Chronic abdominal pain Chronic chest pain Scribe Attestation The scribe's documentation has been prepared under my direct and personally reviewed by me in its entirety. I confirm that the note above accurately reflects all work, treatment, procedures, and medical decision making performed by me. Departure Information Dispostion Home / Self-Care Referrals Josiah Song MD (PCP) Forms HOME CARE DOCUMENTATION FORM, IMPORTANT VISIT INFORMATION, WORK / SCHOOL INSTRUCTIONS Patient Instructions Abdominal Pain, Chest Pain - [facility] [place], My [facility] Additional Instructions You have been examined and treated today on an emergency basis only. This is not a substitute for, or an effort to provide, complete comprehensive medical care. It is impossible to recognize and treat all injuries or illnesses in a single emergency department visit. It is therefore important that you follow up closely with your physician. Call as soon as possible for an appointment. Return for worsening symptoms or if you develop fever, vomiting, thoughts of hurting yourself or others or any other concerning symptoms. Problem Qualifiers
== END 2018-01-31 15:38 | disposition home or self-care (01) ==
LOC: C.EDB 12:04
DX: F41.9 Anxiety disorder, unspecified (principal); R10.10 Upper abdominal pain, unspecified; R07.9 Chest pain, unspecified; G89.29 Other chronic pain; F32.9 Major depressive disorder, single episode, unspecified; E03.9 Hypothyroidism, unspecified; Z79.82 Long term (current) use of aspirin; Z79.899 Other long term (current) drug therapy; Z88.5 Allergy status to narcotic agent; Z88.8 Allergy status to other drugs, medicaments and biological substances

== ENCOUNTER 2018-02-20 11:24 | Emergency (ER) | payer OTHER ==
[~2018-02-20] VITALS: Ht 162.6 cm; Wt 78.0 kg
[~2018-02-20 11:24] MED LIST changes: +ASPI81TA28 PO; +LYR25 PO; -PREG75CA PO
[2018-02-20 11:26] VITALS: TEMP 36.2; Ht 162.6 cm; Wt 78.0 kg
[2018-02-20] MEDS ORDERED: LORAZEPAM 2 MG/ML 1 ML VIAL IV STA (11:58)
[2018-02-20] MEDS ORDERED: SODIUM CHLORIDE 0.9% 1000ML 500 ML IV STA (11:58)
--- NOTE | 2018-02-20 12:23 | EMERGENCY ROOM VISIT NOTE ---
History Report prepared by Lori: Abhishek Hidalgo Under the Supervision of: Dr. Tommy Caldwell M.D. First contact with patient: 11:48 Chief Complaint: ILLNESS Stated Complaint: L SIDE OF BODY GOING NUMB INCLUDING HEAD ON VERGE History of Present Illness The patient is a 57 year old female who presents to the Emergency Room with complaints of constant left-sided numbness beginning yesterday. The patient states that she thought she was having a stroke three months ago and came to the emergency department. She notes that following her visit, her Lyrica dosage was reduced because it was thought to have caused her symptoms. She reports that she has been having trouble since her emergency department visit two months ago, but states that her symptoms have worsened since yesterday. The patient notes that she had coffee yesterday that caused her blood pressure to go up to 140/80 and caused her to have a heart rate of 100. She reports that she felt lightheaded and felt like she was going to lose consciousness during the episode. She states that she did not lose consciousness but developed severe left-sided weakness for about an hour. The patient notes that her weakness is still there but is milder than it was yesterday. She also complains of a sore throat, CP, heart racing, SOB, and red blotches on her arms. She denies any fever but notes that her skin feels warm. She reports that she drank a small amount of coffee today and began to feel weak again almost immediately afterwards. She states that she has a history of anxiety and takes medication for her thyroid. The patient notes that the swollen glands on her thyroid have been causing her increased stress recently. Source of History: patient Onset: yesterday Position: other (left-sided body) Quality: numbness Timing: constant Associated Symptoms: + sorethroat, + chest pain, + SOB, No LOC, No fevers Note: The patient also complains of lightheadedness, left-sided weakness, heart racing , and red blotches on her arms. She also notes that her skin feels warm. Review of Systems See HPI for pertinent positives & negatives. A total of 10 systems reviewed and were otherwise negative. Past Medical & Surgical Medical Problems: (1) Anxiety (2) Anxiety (3) Cluster B personality disorder (4) Depression (5) Fatty liver (6) Gallbladder polyp (7) GERD (gastroesophageal reflux disease) (8) Hiatal hernia (9) Hypothyroidism (10) Somatic symptom disorder (11) Thyroid problems Surgical Problems: (1) Lipoma of neck (2) S/P tonsillectomy Family History Diabetes mellitus FHx: gallbladder disease FHx: heart disease FHx: lung disease Hypertension Kidney disease Kidney stones No FHx f blood clots Social History Smoking Status: Never Smoker Alcohol Use: none Drug Use: none Marital Status: Housing Status: lives with family Occupation Status: unemployed Current/Historical Medications Scheduled Aspirin (Aspirin Ec), 81 MG PO DAILY Diazepam (Valium), 5 MG PO BID Levothyroxine Sodium (Tirosint), 50 MCG PO DAILY Pregabalin (Lyrica), 25 MG PO BID Allergies Coded Allergies: Escitalopram (Verified Allergy, Intermediate, RESTLESS ARMS, 02/20/18) Morphine (Verified Allergy, Intermediate, bad reaction, 02/20/18) Venlafaxine (Verified Allergy, Intermediate, RESTLESS ARMS, 02/20/18) Amitriptyline (Verified Adverse Reaction, Severe, FACIAL PAIN, 02/20/18) Buspirone (Verified Adverse Reaction, Severe, "SEIZURE OF JAW"-TREMORS, ) Levothyroxine (Verified Adverse Reaction, Severe, FACE AND TONGUE SWELLING , 02/20/18) PT TAKES THIS MEDICATION DESPITE REACTION 10/14/15- SPOKE WITH PATIENT, BELIEVES THAT THIS REACTION COMES FROM SYNTHROID BECAUSE WHEN THE DOSE WAS INCREASED THE SWELLING GOT WORSE. CURRENTLY TAKES BRAND, BELIEVES HAS TAKEN GENERIC Omeprazole (Verified Adverse Reaction, Severe, SWOLLEN TONGUE, NAUSEA, FACIAL EDEMA, 02/20/18) Sertraline (Verified Adverse Reaction, Intermediate, BURNING FEELING ON TONGUE, 02/20/18) Physical Exam Vital Signs Date Time Temp Pulse Resp B/P (MAP) Pulse Ox O2 Delivery O2 Flow Rate FiO2 02/20/18 14:16 90 18 126/87 97 02/20/18 11:51 97 20 138/96 98 Room Air 02/20/18 11:26 36.2 106 20 113/70 98 Room Air Physical Exam GENERAL: Patient is in mild distress, tearful, and anxious. HEENT: No acute trauma, normocephalic atraumatic, mucous membranes moist, no nasal congestion, no scleral icterus. NECK: No stridor, no adenopathy, no meningismus, trachea is midline. LUNGS: Clear to auscultation bilaterally, no wheeze, no rhonchi, breath sounds equal. HEART: Without murmurs gallops or rubs, regular rate and rhythm. ABDOMEN: Soft, nontender, bowel sounds positive, no hernias, no peritonitis. EXTREMITIES: No cyanosis or edema, full range of motion of all the joints without pain or difficulty, no signs for acute trauma. NEUROLOGIC: Oriented x 3, no acute motor or sensory deficits, no focal weakness , no cerebellar deficits, no pronator drift, no speech slur or facial droop. SKIN: No rash, no jaundice, no diaphoresis. PSYCH: Tearful, anxious, admits to stress and anxiety and concern about glands noted in her thyroid. Medical Decision & Procedures ER Provider Diagnostic Interpretation: Radiology results as stated below per my review and radiologist interpretation: HEAD CT NONCONTRAST Findings: The paranasal sinuses and mastoid air cells are clear. The calvarium and skull base are intact. The ventricles and sulci are within normal limits. There is no mass, hematoma, midline shift, or acute infarct. Impression: No acute intracranial abnormality. Electronically signed by: Zay Rashid M.D. 02/20/2018 12:57 PM CHEST ONE VIEW PORTABLE FINDINGS: The lungs are clear. Cardiac silhouette is normal in size. No pleural effusions. No pneumothorax. IMPRESSION: No acute process. Electronically signed by: Zay Rashid M.D. 02/20/2018 12:58 PM Laboratory Results 02/20/18 12:10 Red Blood Count 4.82, Mean Corpuscular Volume 90.9, Mean Corpuscular Hemoglobin 30.1, Mean Corpuscular Hemoglobin Concent 33.1, Mean Platelet Volume 9.6, Neutrophils (%) (Auto) 74.3, Lymphocytes (%) (Auto) 16.7, Monocytes (%) (Auto) 6.5, Eosinophils (%) (Auto) 1.7, Basophils (%) (Auto) 0.5, Neutrophils # (Auto) 6.38, Lymphocytes # (Auto) 1.44, Monocytes # (Auto) 0.56, Eosinophils # (Auto) 0.15, Basophils # (Auto) 0.04 02/20/18 12:10 Test 02/20/18 00:00 02/20/18 12:10 Urine Color YELLOW Urine Appearance CLEAR (CLEAR) Urine pH 7.5 (4.5-7.5) Urine Specific Thompson 1.008 (1.000-1.030) Urine Protein NEG (NEG) Urine Glucose (UA) NEG (NEG) Urine Ketones NEG (NEG) Urine Occult Blood NEG (NEG) Urine Nitrite NEG (NEG) Urine Bilirubin NEG (NEG) Urine Urobilinogen NEG (NEG) Urine Leukocyte Esterase NEG (NEG) Urine Opiates Screen NEG (NEG) Urine Methadone, Qualitative NEG (NEG) Urine Barbiturates NEG (NEG) Urine Phencyclidine (PCP) Level NEG (NEG) Ur Amphetamine/Methamphetamine NEG (NEG) MDMA (Ecstasy) Screen NEG (NEG) Urine Benzodiazepines Screen POS (NEG) Urine Cocaine Metabolite NEG (NEG) Urine Marijuana (THC) NEG (NEG) White Blood Count 8.60 K/uL (4.8-10.8) Red Blood Count 4.82 M/uL (4.2-5.4) Hemoglobin 14.5 g/dL (12.0-16.0) Hematocrit 43.8 % (37-47) Mean Corpuscular Volume 90.9 fL (80-100) Mean Corpuscular Hemoglobin 30.1 pg (25-34) Mean Corpuscular Hemoglobin Concent 33.1 g/dl (32-36) Platelet Count 374 K/uL (130-400) Mean Platelet Volume 9.6 fL (7.4-10.4) Neutrophils (%) (Auto) 74.3 % Lymphocytes (%) (Auto) 16.7 % Monocytes (%) (Auto) 6.5 % Eosinophils (%) (Auto) 1.7 % Basophils (%) (Auto) 0.5 % Neutrophils # (Auto) 6.38 K/uL (1.4-6.5) Lymphocytes # (Auto) 1.44 K/uL (1.2-3.4) Monocytes # (Auto) 0.56 K/uL (0.11-0.59) Eosinophils # (Auto) 0.15 K/uL (0-0.5) Basophils # (Auto) 0.04 K/uL (0-0.2) RDW Standard Deviation 46.4 fL (36.4-46.3) RDW Coefficient of Variation 14.1 % (11.5-14.5) Immature Granulocyte % (Auto) 0.3 % Immature Granulocyte # (Auto) 0.03 K/uL (0.00-0.02) Anion Gap 7.0 mmol/L (3-11) Est Creatinine Clear Calc Drug Dose 77.5 ml/min Estimated GFR () 94.2 Estimated GFR (Non- 81.3 BUN/Creatinine Ratio 12.6 (10-20) Calcium Level 8.8 mg/dl (8.5-10.1) Magnesium Level 2.0 mg/dl (1.8-2.4) Total Bilirubin 0.3 mg/dl (0.2-1) Aspartate Amino Transf (AST/SGOT) 20 U/L (15-37) Alanine Aminotransferase (ALT/SGPT) 29 U/L (12-78) Alkaline Phosphatase 101 U/L (45-117) Troponin I < 0.015 ng/ml (0-0.045) Total Protein 8.1 gm/dl (6.4-8.2) Albumin 3.7 gm/dl (3.4-5.0) Globulin 4.4 gm/dl (2.5-4.0) Albumin/Globulin Ratio 0.8 (0.9-2) Thyroid Stimulating Hormone (TSH) 2.830 uIu/ml (0.300-4.500) Free Thyroxine 1.08 ng/dl (0.80-1.60) Laboratory results reviewed by me. Medications Administered Medications (Trade) Dose Ordered Sig/Irving Route Start Time Stop Time Status Last Admin Dose Admin Sodium Chloride 500 ml @ 999 mls/hr Q31M STAT IV 02/20/18 11:58 02/20/18 12:28 DC 02/20/18 11:58 999 MLS/HR Lorazepam (Ativan Inj) 1 mg NOW STAT IV 02/20/18 11:58 02/20/18 12:03 DC 02/20/18 12:19 1 MG ECG Per My Interpretation Indication: weakness Rate (beats per minute): 83 Rhythm: normal sinus Findings: no ectopy, other (LVH, no ST elevation, no PVCs) ED Course 1148: The patient was evaluated in room C9. A complete history and physical exam was performed. 1158: Ativan Inj 1mg IV, Sodium Chloride 500 ml @ 999 mls/hr IV 1203: I called out for psychiatric case management. 0117: I spoke to the psych medical case worker. She will go see the patient. 1304: Reevaluated the patient. Discussed results and discharge instructions: She verbalized understanding and agreement. The patient is ready for discharge. Medical Decision Differential diagnoses include: anxiety, panic, stroke, anemia, thyroid disorder , dysrhythmia, medication reaction, and urinary infection. There is no leukocytosis or concerning anemia. No significant electrolyte abnormality, kidney failure, hepatitis. The patient appears to be in a euthyroid state. EKG shows a normal sinus rhythm, no acute ischemia. Cardiac enzyme testing 1 is not consistent with acute cardiac injury. Chest x-ray does not show mediastinal widening, pneumonia or pneumothorax. Brain CT shows no acute bleed or mass-effect. Urinalysis does not show infection. Urine tox shows benzos. On my exam, there were no focal neurologic deficits. No speech slur or facial droop. The patient was quite anxious. Patient received IV saline, she was given IV Ativan. She feels markedly improved. The patient was medically clear for a psychiatric evaluation. She was seen by the psychiatry case management team. The patient was feeling markedly better since the Ativan was administered. She was felt stable for discharge with outpatient follow-up. She is not suicidal. She has agreed to return if worsening. She has been up and has been walking around the room, she is in no distress. No signs of weakness. The patient was given an Ativan home pack. She will talk with her doctors office this week. She will return for worsening symptoms. Medication Reconcilliation Current Medication List: was personally reviewed by me Blood Pressure Screening Patient's blood pressure: Elevated blood pressure Blood pressure disposition: Referred to PCP Impression Primary Impression: Left sided numbness Additional Impressions: Anxiety Fibromyalgia Scribe Attestation The scribe's documentation has been prepared under my direction and personally reviewed by me in its entirety. I confirm that the note above accurately reflects all work, treatment, procedures, and medical decision making performed by me. Departure Information Dispostion Home / Self-Care Referrals Josiah Song MD (PCP) Forms HOME CARE DOCUMENTATION FORM, IMPORTANT VISIT INFORMATION, WORK / SCHOOL INSTRUCTIONS Patient Instructions My [facility] [employer] Additional Instructions may use ativan 1 tab as needed for severe anxiety episodes lab testing today was all ok brain CT scan was normal today follow with your doctors this week return for worsening symptoms or if you start to feel suicidal Stroke History Time Last Known Well yesterday Stroke t-PA Criteria Reviewed Does NOT meet criteria for t-PA Reason t-PA Not Given Treatment not indicated Problem Qualifiers
[2018-02-20 12:29] LABS: BASO % 0.5 %; BASO ABS # 0.04 K/uL (0-0.2); EOS % 1.7 %; EOS ABS # 0.15 K/uL (0-0.5); HEMATOCRIT 43.8 % (37-47); HEMOGLOBIN 14.5 g/dL (12.0-16.0); IG# 0.03 K/uL (0.00-0.02); LYMPH % 16.7 %; LYMPH ABS # 1.44 K/uL (1.2-3.4); MEAN CELL VOLUME 90.9 fL (80-100); MEAN CORPUSCULAR HEMOGLOBIN 30.1 pg (25-34); MEAN CORPUSCULAR HGB CONC 33.1 g/dl (32-36); MEAN PLATELET VOLUME 9.6 fL (7.4-10.4); MONO % 6.5 %; MONO ABS # 0.56 K/uL (0.11-0.59); NEUT % 74.3 %; NEUT ABS # 6.38 K/uL (1.4-6.5); PLATELET COUNT 374 K/uL (130-400); RED CELL DISTRIBUTION WIDTH CV 14.1 % (11.5-14.5); RED CELL DISTRIBUTION WIDTH SD 46.4 fL (36.4-46.3)
[2018-02-20 12:49] LABS: ALBUMIN 3.7 gm/dl (3.4-5.0); ALT/SGPT 29 U/L (12-78); AST/SGOT 20 U/L (15-37); BLOOD UREA NITROGEN 10 mg/dl (7-18); CALCIUM 8.8 mg/dl (8.5-10.1); CARBON DIOXIDE 26 mmol/L (21-32); GLUCOSE 88 mg/dl (70-99); POTASSIUM 3.8 mmol/L (3.5-5.1); SODIUM 140 mmol/L (136-145)
--- NOTE | 2018-02-20 12:58 | DIAGNOSTIC IMAGING REPORT ---
HEAD CT NONCONTRAST CT DOSE: 623.48 mGy.cm HISTORY: EVALUATE ALTERED MENTAL STATUS/WEAKNESS TECHNIQUE: Multiaxial CT images of the head were performed without the use of intravenous contrast. Automated exposure control was utilized for this study. A dose lowering technique was utilized adhering to the principles of ALARA. Comparison: Head CT 11/19/2017. Findings: The paranasal sinuses and mastoid air cells are clear. The calvarium and skull base are intact. The ventricles and sulci are within normal limits. There is no mass, hematoma, midline shift, or acute infarct. Impression: No acute intracranial abnormality. Electronically signed by: Zay Rashid M.D. 02/20/2018 12:57 PM Dictated Date/Time: 02/20/2018 12:49 PM
[2018-02-20 12:59] LABS: ALKALINE PHOSPHATASE 101 U/L (45-117); TOTAL PROTEIN 8.1 gm/dl (6.4-8.2)
--- NOTE | 2018-02-20 13:00 | DIAGNOSTIC IMAGING REPORT ---
CHEST ONE VIEW PORTABLE HISTORY: EVALUATE ALTERED MENTAL STATUS/WEAKNESS COMPARISON: Chest 01/31/2018. FINDINGS: The lungs are clear. Cardiac silhouette is normal in size. No pleural effusions. No pneumothorax. IMPRESSION: No acute process. Electronically signed by: Zay Rashid M.D. 02/20/2018 12:58 PM Dictated Date/Time: 02/20/2018 12:57 PM
[2018-02-20] MEDS ORDERED: ATIVAN 1MG HOMEPACK PO ONE (14:15)
[2018-02-20 14:16] VITALS: BP 126/87; PULSE 90; O2SAT 97
== END 2018-02-20 14:20 | disposition home or self-care (01) ==
LOC: C.EDB 11:25 → C.EDC 14:20
DX: R20.0 Anesthesia of skin (principal); F41.8 Other specified anxiety disorders; R03.0 Elevated blood-pressure reading, without diagnosis of hypertension; R53.1 Weakness; R07.0 Pain in throat; R06.02 Shortness of breath; R21 Rash and other nonspecific skin eruption; E03.9 Hypothyroidism, unspecified; F60.9 Personality disorder, unspecified; Z79.82 Long term (current) use of aspirin; Z79.899 Other long term (current) drug therapy; Z88.6 Allergy status to analgesic agent; Z88.8 Allergy status to other drugs, medicaments and biological substances

== ENCOUNTER 2018-05-19 15:39 | Emergency (ER) | payer OTHER ==
[~2018-05-19] VITALS: Ht 162.6 cm; Wt 82.6 kg
[~2018-05-19 15:39] MED LIST changes: -ASPI81TA28 PO; -DIAZ5TAB PO; +FAMO20TA12 PO; -LEVO25CA2 PO; -LYR25 PO
[2018-05-19 15:42] VITALS: TEMP 36.5; Ht 162.6 cm; Wt 82.6 kg
[2018-05-19] MEDS ORDERED: SODIUM CHLORIDE 0.9% 1000ML 1,000 ML IV STA (16:12)
[2018-05-19] MEDS ORDERED: POLY335019 PO (16:28)
[2018-05-19] MEDS ORDERED: LORA-741 PO (16:28)
[2018-05-19 16:48] LABS: BASO % 0.4 %; BASO ABS # 0.04 K/uL (0-0.2); EOS % 3.1 %; EOS ABS # 0.31 K/uL (0-0.5); HEMATOCRIT 43.7 % (37-47); HEMOGLOBIN 14.3 g/dL (12.0-16.0); IG# 0.03 K/uL (0.00-0.02); LYMPH % 20.9 %; LYMPH ABS # 2.07 K/uL (1.2-3.4); MEAN CORPUSCULAR HEMOGLOBIN 29.8 pg (25-34); MEAN CORPUSCULAR HGB CONC 32.7 g/dl (32-36); MEAN PLATELET VOLUME 9.5 fL (7.4-10.4); MONO % 6.5 %; MONO ABS # 0.64 K/uL (0.11-0.59); NEUT % 68.8 %; NEUT ABS # 6.81 K/uL (1.4-6.5); PLATELET COUNT 379 K/uL (130-400); RED CELL DISTRIBUTION WIDTH CV 13.4 % (11.5-14.5); RED CELL DISTRIBUTION WIDTH SD 44.2 fL (36.4-46.3)
[2018-05-19 17:21] LABS: ALBUMIN 3.5 gm/dl (3.4-5.0); CALCIUM 8.3 mg/dl (8.5-10.1); CREATININE 0.81 mg/dl (0.60-1.20); POTASSIUM 4.1 mmol/L (3.5-5.1); TOTAL PROTEIN 7.7 gm/dl (6.4-8.2)
[2018-05-19] MEDS ORDERED: LEVO50CA2 PO (17:38)
--- NOTE | 2018-05-19 18:02 | EMERGENCY ROOM VISIT NOTE ---
History First contact with patient: 15:52 Chief Complaint: REFERRED BY DOCTOR Stated Complaint: DR. SONG REFERRED History of Present Illness The patient is a 57 year old female who presents to the Emergency Room with complaints of low blood pressure. The patient states that she checks her blood pressure at home when she is "feeling weird" and that it was low this morning. She states that she frequently has low blood pressure, as low as 98 over 50s. She states the lowest it has been was 89/58. She reports feeling like she is going to fall over when she stands up. She states that she called her primary care provider and they wanted her to come in, but she did not feel well enough for that and came here instead. She has worsening anxiety and reports pain across her upper abdomen. She took naproxen for her abdominal pain and this has subsided. She denies any pain at this time. She also states that she feels like she may have problems with her right kidney because she is not urinating very well. She also notes weakness, blurred vision and nausea at times which have all been chronic for her. She also reports that her throat hurts due to her thyroid disorder. She denies fevers, chest pain or shortness of breath. Review of Systems A complete 10 point review of systems was reviewed with the patient with pertinent positives and negatives as per history of present illness. All else were negative. Past Medical/Surgical History Medical Problems: (1) Anxiety (2) Anxiety (3) Cluster B personality disorder (4) Depression (5) Fatty liver (6) Gallbladder polyp (7) GERD (gastroesophageal reflux disease) (8) Hiatal hernia (9) Hypothyroidism (10) Somatic symptom disorder (11) Thyroid problems Surgical Problems: (1) Lipoma of neck (2) S/P tonsillectomy Family History Diabetes mellitus FHx: gallbladder disease FHx: heart disease FHx: lung disease Hypertension Kidney disease Kidney stones No FHx f blood clots Social History Smoking Status: Never Smoker Alcohol Use: none Drug Use: none Marital Status: Housing Status: lives with family Occupation Status: unemployed Current/Historical Medications Scheduled Diazepam (Valium), 5 MG PO BID Levothyroxine Sodium (Tirosint), 50 MCG PO DAILY Scheduled PRN Famotidine (Famotidine), 20 MG PO DAILY PRN for acid reflux Lorazepam (Ativan), 0.5 MG PO BID PRN for Anxiety Polyethylene Glycol 3350 (Miralax), 1 DOSE PO DAILY PRN for Constipation Physical Exam Vital Signs Date Time Temp Pulse Resp B/P (MAP) Pulse Ox O2 Delivery O2 Flow Rate FiO2 05/19/18 18:19 85 16 141/91 95 Room Air 05/19/18 16:51 83 18 115/76 96 Room Air 92 131/81 96 121/86 05/19/18 15:42 36.5 104 20 123/78 96 Room Air Physical Exam VITALS: Vitals are noted on the nurse's note and reviewed by myself. Vital signs stable. GENERAL: This is a 49-year-old female, in no acute distress, nondiaphoretic, well-developed well-nourished. SKIN: The skin was without rashes. HEAD: Normocephalic atraumatic. EARS: External auditory canals clear, tympanic membranes pearly jansen without erythema or effusion bilaterally. EYES: Pupils equal round and reactive to light and accommodation. MOUTH: Mucous membranes moist. Tonsils are not enlarged. Pharynx without erythema or exudate. NECK: Supple without nuchal rigidity. No lymphadenopathy. HEART: Regular rate and rhythm without murmurs gallops or rubs. LUNGS: Clear to auscultation bilaterally without wheezes, rales or rhonchi. ABDOMEN: Positive bowel sounds x 4. Soft, nontender to palpation. NEURO: Patient was alert and oriented to person place and time. Medical Decision & Procedures Laboratory Results 05/19/18 16:30 Red Blood Count 4.80, Mean Corpuscular Volume 91.0, Mean Corpuscular Hemoglobin 29.8, Mean Corpuscular Hemoglobin Concent 32.7, Mean Platelet Volume 9.5, Neutrophils (%) (Auto) 68.8, Lymphocytes (%) (Auto) 20.9, Monocytes (%) (Auto) 6.5, Eosinophils (%) (Auto) 3.1, Basophils (%) (Auto) 0.4, Neutrophils # (Auto) 6.81, Lymphocytes # (Auto) 2.07, Monocytes # (Auto) 0.64, Eosinophils # (Auto) 0.31, Basophils # (Auto) 0.04 05/19/18 16:30 Test 05/19/18 16:30 White Blood Count 9.90 K/uL (4.8-10.8) Red Blood Count 4.80 M/uL (4.2-5.4) Hemoglobin 14.3 g/dL (12.0-16.0) Hematocrit 43.7 % (37-47) Mean Corpuscular Volume 91.0 fL (80-100) Mean Corpuscular Hemoglobin 29.8 pg (25-34) Mean Corpuscular Hemoglobin Concent 32.7 g/dl (32-36) Platelet Count 379 K/uL (130-400) Mean Platelet Volume 9.5 fL (7.4-10.4) Neutrophils (%) (Auto) 68.8 % Lymphocytes (%) (Auto) 20.9 % Monocytes (%) (Auto) 6.5 % Eosinophils (%) (Auto) 3.1 % Basophils (%) (Auto) 0.4 % Neutrophils # (Auto) 6.81 K/uL (1.4-6.5) Lymphocytes # (Auto) 2.07 K/uL (1.2-3.4) Monocytes # (Auto) 0.64 K/uL (0.11-0.59) Eosinophils # (Auto) 0.31 K/uL (0-0.5) Basophils # (Auto) 0.04 K/uL (0-0.2) RDW Standard Deviation 44.2 fL (36.4-46.3) RDW Coefficient of Variation 13.4 % (11.5-14.5) Immature Granulocyte % (Auto) 0.3 % Immature Granulocyte # (Auto) 0.03 K/uL (0.00-0.02) Urine Color YELLOW Urine Appearance CLEAR (CLEAR) Urine pH 5.5 (4.5-7.5) Urine Specific Clarence 1.013 (1.000-1.030) Urine Protein NEG (NEG) Urine Glucose (UA) NEG (NEG) Urine Ketones NEG (NEG) Urine Occult Blood NEG (NEG) Urine Nitrite NEG (NEG) Urine Bilirubin NEG (NEG) Urine Urobilinogen NEG (NEG) Urine Leukocyte Esterase NEG (NEG) Anion Gap 7.0 mmol/L (3-11) Est Creatinine Clear Calc Drug Dose 78.7 ml/min Estimated GFR () 92.8 Estimated GFR (Non- 80.1 BUN/Creatinine Ratio 19.2 (10-20) Calcium Level 8.3 mg/dl (8.5-10.1) Total Bilirubin 0.3 mg/dl (0.2-1) Aspartate Amino Transf (AST/SGOT) 20 U/L (15-37) Alanine Aminotransferase (ALT/SGPT) 30 U/L (12-78) Alkaline Phosphatase 120 U/L (45-117) Total Protein 7.7 gm/dl (6.4-8.2) Albumin 3.5 gm/dl (3.4-5.0) Globulin 4.2 gm/dl (2.5-4.0) Albumin/Globulin Ratio 0.8 (0.9-2) Lipase 127 U/L (73-393) Thyroid Stimulating Hormone (TSH) 2.890 uIu/ml (0.300-4.500) Chemistry Specimen Hemolysis Medications Administered Medications (Trade) Dose Ordered Sig/Irving Route Start Time Stop Time Status Last Admin Dose Admin Sodium Chloride 1,000 ml @ 999 mls/hr Q1H1M STAT IV 05/19/18 16:12 05/19/18 17:12 DC 05/19/18 16:54 999 MLS/HR Medical Decision Differential diagnosis includes anxiety, electrolyte abnormality, infection, hypotension, among others. The patient is a 57-year-old female who presents today complaining of low blood pressure. Of note, patient's blood pressure was normal throughout her stay including orthostatics. Labs revealed no leukocytosis, anemia or concerning electrolyte abnormality. Urinalysis was not suggestive of infection. Patient has been seen here multiple times for anxiety related issues. She did seem to be very anxious throughout the exam. After speaking with her more, it seems that this low blood pressure has been a chronic issue. She was advised to follow-up with Dr. Song regarding this. The patient's case was reviewed with Dr. Hartmann, ED attending physician, who agreed with my assessment and treatment plan. Based on the patient's presentation and work up, I feel the patient is stable for outpatient treatment. The patient was educated to return to the emergency department for any worsening of their current condition or new/concerning symptoms. She will follow up with her PCP. Medication Reconcilliation Current Medication List: was personally reviewed by me Blood Pressure Screening Patient's blood pressure: Elevated blood pressure Blood pressure disposition: Elevated BP felt to be situational Impression Primary Impression: Acute anxiety Departure Information Dispostion Home / Self-Care Condition GOOD Referrals Josiah Song MD (PCP) Patient Instructions My [facility] Additional Instructions Contact Dr. Song's office tomorrow to schedule a follow-up appointment. Make sure to drink plenty of fluids. Return to the emergency room with any worsening or new/concerning symptoms.
[2018-05-19 18:19] VITALS: BP 141/91; PULSE 85; O2SAT 95
[2018-05-19] MEDS ORDERED: DIAZ5TAB PO (21:45)
== END 2018-05-19 18:34 | disposition home or self-care (01) ==
LOC: C.EDB 15:40 → C.EDC 18:34
DX: F41.9 Anxiety disorder, unspecified (principal); E03.9 Hypothyroidism, unspecified; Z83.3 Family history of diabetes mellitus; Z82.49 Family history of ischemic heart disease and other diseases of the circulatory system; Z79.899 Other long term (current) drug therapy

== ENCOUNTER → 2018-05-24 | Outpatient (CLI) | payer OTHER ==
[~2018-05-24] MED LIST changes: +DIAZ5TAB PO; +LEVO50CA2 PO; +LORA-741 PO; +POLY335019 PO
--- NOTE | 2018-05-24 12:59 | DIAGNOSTIC IMAGING REPORT ---
ULTRASOUND GUIDED FINE NEEDLE ASPIRATION OF LEFT LEVEL 2 CERVICAL LYMPH NODE CLINICAL HISTORY: Thyroiditis. Cervical lymph node. COMPARISON STUDY: Neck ultrasound February 11, 2018. PROCEDURE: The patient reports a palpable left level 2 cervical lymph node. Sonography revealed a possible corresponding 8 mm x 5 mm lymph node which was targeted for fine needle aspiration. Procedure, risks and benefits were discussed with the patient. The patient agreed to the procedure and informed written consent was obtained. The procedure was performed by Dr. Go following a timeout. Skin was prepped and draped in sterile fashion and local anesthesia was achieved with 1% lidocaine. Under direct ultrasound guidance, 2 25-gauge fine needle aspirations were performed. Samples were deemed preliminarily adequate by pathology. The patient tolerated the procedure well and no immediate complications were evident. IMPRESSION: Successful ultrasound guided fine needle aspiration of an 8 mm left level 2 cervical lymph node. Electronically signed by: Singh Go M.D. 05/24/2018 12:58 PM Dictated Date/Time: 05/24/2018 12:56 PM
== END | disposition home or self-care (01) ==
LOC: C.ULTR 10:50
PROVIDERS: ATTEND Otolaryngology
DX: E06.3 Autoimmune thyroiditis (principal)

== ENCOUNTER 2018-06-06 11:30 | Emergency (ER) | payer OTHER ==
[~2018-06-06] VITALS: Ht 162.6 cm; Wt 82.9 kg
[2018-06-06 11:53] VITALS: TEMP 36.7; O2SAT 97; Ht 162.6 cm; Wt 82.9 kg
[2018-06-06 11:58] LABS: HEMATOCRIT 44.1 % (37-47); HEMOGLOBIN 14.9 g/dL (12.0-16.0); MEAN CELL VOLUME 90.4 fL (80-100); MEAN CORPUSCULAR HEMOGLOBIN 30.5 pg (25-34); MEAN CORPUSCULAR HGB CONC 33.8 g/dl (32-36); MEAN PLATELET VOLUME 9.9 fL (7.4-10.4); PLATELET COUNT 346 K/uL (130-400); RED CELL DISTRIBUTION WIDTH CV 13.6 % (11.5-14.5); RED CELL DISTRIBUTION WIDTH SD 44.8 fL (36.4-46.3); WHITE BLOOD COUNT 7.17 K/uL (4.8-10.8)
[2018-06-06 12:11] LABS: ALBUMIN 3.4 gm/dl (3.4-5.0); ALT/SGPT 28 U/L (12-78); AST/SGOT 16 U/L (15-37); BLOOD UREA NITROGEN 12 mg/dl (7-18); CALCIUM 9.1 mg/dl (8.5-10.1); CARBON DIOXIDE 22 mmol/L (21-32); CREATININE 0.78 mg/dl (0.60-1.20); GLUCOSE 97 mg/dl (70-99); POTASSIUM 4.1 mmol/L (3.5-5.1); SODIUM 141 mmol/L (136-145)
--- NOTE | 2018-06-06 12:11 | DIAGNOSTIC IMAGING REPORT ---
CHEST ONE VIEW PORTABLE CLINICAL HISTORY: Atypical chest pain COMPARISON STUDY: 04/10/2018 FINDINGS: The cardiac and mediastinal contours are normal. There is no evidence of focal pulmonary consolidation. There is no evidence of failure. No pleural effusions are visualized.[ IMPRESSION: No active disease in the chest. Electronically signed by: Adonis Donnelly M.D. 06/06/2018 12:09 PM Dictated Date/Time: 06/06/2018 12:09 PM
[2018-06-06 12:15] LABS: ALKALINE PHOSPHATASE 103 U/L (45-117); CKMB < 1.0 ng/ml (0.5-3.6); TOTAL PROTEIN 7.8 gm/dl (6.4-8.2)
[2018-06-06] MEDS ORDERED: CYCLOBENZAPRINE HCL 10 MG TAB PO STA (12:35)
[2018-06-06] MEDS ORDERED: PROMETHAZINE HCL 25 MG TAB PO ONE (13:00)
[2018-06-06] MEDS ORDERED: ASCA500 PO (13:07)
[2018-06-06] MEDS ORDERED: FOLI5CAP PO (13:07)
--- NOTE | 2018-06-06 13:27 | EMERGENCY ROOM VISIT NOTE ---
History First contact with patient: 12:05 Chief Complaint: CHEST PAIN Stated Complaint: CHEST PAIN History of Present Illness The patient is a 57 year old female who presents to the Emergency Room with complaints of chest pain that started earlier this morning. It has been constant since. She describes it as a tightness across her chest. She denies any shortness of breath. No fever, chills or cough. She does feel lightheaded. The patient has been dealing with these episodes for many years. She does have a history of anxiety. The patient received a phone call from her primary care doctor this morning. She was told that she had an echocardiogram last week that was abnormal. She thinks that this may have brought on her symptoms. She denies any recent changes in medication. She did take aspirin 324 mg prior to arrival in the ED. She is also complaining of feeling nauseated. No vomiting. No abdominal pain. Review of Systems 10 system review performed and negative unless noted in HPI or below Past Medical/Surgical History Medical Problems: (1) Anxiety (2) Anxiety (3) Cluster B personality disorder (4) Depression (5) Fatty liver (6) Gallbladder polyp (7) GERD (gastroesophageal reflux disease) (8) Hiatal hernia (9) Hypothyroidism (10) Somatic symptom disorder (11) Thyroid problems Surgical Problems: (1) Lipoma of neck (2) S/P tonsillectomy Family History Diabetes mellitus FHx: gallbladder disease FHx: heart disease FHx: lung disease Hypertension Kidney disease Kidney stones No FHx f blood clots Social History Smoking Status: Never Smoker Alcohol Use: none Drug Use: none Marital Status: Housing Status: lives with family Occupation Status: unemployed Current/Historical Medications Scheduled Ascorbic Acid (Vitamin C), 1 TAB PO DAILY Cyclobenzaprine Hcl (Flexeril), 1 TAB PO TID Diazepam (Valium), 5 MG PO BID Folic Acid (Folic Acid), 1 TAB PO DAILY Levothyroxine Sodium (Tirosint), 50 MCG PO DAILY Physical Exam Vital Signs Date Time Temp Pulse Resp B/P (MAP) Pulse Ox O2 Delivery O2 Flow Rate FiO2 06/06/18 19:53 92 15 140/65 98 06/06/18 16:05 96 15 105/78 93 Room Air 06/06/18 13:12 78 16 125/77 94 Room Air 06/06/18 12:44 78 18 127/85 95 Room Air 06/06/18 12:11 79 06/06/18 11:53 36.7 79 20 122/79 96 Room Air 06/06/18 11:53 97 Room Air 06/06/18 11:53 96 Room Air 06/06/18 11:53 36.7 80 19 122/79 97 Room Air Physical Exam VITALS: Vitals are noted on the nurse's note and reviewed by myself. Vital signs stable. GENERAL: 57-year-old female, anxious in appearance, disgruntled,, SKIN: The skin was without rashes, erythema, edema, or bruising. HEAD: Normocephalic atraumatic. EYES: Conjunctivae without injection, sclerae without icterus. Extraocular movements intact. MOUTH: Mucous membranes moist. NECK: Supple without nuchal rigidity. No lymphadenopathy. Cervical spine is nontender. No JVD. HEART: Regular rate and rhythm without murmurs gallops or rubs. Mild tenderness to palpation over the left anterior chest LUNGS: Clear to auscultation bilaterally without wheezes, rales or rhonchi. No accessory muscle use. ABDOMEN: Positive bowel sounds x 4.Soft, nontender, without organomegaly. No guarding or rebound tenderness. MUSCULOSKELETAL: No muscle atrophy, erythema, or edema noted. Strength 5/5 throughout. NEURO: Patient was alert and oriented to person place and time. Normal sensation to touch. No focal neurological deficits. Medical Decision & Procedures ER Provider Diagnostic Interpretation: Chest x-ray IMPRESSION: No active disease in the chest. Electronically signed by: Adonis Donnelly M.D. 06/06/2018 12:09 PM Dictated Date/Time: 06/06/2018 12:09 PM The status of this report is Signed. Draft = Not yet reviewed or approved by Radiologist. Signed = Reviewed and approved by Radiologist. <AttendingPhy></AttendingPhy> <FamilyPhy>Josiah Song MD</FamilyPhy> <PrimaryPhy>Josiah Song MD</PrimaryPhy> <UnitNumber>[id number]</ UnitNumber> <VisitNumber>[id number]</VisitNumber> <PatientName>RAFIA PRINCE</PatientName> <DateOfBirth>1960</DateOfBirth> <Location>[facility]</ Location> <ServiceDate>06/06/18</ServiceDate> <MNE>ESINDI</MNE> <OrderingPhy>No Doctor, Assigned</OrderingPhy> <OrderingPhyMNE>f rep ord dr uribe</OrderingPhyMNE > <DictatingPhyMNE>f rep dict dr uribe</DictatingPhyMNE> <CCListMNE>f rep ct mne</ CCListMNE> <AdmittingPhyMNE>f pt admit dr uribe</AdmittingPhyMNE> <AttendingPhyMNE Laboratory Results 06/06/18 11:50 06/06/18 11:50 Test 06/06/18 11:50 06/06/18 11:53 06/06/18 12:51 Red Blood Count 4.88 M/uL (4.2-5.4) Mean Corpuscular Volume 90.4 fL (80-100) Mean Corpuscular Hemoglobin 30.5 pg (25-34) Mean Corpuscular Hemoglobin Concent 33.8 g/dl (32-36) RDW Standard Deviation 44.8 fL (36.4-46.3) RDW Coefficient of Variation 13.6 % (11.5-14.5) Mean Platelet Volume 9.9 fL (7.4-10.4) Anion Gap 10.0 mmol/L (3-11) Est Creatinine Clear Calc Drug Dose 81.9 ml/min Estimated GFR () 97.1 Estimated GFR (Non- 83.8 BUN/Creatinine Ratio 14.9 (10-20) Calcium Level 9.1 mg/dl (8.5-10.1) Total Bilirubin 0.2 mg/dl (0.2-1) Aspartate Amino Transf (AST/SGOT) 16 U/L (15-37) Alanine Aminotransferase (ALT/SGPT) 28 U/L (12-78) Alkaline Phosphatase 103 U/L (45-117) Total Creatine Kinase 52 U/L (26-192) Creatine Kinase MB < 1.0 ng/ml (0.5-3.6) Creatine Kinase MB Ratio (0-3.0) Total Protein 7.8 gm/dl (6.4-8.2) Albumin 3.4 gm/dl (3.4-5.0) Globulin 4.4 gm/dl (2.5-4.0) Albumin/Globulin Ratio 0.8 (0.9-2) Chemistry Specimen Hemolysis Troponin I < 0.015 ng/ml (0-0.045) Prothrombin Time 10.0 SECONDS (9.0-12.0) Prothromb Time International Ratio 1.0 (0.9-1.1) Activated Partial Thromboplast Time 29.0 SECONDS (21.0-31.0) Partial Thromboplastin Ratio 1.1 Medications Administered Medications (Trade) Dose Ordered Sig/Irving Route Start Time Stop Time Status Last Admin Dose Admin Cyclobenzaprine HCl (Flexeril Tab) 10 mg NOW STAT PO 06/06/18 12:35 06/06/18 12:36 DC 06/06/18 12:43 10 MG Diazepam (Valium Tab) 5 mg NOW ONCE PO 06/06/18 17:30 06/06/18 17:31 DC 06/06/18 17:30 5 MG ECG Per My Interpretation Indication: chest pain Rate (beats per minute): 82 Rhythm: normal sinus Change: no significant change (When compared to April 15, 2018) ED Course Patient was seen and examined Vital signs including blood pressure were reviewed medications list was verified with patient Labs were obtained, and a saline lock was established The patient was medicated with Flexeril. She then began complaining of nausea. She was given Phenergan 25 mg. Imaging was performed and reviewed The psychiatric liaison met with the patient per her request Upon reevaluation, the patient was much more comfortable. We discussed her workup. She voiced understanding, was comfortable being discharged home. Of note, the patient requested 1 dose of Valium prior to discharge. She was ordered her home dose of 5 mg p.o. I reviewed discharge instructions the patient. They voiced understanding and had no further questions. Medical Decision Differential diagnosis: Anxiety disorder, panic disorder, heart failure, acute myocardial infarction, cardiac arrhythmia, anemia, thyroid abnormality, pneumothorax, pneumonia, bronchitis, pericarditis, electrolyte imbalance among others were entertained This patient is a 57-year-old female presents to the emergency department complaining of chest pain and heart palpitations. She has had these intermittent episodes for years. She has severe anxiety. Today, her workup is benign. Her EKG is unchanged when compared to her previous EKG. Her troponin is negative. She is not significantly anemic. There is no leukocytosis to suggest infection. Her chest x-ray is clear. She is not hypoxic. I do not suspect pulmonary embolus. Due to her anxiety, psychiatric liaison was consulted. She was able to calm the patient down. I believe the patient is stable to be discharged home with close follow-up from her primary care physician in addition to psychiatry. The patient was comfortable with this plan , and discharged in good condition This chart was completed in part utilizing [employer] Voice Recognition software. Attempts were made to minimize the grammatical errors, random word insertions, pronoun errors and incomplete sentences. Any formal questions or concerns about the content, text or information contained within the body of this dictation should be directly addressed to the provider for clarification. Medication Reconcilliation Current Medication List: was personally reviewed by me Blood Pressure Screening Patient's blood pressure: Normal blood pressure Impression Primary Impression: Chest pain Additional Impression: Anxiety disorder Departure Information Dispostion Home / Self-Care Condition GOOD Prescriptions Cyclobenzaprine Hcl (FLEXERIL) 10 Mg Tab 1 TAB PO TID for Muscle Spasms, #30 TAB Prov: Gracie Vogt PA-C 06/06/18 Referrals Josiah Song MD (PCP) Patient Instructions My [facility] Additional Instructions You have been evaluated in the emergency department for chest pain. There were no significant abnormalities in the blood work, EKG or chest x-ray. Please continue your current medications as prescribed Flexeril every 8 hours as needed for muscle spasm/pain. Please also do not drink alcohol or drive while taking this medication as it may make you drowsy please follow-up with your primary care physician in addition to your psychiatrist as soon as possible. Call tomorrow morning for a follow-up appointment Do not hesitate to return to emergency department with any new, worsening or concerning symptoms It was a pleasure participating in your care today Problem Qualifiers
[2018-06-06] MEDS ORDERED: CYCL10TA6 PO (16:31)
[2018-06-06] MEDS ORDERED: DIAZEPAM 5MG TAB PO ONE (17:30)
[2018-06-06 19:53] VITALS: BP 140/65; PULSE 92; O2SAT 98
== END 2018-06-06 19:54 | disposition home or self-care (01) ==
LOC: EDBD 11:30 → C.EDB 11:32 → C.EDA 19:54
DX: R07.9 Chest pain, unspecified (principal); F41.9 Anxiety disorder, unspecified; F32.9 Major depressive disorder, single episode, unspecified; K76.0 Fatty (change of) liver, not elsewhere classified; K21.9 Gastro-esophageal reflux disease without esophagitis; E03.9 Hypothyroidism, unspecified; Z83.3 Family history of diabetes mellitus; Z83.79 Family history of other diseases of the digestive system; Z83.6 Family history of other diseases of the respiratory system; Z82.49 Family history of ischemic heart disease and other diseases of the circulatory system; Z84.1 Family history of disorders of kidney and ureter; Z79.899 Other long term (current) drug therapy